=== PATIENT | male | born 1995 | race Caucasian/White ===

== ENCOUNTER 2020-07-28 13:32 | Observation (INO) | payer OTHER, SELFPAY ==
[2020-07-28] VITALS (9 sets, daily range): BP systolic 100–147; BP diastolic 56–98; PULSE 79–103; RESP 16–20; TEMP 36.6–37.3; O2SAT 96–99; BMI 24.2
--- NOTE | 2020-07-28 14:11 | XR_ITS ---
EXAMINATION: XR CHEST CLINICAL INFORMATION: Fever and cough COMPARISON: None TECHNIQUE: Frontal view of the chest was obtained. FINDINGS: No significant abnormality is noted involving the heart, lungs, mediastinum, bony thorax or soft tissues. IMPRESSION: Normal examination.
--- NOTE | 2020-07-28 14:12 | ECG_ITS ---
Test Reason : CHEST PAIN Blood Pressure : / mmHG Vent. Rate : 079 BPM Atrial Rate : 079 BPM P-R Int : 130 ms QRS Dur : 098 ms QT Int : 344 ms P-R-T Axes : 057 068 063 degrees QTc Int : 394 ms Sinus rhythm with marked sinus arrhythmia Otherwise normal ECG No previous ECGs available Referred By: Angelica Munoz Electronically Signed By:JULIA BHATIA MD
[2020-07-28] MEDS: 0.9 % Sodium Chloride 1,000 ML 999 ML IVCONT (14:20)
[2020-07-28] MEDS: ondansetron HCL 4 MG/2 ML VIAL IVPUSH ×2 (14:20→14:59)
--- NOTE | 2020-07-28 14:20 | ED.NAVMDI ---
HPI - Nausea/Vomiting/Diarrhea General Chief complaint: Nausea/Vomiting/Diarrhea <Angelica Munoz MD - Last Filed: 07/28/20 15:34> Stated complaint: flu symptons <Angelica Munoz MD - Last Filed: 07/28/20 15:34> Time Seen by Provider: 07/28/20 14:11 <Angelica Munoz MD - Last Filed: 07/28/20 15:34> Source: patient <Angelica Munoz MD - Last Filed: 07/28/20 15:34> Mode of arrival: ambulatory <Angelica Munoz MD - Last Filed: 07/28/20 15:34> Limitations: no limitations <Angelica Munoz MD - Last Filed: 07/28/20 15:34> History of Present Illness HPI Narrative: 25 years old male presented with 2 days his symptoms of fever, nausea, vomiting, and nonbloody watery diarrhea. Patient denies any sick contact, or recent travel, patient work at a [employer] place. <Angelica Munoz MD - Last Filed: 07/28/20 15:34> MD elicited complaint: nausea, vomiting, diarrhea and abdominal pain <Angelica Munoz MD - Last Filed: 07/28/20 15:34> Related Data Allergies/Adverse reactions: Allergies Allergy/AdvReac Type Severity Reaction Status Date / Time No Known Allergies Allergy Unverified 06/27/20 17:00 [No Known Allergies*] <Angelica Munoz MD - Last Filed: 07/28/20 15:34> Review of Systems Review of Systems: Yes all other systems are reviewed and are negative <Angelica Munoz MD - Last Filed: 07/28/20 15:34> Constitutional: Constitutional: Reports anorexia, Reports body ache(s), Reports chills, Reports fatigue, Reports fever(s) and Reports headache(s) <MD Enrique Josue Last Filed: 07/28/20 15:34> Eyes: Eyes: Reports no additional eye complaints <MD Enrique Josue Last Filed: 07/28/20 15:34> ENT: Reports system reviewed and no additional complaints, except as documented and Reports headache(s) <Angelica Munoz MD - Last Filed: 07/28/20 15:34> Cardiovascular: Cardiovascular: Reports no additional cardiovascular complaints <Angelica Munoz MD - Last Filed: 07/28/20 15:34> Respiratory: Respiratory: Reports no additional respiratory complaints <Angelica Munoz MD - Last Filed: 07/28/20 15:34> Gastrointestinal: Gastrointestinal: Reports as per HPI and Reports no additional gastrointestinal complaints <Angelica Munoz MD - Last Filed: 07/28/20 15:34> Neurologic: Reports system reviewed and no additional complaints, except as documented, Reports Abnormal speech present and Reports headache(s) <Angelica Munoz MD - Last Filed: 07/28/20 15:34> Endocrine: Endocrine: Reports fatigue <Angelica Munoz MD - Last Filed: 07/28/20 15:34> [facility] Past Medical History Medical History: Medical History No known health problems <Angelica Munoz MD - Last Filed: 07/28/20 15:34> Social History Social History: Social History Alcohol intake: never Smoked in Last 30 Days: No Use of substances other than those prescribed or required for medical reasons: No Advance Directives: No Advance Directives Information Provided: No <Angelica Munoz MD - Last Filed: 07/28/20 15:34> Physical Exam Vital Signs: Vital Signs: Vital Signs Temp Pulse Resp BP Pulse Ox 07/28/20 19:04 98.5 F 90 18 130/73 99 07/28/20 17:21 98.2 F 79 16 114/77 07/28/20 15:06 98.2 F 07/28/20 13:56 99 07/28/20 13:54 99.1 F 95 20 147/98 H 99 Body Mass Index 24.2 <Angelica Munoz MD - Last Filed: 07/28/20 15:34> Vital Signs: Vital Signs Temp Pulse Resp BP Pulse Ox 07/28/20 19:04 98.5 F 90 18 130/73 99 07/28/20 17:21 98.2 F 79 16 114/77 07/28/20 15:06 98.2 F 07/28/20 13:56 99 07/28/20 13:54 99.1 F 95 20 147/98 H 99 Body Mass Index 24.2 <Valerie Nava MD - Last Filed: 07/28/20 19:26> Const: General: tired appearing <Angelica Munoz MD - Last Filed: 07/28/20 15:34> Orientation/consciousness: oriented to person, oriented to place and oriented to time <Angelica Munoz MD - Last Filed: 07/28/20 15:34> Limitations: no limitations <Angelica Munoz MD - Last Filed: 07/28/20 15:34> HENMT: Head: Yes normal to inspection <Angelica Munoz MD - Last Filed: 07/28/20 15:34> Ears: hearing grossly normal bilaterally <Angelica Munoz MD - Last Filed: 07/28/20 15:34> General nose exam: Normal external nose present <Angelica Munoz MD - Last Filed: 07/28/20 15:34> Eyes: General: appearance normal, both eyes and all related structures <Angelica Munoz MD - Last Filed: 07/28/20 15:34> Neck: Neck: Yes normal visual inspection, Yes full ROM and Yes no lymphadenopathy <MD Enrique Josue Last Filed: 07/28/20 15:34> Chest: Chest palpation & inspection: normal inspection of the chest and normal palpation of entire chest wall <Angelica Munoz MD - Last Filed: 07/28/20 15:34> Resp: Effort & Inspection: normal respiratory effort <Angelica Munoz MD - Last Filed: 07/28/20 15:34> Auscultation: clear to auscultation bilaterally <MD Enrique Josue Last Filed: 07/28/20 15:34> Cardio: Jugular venous distension: no JVD <MD Enrique Josue Last Filed: 07/28/20 15:34> Palpation: normal PMI <Angelica Munoz MD - Last Filed: 07/28/20 15:34> Rate: regular rate <Angelica Munoz MD - Last Filed: 07/28/20 15:34> Rhythm: regular rhythm <Angelica Munoz MD - Last Filed: 07/28/20 15:34> GI: Inspection: Yes normal to inspection <Angelica Munoz MD - Last Filed: 07/28/20 15:34> Palpation (GI): Tenderness to palpation present (GI) ( Mild) in the epigastrum; with no rebound tenderness <Angelica Munoz MD - Last Filed: 07/28/20 15:34> : General: Yes no CVA tenderness <Angelica Munoz MD - Last Filed: 07/28/20 15:34> Back/Spine/Pelvis: Back: no CVA tenderness <Angelica Munoz MD - Last Filed: 07/28/20 15:34> Skin: General skin exam: no rashes or lesions noted <Angelica Munoz MD - Last Filed: 07/28/20 15:34> Neuro: General: oriented to person, oriented to place and oriented to time <Angelica Munoz MD - Last Filed: 07/28/20 15:34> Cranial nerves: Yes CN's II-XII intact bilaterally <Angelica Munoz MD - Last Filed: 07/28/20 15:34> Cognition (Neuro): normal cognition <Angelica Munoz MD - Last Filed: 07/28/20 15:34> Speech: Abnormal speech present <Angelica Munoz MD - Last Filed: 07/28/20 15:34> Motor exam (neuro): 5/5 motor strength present throughout <Angelica Munoz MD - Last Filed: 07/28/20 15:34> Extrem: General: Yes normal to inspection and Yes full ROM <Angelica Munoz MD - Last Filed: 07/28/20 15:34> Course Course Course Narrative: this is a 25-year-old male otherwise healthy presented with nausea, vomiting, and diarrhea, and objective fever. Patient was tested negative for COVID-19 couple months ago, patient declined any risk for exposing to COVID. Patient complained of chest pain which is part of generalized body ache. Will test for COVID, EKG, labs, IV hydration, anti emetic medication, then re-evaluate. <Angelica Munoz MD - Last Filed: 07/28/20 15:34> Reevaluation(s) Reevaluation #1: 25-year-old male otherwise healthy presented with nausea, vomiting, diarrhea, abdominal pain, leukocytosis. High suspicious for COVID ( COVID testing is pending ), abdominal pain and leukocytosis will get CT of the abdomen pelvis rule out intra abdominal pathology. Patient will require IV hydration/ IV pain medication/ IV antiemetic medication. Case was signed out to Dr. Nava to follow up with the plan then to his poor accordingly. <Angelica Munoz MD - Last Filed: 07/28/20 15:34> Time: 15:31 <Angelica Munoz MD - Last Filed: 07/28/20 15:34> MDM - Nausea/Vomiting/Diarrhea Lab Data Result diagrams: : 07/28/20 14:27 07/28/20 14:27 <Angelica Munoz MD - Last Filed: 07/28/20 15:34> Labs: Lab Results 07/28/20 07/28/20 07/28/20 Range/Units 14:27 14:27 14:27 WBC 17.3 H (4.8-10.8) X10*3/uL RBC 5.41 (4.60-5.80) X10*6/uL Hgb 16.9 (14.0-18.0) g/dl Hct 48.1 (42-52) % MCV 88.9 (80-98) fL MCH 31.2 (27.0-33.0) pg MCHC 35.1 (31.0-36.0) g/dl RDW 13.0 (11.0-16.0) % Plt Count 275 (160-400) X10*3/uL MPV 10.1 (9.4-12.4) fL Absolute Nucleated RBC 0.000 (0.0-0.012) X10*3/uL Nucleated RBC % (auto) 0.0 (0.0-0.2) /100WBC Sodium 138 (135-145) mmol/L Potassium 3.9 (3.3-5.1) mmol/l Chloride 102 (96-108) mmol/L Carbon Dioxide 21 L (22-29) mmol/L Anion Gap 19 (12-20) BUN 14 (9-16) mg/dL Creatinine 0.97 (0.5-1.4) mg/dL Estim Creat Clear Calc 105.9 Estimated GFR > 60 Random Glucose 130 H (60-115) mg/dL Calcium 10.2 (8.4-10.2) mg/dL Total Bilirubin 1.4 H (0.0-1.0) mg/dL Direct Bilirubin 0.6 H (0.0-0.5) mg/dL AST 27 (5-37) U/L ALT 41 H (0-40) U/L Alkaline Phosphatase 82 (39-117) U/L Troponin I High Sens (<3.5-35.0) ng/L Total Protein 8.7 H (6.5-8.0) g/dL Albumin 5.3 H (3.5-5.0) g/dL Lipase 6 L (8-78) U/L Coronavirus (PCR) (Negative) 07/28/20 07/28/20 Range/Units 14:27 15:01 WBC (4.8-10.8) X10*3/uL RBC (4.60-5.80) X10*6/uL Hgb (14.0-18.0) g/dl Hct (42-52) % MCV (80-98) fL MCH (27.0-33.0) pg MCHC (31.0-36.0) g/dl RDW (11.0-16.0) % Plt Count (160-400) X10*3/uL MPV (9.4-12.4) fL Absolute Nucleated RBC (0.0-0.012) X10*3/uL Nucleated RBC % (auto) (0.0-0.2) /100WBC Sodium (135-145) mmol/L Potassium (3.3-5.1) mmol/l Chloride (96-108) mmol/L Carbon Dioxide (22-29) mmol/L Anion Gap (12-20) BUN (9-16) mg/dL Creatinine (0.5-1.4) mg/dL Estim Creat Clear Calc Estimated GFR Random Glucose (60-115) mg/dL Calcium (8.4-10.2) mg/dL Total Bilirubin (0.0-1.0) mg/dL Direct Bilirubin (0.0-0.5) mg/dL AST (5-37) U/L ALT (0-40) U/L Alkaline Phosphatase (39-117) U/L Troponin I High Sens < 3.5 (<3.5-35.0) ng/L Total Protein (6.5-8.0) g/dL Albumin (3.5-5.0) g/dL Lipase (8-78) U/L Coronavirus (PCR) NEGATIVE (Negative) <Angelica Munoz MD - Last Filed: 07/28/20 15:34> Lab Results 07/28/20 07/28/20 07/28/20 Range/Units 14:27 14:27 14:27 WBC 17.3 H (4.8-10.8) X10*3/uL RBC 5.41 (4.60-5.80) X10*6/uL Hgb 16.9 (14.0-18.0) g/dl Hct 48.1 (42-52) % MCV 88.9 (80-98) fL MCH 31.2 (27.0-33.0) pg MCHC 35.1 (31.0-36.0) g/dl RDW 13.0 (11.0-16.0) % Plt Count 275 (160-400) X10*3/uL MPV 10.1 (9.4-12.4) fL Absolute Nucleated RBC 0.000 (0.0-0.012) X10*3/uL Nucleated RBC % (auto) 0.0 (0.0-0.2) /100WBC Sodium 138 (135-145) mmol/L Potassium 3.9 (3.3-5.1) mmol/l Chloride 102 (96-108) mmol/L Carbon Dioxide 21 L (22-29) mmol/L Anion Gap 19 (12-20) BUN 14 (9-16) mg/dL Creatinine 0.97 (0.5-1.4) mg/dL Estim Creat Clear Calc 105.9 Estimated GFR > 60 Random Glucose 130 H (60-115) mg/dL Calcium 10.2 (8.4-10.2) mg/dL Total Bilirubin 1.4 H (0.0-1.0) mg/dL Direct Bilirubin 0.6 H (0.0-0.5) mg/dL AST 27 (5-37) U/L ALT 41 H (0-40) U/L Alkaline Phosphatase 82 (39-117) U/L Troponin I High Sens (<3.5-35.0) ng/L Total Protein 8.7 H (6.5-8.0) g/dL Albumin 5.3 H (3.5-5.0) g/dL Lipase 6 L (8-78) U/L Coronavirus (PCR) (Negative) 07/28/20 07/28/20 Range/Units 14:27 15:01 WBC (4.8-10.8) X10*3/uL RBC (4.60-5.80) X10*6/uL Hgb (14.0-18.0) g/dl Hct (42-52) % MCV (80-98) fL MCH (27.0-33.0) pg MCHC (31.0-36.0) g/dl RDW (11.0-16.0) % Plt Count (160-400) X10*3/uL MPV (9.4-12.4) fL Absolute Nucleated RBC (0.0-0.012) X10*3/uL Nucleated RBC % (auto) (0.0-0.2) /100WBC Sodium (135-145) mmol/L Potassium (3.3-5.1) mmol/l Chloride (96-108) mmol/L Carbon Dioxide (22-29) mmol/L Anion Gap (12-20) BUN (9-16) mg/dL Creatinine (0.5-1.4) mg/dL Estim Creat Clear Calc Estimated GFR Random Glucose (60-115) mg/dL Calcium (8.4-10.2) mg/dL Total Bilirubin (0.0-1.0) mg/dL Direct Bilirubin (0.0-0.5) mg/dL AST (5-37) U/L ALT (0-40) U/L Alkaline Phosphatase (39-117) U/L Troponin I High Sens < 3.5 (<3.5-35.0) ng/L Total Protein (6.5-8.0) g/dL Albumin (3.5-5.0) g/dL Lipase (8-78) U/L Coronavirus (PCR) NEGATIVE (Negative) <Valerie Nava MD - Last Filed: 07/28/20 19:26> Discharge Plan Discharge Clinical Impression: Gastroenteritis Abdominal pain Qualifiers: Abdominal location: generalized Qualified Code(s): R10.84 - Generalized abdominal pain <Angelica Munoz MD - Last Filed: 07/28/20 15:34> Patient Disposition: Admitted As Inpatient <Angelica Munoz MD - Last Filed: 07/28/20 15:34>
[2020-07-28 14:35] LABS: Hematocrit 48.1 % (42-52); Hemoglobin 16.9 g/dl (14.0-18.0); Mean Corpuscular HGB Conc 35.1 g/dl (31.0-36.0); Mean Corpuscular Hemoglobin 31.2 pg (27.0-33.0); Mean Corpuscular Volume 88.9 fL (80-98); Mean Platelet Volume 10.1 fL (9.4-12.4); Platelet Count 275 X10*3/uL (160-400); Red Blood Count 5.41 X10*6/uL (4.60-5.80); White Blood Count 17.3 X10*3/uL (4.8-10.8)
[2020-07-28 14:59] LABS: Anion Gap 19 (12-20); Blood Urea Nitrogen 14 mg/dL (9-16); Calcium 10.2 mg/dL (8.4-10.2); Carbon Dioxide 21 mmol/L (22-29); Chloride 102 mmol/L (96-108); Creatinine Clr Calc Pharmacy 105.9; Estimated Glomerular Filt Rate > 60; Glucose Random 130 mg/dL (60-115); Potassium 3.9 mmol/l (3.3-5.1); Sodium 138 mmol/L (135-145)
[2020-07-28] MEDS: Ketorolac Tromethamine 15 MG/ML VIAL 30 MG IV (14:59)
[2020-07-28 15:00] LABS: Alanine Aminotransferase 41 U/L (0-40); Albumin Level 5.3 g/dL (3.5-5.0); Alkaline Phosphatase 82 U/L (39-117); Aspartate Amino Transferase 27 U/L (5-37); Bilirubin Direct 0.6 mg/dL (0.0-0.5); Bilirubin Total 1.4 mg/dL (0.0-1.0); Lipase 6 U/L (8-78); Total Protein 8.7 g/dL (6.5-8.0)
[2020-07-28 15:07] LABS: Troponin-I High Sensitivity < 3.5 ng/L (<3.5-35.0)
--- NOTE | 2020-07-28 15:07 | PC.NURSE ---
pt medicated for continues n/v up bile-like emesis, body aches. pt tearful. pending covid and dispo
--- NOTE | 2020-07-28 15:27 | CT_ITS ---
EXAMINATION: CT ABDOMEN AND PELVIS WITHOUT CONTRAST CLINICAL INFORMATION: 25-year-old male with abdominal pain and elevated white blood cell count. COMPARISON: CT abdomen pelvis 08/14/2009 TECHNIQUE: Multidetector volumetric imaging was performed from the superior aspect of the liver through the pubic symphysis. Sagittal and coronal reformatted images were obtained on the technologist's workstation. This CT examination was performed using dose optimization techniques as appropriate, variously including the following: *Automated exposure control *Adjustment of mA and/or kV according to patient size (this includes techniques or standardized protocols for targeted exams where dose is matched to indication/reason for exam; i.e. extremities or head) *Use of iterative reconstruction technique DLP: 439 mGy-cm FINDINGS: Visualized lung bases are well aerated. The liver demonstrates normal size, contour and attenuation. The gallbladder is normal in appearance. The pancreas, spleen and adrenal glands are unremarkable. Small inferior splenule. The kidneys are normal in size. No renal calculi or hydronephrosis bilaterally. Normal caliber loops of small and large bowel. Normal appendix. Nonaneurysmal abdominal aorta. The bladder is decompressed but normal in appearance. No inguinal lymphadenopathy. No gross free pelvic fluid. No acute osseous abnormality. IMPRESSION: No CT evidence for acute abnormality within the abdomen or pelvis.
[2020-07-28] MEDS: Morphine Sulfate 2 MG/ML CARTRIDGE IVPUSH (15:46)
[2020-07-28 16:10] LABS: SARS COV2 PCR INHOUSE NEGATIVE (Negative)
--- NOTE | 2020-07-28 16:50 | PC.NURSE ---
pharmacy called for banana bag
[2020-07-28] MEDS: Metoclopramide HCl 10 MG/2 ML VIAL IVPUSH (17:17)
[2020-07-28] MEDS: Morphine Sulfate 4 MG/ML CARTRIDGE IVPUSH (17:55)
[2020-07-28] MEDS: Prochlorperazine Edisylate 10 MG/2 ML VIAL IVPUSH (17:55)
--- NOTE | 2020-07-28 18:41 | ED.GENADULT ---
HPI - General Adult General Chief complaint: Nausea/Vomiting/Diarrhea Stated complaint: flu symptons Time Seen by Provider: 07/28/20 14:11 Source: patient Mode of arrival: ambulatory Limitations: no limitations Related Data Allergies Allergy/AdvReac Type Severity Reaction Status Date / Time No Known Allergies Allergy Unverified 06/27/20 17:00 [No Known Allergies*] Review of Systems Constitutional: Constitutional: Reports headache(s) ENT: Reports headache(s) Neurologic: Reports system reviewed and no additional complaints, except as documented, Reports Abnormal speech present and Reports headache(s) [facility] Past Medical History Medical History No known health problems Social History Social History Alcohol intake: never Smoked in Last 30 Days: No Use of substances other than those prescribed or required for medical reasons: No Advance Directives: No Advance Directives Information Provided: No Physical Exam Vital Signs: Vital Signs: Vital Signs Temp Pulse Resp BP Pulse Ox 07/28/20 17:21 98.2 F 79 16 114/77 07/28/20 15:06 98.2 F 07/28/20 13:56 99 07/28/20 13:54 99.1 F 95 20 147/98 H 99 Body Mass Index 24.2 Neuro: Speech: Abnormal speech present Course Course Course Narrative: I received sign-out from Dr. Munoz. patient has received normal saline, Reglan, Zofran, Compazine, multiple doses of morphine. Patient continues having diffuse abdominal pain and nausea vomiting. Patient to be admitted. Medical Decision Making MDM Narrative Medical decision making narrative: Patient's white blood cell count 17, still continues to vomit despite multiple treatments for nausea vomiting. Lab Data Result diagrams: 07/28/20 14:27 07/28/20 14:27 Labs: Lab Results 07/28/20 07/28/20 07/28/20 Range/Units 14:27 14:27 14:27 WBC 17.3 H (4.8-10.8) X10*3/uL RBC 5.41 (4.60-5.80) X10*6/uL Hgb 16.9 (14.0-18.0) g/dl Hct 48.1 (42-52) % MCV 88.9 (80-98) fL MCH 31.2 (27.0-33.0) pg MCHC 35.1 (31.0-36.0) g/dl RDW 13.0 (11.0-16.0) % Plt Count 275 (160-400) X10*3/uL MPV 10.1 (9.4-12.4) fL Absolute Nucleated RBC 0.000 (0.0-0.012) X10*3/uL Nucleated RBC % (auto) 0.0 (0.0-0.2) /100WBC Sodium 138 (135-145) mmol/L Potassium 3.9 (3.3-5.1) mmol/l Chloride 102 (96-108) mmol/L Carbon Dioxide 21 L (22-29) mmol/L Anion Gap 19 (12-20) BUN 14 (9-16) mg/dL Creatinine 0.97 (0.5-1.4) mg/dL Estim Creat Clear Calc 105.9 Estimated GFR > 60 Random Glucose 130 H (60-115) mg/dL Calcium 10.2 (8.4-10.2) mg/dL Total Bilirubin 1.4 H (0.0-1.0) mg/dL Direct Bilirubin 0.6 H (0.0-0.5) mg/dL AST 27 (5-37) U/L ALT 41 H (0-40) U/L Alkaline Phosphatase 82 (39-117) U/L Troponin I High Sens (<3.5-35.0) ng/L Total Protein 8.7 H (6.5-8.0) g/dL Albumin 5.3 H (3.5-5.0) g/dL Lipase 6 L (8-78) U/L Coronavirus (PCR) (Negative) 07/28/20 07/28/20 Range/Units 14:27 15:01 WBC (4.8-10.8) X10*3/uL RBC (4.60-5.80) X10*6/uL Hgb (14.0-18.0) g/dl Hct (42-52) % MCV (80-98) fL MCH (27.0-33.0) pg MCHC (31.0-36.0) g/dl RDW (11.0-16.0) % Plt Count (160-400) X10*3/uL MPV (9.4-12.4) fL Absolute Nucleated RBC (0.0-0.012) X10*3/uL Nucleated RBC % (auto) (0.0-0.2) /100WBC Sodium (135-145) mmol/L Potassium (3.3-5.1) mmol/l Chloride (96-108) mmol/L Carbon Dioxide (22-29) mmol/L Anion Gap (12-20) BUN (9-16) mg/dL Creatinine (0.5-1.4) mg/dL Estim Creat Clear Calc Estimated GFR Random Glucose (60-115) mg/dL Calcium (8.4-10.2) mg/dL Total Bilirubin (0.0-1.0) mg/dL Direct Bilirubin (0.0-0.5) mg/dL AST (5-37) U/L ALT (0-40) U/L Alkaline Phosphatase (39-117) U/L Troponin I High Sens < 3.5 (<3.5-35.0) ng/L Total Protein (6.5-8.0) g/dL Albumin (3.5-5.0) g/dL Lipase (8-78) U/L Coronavirus (PCR) NEGATIVE (Negative) Discharge Plan Discharge Clinical Impression: Gastroenteritis, Abdominal pain Patient Disposition: Admitted As Inpatient
--- NOTE | 2020-07-28 18:52 | PC.NURSE ---
hospitalist at bedside
--- NOTE | 2020-07-28 19:51 | PC.NURSE ---
called to med surg. awaiting call back
[2020-07-28] MEDS: 0.9 % Sodium Chloride 1,000 ML 100 ML IVCONT (22:23)
[2020-07-28] MEDS: Morphine Sulfate 2 MG/ML CARTRIDGE 1 MG IVPUSH (22:57)
--- NOTE | 2020-07-28 23:10 | HP_ITS ---
DATE OF SERVICE: 07/28/2020 CHIEF COMPLAINT: Mr. Aren Julio is a 25-year-old male presenting with nausea, vomiting, and abdominal discomfort. HISTORY OF PRESENT ILLNESS: He is a 25-year-old male with no significant past medical history who comes into the emergency room today because of nausea, vomiting, and abdominal pain, this started about 3 days ago. He is not sure what may have precipitated it. He denies any associated food. He has not had any recent travel. No sick contacts. He said that he gets several episodes of nausea, vomiting, and diarrhea a day, specifically today he has only had 3 episodes of nonbloody loose associated with the abdominal pain that is fairly diffuse. He says that he has felt like he has chills, but no fever and has not taken any antibiotics over the course of the last 3 months. [place] [id number] with no left shift and a CAT scan of the abdomen or pelvis is essentially unremarkable. He admits to daily marijuana smoking. Treatment in the ED has consisted of hydration, antiemetics, ketorolac, and morphine for pain. ALLERGIES: NO KNOWN ALLERGIES. PAST MEDICAL HISTORY: He does have history of gastroenteritis in the past, other than that he has no past medical history. SOCIAL HISTORY: He is unemployed. He smoke marijuana on a daily basis. He denied other illicit drug use. He uses alcohol on a social basis. FAMILY HISTORY: He reported that his father or mother carried no significant chronic medical disease. REVIEW OF SYSTEMS: CONSTITUTIONAL: There is no fever. RESPIRATORY: He has no respiratory symptoms. GI: Abdominal pain, nausea, and vomiting as detailed in history of present illness. All other systems are reviewed and are negative. MEDICATIONS: He takes no chronic medications. PHYSICAL EXAMINATION: VITAL SIGNS: Most recent include a temperature of 98.2, pulse 79, respirations 15, blood pressure 114/76, and oxygen saturation 99% on room air. GENERAL: The patient looks fairly well nourished, was not in any discomfort at all. General appearance was unremarkable. CARDIOVASCULAR: Regular rate on the panel monitor. LUNGS: He has normal lung expansion and no acute respiratory distress at all. ABDOMEN: Fairly unremarkable, soft, no distention, no tenderness. SKIN: Without rash. NEUROLOGICAL EXAM: Unremarkable. PSYCHIATRIC: The patient with normal affect. LABORATORY DATA: WBC 17.3, hemoglobin is 16.9, hematocrit 48.9, and platelets of 275. Chemistry, sodium 138, potassium 3.9, chloride 102, bicarb is 21, BUN is 14, creatinine 0.96, random glucose is 130, total bilirubin 1.4, direct bili is 0.6, alkaline phosphatase is within normal 82, total protein is 8.7, albumin is 5.3, and lipase is 6, which is low. Coronavirus test is negative. CT of the abdomen and pelvis again is unremarkable. ASSESSMENT: This is a 25-year-old male presented with nausea, vomiting, abdominal pain, elevated WBC, likely reactive process. CT of the abdomen and pelvis unremarkable. He likely has acute viral gastroenteritis. Given the ongoing nausea and vomiting and unable to keep oral intake, we will observe overnight. PLAN: We will consider hydration, antiemetics, and pain medications. We will also take the opportunity to check a stool studies including WBC, culture, and c diff, although it is very unlikely. He will be counseled on the need for marijuana cessation as this could be contributing to his presentation in the form of a cyclical vomiting. He is at low risk for DVT and therefore, we will encourage him to ambulate and he likely will not stay in the hospital beyond tomorrow. MD GERALD Magana/ANGELINA / [id number]
[2020-07-28] MEDS: 0.9 % Sodium Chloride Flush 3 ML SYRINGE IVFLUSH (23:46)
[2020-07-29 04:00] VITALS: BP 109/58; PULSE 88; RESP 16; TEMP 36.8; O2SAT 97
[2020-07-29 04:04] LABS: Glucose Urine UA 100 MG/DL (NEG); Leukocyte Esterase Urine NEG (NEG); Nitrite Urine NEG (NEG); PH 6.5 (5.0-8.0); Specific Gravity - Urine 1.025 (1.005-1.025); Urine Blood NEG (NEG); Urine Ketones 40 MG/DL (NEG); Urine Protein TRACE MG/DL (NEG-TRACE)
[2020-07-29 04:06] LABS: Appearance Urine CLEAR; Color Urine YELLOW; UACC Culture Trigger NO
[2020-07-29 06:10] VITALS: RESP 17
[2020-07-29 06:13] VITALS: RESP 17
[2020-07-29] MEDS: Morphine Sulfate 2 MG/ML CARTRIDGE 1 MG IVPUSH (06:13)
[2020-07-29 07:14] LABS: Basophils Percent Auto 0.2 % (0-2); Eosinophils Percent Auto 0.1 % (0-4); Hematocrit 42.3 % (42-52); Hemoglobin 14.7 g/dl (14.0-18.0); Imm Gran Abs Auto 0.04 X10*3/uL (0.00-0.03); Imm Gran Pct Auto 0.3 % (0.0-0.4); Lymphocytes Absolute Auto 2.4 X10*3/uL (1.2-4.9); Lymphocytes Percent Auto 19.1 % (20-40); MANUAL DIFF FLAG SCAN; Mean Corpuscular HGB Conc 34.8 g/dl (31.0-36.0); Mean Corpuscular Hemoglobin 31.3 pg (27.0-33.0); Mean Corpuscular Volume 90.2 fL (80-98); Mean Platelet Volume 10.7 fL (9.4-12.4); Monocytes Absolute Auto 1.5 X10*3/uL (0.1-1.2); Monocytes Percent Auto 12.2 % (2-11); Neutrophils Absolute Auto 8.5 X10*3/uL (2.0-8.3); Neutrophils Percent Auto 68.1 % (45-73); Platelet Count 225 X10*3/uL (160-400); Red Blood Count 4.69 X10*6/uL (4.60-5.80); Red Cell Distribution Width 12.9 % (11.0-16.0); SCAN SMEAR FLAG 1; White Blood Count 12.5 X10*3/uL (4.8-10.8)
[2020-07-29] MEDS: 0.9 % Sodium Chloride 1,000 ML 100 ML IVCONT (07:28)
[2020-07-29 07:30] LABS: Anion Gap 13 (12-20); Blood Urea Nitrogen 10 mg/dL (9-16); Carbon Dioxide 22 mmol/L (22-29); Chloride 107 mmol/L (96-108); Creatinine Clr Calc Pharmacy 130.1; Estimated Glomerular Filt Rate > 60; Glucose Random 90 mg/dL (60-115); Potassium 3.7 mmol/l (3.3-5.1); Sodium 138 mmol/L (135-145)
[2020-07-29 07:47] LABS: Calcium 8.6 mg/dL (8.4-10.2)
[2020-07-29 08:00] VITALS: BP 98/55; PULSE 60; RESP 20; TEMP 37.1; O2SAT 98
[2020-07-29 08:00] LABS: SLIDE REVIEW VERIFIED
--- NOTE | 2020-07-29 08:27 | PM.DS ---
DS: Providers Provider Date of admission: 07/28/20 18:54 Primary care physician: Curtis Physician DS: Diagnosis Discharge Diagnosis (1) Gastroenteritis: Status: Acute (2) Abdominal pain: Status: Acute DS: Summary Hospital Course Hospital Course: See H and P for detail. 25-year-old male otherwise healthy who presented to the ED with nausea vomiting abdominal pain of 2-[address] scan of the abdomen and pelvis was unremarkable. WBC was elevated but related to reactive process. Patient was hospitalized overnight hydrated with IV fluid, giving antiemetics and by the next morning was feeling fine WBC has returned to come down to 12 from 17. 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 He is advised to stop smoking marijuana and to drink plenty of fluid. Has not had any more diarrhea or nausea vomiting overnight and is tolerating regular diet. He will be going home. He is advised to follow-up with primary care physician physician upon discharge . Status at Discharge Functional status at discharge: independent ambulation Overall status at discharge: patient is back to baseline Time Spent with Patient Time attestation: Total time spent providing and/or coordinating discharge services: Physical Exam Vital Signs: Vital Signs: Vital Signs Temp Pulse Resp BP Pulse Ox 07/29/20 08:00 98.7 F 60 20 98/55 L 98 07/29/20 06:13 17 07/29/20 06:10 17 07/29/20 04:00 98.2 F 88 16 109/58 L 97 07/28/20 23:20 99 F 95 18 100/56 L 97 07/28/20 22:57 18 07/28/20 21:27 98.3 F 103 H 18 129/65 96 07/28/20 20:51 97.9 F 90 18 138/83 97 07/28/20 19:04 98.5 F 90 18 130/73 99 07/28/20 17:21 98.2 F 79 16 114/77 07/28/20 15:06 98.2 F 07/28/20 13:56 99 07/28/20 13:54 99.1 F 95 20 147/98 H 99 Constitutional Awake and Alert, No apparent distress Neck Supple, No lymphadenopathy Cardiovascular RRR, No M/R/G, S1 S2, No S3 S4, No pedal edema Respiratory Lungs clear, No respiratory distress Gastrointestinal Non tender, Non-distended Skin No rash Neurological Alert & oriented x3 Psychological Appropriate affect DS: Data Data Completed and Pending Labs on day of discharge: Labs from last 24 hours 07/29/20 07/29/20 07/29/20 06:28 06:28 03:46 WBC 12.5 H RBC 4.69 Hgb 14.7 Hct 42.3 MCV 90.2 MCH 31.3 MCHC 34.8 RDW 12.9 Plt Count 225 MPV 10.7 Immature Gran % (Auto) 0.3 Neut % (Auto) 68.1 Lymph % (Auto) 19.1 L [place] % (Auto) 12.2 H Eos % (Auto) 0.1 Baso % (Auto) 0.2 Lymph # (Auto) 2.4 [place] # (Auto) 1.5 H Eos # (Auto) 0.0 Baso # (Auto) 0.0 Abs Immat Gran (auto) 0.04 H Absolute Neuts (auto) 8.5 H Absolute Nucleated RBC 0.000 Nucleated RBC % (auto) 0.0 Smear Tech's Comments VERIFIED Sodium 138 Potassium 3.7 Chloride 107 Carbon Dioxide 22 Anion Gap 13 BUN 10 Creatinine 0.79 Estim Creat Clear Calc 130.1 Estimated GFR > 60 Random Glucose 90 Calcium 8.6 Total Bilirubin Direct Bilirubin AST ALT Alkaline Phosphatase Troponin I High Sens Total Protein Albumin Lipase Urine Color YELLOW Urine Appearance CLEAR Urine pH 6.5 Ur Specific [place] 1.025 Urine Protein TRACE Urine Glucose (UA) 100 H Urine Ketones 40 Urine Blood NEG Urine Nitrite NEG Ur Leukocyte Esterase NEG Coronavirus (PCR) 07/28/20 07/28/20 07/28/20 15:01 14:27 14:27 WBC RBC Hgb Hct MCV MCH MCHC RDW Plt Count MPV Immature Gran % (Auto) Neut % (Auto) Lymph % (Auto) [place] % (Auto) Eos % (Auto) Baso % (Auto) Lymph # (Auto) [place] # (Auto) Eos # (Auto) Baso # (Auto) Abs Immat Gran (auto) Absolute Neuts (auto) Absolute Nucleated RBC Nucleated RBC % (auto) Smear Tech's Comments Sodium Potassium Chloride Carbon Dioxide Anion Gap BUN Creatinine Estim Creat Clear Calc Estimated GFR Random Glucose Calcium Total Bilirubin 1.4 H Direct Bilirubin 0.6 H AST 27 ALT 41 H Alkaline Phosphatase 82 Troponin I High Sens < 3.5 Total Protein 8.7 H Albumin 5.3 H Lipase 6 L Urine Color Urine Appearance Urine pH Ur Specific [place] Urine Protein Urine Glucose (UA) Urine Ketones Urine Blood Urine Nitrite Ur Leukocyte Esterase Coronavirus (PCR) NEGATIVE 07/28/20 07/28/20 14:27 14:27 WBC 17.3 H RBC 5.41 Hgb 16.9 Hct 48.1 MCV 88.9 MCH 31.2 MCHC 35.1 RDW 13.0 Plt Count 275 MPV 10.1 Immature Gran % (Auto) Neut % (Auto) Lymph % (Auto) [place] % (Auto) Eos % (Auto) Baso % (Auto) Lymph # (Auto) [place] # (Auto) Eos # (Auto) Baso # (Auto) Abs Immat Gran (auto) Absolute Neuts (auto) Absolute Nucleated RBC 0.000 Nucleated RBC % (auto) 0.0 Smear Tech's Comments Sodium 138 Potassium 3.9 Chloride 102 Carbon Dioxide 21 L Anion Gap 19 BUN 14 Creatinine 0.97 Estim Creat Clear Calc 105.9 Estimated GFR > 60 Random Glucose 130 H Calcium 10.2 Total Bilirubin Direct Bilirubin AST ALT Alkaline Phosphatase Troponin I High Sens Total Protein Albumin Lipase Urine Color Urine Appearance Urine pH Ur Specific [place] Urine Protein Urine Glucose (UA) Urine Ketones Urine Blood Urine Nitrite Ur Leukocyte Esterase Coronavirus (PCR) Discharge Plan Discharge Anticipated Discharge Date/Time: 07/29/20 08:25 Patient Disposition: Home, Self-Care Referrals: Physician,None [Primary Care Provider] - Discharge Medications: No Action No Known Home Meds RF: 0 Discharge Orders: Discharge Order (Routine); Ordered 07/29/20 Ordered By: Kris Ruelas Diet: advance to your usual diet Activity on Discharge: As tolerated Visit Report Forms: Patient Portal Discharge page Care Plan Goals: Prevent dehydration Health Concerns: Potential dehydration from intactable nausea and vomitting Plan of Treatment: Drink plenty of water
--- NOTE | 2020-07-29 09:29 | MHC.CM.PN ---
MET WITH PATIENT IN HIS ROOM. OPEN TO ASSESSMENT. LIVES ALONE, BUT HAS SUPPORTIVE FRIENDS AND FAMILY. HAS NO SERVICES AND REQUIRES NONE FOR THIS DISCHARGE. PT DOES NOT HAVE A PCP; LIST OF PRIMARY CARE PHYSICIAN GIVEN TO PT. PT IS DISCHARGED HOME.
[2020-07-29] MEDS: Ketorolac Tromethamine 15 MG/ML VIAL IV (09:59)
== END 2020-07-29 12:18 | disposition home or self-care (01) ==
LOC: HO.ED 18:46 → HO.S3 19:55
PROVIDERS: Emergency Medicine; Physician Assistant Medical; Admitting Provider Internal Medicine; Emergency Provider Emergency Medicine; Visit Provider Internal Medicine
DX: R10.9 Unspecified abdominal pain (principal); D72.829 Elevated white blood cell count, unspecified; R11.15 Cyclical vomiting syndrome unrelated to migraine; R50.9 Fever, unspecified; R05 Cough; F12.20 Cannabis dependence, uncomplicated; Z79.899 Other long term (current) drug therapy; Z20.828 Contact with and (suspected) exposure to other viral communicable diseases
CPT/HCPCS: 36415; 71045; 74176; 80048; 80076; 81003; 83690; 84484; 85025; 85027; 87635; 93005; 96361; 96365; 96375; 96376; 99218; 99285; J1885; J2270; J2405; J2765; J3411

== ENCOUNTER 2021-08-16 11:13 | Emergency (ER) | payer OTHER, SELFPAY ==
[2021-08-16 11:40] VITALS: BP 114/77; PULSE 97; RESP 18; TEMP 36.6; O2SAT 99; BMI 24.2
[2021-08-16 12:34] VITALS: TEMP 36.8
[2021-08-16 12:48] LABS: COVID-19 Test Positive (Negative)
--- NOTE | 2021-08-16 13:03 | ED_ITS ---
HPI - URI/Sore Throat General Chief Complaint: Upper Respiratory Symptoms Stated Complaint: fever, body ache, cough, diff breathing Time Seen by Provider: 08/16/21 11:16 Source: patient Mode of arrival: ambulatory Limitations: no limitations History of Present Illness MD elicited complaint: fever, cough and other (body aches, diff breathing) Onset (ago): day(s) (3) Consistency: intermittent Severity: mild Description of mucous: clear Able to tolerate fluids by mouth: Yes Exacerbating factors: nothing Relieving factors: nothing Context: other (not vaccinated) Associated symptoms: fever, chills, myalgias, cough and shortness of breath Treatments prior to arrival: none Related Data Home Medications Medication Instructions Recorded Confirmed No Known Home Meds 07/28/20 07/28/20 Allergies Allergy/AdvReac Type Severity Reaction Status Date / Time No Known Allergies Allergy Unverified 06/27/20 17:00 [No Known Allergies*] Review of Systems Review of Systems: Constitutional : positive Fever, positive Chills, positive fatigue, positive Malaise ENT/Mouth : positive sore throat, positive runny nose Eyes: No Discharge Cardiovascular : No Chest Pain, pos SOB Respiratory : No Cough, No Sputum Gastrointestinal : No Nausea, No Vomiting, No Diarrhea Genitourinary : No Dysuria, No Urinary Frequency Musculoskeletal : positive Myalgia Skin : No rash Neuro : No Headache PMFSH Past Medical History Attestation statement: The following information was validated with the patient. Medical History No known health problems Social History Social History Alcohol intake: never Second Hand Smoke Exposure: No Advance Directives: No service: No Current occupational status: unemployed Physical Exam Vital Signs: Vital Signs: Last Vital Signs Temp 98.3 F 08/16/21 12:34 Pulse 97 08/16/21 11:40 Resp 18 08/16/21 11:40 BP 114/77 08/16/21 11:40 Pulse Ox 99 08/16/21 11:40 Body Mass Index 24.2 Appearance: Alert. Oriented X3. No acute distress. Initially very hard to get the patient off the phone with his family - fighting about how he contracted the virus. I had to ask him to get off the phone a couple of times to assess him, he had no signs of resp distress while talking animated to family - yelling at times, I asked him to put the phone on speaker so that I could examine him. He moved around well and showed no signs of peritoneal signs and moved very well. Eyes: Pupils equal, round and reactive to light. ENT: Pharynx normal. Neck: Normal inspection. Neck supple. CVS: Normal heart rate and rhythm. Pulses normal. Respiratory: No respiratory distress. Breath sounds normal. Abdomen: Soft and non-tender. Skin: Skin warm and dry. Normal skin color. Normal skin turgor. Extremities: No lower extremity edema. No calf ttp Neuro: Oriented X 3. No motor deficit. No sensory deficit. MDM - URI/Sore Throat MDM Narrative Medical decision making narrative: 26 yo male unvaccinated here with c/o feeling fatigued, winded, fevers - tested positive for COVID, he has clear lungs and has no hypoxia 98% on RA - given precautions to return Lab Data Labs: Lab Results 08/16/21 Range/Units 12:31 COVID-19 ([facility]) Positive A (Negative) COVID-19 Clin Com See Note Discharge Plan Discharge Clinical Impression: COVID-19 Patient Disposition: Home, Self-Care Instructions: COVID-19 (Coronavirus Disease 2019) (ED) Additional Instructions: return to ED for any worsening symptoms or concerns if you are so short of breath you cannot walk to the bathroom please come back wear a mask, quarantine yourself, do not expose others you could contact [facility] to see if you qualify for treatment [phone] Prescriptions: No Action No Known Home Meds RF: 0 Stand Alone Forms: Work/School Release Interventions: ED Discharge Assessment Last Done: 08/16/21 13:28 Discharge Date/Time: 08/16/21 13:29
== END 2021-08-16 13:29 | disposition home or self-care (01) ==
PROVIDERS: Emergency Provider Emergency Medicine
DX: U07.1 COVID-19 (principal); R50.9 Fever, unspecified; R05.9 Cough, unspecified; M79.10 Myalgia, unspecified site
CPT/HCPCS: 36415; 87635; 99283; 99284

== ENCOUNTER 2023-06-20 15:36 | Emergency (ER) | payer OTHER, SELFPAY ==
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
--- NOTE | 2023-06-20 07:30 | ECG_ITS ---
Test Reason : ASSUALTED Blood Pressure : / mmHG Vent. Rate : 108 BPM Atrial Rate : 108 BPM P-R Int : 140 ms QRS Dur : 092 ms QT Int : 358 ms P-R-T Axes : 035 042 008 degrees QTc Int : 479 ms Sinus tachycardia Possible Left atrial enlargement Borderline ECG When compared with ECG of 20-JUN-2023 15:51, No significant change was found Referred By: Lara Ramos Electronically Signed By:DEJAN TOMLINSON
[2023-06-20 15:42] VITALS: BP 140/79; PULSE 175; RESP 20; O2SAT 98
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
--- NOTE | 2023-06-20 15:50 | ECG_ITS ---
Test Reason : TACHY Blood Pressure : / mmHG Vent. Rate : 134 BPM Atrial Rate : 134 BPM P-R Int : 136 ms QRS Dur : 086 ms QT Int : 306 ms P-R-T Axes : 041 042 021 degrees QTc Int : 456 ms Sinus tachycardia Possible Left atrial enlargement Abnormal ECG When compared with ECG of 28-JUL-2020 13:41, Vent. rate has increased BY 55 BPM Referred By: Wendi Frias Electronically Signed By:DEJAN TOMLINSON
[2023-06-20 16:15] LABS: MANUAL DIFF FLAG NO
[2023-06-20 16:17] LABS: Basophils Percent Auto 0.1 % (0-2); Eosinophils Absolute Auto 0.1 X10*3/uL (0.0-0.4); Eosinophils Percent Auto 0.8 % (0-4); Hematocrit 40.5 % (42.0-52.0); Imm Gran Abs Auto 0.07 X10*3/uL (0.00-0.03); Imm Gran Pct Auto 0.7 % (0.0-0.4); Lymphocytes Absolute Auto 3.4 X10*3/uL (1.2-4.9); Mean Corpuscular HGB Conc 34.6 g/dl (31.0-36.0); Mean Corpuscular Hemoglobin 28.3 pg (27.0-33.0); Mean Platelet Volume 9.7 fL (9.4-12.4); Monocytes Absolute Auto 0.6 X10*3/uL (0.1-1.2); Monocytes Percent Auto 6.1 % (2-11); Neutrophils Absolute Auto 6.2 x10*3/uL (2.0-8.3); Neutrophils Percent Auto 59.3 % (45-73); Platelet Count 284 X10*3/uL (160-400); Red Blood Count 4.94 X10*6/uL (4.60-5.80); Red Cell Distribution Width 13.2 % (11.0-16.0); White Blood Count 10.4 X10*3/uL (4.8-10.8)
[2023-06-20 16:26] LABS: Prothrombin Time 11.6 SEC (11.1-13.3)
[2023-06-20 16:35] VITALS: BP 143/95; PULSE 109; RESP 16; O2SAT 96
[2023-06-20 16:35] LABS: Alanine Aminotransferase 41 U/L (0-40); Albumin Level 4.7 g/dL (3.5-5.0); Alkaline Phosphatase 106 U/L (39-117); Anion Gap 16 (12-20); Aspartate Amino Transferase 44 U/L (5-37); Bilirubin Total 0.8 mg/dL (0.0-1.0); Blood Urea Nitrogen 6 mg/dL (9-16); Calcium 9.4 mg/dL (8.4-10.2); Carbon Dioxide 22 mmol/L (22-29); Chloride 102 mmol/L (96-108); Creatinine Clr Calc Pharmacy 131.5; Estimated Glomerular Filt Rate > 60; Ethanol < 10 mg/dL; Glucose Random 136 mg/dL (60-115); Potassium 3.4 mmol/L (3.3-5.1); Sodium 137 mmol/L (135-145)
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
[2023-06-20 16:48] LABS: Troponin-I High Sensitivity < 2.7 ng/L (<3.5-35.0)
[2023-06-20 17:42] VITALS: BP 143/95; PULSE 87; RESP 16
[2023-06-20] MEDS: 0.9 % Sodium Chloride 1,000 ML 999 ML IV (18:04)
[2023-06-20 18:08] LABS: Amphetamine Screen Urine Not Detected (Not Detect); Barbiturates, Urine Not Detected (Not Detect); Benzodiazepines Screen Urine Not Detected (Not Detect); Cannabinoid Screen Urine POSITIVE (Not Detect); Cocaine Screen Urine Not Detected (Not Detect); Fentanyl, urine POSITIVE (Not Detect); Opiate Screen Urine POSITIVE (Not Detect); Phencyclidine Screen Urine Not Detected (Not Detect)
[2023-06-20] MEDS: Ketorolac Tromethamine 15 MG/ML VIAL IVPUSH (19:00)
[2023-06-20] MEDS: Diphth,Pertus(ACell),Tet Adult 0.5 ML SYRINGE IM (19:00)
== END 2023-06-20 19:10 | disposition home or self-care (01) ==
PROVIDERS: Nurse Practitioner Family; Emergency Provider Emergency Medicine Emergency Medical Services; PCP Internal Medicine
DX: S06.0X0A Concussion without loss of consciousness, initial encounter (principal); S21.259A Open bite of unspecified back wall of thorax without penetration into thoracic cavity, initial encounter; S00.91XA Abrasion of unspecified part of head, initial encounter; Y04.1XXA Assault by human bite, initial encounter; M54.50 Low back pain, unspecified; R51.9 Headache, unspecified; R00.0 Tachycardia, unspecified; M54.2 Cervicalgia; R07.89 Other chest pain; R42 Dizziness and giddiness; Y93.9 Activity, unspecified; Y92.9 Unspecified place or not applicable; Y99.9 Unspecified external cause status; Z23 Encounter for immunization; Z79.899 Other long term (current) drug therapy
CPT/HCPCS: 12031; 36415; 70450; 71045; 72125; 80053; 80307; 84484; 85025; 85610; 90471; 90715; 93005; 96374; 99285; J1885

== ENCOUNTER 2023-08-14 14:06 | Inpatient (IN) | payer OTHER, SELFPAY ==
[2023-08-14 14:09] VITALS: BP 142/85; PULSE 79; RESP 16; TEMP 37.1; O2SAT 98; BMI 25.1
--- NOTE | 2023-08-14 14:11 | ED.GENADULT ---
HPI - General Adult General Chief complaint: Psychiatric Symptoms Stated complaint: crisis? Time Seen by Provider: 08/14/23 14:17 Source: patient Mode of arrival: ambulatory Limitations: no limitations History of Present Illness HPI narrative: Patient comes to the emergency room complaining of suicidal ideation. Patient states that he has considered overdosing. Patient used IV drugs approximately 2 hours ago. Patient denies HI. Patient currently homeless. Related Data Home Medications Medication Instructions Recorded Confirmed Methadone Intensol 95 mg PO DAILY 08/14/23 08/15/23 aripiprazole 5 mg tablet 5 mg PO DAILY 08/14/23 08/14/23 gabapentin 300 mg capsule 300 mg PO TID PRN anxiety 08/14/23 08/14/23 hydroxyzine HCl 25 mg tablet 25 mg PO TID PRN anxiety 08/14/23 08/14/23 mirtazapine 15 mg tablet 15 mg PO BEDTIME 08/14/23 08/14/23 nicotine (polacrilex) 4 mg gum 4 mg PO Q2H PRN Smoking Cessation 08/14/23 08/14/23 Allergies Allergy/AdvReac Type Severity Reaction Status Date / Time No Known Allergies Allergy Verified 08/14/23 14:09 [No Known Allergies*] Review of Systems Review of Systems: Constitutional : No Weight loss, No Fever, No Chills, No Night Sweats, No Fatigue, No Malaise ENT/Mouth : No Hearing loss, No Ear Pain, No Nasal Congestion, No Sinus Pain, No Hoarseness, No sore throat, No Rhinorrhea, No Swallowing Difficulty Eyes: No Eye Pain, No Swelling, No Redness, No Foreign Body, No Discharge, No Vision Changes Cardiovascular : No Chest Pain, No SOB, No Dyspnea on Exertion, No Orthopnea, No Edema, No Palpitations Respiratory : No Cough, No Sputum, No Wheezing, No Smoke Exposure, No Dyspnea Gastrointestinal : No Nausea, No Vomiting, No Diarrhea, No Constipation, No abdominal Pain, No Hematochezia, No Melena Genitourinary : no irregular bleeding, No Dysuria, No Urinary Frequency, No Hematuria, No Urinary Incontinence, No Urgency, No Flank Pain, No Urinary Flow Changes, No Hesitancy Musculoskeletal : No joint pain, No Myalgias, No Joint Swelling Skin : No Skin Lesions, No rash Neuro : No Weakness, No Numbness, No Paresthesias, No Loss of Consciousness, No Dizziness, No Headache Psych : No Anxiety/Panic, complaining of suicidal ideation, no homicidal ideation, admits to drug abuse and being homeless Heme/Lymph: No Bruising, No Bleeding,No Lymphadenopathy Endocrine : No Polyuria, No Polydipsia, No Temperature Intolerance PMF Past Medical History Medical History (Updated 08/14/23 @ 14:52 by Valerie Nava MD) Polysubstance abuse Social History Social History Alcohol intake: former Second Hand Smoke Exposure: No Substance Use Type: Opiates Advance Directives: No Advance Directives Information Provided: No Healthcare Proxy: No Guardian: No service: No Current occupational status: unemployed Physical Exam ED Vital Signs: Vital Signs - 24 hr 08/15/23 20:08 08/16/23 06:16 Temperature 98 F 98.2 F Pulse Rate 78 68 Respiratory Rate 18 16 Blood Pressure 109/75 121/83 Pulse Oximetry 95 98 Oxygen Delivery Method Room Air Room Air BMI result Body Mass Index 25.1 Const Other: Appearance: Alert. Oriented X3. No acute distress. Eyes: Pupils equal, round and reactive to light. ENT: Pharynx normal. Neck: Normal inspection. Neck supple. No lymph nodes noted. No crepitus CVS: Normal heart rate and rhythm. Pulses normal. Normal S1 and S2 Respiratory: No respiratory distress. Breath sounds normal. No Wheezing. No rales Abdomen: Soft and nontender. No rigidity. No distention. Skin: Skin warm and dry. Normal skin color. Normal skin turgor. Extremities: No lower extremity edema. No Lacerations. No Rash Neuro: Oriented X 3. No motor deficit. No sensory deficit. Moving all extremities. No slurred speech. CN 2 through 12 grossly intact Psych: calm, cooperative, normal affect Course Course Course Narrative: Patient complains of depression anxiety and stress He has suicidal thoughts and has attempted to overdose, and is contemplating jumping off a bridge Labs ordered This is rapid medical exam and triage pending full evaluation in the emergency room Reevaluation(s) Reevaluation #1: Aug 15 7:05 stable overnight he on section 12 for SI /substance abuse no new complaints Time: 07:06 Reevaluation #2: Aug 16 8 AM no new complaints we are waiting for crisis final dispo he presented with SI Medications Administered Generic Name Dose Route Start Last Admin Trade Name Freq PRN Reason Stop Dose Admin Aripiprazole 5 mg 08/15/23 09:00 08/15/23 10:17 Aripiprazole 5 Mg Tablet PO 5 mg DAILY LAURE Administration Gabapentin 300 mg 08/14/23 19:48 08/14/23 20:16 Gabapentin 300 Mg Capsule PO 300 mg TID PRN Administration anxiety Mirtazapine 15 mg 08/14/23 21:00 08/15/23 21:57 Mirtazapine 15 Mg Tablet PO 15 mg BEDTIME LAURE Administration Nicotine Polacrilex 4 mg 08/14/23 19:48 08/15/23 11:23 Nicotine Polacrilex 2 Mg Gum BUCCAL 4 mg Q2H PRN Administration Smoking Cessation Discontinued Medications Generic Name Dose Route Start Last Admin Trade Name Freq PRN Reason Stop Dose Admin Ibuprofen 800 mg 08/14/23 20:07 08/14/23 20:16 Ibuprofen 800 Mg Tablet PO 08/14/23 20:08 800 mg ONCE ONE Administration Methadone HCl 95 mg 08/15/23 09:43 08/15/23 10:17 Methadone Hcl 20 Mg/2 Ml Oral.Conc PO 08/15/23 09:44 95 mg ONCE ONE Administration Medical Decision Making Medical Decision Making MDM Narrative: -all of patient's labs pending -care team consult pending Physician observation started that 14:45 Differential Diagnosis Differential Diagnoses: The differential diagnosis associated with the presentation includes (Polysubstance abuse, anxiety, depression, homelessness seeking a place to stay) Admission/Observation Consideration of admission/observation: Escalation of care including admission/observation considered (Care team consult pending.) Lab Data 08/14/23 16:43 08/14/23 16:43 Labs: Lab Results 08/14/23 08/14/23 08/15/23 Range/Units 14:46 16:43 14:33 WBC 9.6 (4.8-10.8) X10*3/uL RBC 4.52 L (4.60-5.80) X10*6/uL Hgb 13.1 L (14.0-18.0) g/dl Hct 37.5 L (42.0-52.0) % MCV 83.0 (80.0-98.0) fL MCH 29.0 (27.0-33.0) pg MCHC 34.9 (31.0-36.0) g/dl RDW 14.7 (11.0-16.0) % Plt Count 225 (160-400) X10*3/uL MPV 10.1 (9.4-12.4) fL Immature Gran % (Auto) 0.2 (0.0-0.4) % Neut % (Auto) 77.8 H (45-73) % Lymph % (Auto) 11.1 L (20-40) % Castro % (Auto) 9.6 (2-11) % Eos % (Auto) 1.1 (0-4) % Baso % (Auto) 0.2 (0-2) % Lymph # (Auto) 1.1 L (1.2-4.9) X10*3/uL Castro # (Auto) 0.9 (0.1-1.2) X10*3/uL Eos # (Auto) 0.1 (0.0-0.4) X10*3/uL Baso # (Auto) 0.0 (0.0-0.2) X10*3/uL Abs Immat Gran (auto) 0.02 (0.00-0.03) X10*3/uL Absolute Neuts (auto) 7.5 (2.0-8.3) x10*3/uL Absolute Nucleated RBC 0.000 (0.0-0.012) X10*3/uL Nucleated RBC % (auto) 0.0 (0.0-0.2) /100WBC Sodium 138 (135-145) mmol/L Potassium 4.3 D (3.3-5.1) mmol/L Chloride 103 (96-108) mmol/L Carbon Dioxide 27 (22-29) mmol/L Anion Gap 12 (12-20) BUN 7 L (9-16) mg/dL Creatinine 0.95 (0.5-1.4) mg/dL Estim Creat Clear Calc 109.2 Estimated GFR > 60 Random Glucose 82 (60-115) mg/dL Calcium 9.7 (8.4-10.2) mg/dL Total Bilirubin 1.3 H (0.0-1.0) mg/dL Direct Bilirubin 0.4 (0.0-0.5) mg/dL AST 41 H (5-37) U/L ALT 34 (0-40) U/L Alkaline Phosphatase 101 (39-117) U/L Total Protein 7.8 (6.5-8.0) g/dL Albumin 4.6 (3.5-5.0) g/dL Urine Color Yellow Urine Appearance Clear Urine pH 6.5 (5.0-9.0) Ur Specific [place] 1.015 (1.005-1.025) Urine Protein Negative (Neg-Trace) mg/dL Urine Glucose (UA) Negative (Negative) mg/dL Urine Ketones Negative (Negative) mg/dL Urine Blood Negative (Negative) Urine Nitrite Negative (Negative) Ur Leukocyte Esterase Negative (Negative) Urine RBC 0-2 (0-2) /HPF Urine WBC 0-5 (0-5) /HPF Ur Squamous Epith Cells 0-2 (0-2) /HPF Urine Bacteria None Seen (None Seen) Hyaline Casts 0-2 (0-2) /LPF Urine Opiates Screen POSITIVE H (Not Detect) Urine Fentanyl Screen POSITIVE H (Not Detect) Ur Barbiturates Screen Not Detected (Not Detect) Ur Phencyclidine Scrn Not Detected (Not Detect) Ur Amphetamines Screen Not Detected (Not Detect) U Benzodiazepines Scrn Not Detected (Not Detect) Urine Cocaine Screen POSITIVE H (Not Detect) U Marijuana (THC) Screen POSITIVE H (Not Detect) Ethyl Alcohol < 10 mg/dL COVID-19 (AMADA) Negative (Negative) COVID-19 Clin Com See Note Discharge Plan Discharge Clinical Impression: Suicidal ideation, Polysubstance abuse Patient Disposition: Still a Patient Prescriptions: No Action nicotine (polacrilex) 4 mg gum 4 mg PO Q2H PRN (Reason: Smoking Cessation) gabapentin 300 mg capsule 300 mg PO TID PRN (Reason: anxiety) hydroxyzine HCl 25 mg tablet 25 mg PO TID PRN (Reason: anxiety) mirtazapine 15 mg tablet 15 mg PO BEDTIME aripiprazole 5 mg tablet 5 mg PO DAILY Methadone Intensol 95 mg PO DAILY Interventions: [facility]-Suicide Risk Severity Scale Last Done: 08/15/23 22:50
[2023-08-14 14:49] VITALS: BP 110/77; PULSE 74; RESP 16; TEMP 37.2; O2SAT 100
[2023-08-14 15:20] LABS: Amphetamine Screen Urine Not Detected (Not Detect); Barbiturates, Urine Not Detected (Not Detect); Benzodiazepines Screen Urine Not Detected (Not Detect); Cannabinoid Screen Urine POSITIVE (Not Detect); Cocaine Screen Urine POSITIVE (Not Detect); Fentanyl, urine POSITIVE (Not Detect); Opiate Screen Urine POSITIVE (Not Detect); Phencyclidine Screen Urine Not Detected (Not Detect)
[2023-08-14 16:45] VITALS: TEMP 38.1
[2023-08-14 16:47] LABS: MANUAL DIFF FLAG NO
[2023-08-14 16:48] LABS: Basophils Percent Auto 0.2 % (0-2); Eosinophils Absolute Auto 0.1 X10*3/uL (0.0-0.4); Eosinophils Percent Auto 1.1 % (0-4); Hematocrit 37.5 % (42.0-52.0); Hemoglobin 13.1 g/dl (14.0-18.0); Imm Gran Abs Auto 0.02 X10*3/uL (0.00-0.03); Imm Gran Pct Auto 0.2 % (0.0-0.4); Lymphocytes Absolute Auto 1.1 X10*3/uL (1.2-4.9); Lymphocytes Percent Auto 11.1 % (20-40); Mean Corpuscular HGB Conc 34.9 g/dl (31.0-36.0); Mean Platelet Volume 10.1 fL (9.4-12.4); Monocytes Absolute Auto 0.9 X10*3/uL (0.1-1.2); Monocytes Percent Auto 9.6 % (2-11); Neutrophils Absolute Auto 7.5 x10*3/uL (2.0-8.3); Neutrophils Percent Auto 77.8 % (45-73); Platelet Count 225 X10*3/uL (160-400); Red Blood Count 4.52 X10*6/uL (4.60-5.80); Red Cell Distribution Width 14.7 % (11.0-16.0); White Blood Count 9.6 X10*3/uL (4.8-10.8)
[2023-08-14 17:23] LABS: Alanine Aminotransferase 34 U/L (0-40); Albumin Level 4.6 g/dL (3.5-5.0); Alkaline Phosphatase 101 U/L (39-117); Anion Gap 12 (12-20); Aspartate Amino Transferase 41 U/L (5-37); Bilirubin Direct 0.4 mg/dL (0.0-0.5); Bilirubin Total 1.3 mg/dL (0.0-1.0); Blood Urea Nitrogen 7 mg/dL (9-16); Calcium 9.7 mg/dL (8.4-10.2); Carbon Dioxide 27 mmol/L (22-29); Chloride 103 mmol/L (96-108); Creatinine Clr Calc Pharmacy 109.2; Estimated Glomerular Filt Rate > 60; Ethanol < 10 mg/dL; Glucose Random 82 mg/dL (60-115); Potassium 4.3 mmol/L (3.3-5.1); Sodium 138 mmol/L (135-145); Total Protein 7.8 g/dL (6.5-8.0)
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
--- NOTE | 2023-08-14 18:13 | PC.NURSE ---
laboratory chief had indicated to me client felt warm, took w two different thermometers, 100F+, informed proivder. asked for tylenol.
--- NOTE | 2023-08-14 18:22 | PC.NURSE ---
late entry; patient had reported to t/w about using 1-2 bundles daily on top of his dose.
[2023-08-14 18:54] VITALS: TEMP 38.2
[2023-08-14 20:16] VITALS: BP 96/61; PULSE 77; RESP 18; TEMP 37.3; O2SAT 96
[2023-08-14] MEDS: Gabapentin 300 MG CAPSULE PO (20:16)
[2023-08-14] MEDS: Ibuprofen 800 MG TABLET PO (20:16)
[2023-08-14] MEDS: Mirtazapine 15 MG TABLET PO (20:17)
--- NOTE | 2023-08-15 | ECG_ITS ---
Test Reason : ANTI PSYCHOTICS Blood Pressure : / mmHG Vent. Rate : 070 BPM Atrial Rate : 070 BPM P-R Int : 148 ms QRS Dur : 088 ms QT Int : 424 ms P-R-T Axes : 016 058 038 degrees QTc Int : 457 ms Normal sinus rhythm Normal ECG When compared with ECG of 20-JUN-2023 16:50, Vent. rate has decreased BY 38 BPM Nonspecific T wave abnormality no longer evident in Inferior leads Heart rate has decreased QT has lengthened Referred By: Al Wang Electronically Signed By:JULIA BHATIA MD
[2023-08-15 05:58] VITALS: TEMP 36.3
--- NOTE | 2023-08-15 06:06 | PC.NURSE ---
Patient slept through the night, no distress observed/reported, behavior non concerning, disposition per care team is section 12 inpatient bed search, medication compliant, pending Methadone verification, labs completed/resulted, VSS, Afebrile, will continue to monitor.
[2023-08-15 06:12] VITALS: BP 106/64; PULSE 59; RESP 16; O2SAT 100
--- NOTE | 2023-08-15 07:08 | PC.NURSE ---
patient appears to remain asleep respirations are even and unlabored patient appears in no distress
--- NOTE | 2023-08-15 09:46 | HE.PHANOTE ---
Methadone Verification Pharmacy has received the methadone verification from [facility]. Patient last received methadone 95 mg on 08/14 @ 0907 from [facility]. Confirmed with AMADA Braswell at the clinic.
[2023-08-15] MEDS: ARIPiprazole 5 MG TABLET PO (10:17)
[2023-08-15] MEDS: methADONE HCl 20 MG/2 ML ORAL.CONC 95 MG PO (10:17)
[2023-08-15] MEDS: Nicotine Polacrilex 2 MG GUM 4 MG BUCCAL (11:23)
[2023-08-15 14:43] LABS: Appearance Urine Clear; Color Urine Yellow; Glucose Urine UA Negative (Negative); Leukocyte Esterase Urine Negative (Negative); Nitrite Urine Negative (Negative); PH 6.5 (5.0-9.0); Specific Gravity - Urine 1.015 (1.005-1.025); Urine Blood Negative (Negative); Urine Ketones Negative (Negative); Urine Protein Negative (Neg-Trace)
[2023-08-15 14:46] LABS: Bacteria Urine None Seen (None Seen); Hyaline Casts Urine 0-2 /LPF (0-2); RBC Urine 0-2 /HPF (0-2); Squamous Epithelial Cell Urine 0-2 /HPF (0-2); WBC Urine 0-5 /HPF (0-5)
[2023-08-15 14:57] LABS: COVID-19 Test Negative (Negative); IDNOW Serial# BCCEAD1C
[2023-08-15 20:08] VITALS: BP 109/75; PULSE 78; RESP 18; TEMP 36.6; O2SAT 95
[2023-08-15] MEDS: Mirtazapine 15 MG TABLET PO (21:57)
[2023-08-16 06:16] VITALS: BP 121/83; PULSE 68; RESP 16; TEMP 36.8; O2SAT 98
--- NOTE | 2023-08-16 07:14 | PC.NURSE ---
PT arousbale to name. 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 EKG completed by this RN as it was not completed when ordered during day shift. PT medicated as per DEC. Safety precautions in place. Plan for pt to be admitted to during the day.
[2023-08-16 08:55] VITALS: BP 122/82; PULSE 69; RESP 18; TEMP 36.6; O2SAT 99
[2023-08-16] MEDS: ARIPiprazole 5 MG TABLET PO (09:17)
[2023-08-16] MEDS: methADONE HCl 20 MG/2 ML ORAL.CONC 95 MG PO (09:17)
--- NOTE | 2023-08-16 12:50 | PHA.MEDREC ---
Pharmacy Consult ? Medication Reconciliation Pharmacy has reviewed the medication reconciliation completed by nursing.
[2023-08-16 16:15] VITALS: BP 149/92; PULSE 80; RESP 16; TEMP 36.8; O2SAT 99
--- NOTE | 2023-08-16 16:20 | PC.NURSE ---
patient was up and out of bed. patient took his morning medications with no issue including 95mg of methadone. No behavioral concerns, calm and resting for most of the shift. Patient ate 75% of lunch. Transferred to unit
[2023-08-16] MEDS: Nicotine Polacrilex 2 MG GUM 4 MG BUCCAL (17:36)
[2023-08-16 18:00] VITALS: BP 139/86; PULSE 71; TEMP 36.2; O2SAT 99
[2023-08-16] MEDS: Mirtazapine 15 MG TABLET PO (20:59)
[2023-08-16] MEDS: Gabapentin 300 MG CAPSULE PO (21:05)
[2023-08-16] MEDS: hydrOXYzine HCL 25 MG TABLET PO (21:05)
--- NOTE | 2023-08-16 22:13 | PC.NURSE ---
Skin check completed at 16:20 by Rohith Chin, RN with this nurse present. Small <2cm round sized lump on right hand noted, pt reports it has gotten increasingly bigger and more tender over the last 2 days. PT reports he uses this site to inject IV heroin and does not always clean his skin prior to injecting. PT reports he made POD nurse and MD aware but no notes seen. Will have MD see in morning. No other acute findings. Plan of care ongoing.
--- NOTE | 2023-08-16 22:16 | PC.ADMIT ---
PT is a 28 year old panamanian speaking male that arrived on this unit at 16:15 from the [facility] via wheelchair and was placed on 15 minute safety checks. PT self presented to the ED endorsing SI with a plan to overdose on heroin. PT reports currently being homeless. PT reports a recent relapse in June after 6 months of sobriety. PT has a hx of bipolar disorder and polysubstance use disorder. PT admits to med noncompliance and recent use of heroin, using approx 1-2 bundles per day mostly nasally but does use IV also. PT reports his use of substances has been chronic and long standing with a recent period of 6 months sobriety. PT denies cocaine use but it did show positive on tox screen. PT does attend the [facility] in [place] and is currently taking 95mg of Methadone PO daily. PT reports this does not hold him and he begins to have withdrawal symptoms by mid afternoon if he doses early in the morning. PT has a history of psych admissions in [place] at [facility] in [place], [place]. Last admission there according to pt was 04/13/21 and he stayed for 2 weeks. PT reports a multitude of detox admissions. PT does have a history of auditory and visual hallucinations but nothing current per pt. Denies SI/HI AH/VH. Legals completed, safety tool and tx plan to be done. Plan of care ongoing.
[2023-08-17 08:00] VITALS: BP 127/77; PULSE 74; RESP 16; TEMP 37; O2SAT 98
[2023-08-17 08:39] LABS: Estimated Average Glucose 97 mg/dL
[2023-08-17] MEDS: ARIPiprazole 5 MG TABLET PO (08:55)
[2023-08-17 08:56] LABS: Anion Gap 14 (12-20); Blood Urea Nitrogen 7 mg/dL (9-16); Calcium 9.9 mg/dL (8.4-10.2); Carbon Dioxide 28 mmol/L (22-29); Chloride 103 mmol/L (96-108); Cholesterol 148 mg/dL (<200); Creatinine Clr Calc Pharmacy 131.3; Estimated Glomerular Filt Rate > 60; Glucose Random 88 mg/dL (60-115); HDL Cholesterol 35 mg/dL (>40); Iron 111 mcg/dL (45-160); LDL Cholesterol Calculated 85 mg/dL (<100); Magnesium 2.3 mg/dL (1.6-2.6); Percent Iron Saturation 34 % (15-50); Potassium 4.2 mmol/L (3.3-5.1); Sodium 141 mmol/L (135-145); Total Iron Binding Capacity 326 mcg/dL (228-428); Triglycerides 140 mg/dL (<150); Unsaturated Iron Binding 215 ug/dL
[2023-08-17] MEDS: methADONE HCl 20 MG/2 ML ORAL.CONC 95 MG PO (08:56)
[2023-08-17 09:11] LABS: Free T4 (Free Thyroxine) 0.87 ng/dL (0.71-1.85); Thyroid Stimulating Hormone 0.55 uIU/mL (0.32-4.0)
[2023-08-17] MEDS: Acetaminophen 325 MG TABLET 650 MG PO ×2 (09:14→20:08)
[2023-08-17 09:19] LABS: Folate 12.6 ng/mL (> or = 4.0); Vitamin B12 695 pg/mL (200-900)
[2023-08-17] MEDS: Nicotine Polacrilex 2 MG GUM 4 MG BUCCAL ×2 (09:51→14:05)
[2023-08-17] MEDS: Gabapentin 300 MG CAPSULE PO ×2 (09:53→20:08)
[2023-08-17] MEDS: hydrOXYzine HCL 25 MG TABLET PO (09:53)
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
[2023-08-17 17:05] VITALS: BP 136/94; PULSE 86; TEMP 36.9; O2SAT 97
[2023-08-17] MEDS: Lidocaine 4 % Patch ADH..PATCH 1 PATCH TRANSDERMA (19:19)
[2023-08-17] MEDS: Doxycycline Monohydrate 100 MG CAPSULE PO (19:19)
[2023-08-17] MEDS: QUEtiapine Fumarate 50 MG TABLET PO (20:08)
[2023-08-18] MEDS: Acetaminophen 325 MG TABLET 650 MG PO (05:45)
[2023-08-18] MEDS: hydrOXYzine HCL 25 MG TABLET PO ×2 (05:46→14:12)
[2023-08-18] MEDS: Doxycycline Monohydrate 100 MG CAPSULE PO ×2 (05:46→17:58)
[2023-08-18] MEDS: methADONE HCl 20 MG/2 ML ORAL.CONC 95 MG PO (08:19)
[2023-08-18] MEDS: Cariprazine HCl 3 MG CAPSULE PO (08:19)
[2023-08-18 08:25] VITALS: BP 131/73; PULSE 83; RESP 18; TEMP 36.5; O2SAT 100
[2023-08-18] MEDS: Nicotine Polacrilex 2 MG GUM 4 MG BUCCAL (10:31)
[2023-08-18] MEDS: Gabapentin 300 MG CAPSULE PO (14:12)
[2023-08-18] MEDS: cloNIDine HCL 0.1 MG TABLET PO (15:17)
[2023-08-18 15:18] VITALS: BP 131/78; PULSE 108
--- NOTE | 2023-08-18 16:21 | HO.PSYCHPN ---
Subjective Subjective Date of Service: 08/18/23 Reason For Visit: Bipolar D/O Anxiety Polysubstance Use D/O Etc Subjective Notes: Conditional Voluntary and 3 Day Healthcare Proxy: No Guardianship: No Medical Problems Affecting Mental Status: No Interim History: Three day notice filed. Rodo initiated. Pt spoke with Carol who told him in order to return he will need to present for services at [facility]. He plans to do this when discharged. Do you see how broken this system is? Reports evening sx of withdrawal. Clonidine prn added. Medication Compliance: Yes Side effects from medications: No Attending Groups: No Review of Systems Acute medical concerns: No Medical Review of Systems: unchanged Mental Status Exam Mental Status Exam Patient Appearance: Appropriate Patient Orientation: Person, Place, Time and Situation Level of Consciousness: Alert Patient Behavior: Appropriate, Talkative and Good Eye Contact Mood Description: Constricted and Depressed Affect Description: Constricted Patient Cognition Impaired: No Ability to Follow Directions: Good Speech Pattern: Spontaneous Speech and Soft-Spoken Memory Description: Intact Delusions: Not Present Perceptual Disturbances: Depersonalization and Derealization Thought Process: Rumination Thought Content: positive for Perseveration Depressive Symptoms: Increased Anxiety, Diff. Making Decisions, Hopelessness, Unhappiness and Low Self Esteem Judgement: Good Diagnostics Vital Signs (24Hr): Vital Signs - 24 hr 08/17/23 17:05 08/18/23 08:25 08/18/23 15:18 Temperature 98.4 F 97.7 F Pulse Rate 86 83 108 H Respiratory Rate 18 Blood Pressure 136/94 H 131/73 131/78 Pulse Oximetry 97 100 Oxygen Delivery Method Room Air Room Air BMI result Body Mass Index 25.1 Labs 08/14/23 16:43 08/17/23 07:55 Labs: Laboratory Results - last 48 hr 08/17/23 07:55 Sodium 141 Potassium 4.2 Chloride 103 Carbon Dioxide 28 Anion Gap 14 BUN 7 L Creatinine 0.79 Estim Creat Clear Calc 131.3 Estimated GFR > 60 Random Glucose 88 Estimat Average Glucose 97 Hemoglobin A1c % 5.0 Calcium 9.9 Magnesium 2.3 Iron 111 TIBC 326 % Saturation 34 Unsat Iron Binding 215 Triglycerides 140 Cholesterol 148 LDL Cholesterol, Calc 85 HDL Cholesterol 35 L Vitamin B12 695 Folate 12.6 TSH 0.55 Free T4 0.87 Medications Medications Current Medications Acetaminophen (Acetaminophen 325 Mg Tablet) 650 mg PO Q6H PRN PRN Reason: Headache/Pain Mild Scale (1-3) Last Admin: 08/18/23 05:45 Dose: 650 mg Al Hydroxide/Mg Hydroxide (Magnesium Hydrox/Alum Hydrox 30 Ml Oral.Susp) 30 ml PO Q6H PRN PRN Reason: Heartburn/Nausea Cariprazine (Cariprazine Hcl 3 Mg Capsule) 3 mg PO DAILY [facility] Last Admin: 08/18/23 08:19 Dose: 3 mg Clonidine HCl (Clonidine Hcl 0.1 Mg Tablet) 0.1 mg PO TID PRN; Protocol PRN Reason: withdrawal, anxiety Last Admin: 08/18/23 15:17 Dose: 0.1 mg Doxycycline Monohydrate (Doxycycline Monohydrate 100 Mg Capsule) 100 mg PO Q12H [facility] Stop: 08/25/23 09:00 Last Admin: 08/18/23 05:46 Dose: 100 mg Gabapentin (Gabapentin 300 Mg Capsule) 300 mg PO TID PRN PRN Reason: anxiety Last Admin: 08/18/23 14:12 Dose: 300 mg Hydroxyzine HCl (Hydroxyzine Hcl 25 Mg Tablet) 25 mg PO TID PRN PRN Reason: anxiety Last Admin: 08/18/23 14:12 Dose: 25 mg Hydroxyzine HCl (Hydroxyzine Hcl 25 Mg Tablet) 25 mg PO Q6H PRN PRN Reason: Anxiety Lidocaine (Lidocaine 4 % Patch Adh..Patch) 1 patch TRANSDERMA DAILY [facility]; Protocol Last Admin: 08/18/23 09:31 Dose: Not Given Magnesium Hydroxide (Milk Of Magnesia 30 Ml Oral.Susp) 30 ml PO DAILY PRN PRN Reason: Constipation Methadone HCl (Methadone Hcl 20 Mg/2 Ml Oral.Conc) 95 mg PO DAILY [facility] Last Admin: 08/18/23 08:19 Dose: 95 mg Nicotine Polacrilex (Nicotine Polacrilex 2 Mg Gum) 4 mg BUCCAL Q2H PRN PRN Reason: Smoking Cessation Last Admin: 08/18/23 10:31 Dose: 4 mg Quetiapine Fumarate (Quetiapine Fumarate 100 Mg Tablet) 100 mg PO BEDTIME [facility] Trazodone HCl (Trazodone Hcl 50 Mg Tablet) 50 mg PO BEDTIME MRX1 PRN PRN Reason: Insomnia Allergies Allergies Allergy/AdvReac Type Severity Reaction Status Date / Time No Known Allergies Allergy Verified 08/14/23 14:09 [No Known Allergies*] Assessment & Plan Assessment & Plan (1) Bipolar disorder: Status: Acute Code(s): F31.9 - Bipolar disorder, unspecified (2) Opioid use disorder: Status: Acute Code(s): F11.90 - Opioid use, unspecified, uncomplicated (3) Polysubstance abuse: Status: Acute Code(s): F19.10 - Other psychoactive substance abuse, uncomplicated Plan 28 yo male, history of bipolar disorder and polysubstance use, presents with SI with a plan to overdose. Pt is homeless and not currently working. He beleives his medicaiton regime for bipolar disorder is ineffective and he would like to return to addictions treatment, returning to residential level of care, [facility]. Plan: Collateral contact Vraylar 3 mg a.m. Discontinue Abilify Seroquel 50 mg HS to assist with sleep. Discontinue Mirtazapine Continue Gabapentin Diagnostics as needed Doxycycline 100 mg bid x 7 days (Pt reports developing site cellulitis from injection into right hand.) 08/18/23 Clonidine 0.1 mg tid prn withdrawal, anxiety Patient educated on: therapeutic strategies Informed Consent: understands Reason for continued inpatient stay Substantial Risk for: rapid decompensation Time Spent With Patient Time: Total time managing care of this patient today ____ minutes.
[2023-08-18 18:00] VITALS: BP 135/60; PULSE 83; RESP 18; O2SAT 95
[2023-08-18] MEDS: QUEtiapine Fumarate 100 MG TABLET PO (19:39)
[2023-08-19] MEDS: Doxycycline Monohydrate 100 MG CAPSULE PO ×2 (06:45→19:36)
[2023-08-19 08:35] VITALS: BP 117/63; PULSE 77; RESP 18; TEMP 37.2; O2SAT 97
[2023-08-19] MEDS: Cariprazine HCl 3 MG CAPSULE PO (08:43)
[2023-08-19] MEDS: Lidocaine 4 % Patch ADH..PATCH 1 PATCH TRANSDERMA (08:44)
[2023-08-19] MEDS: methADONE HCl 20 MG/2 ML ORAL.CONC 95 MG PO (08:44)
[2023-08-19 09:42] VITALS: BMI 28.8
[2023-08-19] MEDS: hydrOXYzine HCL 25 MG TABLET PO ×2 (09:46→15:56)
[2023-08-19] MEDS: Nicotine Polacrilex 2 MG GUM 4 MG BUCCAL ×2 (09:46→11:48)
[2023-08-19] MEDS: cloNIDine HCL 0.1 MG TABLET PO ×2 (09:46→15:56)
[2023-08-19] MEDS: Gabapentin 300 MG CAPSULE PO (09:46)
[2023-08-19 09:48] VITALS: BP 120/85; PULSE 108
[2023-08-19 16:04] VITALS: BP 119/80; PULSE 80; RESP 16; TEMP 36.4; O2SAT 99
--- NOTE | 2023-08-19 16:15 | P.PNPSI_ITS ---
Subjective Subjective Date of Service: 08/19/23 Reason For Visit: Bipolar D/O Anxiety Polysubstance Use D/O Etc Subjective Notes: Conditional Voluntary and 3 Day Healthcare Proxy: No Guardianship: No Medical Problems Affecting Mental Status: No Interim History: Pt wanting to return to his previous residential program. They have informed him that he needs to go through a specific program prior to re-admit. Pt has been talking with these programs and has a plan to present for services as he has been informed. Tolerating Vraylar, believes it is a good choice for him at this time. It has helped already, I know its early on, but I feel better. Plans discharge 08/23 or before should he hear from the program to present for assessment. Medication Compliance: Yes Side effects from medications: No Attending Groups: Intermittent Review of Systems Acute medical concerns: No Medical Review of Systems: unchanged Mental Status Exam Mental Status Exam Patient Appearance: Appropriate Patient Orientation: Person, Place, Time and Situation Level of Consciousness: Alert Patient Behavior: Appropriate, Talkative and Good Eye Contact Mood Description: Constricted Affect Description: Constricted Patient Cognition Impaired: No Ability to Follow Directions: Good Speech Pattern: Spontaneous Speech and Soft-Spoken Memory Description: Intact Delusions: Not Present Perceptual Disturbances: Depersonalization and Derealization Thought Process: Intact Thought Content: positive for Intact Depressive Symptoms: Low Self Esteem Judgement: Good Diagnostics Vital Signs (24Hr): Vital Signs - 24 hr 08/18/23 18:00 08/19/23 08:35 08/19/23 09:48 Temperature 98.9 F Pulse Rate 83 77 108 H Respiratory Rate 18 18 Blood Pressure 135/60 117/63 120/85 Pulse Oximetry 95 97 Oxygen Delivery Method Room Air Room Air 08/19/23 16:04 Temperature 97.6 F Pulse Rate 80 Respiratory Rate 16 Blood Pressure 119/80 Pulse Oximetry 99 Oxygen Delivery Method Room Air BMI result Body Mass Index 28.8 Labs 08/14/23 16:43 08/17/23 07:55 Medications Medications Current Medications Acetaminophen (Acetaminophen 325 Mg Tablet) 650 mg PO Q6H PRN PRN Reason: Headache/Pain Mild Scale (1-3) Last Admin: 08/18/23 05:45 Dose: 650 mg Al Hydroxide/Mg Hydroxide (Magnesium Hydrox/Alum Hydrox 30 Ml Oral.Susp) 30 ml PO Q6H PRN PRN Reason: Heartburn/Nausea Cariprazine (Cariprazine Hcl 3 Mg Capsule) 3 mg PO DAILY [facility] Last Admin: 08/19/23 08:43 Dose: 3 mg Clonidine HCl (Clonidine Hcl 0.1 Mg Tablet) 0.1 mg PO TID PRN; Protocol PRN Reason: withdrawal, anxiety Last Admin: 08/19/23 15:56 Dose: 0.1 mg Doxycycline Monohydrate (Doxycycline Monohydrate 100 Mg Capsule) 100 mg PO Q12H [facility] Stop: 08/25/23 09:00 Last Admin: 08/19/23 06:45 Dose: 100 mg Gabapentin (Gabapentin 300 Mg Capsule) 300 mg PO TID PRN PRN Reason: anxiety Last Admin: 08/19/23 09:46 Dose: 300 mg Hydroxyzine HCl (Hydroxyzine Hcl 25 Mg Tablet) 25 mg PO TID PRN PRN Reason: anxiety Last Admin: 08/19/23 15:56 Dose: 25 mg Hydroxyzine HCl (Hydroxyzine Hcl 25 Mg Tablet) 25 mg PO Q6H PRN PRN Reason: Anxiety Lidocaine (Lidocaine 4 % Patch Adh..Patch) 1 patch TRANSDERMA DAILY [facility]; Protocol Last Admin: 08/19/23 08:44 Dose: 1 patch Magnesium Hydroxide (Milk Of Magnesia 30 Ml Oral.Susp) 30 ml PO DAILY PRN PRN Reason: Constipation Methadone HCl (Methadone Hcl 20 Mg/2 Ml Oral.Conc) 95 mg PO DAILY [facility] Last Admin: 08/19/23 08:44 Dose: 95 mg Nicotine Polacrilex (Nicotine Polacrilex 2 Mg Gum) 4 mg BUCCAL Q2H PRN PRN Reason: Smoking Cessation Last Admin: 08/19/23 11:48 Dose: 4 mg Quetiapine Fumarate (Quetiapine Fumarate 100 Mg Tablet) 100 mg PO BEDTIME [facility] Last Admin: 08/18/23 19:39 Dose: 100 mg Trazodone HCl (Trazodone Hcl 50 Mg Tablet) 50 mg PO BEDTIME MRX1 PRN PRN Reason: Insomnia Allergies Allergies Allergy/AdvReac Type Severity Reaction Status Date / Time No Known Allergies Allergy Verified 08/14/23 14:09 [No Known Allergies*] Assessment & Plan Assessment & Plan (1) Bipolar disorder: Status: Acute Code(s): F31.9 - Bipolar disorder, unspecified (2) Opioid use disorder: Status: Acute Code(s): F11.90 - Opioid use, unspecified, uncomplicated (3) Polysubstance abuse: Status: Acute Code(s): F19.10 - Other psychoactive substance abuse, uncomplicated Plan 28 yo male, history of bipolar disorder and polysubstance use, presents with SI with a plan to overdose. Pt is homeless and not currently working. He beleives his medicaiton regime for bipolar disorder is ineffective and he would like to return to addictions treatment, returning to residential level of care, [facility]. Plan: Collateral contact Vraylar 3 mg a.m. Discontinue Abilify Seroquel 50 mg HS to assist with sleep. Discontinue Mirtazapine Continue Gabapentin Diagnostics as needed Doxycycline 100 mg bid x 7 days (Pt reports developing site cellulitis from injection into right hand.) 08/18/23 Clonidine 0.1 mg tid prn withdrawal, anxiety 08/19/23 Continue Vraylar and plan of care. Patient educated on: medication risk/benefits and therapeutic strategies Informed Consent: understands Reason for continued inpatient stay Substantial Risk for: rapid decompensation Time Spent With Patient Time: Total time managing care of this patient today ____ minutes.
[2023-08-19] MEDS: QUEtiapine Fumarate 100 MG TABLET PO (19:36)
[2023-08-20] MEDS: Doxycycline Monohydrate 100 MG CAPSULE PO (06:13)
[2023-08-20] MEDS: methADONE HCl 20 MG/2 ML ORAL.CONC 95 MG PO (08:09)
[2023-08-20] MEDS: Cariprazine HCl 3 MG CAPSULE PO (08:09)
[2023-08-20] MEDS: hydrOXYzine HCL 25 MG TABLET PO (08:20)
[2023-08-20] MEDS: cloNIDine HCL 0.1 MG TABLET PO (08:21)
[2023-08-20 08:30] VITALS: BP 120/62; PULSE 96; RESP 18; TEMP 36.2; O2SAT 98
[2023-08-20] MEDS: Nicotine Polacrilex 2 MG GUM 4 MG BUCCAL (09:41)
--- NOTE | 2023-08-20 14:49 | P.DS_ITS ---
DS: Providers Provider Date of Service: 08/20/23 Date of admission: 08/16/23 14:39 Date of discharge: 08/20/23 Primary care physician: Nato Mendoza MD Admitting clinician: Kathryn Hurtado Attending physician on admission: Primo Pinzon Attending physician on discharge: Primo Pinzon Discharging clinician: Kathryn Hurtado DS: Diagnosis Discharge Diagnosis (1) Bipolar disorder: Status: Acute (2) Opioid use disorder: Status: Acute (3) Polysubstance abuse: Status: Acute DS: Medications Discharge Medications Home Medications: Home Medications Medication Instructions Recorded Confirmed Methadone Intensol 95 mg PO DAILY 08/14/23 08/15/23 Previous Rx's Medication Instructions Recorded cariprazine 3 mg capsule (Vraylar) 3 mg PO DAILY #30 caps 08/20/23 doxycycline monohydrate 100 mg 100 mg PO Q12H #10 caps 08/20/23 capsule gabapentin 300 mg capsule 300 mg PO TID PRN anxiety #21 caps 08/20/23 hydroxyzine HCl 25 mg tablet 25 mg PO TID PRN anxiety #21 tabs 08/20/23 nicotine (polacrilex) 4 mg gum 4 mg PO Q2H PRN Smoking Cessation 08/20/23 #100 ea quetiapine 100 mg tablet 100 mg PO BEDTIME #7 tabs 08/20/23 Mental Status Exam Mental Status Exam Patient Appearance: Appropriate Patient Orientation: Person, Place, Time and Situation Level of Consciousness: Alert Patient Behavior: Appropriate, Talkative and Good Eye Contact Mood Description: Constricted Affect Description: Constricted Patient Cognition Impaired: No Ability to Follow Directions: Good Speech Pattern: Spontaneous Speech and Soft-Spoken Memory Description: Intact Delusions: Not Present Perceptual Disturbances: Depersonalization and Derealization Thought Process: Intact Thought Content: positive for Intact Depressive Symptoms: Low Self Esteem Judgement: Good Data Data Completed and Pending Completed studies during hospitalization [Text1]: 08/14/23 08/14/23 08/15/23 14:46 16:43 14:33 WBC 9.6 RBC 4.52 L Hgb 13.1 L Hct 37.5 L MCV 83.0 MCH 29.0 MCHC 34.9 RDW 14.7 Plt Count 225 MPV 10.1 Immature Gran % (Auto) 0.2 Neut % (Auto) 77.8 H Lymph % (Auto) 11.1 L [place] % (Auto) 9.6 Eos % (Auto) 1.1 Baso % (Auto) 0.2 Lymph # (Auto) 1.1 L [place] # (Auto) 0.9 Eos # (Auto) 0.1 Baso # (Auto) 0.0 Abs Immat Gran (auto) 0.02 Absolute Neuts (auto) 7.5 Absolute Nucleated RBC 0.000 Nucleated RBC % (auto) 0.0 Sodium 138 Potassium 4.3 D Chloride 103 Carbon Dioxide 27 Anion Gap 12 BUN 7 L Creatinine 0.95 Estim Creat Clear Calc 109.2 Estimated GFR > 60 Random Glucose 82 Estimat Average Glucose Hemoglobin A1c % Calcium 9.7 Magnesium Iron TIBC % Saturation Unsat Iron Binding Total Bilirubin 1.3 H Direct Bilirubin 0.4 AST 41 H ALT 34 Alkaline Phosphatase 101 Total Protein 7.8 Albumin 4.6 Triglycerides Cholesterol LDL Cholesterol, Calc HDL Cholesterol Vitamin B12 Folate TSH Free T4 Urine Color Yellow Urine Appearance Clear Urine pH 6.5 Ur Specific [place] 1.015 Urine Protein Negative Urine Glucose (UA) Negative Urine Ketones Negative Urine Blood Negative Urine Nitrite Negative Ur Leukocyte Esterase Negative Urine RBC 0-2 Urine WBC 0-5 Ur Squamous Epith Cells 0-2 Urine Bacteria None Seen Hyaline Casts 0-2 Urine Opiates Screen POSITIVE H Urine Fentanyl Screen POSITIVE H Ur Barbiturates Screen Not Detected Ur Phencyclidine Scrn Not Detected Ur Amphetamines Screen Not Detected U Benzodiazepines Scrn Not Detected Urine Cocaine Screen POSITIVE H U Marijuana (THC) Screen POSITIVE H Ethyl Alcohol < 10 COVID-19 ([facility]) Negative COVID-19 Clin Com See Note 08/17/23 07:55 WBC RBC Hgb Hct MCV MCH MCHC RDW Plt Count MPV Immature Gran % (Auto) Neut % (Auto) Lymph % (Auto) [place] % (Auto) Eos % (Auto) Baso % (Auto) Lymph # (Auto) [place] # (Auto) Eos # (Auto) Baso # (Auto) Abs Immat Gran (auto) Absolute Neuts (auto) Absolute Nucleated RBC Nucleated RBC % (auto) Sodium 141 Potassium 4.2 Chloride 103 Carbon Dioxide 28 Anion Gap 14 BUN 7 L Creatinine 0.79 Estim Creat Clear Calc 131.3 Estimated GFR > 60 Random Glucose 88 Estimat Average Glucose 97 Hemoglobin A1c % 5.0 Calcium 9.9 Magnesium 2.3 Iron 111 TIBC 326 % Saturation 34 Unsat Iron Binding 215 Total Bilirubin Direct Bilirubin AST ALT Alkaline Phosphatase Total Protein Albumin Triglycerides 140 Cholesterol 148 LDL Cholesterol, Calc 85 HDL Cholesterol 35 L Vitamin B12 695 Folate 12.6 TSH 0.55 Free T4 0.87 Urine Color Urine Appearance Urine pH Ur Specific [place] Urine Protein Urine Glucose (UA) Urine Ketones Urine Blood Urine Nitrite Ur Leukocyte Esterase Urine RBC Urine WBC Ur Squamous Epith Cells Urine Bacteria Hyaline Casts Urine Opiates Screen Urine Fentanyl Screen Ur Barbiturates Screen Ur Phencyclidine Scrn Ur Amphetamines Screen U Benzodiazepines Scrn Urine Cocaine Screen U Marijuana (THC) Screen Ethyl Alcohol COVID-19 ([facility]) COVID-19 Clin Com DS: Summary Hospital Course Hospital Course: Admission to adult psychiatry for exacerbation of bipolar disorder, polysubstance use disorder, opiate use disorder. Pt reported suicidal ideation with plan to overdose and stressors as being homeless, not having work, and being discharged administratively from [facility] in May administratively. He r equested medication evaluation for improved mood control and asked for help in returning to [facility]. Medications were reviewed and initiated with [facility]. He exhibited no symptoms of behavioral dyscontrol in with milieu. We were unable to have him return to [facility] without first admission to [facility], however, he was told by outside sources that if he presented they would take him on presentation. As a result, he signed a three day notice for discharge and planned to self present at [facility] Time spent discussing smoking cessation with patient: 3 to 10 minutes Status at Discharge Functional status at discharge: independent ambulation Overall status at discharge: patient is progressing back to baseline Time Spent with Patient Time attestation: Total time managing care of this patient today ____ minutes. Time spent: Greater than 30 minutes Discharge Plan Discharge Anticipated Discharge Date/Time: 08/20/23 12:43 Patient Disposition: Detention Discharge Diagnosis: Bipolar Disorder Opiate Use Disorder, currently on Methadone Maintenance Polysubstance Use Disorder Referrals: OUTPATIENT PROVIDERS [Other] - 1 Week (WALK IN HOURS WEDNESDAY AND WEDNESDAY 10:00 AM TO NOON) Nato Mendoza MD [Primary Care Provider] - (Please follow up) Discharge Medications: Discontinued nicotine (polacrilex) 4 mg gum 4 mg PO Q2H PRN (Reason: Smoking Cessation) gabapentin 300 mg capsule 300 mg PO TID PRN (Reason: anxiety) hydroxyzine HCl 25 mg tablet 25 mg PO TID PRN (Reason: anxiety) mirtazapine 15 mg tablet 15 mg PO BEDTIME aripiprazole 5 mg tablet 5 mg PO DAILY No Action atorvastatin 20 mg Tablet 20 mg PO BEDTIME Qty: 30 0RF trazodone 50 mg Tablet 50 mg PO BEDTIME MRX1 PRN (Reason: Insomnia) Qty: 30 0RF polyethylene glycol 3350 17 gram Powder In Packet 17 g PO BID Qty: 30 0RF quetiapine 200 mg Tablet 200 mg PO BEDTIME Qty: 30 0RF clonazepam 1 mg Tablet 1 mg PO BEDTIME Qty: 7 4RF oxcarbazepine 300 mg Tablet 300 mg PO BID Qty: 60 0RF docusate sodium 100 mg Capsule 200 mg PO BID Qty: 120 0RF omeprazole 20 mg Capsule,Delayed Release(Dr/Ec) 20 mg PO DAILY@0630 Qty: 30 0RF methadone [Methadose] 10 mg/mL Concentrate 100 mg PO DAILY Qty: 0 0RF Rx Instructions: Partial Fill upon patient request. nicotine (polacrilex) 4 mg Lozenge 4 mg buccal Q2H PRN (Reason: Nicotine Cravings) Qty: 100 0RF quetiapine 50 mg Tablet 50 mg PO BID PRN (Reason: perceptual alterations) Qty: 30 0RF lactulose 20 gram/30 mL Solution 20 g PO DAILY Qty: 1000 0RF multivitamin [Daily-Rachele] Tablet 1 tab PO DAILY Qty: 30 0RF senna leaf extract [senna] 176 mg/5 mL Syrup 15 ml PO BEDTIME Qty: 500 0RF gabapentin 300 mg capsule 300 mg PO TID PRN (Reason: anxiety) Qty: 30 0RF hydroxyzine HCl 25 mg tablet 25 mg PO TID Qty: 90 0RF Vraylar 6 mg capsule 6 mg PO DAILY Qty: 30 0RF Discharge Orders: Discharge Order (Routine); Ordered 08/20/23 Ordered By: Kathryn Hurtado Diet: Advance to usual diet Activity on Discharge: As tolerated Stand Alone Forms: Patient Portal Discharge page, Community Support Care Plan Goals: Mood and Behavioral Stabilization Health Concerns: Mood and Behavioral Stabilization Plan of Treatment: Attend scheduled appointments Take medications as directed Assessment: Discharge on a three day notice Discharge Date/Time: 08/20/23 11:28
== END 2023-08-20 11:28 | disposition home or self-care (01) | DRG 753 ==
LOC: HO.ED 16:19 → HO.PM5 08-16 14:45
PROVIDERS: Emergency Medicine; Physician Assistant Medical; Admitting Provider Psychiatry & Neurology Psychiatry; Emergency Provider Emergency Medicine; PCP Internal Medicine; Visit Provider Clinical Nurse Specialist Psychiatric/Mental Health, Adult
DX: F31.9 Bipolar disorder, unspecified (principal); R45.851 Suicidal ideations; F11.20 Opioid dependence, uncomplicated; F17.210 Nicotine dependence, cigarettes, uncomplicated; Z20.822 Contact with and (suspected) exposure to COVID-19; Z71.6 Tobacco abuse counseling; Z59.02 Unsheltered homelessness; Z79.899 Other long term (current) drug therapy
CPT/HCPCS: 36415; 80048; 80061; 80076; 80307; 81001; 82607; 82746; 83036; 83540; 83735; 84439; 84443; 85025; 87635; 93005; 99285; S9485

== ENCOUNTER → 2023-08-16 14:39 | Outpatient (BNV) | payer OTHER, SELFPAY | PROVIDERS: Admitting Provider Psychiatry & Neurology Psychiatry; Emergency Provider Emergency Medicine; PCP Internal Medicine; Visit Provider Clinical Nurse Specialist Psychiatric/Mental Health, Adult | DX: F31.4 Bipolar disorder, current episode depressed, severe, without psychotic features (principal); F19.10 Other psychoactive substance abuse, uncomplicated; F11.90 Opioid use, unspecified, uncomplicated | CPT/HCPCS: 99231; 99232 ==

== ENCOUNTER 2023-08-21 17:44 | Inpatient (IN) | payer OTHER, SELFPAY ==
--- NOTE | ~2023-08-21 | XR_ITS ---
EXAMINATION: XR ABDOMEN KUB CLINICAL INDICATION: Constipation COMPARISON: None available. TECHNIQUE: AP view of the abdomen. FINDINGS: Large amount of retained fecal material in ascending, transverse and proximal descending colon. Solid visceral outlines are obscured. Oval calcification in the left upper quadrant. Pelvic phleboliths. Bony structures are intact. XR/XR KUB IMPRESSION: Constipation.
--- NOTE | ~2023-08-21 | XR_ITS ---
EXAMINATION: XR ABDOMEN KUB CLINICAL INDICATION: Constipation COMPARISON: KUB 09/04/2023 TECHNIQUE: AP view of the abdomen. FINDINGS: The bowel gas pattern is unremarkable with gas and stool seen throughout the colon but no evidence of ileus or obstruction. Stool burden is moderate and increased when compared to the study from 3 days ago. No unusual soft tissue calcifications are noted. The bones are unremarkable. XR/XR KUB IMPRESSION: Moderate stool burden. No evidence of bowel obstruction.
--- NOTE | ~2023-08-21 | XR_ITS ---
EXAMINATION: XR ABDOMEN KUB CLINICAL INDICATION: Constipation. COMPARISON: None available. TECHNIQUE: AP view of the abdomen. FINDINGS: There is scattered stool and gas seen in the abdomen without distention. The small bowel loops are normal caliber. No organomegaly. No radiopaque renal calculi. This scattered phleboliths in the pelvis. No gross bony abnormality. XR/XR KUB IMPRESSION: Mild constipation. No acute process seen.
[2023-08-21 17:47] VITALS: BP 144/98; PULSE 108; RESP 17; TEMP 36.3; O2SAT 98; BMI 30.3
--- NOTE | 2023-08-21 17:48 | ED_ITS ---
HPI - Psych General Chief Complaint: Psychiatric Symptoms Stated Complaint: SI Time Seen by Provider: 08/21/23 18:44 Source: patient Mode of arrival: ambulatory Limitations: no limitations History of Present Illness HPI Narrative: Patient is a 28-year-old unhoused male presenting to the emergency department with thoughts of suicidal ideation and states that he took 5 clonazepam prior to arrival, then used 5 bags of heroin and a hit of crack in an overdose attempt prior to arrival. States that he has continued to have suicidal thoughts since being seen in this ED one week ago. Denies any homicidal ideation, auditory or visual hallucinations. MD complaint: suicidal ideation, feels depressed and substance abuse Onset (ago): day(s) Duration: getting worse History of same: Yes Relieving factors: none Exacerbating factors: none Context: recent drug abuse Associated psychiatric symptoms: depression and suicidal ideation Associated symptoms: denies other symptoms Treatments prior to arrival: none If self harm: admits thoughts of self harm, has plan, has acted on plan and intentional overdose Related Data Home Medications Medication Instructions Recorded Confirmed aripiprazole 5 mg tablet 5 mg PO DAILY 08/21/23 08/21/23 cariprazine 3 mg capsule (Vraylar) 3 mg PO DAILY 08/21/23 08/21/23 doxycycline monohydrate 100 mg 100 mg PO Q12H 08/21/23 08/21/23 capsule gabapentin 300 mg capsule 300 mg PO TID PRN anxiety 08/21/23 08/21/23 hydroxyzine HCl 25 mg tablet 25 mg PO TID 08/21/23 08/21/23 mirtazapine 15 mg tablet 15 mg PO BEDTIME 08/21/23 08/21/23 nicotine (polacrilex) 4 mg gum 4 mg PO Q2H PRN smoking cessation 08/21/23 08/21/23 quetiapine 100 mg tablet 100 mg PO BEDTIME 08/21/23 08/21/23 Allergies Allergy/AdvReac Type Severity Reaction Status Date / Time No Known Allergies Allergy Verified 08/14/23 14:09 [No Known Allergies*] Review of Systems 2 Review of Systems: As per HPI. Yes all other systems are reviewed and are negative PMFSH Past Medical History Medical History (Updated 08/21/23 @ 21:29 by Pooja Childs NP) Opioid use disorder Bipolar disorder Polysubstance abuse Social History Social History Household Members: None Housing: Homeless Do you presently have visiting nurse or other home services: No Alcohol intake: former Patient Tobacco Use Status: Current everyday Tobacco user Tobacco use type: Cigarette Cigarettes Per Day: 15 Years Smoked: 10 e-Cigarette/Vaping Use: Never Used Second Hand Smoke Exposure: No Substance Use Type: Heroin, IV Drugs, Marijuana and Opiates Advance Directives: No Advance Directives Information Provided: No Guardian: No service: No Current occupational status: unemployed Sexual orientation: Unable to collect Physical Exam 2 Vital Signs: Vital Signs: Last Vital Signs Temp 97.6 F 08/22/23 04:25 Pulse 92 08/22/23 04:25 Resp 16 08/22/23 04:25 BP 135/92 H 08/22/23 04:25 Pulse Ox 96 08/22/23 04:25 O2 Del Method Room Air 08/22/23 04:25 BMI result Body Mass Index 30.3 Vital signs have been reviewed and appear to be correct. Blood pressure elevated. Heart rate slightly tachycardic. Respiratory rate normal. Temperature normal. Oxygen saturation normal. Const: General: cooperative and no acute distress O rientation/consciousness: patient oriented x3 HEENT: Head: Yes normocephalic and Yes atraumatic Ears: hearing grossly normal bilaterally Face and sinus: Yes normal facial exam Mouth: Normal oral and palatal mucosa present Throat: Yes posterior oropharynx normal Eyes: Pupils: Equal, round and reactive pupils present Neck: Neck: Yes normal visual inspection, Yes full ROM and Yes supple Resp: Effort & Inspection: normal respiratory effort Auscultation: clear to auscultation bilaterally Cardio: Rate: regular rate Rhythm: regular rhythm Heart sounds: S1 normal heart sound present and S2 normal heart sound present Skin: General skin exam: elasticity normal and turgor normal Neuro: General: patient oriented x3, gait normal, tone normal and moves all extremities Cranial nerves: Yes Equal, round and reactive pupils present C ognition (Neuro): normal cognition Extrem: General: Yes normal to inspection, Yes full ROM and Yes capillary refill normal Psych: Appearance: grossly normal Speech and movement: Normal speech and movement present Affect: normal affect Attitude: cooperative Thought content: Suicidality present, no homicidality, no hallucinations and Depressive thoughts present Insight: Fair insight present (Psych) Course Course Course Narrative: This is a rapid medical exam. deferred additional HPI, ROS, PE to primary provider. 28 yo male with history of polysubstance use, bipolar disorder here with SI, took 'a bunch of benzos to try to kill himself as well as 5 bags of heroin, crack. We were able to clarify he took 5 clonazepam total and used these additional drugs at 430PM Will need labs, WEN VSS Reevaluation(s) Reevaluation #1: 07:03 The patient presents emergency department for evaluation of suicidal ideation. Patient has been in the emergency department for 13 hours and 15 minutes. Tox screen was positive for opiates, fentanyl and THC. There were no reported incidents on this patient by the overnight staff. The patient will be kept in the emergency department Behavioral Health Unit until disposition can be determined or until his symptoms improve over time. Time: 07:03 Medical Decision Making Medical Decision Making [facility] Narrative: Patient is a 28-year-old unhoused male presenting to the emergency department with thoughts of suicidal ideation and states that he took 5 clonazepam prior to arrival, then used 5 bags of heroin and a hit of crack in an overdose attempt prior to arrival. On exam patient is awake, A+Ox3, VS WNL, afebrile, normal neurological exam without focal deficits, physical exam findings as above. Given reported symptoms and physical exam findings, initial differential includes anxiety, depression, intentional overdose. Labs notable for mild anemia, improved from prior, mild elevation of LFTs. Urine is without evidence of infection. Urine drug screen positive for opiates, fentanyl, marijuana. Patient medically cleared for care team evaluation. Will place on physician observation. Differential Diagnosis Differential Diagnoses: The differential diagnosis associated with the presentation includes As per MDM. Admission/Observation Consideration of admission/observation: Escalation of care including admission/observation considered Consult Healthcare Provider Management of the patient was discussed with: Behavioral Health Provider Lab Data [facility] Lab Attestation statement: I reviewed the patient's lab results. As per MDM. 08/21/23 18:21 08/21/23 18:21 Labs: Lab Results 08/21/23 08/21/23 Range/Units 18:20 18:21 WBC 10.6 (4.8-10.8) X10*3/uL RBC 4.75 (4.60-5.80) X10*6/uL Hgb 13.7 L (14.0-18.0) g/dl Hct 39.4 L (42.0-52.0) % MCV 82.9 (80.0-98.0) fL MCH 28.8 (27.0-33.0) pg MCHC 34.8 (31.0-36.0) g/dl RDW 14.9 (11.0-16.0) % Plt Count 333 D (160-400) X10*3/uL MPV 9.9 (9.4-12.4) fL Immature Gran % (Auto) 0.5 H (0.0-0.4) % Neut % (Auto) 47.9 (45-73) % Lymph % (Auto) 40.7 H (20-40) % [place] % (Auto) 9.4 (2-11) % Eos % (Auto) 1.4 (0-4) % Baso % (Auto) 0.1 (0-2) % Lymph # (Auto) 4.3 (1.2-4.9) X10*3/uL [place] # (Auto) 1.0 (0.1-1.2) X10*3/uL Eos # (Auto) 0.2 (0.0-0.4) X10*3/uL Baso # (Auto) 0.0 (0.0-0.2) X10*3/uL Abs Immat Gran (auto) 0.05 H (0.00-0.03) X10*3/uL Absolute Neuts (auto) 5.1 (2.0-8.3) x10*3/uL Absolute Nucleated RBC 0.000 (0.0-0.012) X10*3/uL Nucleated RBC % (auto) 0.0 (0.0-0.2) /100WBC Sodium 140 (135-145) mmol/L Potassium 4.0 (3.3-5.1) mmol/L Chloride 104 (96-108) mmol/L Carbon Dioxide 25 (22-29) mmol/L Anion Gap 15 (12-20) BUN 8 L (9-16) mg/dL Creatinine 0.87 (0.5-1.4) mg/dL Estim Creat Clear Calc 130.6 Estimated GFR > 60 Random Glucose 120 H (60-115) mg/dL Calcium 10.0 (8.4-10.2) mg/dL Total Bilirubin 0.5 (0.0-1.0) mg/dL Direct Bilirubin 0.2 (0.0-0.5) mg/dL AST 60 H (5-37) U/L ALT 62 H (0-40) U/L Alkaline Phosphatase 113 (39-117) U/L Total Protein 8.7 H (6.5-8.0) g/dL Albumin 5.0 (3.5-5.0) g/dL Urine Color Yellow Urine Appearance Cloudy Urine pH 6.0 (5.0-9.0) Ur Specific [place] 1.015 (1.005-1.025) Urine Protein 30 (1+) H (Neg-Trace) mg/dL Urine Glucose (UA) Negative (Negative) mg/dL Urine Ketones Negative (Negative) mg/dL Urine Blood Negative (Negative) Urine Nitrite Negative (Negative) Ur Leukocyte Esterase Negative (Negative) Urine RBC 0-2 (0-2) /HPF Urine WBC 0-5 (0-5) /HPF Ur Squamous Epith Cells 0-2 (0-2) /HPF Urine Bacteria None Seen (None Seen) Hyaline Casts >20 (0-2) /LPF Salicylates < 5.0 L (15-30) mg/dL Urine Opiates Screen POSITIVE H (Not Detect) Urine Fentanyl Screen POSITIVE H (Not Detect) Acetaminophen < 3 (<30) mcg/mL Ur Barbiturates Screen Not Detected (Not Detect) Ur Phencyclidine Scrn Not Detected (Not Detect) Ur Amphetamines Screen Not Detected (Not Detect) U Benzodiazepines Scrn Not Detected (Not Detect) Urine Cocaine Screen Not Detected (Not Detect) U Marijuana (THC) Screen POSITIVE H (Not Detect) Ethyl Alcohol < 10 mg/dL External Record Review External record reviewed: Inpatient record, Office record and Outpatient record Discharge Plan Discharge Clinical Impression: Depression, Polysubstance abuse Prescriptions: No Action quetiapine 100 mg tablet 100 mg PO BEDTIME nicotine (polacrilex) 4 mg gum 4 mg PO Q2H PRN (Reason: smoking cessation ) doxycycline monohydrate 100 mg capsule 100 mg PO Q12H gabapentin 300 mg capsule 300 mg PO TID PRN (Reason: anxiety) hydroxyzine HCl 25 mg tablet 25 mg PO TID mirtazapine 15 mg tablet 15 mg PO BEDTIME aripiprazole 5 mg tablet 5 mg PO DAILY Vraylar 3 mg capsule 3 mg PO DAILY Interventions: [place]-Suicide Risk Severity Scale Last Done: 08/22/23 02:00
--- NOTE | 2023-08-21 18:15 | PC.NURSE ---
Patient self presented to ED with SI stating he took a lot of benzos and heroin . Vital signs within normal limits. 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 Patient oriented to unit. Labs pending
[2023-08-21 18:25] LABS: MANUAL DIFF FLAG NO
[2023-08-21 18:28] VITALS: RESP 18
[2023-08-21 18:28] LABS: Appearance Urine Cloudy; Color Urine Yellow; Glucose Urine UA Negative (Negative); Leukocyte Esterase Urine Negative (Negative); Nitrite Urine Negative (Negative); Specific Gravity - Urine 1.015 (1.005-1.025); UMIC TRIGGER UACC YES; Urine Blood Negative (Negative); Urine Ketones Negative (Negative); Urine Protein 30 (1+) mg/dL (Neg-Trace)
[2023-08-21 18:33] LABS: Basophils Percent Auto 0.1 % (0-2); Eosinophils Absolute Auto 0.2 X10*3/uL (0.0-0.4); Eosinophils Percent Auto 1.4 % (0-4); Hematocrit 39.4 % (42.0-52.0); Hemoglobin 13.7 g/dl (14.0-18.0); Imm Gran Abs Auto 0.05 X10*3/uL (0.00-0.03); Imm Gran Pct Auto 0.5 % (0.0-0.4); Lymphocytes Absolute Auto 4.3 X10*3/uL (1.2-4.9); Lymphocytes Percent Auto 40.7 % (20-40); Mean Corpuscular HGB Conc 34.8 g/dl (31.0-36.0); Mean Corpuscular Hemoglobin 28.8 pg (27.0-33.0); Mean Corpuscular Volume 82.9 fL (80.0-98.0); Mean Platelet Volume 9.9 fL (9.4-12.4); Monocytes Percent Auto 9.4 % (2-11); Neutrophils Absolute Auto 5.1 x10*3/uL (2.0-8.3); Neutrophils Percent Auto 47.9 % (45-73); Platelet Count 333 X10*3/uL (160-400); Red Blood Count 4.75 X10*6/uL (4.60-5.80); Red Cell Distribution Width 14.9 % (11.0-16.0); White Blood Count 10.6 X10*3/uL (4.8-10.8)
[2023-08-21 18:36] LABS: Amphetamine Screen Urine Not Detected (Not Detect); Barbiturates, Urine Not Detected (Not Detect); Benzodiazepines Screen Urine Not Detected (Not Detect); Cannabinoid Screen Urine POSITIVE (Not Detect); Cocaine Screen Urine Not Detected (Not Detect); Fentanyl, urine POSITIVE (Not Detect); Opiate Screen Urine POSITIVE (Not Detect); Phencyclidine Screen Urine Not Detected (Not Detect)
[2023-08-21 18:41] LABS: Bacteria Urine None Seen (None Seen); Hyaline Casts Urine >20 /LPF (0-2); RBC Urine 0-2 /HPF (0-2); Squamous Epithelial Cell Urine 0-2 /HPF (0-2); WBC Urine 0-5 /HPF (0-5)
[2023-08-21 18:42] LABS: Alanine Aminotransferase 62 U/L (0-40); Alkaline Phosphatase 113 U/L (39-117); Anion Gap 15 (12-20); Aspartate Amino Transferase 60 U/L (5-37); Bilirubin Direct 0.2 mg/dL (0.0-0.5); Bilirubin Total 0.5 mg/dL (0.0-1.0); Blood Urea Nitrogen 8 mg/dL (9-16); Carbon Dioxide 25 mmol/L (22-29); Chloride 104 mmol/L (96-108); Creatinine Clr Calc Pharmacy 130.6; Estimated Glomerular Filt Rate > 60; Glucose Random 120 mg/dL (60-115); Sodium 140 mmol/L (135-145); Total Protein 8.7 g/dL (6.5-8.0)
[2023-08-21 18:43] LABS: Acetaminophen LAB < 3 mcg/mL (<30); Ethanol < 10 mg/dL; Salicylate < 5.0 mg/dL (15-30)
[2023-08-22 04:25] VITALS: BP 135/92; PULSE 92; RESP 16; TEMP 36.4; O2SAT 96
--- NOTE | 2023-08-22 04:35 | PC.NURSE ---
Methadone dose verified by this RN. SARAH Beth RN verified that pt took 95mg of methadone on 08/21. Form filled out and faxed to pharmacy.
[2023-08-22 07:45] VITALS: RESP 16
[2023-08-22 08:59] VITALS: BP 124/80; PULSE 95; TEMP 36.3; O2SAT 99
[2023-08-22] MEDS: Cariprazine HCl 3 MG CAPSULE PO (09:25)
[2023-08-22] MEDS: Doxycycline Monohydrate 100 MG CAPSULE PO ×2 (09:25→20:04)
[2023-08-22] MEDS: hydrOXYzine HCL 25 MG TABLET PO ×3 (09:25→20:04)
[2023-08-22] MEDS: ARIPiprazole 5 MG TABLET PO (09:25)
--- NOTE | 2023-08-22 09:45 | HE.PHANOTE ---
RE METHADONE VERIFICATION last dose 95 mg given at [facility] 08/21/23 verified by emir bradley
[2023-08-22] MEDS: methADONE HCl 20 MG/2 ML ORAL.CONC 95 MG PO (10:04)
--- NOTE | 2023-08-22 10:28 | PC.NURSE ---
Patient is alert and able to make needs known. Patients methadone was verified this morning at [facility]. 95mg dose given this morning. Patient resting comfortably in bed at this time.
--- NOTE | 2023-08-22 10:46 | PHA.MEDREC ---
Pharmacy Consult ? Medication Reconciliation Pharmacy has completed the medication reconciliation. Reviewed med rec done by nursing
[2023-08-22 14:16] VITALS: RESP 16
[2023-08-22] MEDS: Gabapentin 300 MG CAPSULE PO (15:35)
--- NOTE | 2023-08-22 16:13 | ECG_ITS ---
Test Reason : QT CHECK Blood Pressure : / mmHG Vent. Rate : 091 BPM Atrial Rate : 091 BPM P-R Int : 136 ms QRS Dur : 088 ms QT Int : 362 ms P-R-T Axes : 045 066 050 degrees QTc Int : 445 ms Normal sinus rhythm Normal ECG When compared with ECG of 15-AUG-2023 21:23, T wave amplitude has decreased in Lateral leads Heart rate has increased Referred By: Derrick Hendrickson Electronically Signed By:JULIA BHATIA MD
[2023-08-22 16:43] LABS: COVID-19 Test Negative (Negative); IDNOW Serial# 9DB6401D
[2023-08-22 16:51] VITALS: RESP 16
[2023-08-22] MEDS: QUEtiapine Fumarate 100 MG TABLET PO (20:04)
[2023-08-22] MEDS: Mirtazapine 15 MG TABLET PO (20:04)
[2023-08-23] MEDS: Gabapentin 300 MG CAPSULE PO ×2 (01:42→19:48)
--- NOTE | 2023-08-23 07:02 | PC.NURSE ---
Patient slept through the night, no distress observed/reported, medication compliant, disposition per care team is voluntary in patient bed search, behavior non concerning, labs completed/resulted, will continue to monitor.
--- NOTE | 2023-08-23 07:27 | PC.NURSE ---
patient appears to remain asleep respirations are even and unlabored patient appears in no distress.
[2023-08-23] MEDS: Doxycycline Monohydrate 100 MG CAPSULE PO ×2 (09:06→19:49)
[2023-08-23] MEDS: Cariprazine HCl 3 MG CAPSULE PO (09:06)
[2023-08-23] MEDS: ARIPiprazole 5 MG TABLET PO (09:06)
[2023-08-23] MEDS: methADONE HCl 20 MG/2 ML ORAL.CONC 95 MG PO (09:06)
[2023-08-23] MEDS: hydrOXYzine HCL 25 MG TABLET PO ×3 (09:06→19:49)
[2023-08-23 09:36] VITALS: BP 125/87; PULSE 94; RESP 16; TEMP 36.9; O2SAT 99
[2023-08-23] MEDS: Nicotine Polacrilex 2 MG GUM 4 MG BUCCAL (10:57)
[2023-08-23 17:52] VITALS: BP 147/87; PULSE 95; RESP 16; TEMP 36.6; O2SAT 99; BMI 27.8
--- NOTE | 2023-08-23 18:38 | PC.ADMIT ---
Pt is a 28years old male admitted for SI with a plan to overdose on medication. Per crises report: Pt reports that he used heroin and cocaine prior to arrival as well as 4 tablets of klonopin in hopes of killing himself. Pt is alert and oriented x3 per assessment, VSS, covid negative, tox screen positive for cocaine, opioid, marijuana. box coverer hand and skin check completed. Pt appears neat, affect is bright. He is calm and collected. Speech is regular with normal tone, rate and rhythm. Pt is currently on methadone maintenance with [facility]. Pt reports low SI, depression of 5/10, anxiety of 4/10. Pt has no outpatient providers. Pt verbalized he would need assistance with establishing outpatient providers as well as senior care placement. Pt denies HI/AVH. Admission orders obtained, Pt is currently in the kitchen socializing with peers, med and meal compliant.
[2023-08-23] MEDS: QUEtiapine Fumarate 100 MG TABLET PO (19:48)
[2023-08-23] MEDS: Mirtazapine 15 MG TABLET PO (19:49)
[2023-08-24 08:14] VITALS: BP 132/87; PULSE 95; RESP 16; TEMP 36.2; O2SAT 97
[2023-08-24] MEDS: hydrOXYzine HCL 25 MG TABLET PO ×3 (08:15→21:12)
[2023-08-24] MEDS: Cariprazine HCl 3 MG CAPSULE PO (08:15)
[2023-08-24] MEDS: methADONE HCl 20 MG/2 ML ORAL.CONC 95 MG PO (08:15)
[2023-08-24] MEDS: Doxycycline Monohydrate 100 MG CAPSULE PO ×2 (08:15→21:12)
[2023-08-24 08:38] LABS: Estimated Average Glucose 100 mg/dL; Hemoglobin A1C 113.8482 umol/L; Hemoglobin A1c % 5.1 % (<6.0)
[2023-08-24] MEDS: Gabapentin 300 MG CAPSULE PO (08:45)
[2023-08-24 08:49] LABS: Cholesterol 161 mg/dL (<200); HDL Cholesterol 36 mg/dL (>40); LDL Cholesterol Calculated 52 mg/dL (<100); Magnesium 2.2 mg/dL (1.6-2.6); Triglycerides 369 mg/dL (<150)
[2023-08-24 09:05] LABS: Free T4 (Free Thyroxine) 0.82 ng/dL (0.71-1.85); Thyroid Stimulating Hormone 0.62 uIU/mL (0.32-4.0)
[2023-08-24 09:17] LABS: Folate 7.4 ng/mL (> or = 4.0); Vitamin B12 614 pg/mL (200-900)
[2023-08-24] MEDS: Nicotine Polacrilex 2 MG GUM 4 MG BUCCAL ×2 (11:32→14:27)
[2023-08-24] MEDS: cloNIDine HCL 0.1 MG TABLET PO (14:27)
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
[2023-08-24 18:00] VITALS: BP 137/81; PULSE 99; RESP 16; TEMP 36.3; O2SAT 96
[2023-08-24] MEDS: OXcarbazepine 300 MG TABLET PO (21:12)
[2023-08-24] MEDS: Atorvastatin Calcium 20 MG TABLET PO (21:12)
[2023-08-24] MEDS: QUEtiapine Fumarate 200 MG TABLET PO (21:12)
[2023-08-25] MEDS: Multivitamin TABLET 1 TAB PO (08:11)
[2023-08-25] MEDS: Doxycycline Monohydrate 100 MG CAPSULE PO ×2 (08:11→19:45)
[2023-08-25] MEDS: hydrOXYzine HCL 25 MG TABLET PO ×3 (08:11→19:45)
[2023-08-25] MEDS: OXcarbazepine 300 MG TABLET PO ×2 (08:11→19:45)
[2023-08-25] MEDS: methADONE HCl 20 MG/2 ML ORAL.CONC 95 MG PO (08:12)
[2023-08-25] MEDS: Cariprazine HCl 3 MG CAPSULE 6 MG PO (08:12)
[2023-08-25] MEDS: Nicotine Polacrilex 2 MG GUM 4 MG BUCCAL (08:33)
[2023-08-25 08:45] VITALS: BP 123/85; PULSE 112; RESP 16; TEMP 36.4; O2SAT 96
[2023-08-25] MEDS: Magnesium Hydrox/Alum Hydrox 30 ML ORAL.SUSP PO (11:48)
--- NOTE | 2023-08-25 14:41 | HO.PSYCHPN ---
Subjective Subjective Date of Service: 08/25/23 Reason For Visit: Bipolar disorder, polysubstance use disorder Subjective Notes: Conditional Voluntary Healthcare Proxy: No Guardianship: No Medical Problems Affecting Mental Status: No Interim History: Pt attempting to call programs-[facility]. Attending groups, asking about [facility]. Involved in the search and putting effort into screening. Asking appropriate questions Medication Compliance: Yes Side effects from medications: No Attending Groups: Yes Review of Systems Acute medical concerns: No Medical Review of Systems: unchanged Mental Status Exam Mental Status Exam Patient Appearance: Fatigued Patient Orientation: Person, Place, Time and Situation Level of Consciousness: Alert Patient Behavior: Appropriate, Talkative, Cooperative and Good Eye Contact Mood Description: Depressed and Apprehensive Affect Description: Flat Ability to Follow Directions: Fair Speech Pattern: Spontaneous Speech Memory Description: Intact and Episodic Impaired Hallucinations: None and Auditory (episodic) Delusions: Not Present Thought Content: positive for Suicidal Ideation Depressive Symptoms: Thoughts of /Suicide Judgement: Good Diagnostics Vital Signs (24Hr): Vital Signs - 24 hr 08/24/23 18:00 08/25/23 08:45 Temperature 97.4 F 97.5 F Pulse Rate 99 112 H Respiratory Rate 16 16 Blood Pressure 137/81 123/85 Pulse Oximetry 96 96 Oxygen Delivery Method Room Air Room Air BMI result Body Mass Index 27.8 Labs 08/21/23 18:21 08/21/23 18:21 Labs: Laboratory Results - last 48 hr 08/24/23 07:58 Estimat Average Glucose 100 Hemoglobin A1c % 5.1 Magnesium 2.2 Triglycerides 369 H Cholesterol 161 LDL Cholesterol, Calc 52 HDL Cholesterol 36 L Vitamin B12 614 Folate 7.4 TSH 0.62 Free T4 0.82 Medications Medications Current Medications Acetaminophen (Acetaminophen 325 Mg Tablet) 650 mg PO Q6H PRN PRN Reason: Headache/Pain Mild Scale (1-3) Al Hydroxide/Mg Hydroxide (Magnesium Hydrox/Alum Hydrox 30 Ml Oral.Susp) 30 ml PO Q6H PRN PRN Reason: Heartburn/Nausea Last Admin: 08/25/23 11:48 Dose: 30 ml Atorvastatin Calcium (Atorvastatin Calcium 20 Mg Tablet) 20 mg PO BEDTIME [facility] Last Admin: 08/24/23 21:12 Dose: 20 mg Cariprazine (Cariprazine Hcl 3 Mg Capsule) 6 mg PO DAILY [facility] Last Admin: 08/25/23 08:12 Dose: 6 mg Clonidine HCl (Clonidine Hcl 0.1 Mg Tablet) 0.1 mg PO TID PRN; Protocol PRN Reason: withdrawal Last Admin: 08/24/23 14:27 Dose: 0.1 mg Doxycycline Monohydrate (Doxycycline Monohydrate 100 Mg Capsule) 100 mg PO BID [facility] Stop: 08/29/23 09:00 Last Admin: 08/25/23 08:11 Dose: 100 mg Gabapentin (Gabapentin 300 Mg Capsule) 300 mg PO TID PRN PRN Reason: anxiety Last Admin: 08/24/23 08:45 Dose: 300 mg Hydroxyzine HCl (Hydroxyzine Hcl 25 Mg Tablet) 25 mg PO TID [facility] Last Admin: 08/25/23 08:11 Dose: 25 mg Hydroxyzine HCl (Hydroxyzine Hcl 25 Mg Tablet) 25 mg PO Q6H PRN PRN Reason: Anxiety Magnesium Hydroxide (Milk Of Magnesia 30 Ml Oral.Susp) 30 ml PO DAILY PRN PRN Reason: Constipation Methadone HCl (Methadone Hcl 20 Mg/2 Ml Oral.Conc) 95 mg PO DAILY [facility] Last Admin: 08/25/23 08:12 Dose: 95 mg Multivitamins/Vitamin C (Multivitamin Tablet) 1 tab PO DAILY [facility] Last Admin: 08/25/23 08:11 Dose: 1 tab Nicotine Polacrilex (Nicotine Polacrilex 2 Mg Gum) 4 mg BUCCAL Q2H PRN PRN Reason: smoking cessation Last Admin: 08/25/23 08:33 Dose: 4 mg Oxcarbazepine (Oxcarbazepine 300 Mg Tablet) 300 mg PO BID [facility] Last Admin: 08/25/23 08:11 Dose: 300 mg Quetiapine Fumarate (Quetiapine Fumarate 200 Mg Tablet) 200 mg PO BEDTIME [facility] Last Admin: 08/24/23 21:12 Dose: 200 mg Trazodone HCl (Trazodone Hcl 50 Mg Tablet) 50 mg PO BEDTIME MRX1 PRN PRN Reason: Insomnia Allergies Allergies Allergy/AdvReac Type Severity Reaction Status Date / Time No Known Allergies Allergy Verified 08/14/23 14:09 [No Known Allergies*] Assessment & Plan Assessment & Plan (1) Opioid use disorder: Status: Acute Code(s): F11.90 - Opioid use, unspecified, uncomplicated (2) Bipolar disorder: Status: Acute Code(s): F31.9 - Bipolar disorder, unspecified (3) Polysubstance abuse: Status: Acute Code(s): F19.10 - Other psychoactive substance abuse, uncomplicated Plan 28 yo male, history of bipolar disorder, opiate use disorder, polysubstance use disorder, readmitted after a recent discharge after using heroin, cocaine, klonopin and experiencing SI. Plan: Detox Collateral contact CSS referral Increase Vraylar to 6 mg daily Atorvastatin 20 mg daily- elevated lipids 08/25/23 Participating in CSS application process. At this time would like to not attend [facility] Informed Consent: understands Reason for continued inpatient stay Substantial Risk for: rapid decompensation Time Spent With Patient Time: Total time managing care of this patient today ____ minutes.
[2023-08-25 18:00] VITALS: BP 118/69; PULSE 108; TEMP 35.9; O2SAT 95
[2023-08-25] MEDS: Gabapentin 300 MG CAPSULE PO (18:04)
[2023-08-25] MEDS: QUEtiapine Fumarate 200 MG TABLET PO (19:45)
[2023-08-25] MEDS: Atorvastatin Calcium 20 MG TABLET PO (19:45)
--- NOTE | 2023-08-26 | ECG_ITS ---
Test Reason : sob Blood Pressure : / mmHG Vent. Rate : 090 BPM Atrial Rate : 090 BPM P-R Int : 136 ms QRS Dur : 092 ms QT Int : 368 ms P-R-T Axes : 040 053 022 degrees QTc Int : 450 ms Normal sinus rhythm Normal ECG When compared with ECG of 22-AUG-2023 19:48, No significant change was found Referred By: Kathryn Hurtado Electronically Signed By:JULIA BHATIA MD
[2023-08-26 07:00] VITALS: BMI 31.1
[2023-08-26 08:48] VITALS: BP 126/85; PULSE 127; RESP 16; TEMP 36.8; O2SAT 98
[2023-08-26] MEDS: Cariprazine HCl 3 MG CAPSULE 6 MG PO (08:55)
[2023-08-26] MEDS: Doxycycline Monohydrate 100 MG CAPSULE PO ×2 (08:55→20:47)
[2023-08-26] MEDS: Multivitamin TABLET 1 TAB PO (08:55)
[2023-08-26] MEDS: hydrOXYzine HCL 25 MG TABLET PO ×3 (08:55→20:47)
[2023-08-26] MEDS: OXcarbazepine 300 MG TABLET PO ×2 (08:55→20:47)
[2023-08-26] MEDS: methADONE HCl 20 MG/2 ML ORAL.CONC 95 MG PO (09:52)
[2023-08-26] MEDS: Nicotine Polacrilex 2 MG GUM 4 MG BUCCAL ×2 (12:26→14:32)
--- NOTE | 2023-08-26 14:23 | MHC.RECOVRN ---
Met with pt after consult placed to Addiction Medicine for methadone titration. Pt had presented to the ED with SI and subsequently readmitted after a recent discharge. Pt has history of bipolar disorder and OUD. Pt awake, alert, easily engages in conversation. Pt is currently on 95 mg methadone through [facility], has been at this dose for about a month. Pt reports using heroin/fentanyl 2 bundles daily, IV, in addition to receiving methadone. Pt states I can definitely feel it now that I'm not using. Of note, pt recently began IV use, was using IN up until a few weeks ago. Harm reduction discussion had. Pt reports utilizing [facility] program. In regards to withdrawal symptoms, pt yawning during interview, reports tearing and diaphoresis especially at night. Requesting methadone dose increase. Pt denies other questions or concerns for t/w. Discussed with Reny Blackwell APRN.
[2023-08-26] MEDS: cloNIDine HCL 0.1 MG TABLET PO (14:28)
--- NOTE | 2023-08-26 14:38 | P.PNPSI_ITS ---
Subjective Subjective Date of Service: 08/26/23 Reason For Visit: Bipolar disorder, polysubstance use disorder Subjective Notes: Conditional Voluntary Healthcare Proxy: No Guardianship: No Medical Problems Affecting Mental Status: No Interim History: Reports anxiety 9/depression 8. Continues to participate in application process for CSS-making calls today. Identifies that anxiety is related to fear he will not be admitted to a program. Medication Compliance: Yes Side effects from medications: No Attending Groups: Yes Review of Systems Acute medical concerns: No Medical Review of Systems: unchanged Review of Systems Review of Systems Yes all other systems are reviewed and are negative Mental Status Exam Mental Status Exam Patient Appearance: Fatigued Patient Orientation: Person, Place, Time and Situation Level of Consciousness: Alert Patient Behavior: Appropriate, Talkative, Cooperative and Good Eye Contact Mood Description: Depressed and Apprehensive Affect Description: Flat Ability to Follow Directions: Fair Speech Pattern: Spontaneous Speech Memory Description: Intact and Episodic Impaired Hallucinations: None and Auditory (episodic) Delusions: Not Present Judgement: Good Diagnostics Vital Signs (24Hr): Vital Signs - 24 hr 08/25/23 18:00 08/26/23 08:48 Temperature 96.6 F L 98.2 F Pulse Rate 108 H 127 H Respiratory Rate 16 Blood Pressure 118/69 126/85 Pulse Oximetry 95 98 Oxygen Delivery Method Room Air Room Air BMI result Body Mass Index 27.8 Labs 08/21/23 18:21 08/21/23 18:21 Medications Medications Current Medications Acetaminophen (Acetaminophen 325 Mg Tablet) 650 mg PO Q6H PRN PRN Reason: Headache/Pain Mild Scale (1-3) Al Hydroxide/Mg Hydroxide (Magnesium Hydrox/Alum Hydrox 30 Ml Oral.Susp) 30 ml PO Q6H PRN PRN Reason: Heartburn/Nausea Last Admin: 08/25/23 11:48 Dose: 30 ml Atorvastatin Calcium (Atorvastatin Calcium 20 Mg Tablet) 20 mg PO BEDTIME [facility] Last Admin: 08/25/23 19:45 Dose: 20 mg Cariprazine (Cariprazine Hcl 3 Mg Capsule) 6 mg PO DAILY [facility] Last Admin: 08/26/23 08:55 Dose: 6 mg Clonidine HCl (Clonidine Hcl 0.1 Mg Tablet) 0.1 mg PO TID PRN; Protocol PRN Reason: withdrawal Last Admin: 08/26/23 14:28 Dose: 0.1 mg Doxycycline Monohydrate (Doxycycline Monohydrate 100 Mg Capsule) 100 mg PO BID [facility] Stop: 08/29/23 09:00 Last Admin: 08/26/23 08:55 Dose: 100 mg Gabapentin (Gabapentin 300 Mg Capsule) 300 mg PO TID PRN PRN Reason: anxiety Last Admin: 08/25/23 18:04 Dose: 300 mg Hydroxyzine HCl (Hydroxyzine Hcl 25 Mg Tablet) 25 mg PO TID [facility] Last Admin: 08/26/23 14:28 Dose: 25 mg Hydroxyzine HCl (Hydroxyzine Hcl 25 Mg Tablet) 25 mg PO Q6H PRN PRN Reason: Anxiety Last Admin: 08/25/23 18:04 Dose: 25 mg Magnesium Hydroxide (Milk Of Magnesia 30 Ml Oral.Susp) 30 ml PO DAILY PRN PRN Reason: Constipation Methadone HCl (Methadone Hcl 20 Mg/2 Ml Oral.Conc) 95 mg PO DAILY [facility] Last Admin: 08/26/23 09:52 Dose: 95 mg Multivitamins/Vitamin C (Multivitamin Tablet) 1 tab PO DAILY [facility] Last Admin: 08/26/23 08:55 Dose: 1 tab Nicotine Polacrilex (Nicotine Polacrilex 2 Mg Gum) 4 mg BUCCAL Q2H PRN PRN Reason: smoking cessation Last Admin: 08/26/23 14:32 Dose: 4 mg Oxcarbazepine (Oxcarbazepine 300 Mg Tablet) 300 mg PO BID [facility] Last Admin: 08/26/23 08:55 Dose: 300 mg Quetiapine Fumarate (Quetiapine Fumarate 200 Mg Tablet) 200 mg PO BEDTIME [facility] Last Admin: 08/25/23 19:45 Dose: 200 mg Trazodone HCl (Trazodone Hcl 50 Mg Tablet) 50 mg PO BEDTIME MRX1 PRN PRN Reason: Insomnia Allergies Allergies Allergy/AdvReac Type Severity Reaction Status Date / Time No Known Allergies Allergy Verified 08/14/23 14:09 [No Known Allergies*] Assessment & Plan Assessment & Plan (1) Opioid use disorder: Status: Acute Code(s): F11.90 - Opioid use, unspecified, uncomplicated (2) Bipolar disorder: Status: Acute Code(s): F31.9 - Bipolar disorder, unspecified (3) Polysubstance abuse: Status: Acute Code(s): F19.10 - Other psychoactive substance abuse, uncomplicated Plan 28 yo male, history of bipolar disorder, opiate use disorder, polysubstance use disorder, readmitted after a recent discharge after using heroin, cocaine, klonopin and experiencing SI. Plan: Detox Collateral contact CSS referral Increase Vraylar to 6 mg daily Atorvastatin 20 mg daily- elevated lipids 08/26/23 Continue current regime and plan. Informed Consent: understands Reason for continued inpatient stay Substantial Risk for: rapid decompensation Time Spent With Patient Time: Total time managing care of this patient today ____ minutes.
--- NOTE | 2023-08-26 16:38 | P.EN_ITS ---
Event Note Date of Service: 08/26/23 Event Note: Addiction consult placed for patient with OUD Seen by yarding supervisor case discussed and note reviewed EKG reviewed ? withdrawl sx Plan Increase methadone 5mg to 100mg QD Time Spent With Patient Time: Total time managing care of this patient today ____ minutes.
[2023-08-26 17:50] VITALS: BP 147/78; PULSE 95; RESP 16; TEMP 36.4; O2SAT 98
--- NOTE | 2023-08-26 19:30 | MHC.RECOVSUP ---
? Reason for consult:OPI o? Current location:[facility]? o? Identified substance use concern:? -? Support ? Intervention o? Community resources provided o? Harm reduction discussion ? Plan: o? Bed search in progress to CSS/[facility]SS ? ? Additional information:[place]NA met with this pt and discussed treatment options, pt stated he'd like to go back to [facility] on [address] in [facility]. GE[place]IANA provided this pt with recovery resources and contact information to connect this pt with a production recovery operator and complete referrals for CSS/[facility]SS/RSS's for this pt.
[2023-08-26] MEDS: QUEtiapine Fumarate 200 MG TABLET PO (20:47)
[2023-08-26] MEDS: Atorvastatin Calcium 20 MG TABLET PO (20:47)
[2023-08-27 06:00] VITALS: BP 141/86; PULSE 101; RESP 16; TEMP 36.4; O2SAT 94
[2023-08-27] MEDS: Cariprazine HCl 3 MG CAPSULE 6 MG PO (08:15)
[2023-08-27] MEDS: hydrOXYzine HCL 25 MG TABLET PO ×3 (08:15→21:01)
[2023-08-27] MEDS: Multivitamin TABLET 1 TAB PO (08:15)
[2023-08-27] MEDS: methADONE HCl 20 MG/2 ML ORAL.CONC 100 MG PO (08:15)
[2023-08-27] MEDS: Doxycycline Monohydrate 100 MG CAPSULE PO ×2 (08:15→21:00)
[2023-08-27] MEDS: OXcarbazepine 300 MG TABLET PO ×2 (08:15→21:00)
[2023-08-27 08:32] LABS: Cholesterol 162 mg/dL (<200); HDL Cholesterol 43 mg/dL (>40); LDL Cholesterol Calculated 73 mg/dL (<100); Triglycerides 233 mg/dL (<150)
[2023-08-27] MEDS: Nicotine Polacrilex 2 MG GUM 4 MG BUCCAL ×2 (09:08→13:28)
--- NOTE | 2023-08-27 15:57 | HO.PSYCHPN ---
Subjective Subjective Date of Service: 08/27/23 Reason For Visit: Bipolar disorder, polysubstance use disorder Subjective Notes: Conditional Voluntary Healthcare Proxy: No Guardianship: No Medical Problems Affecting Mental Status: No Interim History: Reports depression 6, anxiety 8. Attending groups. Reports intermittent perceptual alterations. Sleep is stabilizing. Applications continue to be sent to [employer] programs, pt continues to make calls Medication Compliance: Yes Side effects from medications: No Attending Groups: Yes Review of Systems Acute medical concerns: No Medical Review of Systems: unchanged Review of Systems Review of Systems Yes all other systems are reviewed and are negative Mental Status Exam Mental Status Exam Patient Appearance: Fatigued Patient Orientation: Person, Place, Time and Situation Level of Consciousness: Alert Patient Behavior: Appropriate, Talkative, Cooperative and Good Eye Contact Mood Description: Depressed and Apprehensive Affect Description: Flat Ability to Follow Directions: Fair Speech Pattern: Spontaneous Speech Memory Description: Intact and Episodic Impaired Hallucinations: None and Auditory (episodic) Delusions: Not Present Judgement: Good Diagnostics Vital Signs (24Hr): Vital Signs - 24 hr 08/26/23 17:50 08/27/23 06:00 Temperature 97.5 F 97.6 F Pulse Rate 95 101 H Respiratory Rate 16 16 Blood Pressure 147/78 H 141/86 H Pulse Oximetry 98 94 Oxygen Delivery Method Room Air Room Air BMI result Body Mass Index 31.1 Labs 08/21/23 18:21 08/21/23 18:21 Labs: Laboratory Results - last 48 hr 08/27/23 08:03 Triglycerides 233 H Cholesterol 162 LDL Cholesterol, Calc 73 HDL Cholesterol 43 Medications Medications Current Medications Acetaminophen (Acetaminophen 325 Mg Tablet) 650 mg PO Q6H PRN PRN Reason: Headache/Pain Mild Scale (1-3) Al Hydroxide/Mg Hydroxide (Magnesium Hydrox/Alum Hydrox 30 Ml Oral.Susp) 30 ml PO Q6H PRN PRN Reason: Heartburn/Nausea Last Admin: 08/25/23 11:48 Dose: 30 ml Atorvastatin Calcium (Atorvastatin Calcium 20 Mg Tablet) 20 mg PO BEDTIME [facility] Last Admin: 08/26/23 20:47 Dose: 20 mg Cariprazine (Cariprazine Hcl 3 Mg Capsule) 6 mg PO DAILY [facility] Last Admin: 08/27/23 08:15 Dose: 6 mg Clonidine HCl (Clonidine Hcl 0.1 Mg Tablet) 0.1 mg PO TID PRN; Protocol PRN Reason: withdrawal Last Admin: 08/26/23 14:28 Dose: 0.1 mg Doxycycline Monohydrate (Doxycycline Monohydrate 100 Mg Capsule) 100 mg PO BID [facility] Stop: 08/29/23 09:00 Last Admin: 08/27/23 08:15 Dose: 100 mg Gabapentin (Gabapentin 300 Mg Capsule) 300 mg PO TID PRN PRN Reason: anxiety Last Admin: 08/25/23 18:04 Dose: 300 mg Hydroxyzine HCl (Hydroxyzine Hcl 25 Mg Tablet) 25 mg PO TID [facility] Last Admin: 08/27/23 14:13 Dose: 25 mg Hydroxyzine HCl (Hydroxyzine Hcl 25 Mg Tablet) 25 mg PO Q6H PRN PRN Reason: Anxiety Last Admin: 08/25/23 18:04 Dose: 25 mg Magnesium Hydroxide (Milk Of Magnesia 30 Ml Oral.Susp) 30 ml PO DAILY PRN PRN Reason: Constipation Methadone HCl (Methadone Hcl 20 Mg/2 Ml Oral.Conc) 100 mg PO DAILY [facility] Last Admin: 08/27/23 08:15 Dose: 100 mg Multivitamins/Vitamin C (Multivitamin Tablet) 1 tab PO DAILY [facility] Last Admin: 08/27/23 08:15 Dose: 1 tab Nicotine Polacrilex (Nicotine Polacrilex Lozenge 4 Mg Lozenge) 4 mg BUCCAL Q2H PRN PRN Reason: Nicotine Cravings Oxcarbazepine (Oxcarbazepine 300 Mg Tablet) 300 mg PO BID [facility] Last Admin: 08/27/23 08:15 Dose: 300 mg Quetiapine Fumarate (Quetiapine Fumarate 200 Mg Tablet) 200 mg PO BEDTIME [facility] Last Admin: 08/26/23 20:47 Dose: 200 mg Trazodone HCl (Trazodone Hcl 50 Mg Tablet) 50 mg PO BEDTIME MRX1 PRN PRN Reason: Insomnia Allergies Allergies Allergy/AdvReac Type Severity Reaction Status Date / Time No Known Allergies Allergy Verified 08/14/23 14:09 [No Known Allergies*] Assessment & Plan Assessment & Plan (1) Opioid use disorder: Status: Acute Code(s): F11.90 - Opioid use, unspecified, uncomplicated (2) Bipolar disorder: Status: Acute Code(s): F31.9 - Bipolar disorder, unspecified (3) Polysubstance abuse: Status: Acute Code(s): F19.10 - Other psychoactive substance abuse, uncomplicated Plan 28 yo male, history of bipolar disorder, opiate use disorder, polysubstance use disorder, readmitted after a recent discharge after using heroin, cocaine, klonopin and experiencing SI. Plan: Detox Collateral contact CSS referral Increase Vraylar to 6 mg daily Atorvastatin 20 mg daily- elevated lipids 08/27/23 Seroquel 50 mg bid prn perceptual alterations. Patient educated on: therapeutic strategies Informed Consent: understands Reason for continued inpatient stay Substantial Risk for: rapid decompensation Time Spent With Patient Time: Total time managing care of this patient today ____ minutes.
[2023-08-27 17:05] VITALS: BP 123/75; PULSE 99; TEMP 36.7
[2023-08-27] MEDS: Magnesium Hydrox/Alum Hydrox 30 ML ORAL.SUSP PO (17:23)
[2023-08-27] MEDS: Nicotine Polacrilex Lozenge 4 MG LOZENGE BUCCAL (18:56)
[2023-08-27] MEDS: Atorvastatin Calcium 20 MG TABLET PO (21:00)
[2023-08-27] MEDS: QUEtiapine Fumarate 200 MG TABLET PO (21:01)
[2023-08-28 08:00] VITALS: BP 114/70; PULSE 105; RESP 16; TEMP 36.3; O2SAT 96
[2023-08-28] MEDS: Cariprazine HCl 3 MG CAPSULE 6 MG PO (08:22)
[2023-08-28] MEDS: OXcarbazepine 300 MG TABLET PO ×2 (08:22→22:02)
[2023-08-28] MEDS: Multivitamin TABLET 1 TAB PO (08:22)
[2023-08-28] MEDS: methADONE HCl 20 MG/2 ML ORAL.CONC 100 MG PO (08:23)
[2023-08-28] MEDS: Doxycycline Monohydrate 100 MG CAPSULE PO ×2 (08:23→22:02)
[2023-08-28] MEDS: hydrOXYzine HCL 25 MG TABLET PO ×5 (08:23→21:00)
--- NOTE | 2023-08-28 09:29 | HO.PSYCHPN ---
Subjective Subjective Date of Service: 08/28/23 Reason For Visit: Bipolar disorder, polysubstance use disorder Interim History: Met with patient; discussed with team; reviewed chart Patient reports that he is feeling better. He says he is sleeping better with Seroquel and that his mood is better with Vraylar (review of chart says now on 6 mg). Patient says he still has some auditory hallucinations but they are much lower and he is mostly able to ignore them. He is hoping to get into the [facility] program and is happy about getting a control and recovery combat rescue. Mental Status Exam Mental Status Exam Narrative: Pt is alert and oriented; behavior is cooperative, friendly and calm; patient is not in distress; dressed in casual attire, a little scruffy but adequate hygiene; mood is described as pretty good and affect congruent; eye contact appropriate; Speech is normal rate, volume and prosody and not pressured; no psychomotor agitation/retardation present; thought process is organized and goal directed; Thought content is on sobriety, mood, tx; otherwise pertinent to relevant topics and without any delusional content, paranoid ideations expressed; denies any SI/HI. Mild internal preoccupation; reports still has AH but much less and mostly able to ignore Patients insight and judgment appear intact. Diagnostics Vital Signs (24Hr): Vital Signs - 24 hr 08/27/23 17:05 Temperature 98.1 F Pulse Rate 99 Blood Pressure 123/75 BMI result Body Mass Index 31.1 Labs 08/21/23 18:21 08/21/23 18:21 Labs: Laboratory Results - last 48 hr 08/27/23 08:03 Triglycerides 233 H Cholesterol 162 LDL Cholesterol, Calc 73 HDL Cholesterol 43 Medications Medications Current Medications Acetaminophen (Acetaminophen 325 Mg Tablet) 650 mg PO Q6H PRN PRN Reason: Headache/Pain Mild Scale (1-3) Al Hydroxide/Mg Hydroxide (Magnesium Hydrox/Alum Hydrox 30 Ml Oral.Susp) 30 ml PO Q6H PRN PRN Reason: Heartburn/Nausea Last Admin: 08/27/23 17:23 Dose: 30 ml Atorvastatin Calcium (Atorvastatin Calcium 20 Mg Tablet) 20 mg PO BEDTIME [facility] Last Admin: 08/27/23 21:00 Dose: 20 mg Cariprazine (Cariprazine Hcl 3 Mg Capsule) 6 mg PO DAILY [facility] Last Admin: 08/28/23 08:22 Dose: 6 mg Clonidine HCl (Clonidine Hcl 0.1 Mg Tablet) 0.1 mg PO TID PRN; Protocol PRN Reason: withdrawal Last Admin: 08/26/23 14:28 Dose: 0.1 mg Doxycycline Monohydrate (Doxycycline Monohydrate 100 Mg Capsule) 100 mg PO BID [facility] Stop: 08/29/23 09:00 Last Admin: 08/28/23 08:23 Dose: 100 mg Gabapentin (Gabapentin 300 Mg Capsule) 300 mg PO TID PRN PRN Reason: anxiety Last Admin: 08/25/23 18:04 Dose: 300 mg Hydroxyzine HCl (Hydroxyzine Hcl 25 Mg Tablet) 25 mg PO TID [facility] Last Admin: 08/28/23 08:23 Dose: 25 mg Hydroxyzine HCl (Hydroxyzine Hcl 25 Mg Tablet) 25 mg PO Q6H PRN PRN Reason: Anxiety Last Admin: 08/25/23 18:04 Dose: 25 mg Magnesium Hydroxide (Milk Of Magnesia 30 Ml Oral.Susp) 30 ml PO DAILY PRN PRN Reason: Constipation Methadone HCl (Methadone Hcl 20 Mg/2 Ml Oral.Conc) 100 mg PO DAILY [facility] Last Admin: 08/28/23 08:23 Dose: 100 mg Multivitamins/Vitamin C (Multivitamin Tablet) 1 tab PO DAILY [facility] Last Admin: 08/28/23 08:22 Dose: 1 tab Nicotine Polacrilex (Nicotine Polacrilex Lozenge 4 Mg Lozenge) 4 mg BUCCAL Q2H PRN PRN Reason: Nicotine Cravings Last Admin: 08/27/23 18:56 Dose: 4 mg Oxcarbazepine (Oxcarbazepine 300 Mg Tablet) 300 mg PO BID [facility] Last Admin: 08/28/23 08:22 Dose: 300 mg Quetiapine Fumarate (Quetiapine Fumarate 200 Mg Tablet) 200 mg PO BEDTIME [facility] Last Admin: 08/27/23 21:01 Dose: 200 mg Quetiapine Fumarate (Quetiapine Fumarate 50 Mg Tablet) 50 mg PO BID PRN PRN Reason: perceptual alterations Trazodone HCl (Trazodone Hcl 50 Mg Tablet) 50 mg PO BEDTIME MRX1 PRN PRN Reason: Insomnia Allergies Allergies Allergy/AdvReac Type Severity Reaction Status Date / Time No Known Allergies Allergy Verified 08/14/23 14:09 [No Known Allergies*] Assessment & Plan Assessment & Plan (1) Opioid use disorder: Status: Acute Code(s): F11.90 - Opioid use, unspecified, uncomplicated (2) Bipolar disorder: Status: Acute Code(s): F31.9 - Bipolar disorder, unspecified (3) Polysubstance abuse: Status: Acute Code(s): F19.10 - Other psychoactive substance abuse, uncomplicated Plan 28 yo male, history of bipolar disorder, opiate use disorder, polysubstance use disorder, readmitted after a recent discharge after using heroin, cocaine, klonopin and experiencing SI. Plan: Detox Collateral contact CSS referral Increase Vraylar to 6 mg daily Atorvastatin 20 mg daily- elevated lipids 08/27/23 Seroquel 50 mg bid prn perceptual alterations. 08/28/2023 patient reports feeling better and sleeping better; continue current treatment plan Patient educated on: diagnosis, medication risk/benefits and substance abuse Informed Consent: understands Reason for continued inpatient stay Substantial Risk for: med/psych decompensation Time Spent With Patient Time: Total time managing care of this patient today ____ minutes.
[2023-08-28] MEDS: QUEtiapine Fumarate 50 MG TABLET PO ×2 (11:30→18:14)
[2023-08-28] MEDS: Nicotine Polacrilex Lozenge 4 MG LOZENGE BUCCAL ×3 (11:30→18:13)
[2023-08-28] MEDS: Magnesium Hydrox/Alum Hydrox 30 ML ORAL.SUSP PO (16:20)
[2023-08-28 19:32] VITALS: BP 118/77; PULSE 98; RESP 16; TEMP 36.2; O2SAT 99
[2023-08-28] MEDS: Atorvastatin Calcium 20 MG TABLET PO (22:02)
[2023-08-28] MEDS: QUEtiapine Fumarate 200 MG TABLET PO (22:02)
[2023-08-29 06:00] VITALS: BP 121/82; PULSE 104; RESP 16; TEMP 36.6; O2SAT 98
[2023-08-29] MEDS: methADONE HCl 20 MG/2 ML ORAL.CONC 100 MG PO (08:06)
[2023-08-29] MEDS: Cariprazine HCl 3 MG CAPSULE 6 MG PO (08:06)
[2023-08-29] MEDS: OXcarbazepine 300 MG TABLET PO ×2 (08:06→21:18)
[2023-08-29] MEDS: hydrOXYzine HCL 25 MG TABLET PO ×3 (08:06→21:18)
[2023-08-29] MEDS: Multivitamin TABLET 1 TAB PO (08:06)
[2023-08-29] MEDS: Doxycycline Monohydrate 100 MG CAPSULE PO (08:06)
[2023-08-29] MEDS: Nicotine Polacrilex Lozenge 4 MG LOZENGE BUCCAL ×4 (08:26→21:15)
[2023-08-29] MEDS: Magnesium Hydrox/Alum Hydrox 30 ML ORAL.SUSP PO (10:39)
[2023-08-29] MEDS: cloNIDine HCL 0.1 MG TABLET PO (10:42)
[2023-08-29 10:43] VITALS: BP 120/74; PULSE 108; RESP 18; O2SAT 98
--- NOTE | 2023-08-29 10:51 | P.PNPSI_ITS ---
Subjective Subjective Date of Service: 08/29/23 Reason For Visit: Bipolar disorder, polysubstance use disorder Interim History: Met with patient; discussed with team Patient reports that he is feeling short of breath and feels pressure on his chest, though no pain; he said he has been feeling this for the past 3 days though did not mention this to investment underwriter yesterday. He says he knows his EKG was normal but it still ongoing. Pest Management Supervisor suggested that it is likely anxiety to which patient agreed saying he is nervous about the next steps in his treatment, especially aftercare. He agreed to try Ativan to see if that calms things down. Does not appear short of breath; playing game calmly with others in the milieu Vitals/O2 sat WNL; respiratory rate WNL no hx asthma; denies chest pain Auscultation: Pulm: regular breath sounds CTA b/l throughout; no wheezing, rhonchi, Patient given Ativan 1 mg which completely resolved shortness of breath Mental Status Exam Mental Status Exam Narrative: Pt is alert and oriented; behavior is cooperative, friendly and calm; patient is not in distress; dressed in casual attire, a little scruffy but adequate hygiene; mood is described as anxious and affect intermittently so; eye contact appropriate; Speech is normal rate, volume and prosody and not pressured; no psychomotor agitation/retardation present; thought process is organized and goal directed; Thought content is on sobriety, mood, tx; otherwise pertinent to relevant topics and without any delusional content, paranoid ideations expressed; denies any SI/HI. Mild internal preoccupation; reports still has AH but much less and mostly able to ignore Patients insight and judgment appear intact. Diagnostics Vital Signs (24Hr): Vital Signs - 24 hr 08/28/23 19:32 08/29/23 06:00 08/29/23 10:43 Temperature 97.2 F 97.9 F Pulse Rate 98 104 H 108 H Respiratory Rate 16 16 18 Blood Pressure 118/77 121/82 120/74 Pulse Oximetry 99 98 98 Oxygen Delivery Method Room Air Room Air Room Air BMI result Body Mass Index 31.1 Labs 08/21/23 18:21 08/21/23 18:21 Medications Medications Current Medications Acetaminophen (Acetaminophen 325 Mg Tablet) 650 mg PO Q6H PRN PRN Reason: Headache/Pain Mild Scale (1-3) Al Hydroxide/Mg Hydroxide (Magnesium Hydrox/Alum Hydrox 30 Ml Oral.Susp) 30 ml PO Q6H PRN PRN Reason: Heartburn/Nausea Last Admin: 08/29/23 10:39 Dose: 30 ml Atorvastatin Calcium (Atorvastatin Calcium 20 Mg Tablet) 20 mg PO BEDTIME [facility] Last Admin: 08/28/23 22:02 Dose: 20 mg Cariprazine (Cariprazine Hcl 3 Mg Capsule) 6 mg PO DAILY [facility] Last Admin: 08/29/23 08:06 Dose: 6 mg Clonidine HCl (Clonidine Hcl 0.1 Mg Tablet) 0.1 mg PO TID PRN; Protocol PRN Reason: withdrawal Last Admin: 08/29/23 10:42 Dose: 0.1 mg Gabapentin (Gabapentin 300 Mg Capsule) 300 mg PO TID PRN PRN Reason: anxiety Last Admin: 08/25/23 18:04 Dose: 300 mg Hydroxyzine HCl (Hydroxyzine Hcl 25 Mg Tablet) 25 mg PO TID [facility] Last Admin: 08/29/23 08:06 Dose: 25 mg Hydroxyzine HCl (Hydroxyzine Hcl 25 Mg Tablet) 25 mg PO Q6H PRN PRN Reason: Anxiety Last Admin: 08/28/23 18:13 Dose: 25 mg Magnesium Hydroxide (Milk Of Magnesia 30 Ml Oral.Susp) 30 ml PO DAILY PRN PRN Reason: Constipation Methadone HCl (Methadone Hcl 20 Mg/2 Ml Oral.Conc) 100 mg PO DAILY [facility] Last Admin: 08/29/23 08:06 Dose: 100 mg Multivitamins/Vitamin C (Multivitamin Tablet) 1 tab PO DAILY [facility] Last Admin: 08/29/23 08:06 Dose: 1 tab Nicotine Polacrilex (Nicotine Polacrilex Lozenge 4 Mg Lozenge) 4 mg BUCCAL Q2H PRN PRN Reason: Nicotine Cravings Last Admin: 08/29/23 10:39 Dose: 4 mg Oxcarbazepine (Oxcarbazepine 300 Mg Tablet) 300 mg PO BID [facility] Last Admin: 08/29/23 08:06 Dose: 300 mg Quetiapine Fumarate (Quetiapine Fumarate 200 Mg Tablet) 200 mg PO BEDTIME [facility] Last Admin: 08/28/23 22:02 Dose: 200 mg Quetiapine Fumarate (Quetiapine Fumarate 50 Mg Tablet) 50 mg PO BID PRN PRN Reason: perceptual alterations Last Admin: 08/28/23 18:14 Dose: 50 mg Trazodone HCl (Trazodone Hcl 50 Mg Tablet) 50 mg PO BEDTIME MRX1 PRN PRN Reason: Insomnia Allergies Allergies Allergy/AdvReac Type Severity Reaction Status Date / Time No Known Allergies Allergy Verified 08/14/23 14:09 [No Known Allergies*] Assessment & Plan Assessment & Plan (1) Opioid use disorder: Status: Acute Code(s): F11.90 - Opioid use, unspecified, uncomplicated (2) Bipolar disorder: Status: Acute Code(s): F31.9 - Bipolar disorder, unspecified (3) Polysubstance abuse: Status: Acute Code(s): F19.10 - Other psychoactive substance abuse, uncomplicated Plan 28 yo male, history of bipolar disorder, opiate use disorder, polysubstance use disorder, readmitted after a recent discharge after using heroin, cocaine, klonopin and experiencing SI. Plan: Detox Collateral contact CSS referral Increase Vraylar to 6 mg daily Atorvastatin 20 mg daily- elevated lipids 08/27/23 Seroquel 50 mg bid prn perceptual alterations. 08/28/23 patient reports feeling better and sleeping better; continue current treatment plan 08/29/23: Patient reports that he is feeling short of breath and feels pressure on his chest, though no pain; he said he has been feeling this for the past 3 days though did not mention this to investment underwriter yesterday. He says he knows his EKG was normal but it still ongoing. Pest Management Supervisor suggested that it is likely anxiety to which patient agreed saying he is nervous about the next steps in his treatment, especially aftercare. He agreed to try Ativan to see if that calms things down. Does not appear short of breath; playing game calmly with others in the milieu Vitals/O2 sat WNL; respiratory rate WNL no hx asthma; denies chest pain Pulm exam: regular breath sounds CTA b/l throughout; no wheezing, rhonchi, Cardiac: Regular rhythm; mild tachycardia; no murmurs, rubs, gallops Patient given Ativan 1 mg which completely resolved shortness of breath Patient educated on: diagnosis, medication risk/benefits and medical condition Informed Consent: understands Reason for continued inpatient stay Substantial Risk for: stable for discharge Time Spent With Patient Time: Total time managing care of this patient today ____ minutes.
[2023-08-29] MEDS: LORazepam 1 MG TABLET PO (16:15)
[2023-08-29 18:00] VITALS: BP 131/82; PULSE 106; RESP 18; TEMP 36.3; O2SAT 97
[2023-08-29] MEDS: Atorvastatin Calcium 20 MG TABLET PO (21:18)
[2023-08-29] MEDS: QUEtiapine Fumarate 200 MG TABLET PO (21:18)
[2023-08-30] MEDS: hydrOXYzine HCL 25 MG TABLET PO ×4 (08:14→22:38)
[2023-08-30] MEDS: Cariprazine HCl 3 MG CAPSULE 6 MG PO (08:14)
[2023-08-30] MEDS: methADONE HCl 20 MG/2 ML ORAL.CONC 100 MG PO (08:14)
[2023-08-30] MEDS: Multivitamin TABLET 1 TAB PO (08:14)
[2023-08-30] MEDS: OXcarbazepine 300 MG TABLET PO ×2 (08:14→22:38)
[2023-08-30 08:30] VITALS: BP 117/63; PULSE 95; RESP 18; TEMP 36.2; O2SAT 98
[2023-08-30] MEDS: Nicotine Polacrilex Lozenge 4 MG LOZENGE BUCCAL ×4 (08:38→22:40)
--- NOTE | 2023-08-30 09:38 | P.PNPSI_ITS ---
Subjective Subjective Date of Service: 08/30/23 Reason For Visit: Bipolar disorder, polysubstance use disorder Subjective Notes: Conditional Voluntary Healthcare Proxy: No Guardianship: No Medical Problems Affecting Mental Status: No Interim History: Reports sx of amy-significant anxiety, depression, racing of thoughts. Discussion of medicine options-Will initiate Depakote. Also issues with GERD, constipation. Medication Compliance: Yes Side effects from medications: No Attending Groups: Intermittent Review of Systems Acute medical concerns: No Medical Review of Systems: unchanged Review of Systems Review of Systems Yes all other systems are reviewed and are negative Mental Status Exam Mental Status Exam Patient Appearance: Appropriate Patient Orientation: Person, Place, Time and Situation Level of Consciousness: Alert Patient Behavior: Talkative and Good Eye Contact Mood Description: Depressed, Fearful, Anxious, Labile, Nervous, Apprehensive and Expansive Affect Description: Labile Patient Cognition Impaired: No Ability to Follow Directions: Fair Speech Pattern: Spontaneous Speech Memory Description: Intact Hallucinations: None Delusions: Present Perceptual Disturbances: Derealization Thought Process: Racing, Distracted and Rumination Thought Content: positive for Racing, positive for Circumstantial, positive for Perseveration, positive for Preoccupation and positive for Suicidal Ideation Depressive Symptoms: Increased Anxiety, Increased Irritability, Hopelessness, Unhappiness, Thoughts of /Suicide, Low Self Esteem and Difficulty Concentrating Abnormal Motor Activity Signs and Symptoms: Restlessness Judgement: Fair Diagnostics Vital Signs (24Hr): Vital Signs - 24 hr 08/29/23 10:43 08/29/23 18:00 08/30/23 08:30 Temperature 97.3 F 97.1 F Pulse Rate 108 H 106 H 95 Respiratory Rate 18 18 18 Blood Pressure 120/74 131/82 117/63 Pulse Oximetry 98 97 98 Oxygen Delivery Method Room Air Room Air Room Air BMI result Body Mass Index 31.1 Labs 08/21/23 18:21 08/21/23 18:21 Medications Medications Current Medications Acetaminophen (Acetaminophen 325 Mg Tablet) 650 mg PO Q6H PRN PRN Reason: Headache/Pain Mild Scale (1-3) Al Hydroxide/Mg Hydroxide (Magnesium Hydrox/Alum Hydrox 30 Ml Oral.Susp) 30 ml PO Q6H PRN PRN Reason: Heartburn/Nausea Last Admin: 08/29/23 10:39 Dose: 30 ml Atorvastatin Calcium (Atorvastatin Calcium 20 Mg Tablet) 20 mg PO BEDTIME [facility] Last Admin: 08/29/23 21:18 Dose: 20 mg Cariprazine (Cariprazine Hcl 3 Mg Capsule) 6 mg PO DAILY [facility] Last Admin: 08/30/23 08:14 Dose: 6 mg Clonidine HCl (Clonidine Hcl 0.1 Mg Tablet) 0.1 mg PO TID PRN; Protocol PRN Reason: withdrawal Last Admin: 08/29/23 10:42 Dose: 0.1 mg Gabapentin (Gabapentin 300 Mg Capsule) 300 mg PO TID PRN PRN Reason: anxiety Last Admin: 08/25/23 18:04 Dose: 300 mg Hydroxyzine HCl (Hydroxyzine Hcl 25 Mg Tablet) 25 mg PO TID [facility] Last Admin: 08/30/23 08:14 Dose: 25 mg Hydroxyzine HCl (Hydroxyzine Hcl 25 Mg Tablet) 25 mg PO Q6H PRN PRN Reason: Anxiety Last Admin: 08/28/23 18:13 Dose: 25 mg Magnesium Hydroxide (Milk Of Magnesia 30 Ml Oral.Susp) 30 ml PO DAILY PRN PRN Reason: Constipation Methadone HCl (Methadone Hcl 20 Mg/2 Ml Oral.Conc) 100 mg PO DAILY [facility] Last Admin: 08/30/23 08:14 Dose: 100 mg Multivitamins/Vitamin C (Multivitamin Tablet) 1 tab PO DAILY [facility] Last Admin: 08/30/23 08:14 Dose: 1 tab Nicotine Polacrilex (Nicotine Polacrilex Lozenge 4 Mg Lozenge) 4 mg BUCCAL Q2H PRN PRN Reason: Nicotine Cravings Last Admin: 08/30/23 08:38 Dose: 4 mg Oxcarbazepine (Oxcarbazepine 300 Mg Tablet) 300 mg PO BID [facility] Last Admin: 08/30/23 08:14 Dose: 300 mg Quetiapine Fumarate (Quetiapine Fumarate 200 Mg Tablet) 200 mg PO BEDTIME [facility] Last Admin: 08/29/23 21:18 Dose: 200 mg Quetiapine Fumarate (Quetiapine Fumarate 50 Mg Tablet) 50 mg PO BID PRN PRN Reason: perceptual alterations Last Admin: 08/28/23 18:14 Dose: 50 mg Trazodone HCl (Trazodone Hcl 50 Mg Tablet) 50 mg PO BEDTIME MRX1 PRN PRN Reason: Insomnia Allergies Allergies Allergy/AdvReac Type Severity Reaction Status Date / Time No Known Allergies Allergy Verified 08/14/23 14:09 [No Known Allergies*] Assessment & Plan Assessment & Plan (1) Opioid use disorder: Status: Acute Code(s): F11.90 - Opioid use, unspecified, uncomplicated (2) Bipolar disorder: Status: Acute Code(s): F31.9 - Bipolar disorder, unspecified (3) Polysubstance abuse: Status: Acute Code(s): F19.10 - Other psychoactive substance abuse, uncomplicated Plan 28 yo male, history of bipolar disorder, opiate use disorder, polysubstance use disorder, readmitted after a recent discharge after using heroin, cocaine, klonopin and experiencing SI. Plan: Detox Collateral contact CSS referral Increase Vraylar to 6 mg daily Atorvastatin 20 mg daily- elevated lipids 08/27/23 Seroquel 50 mg bid prn perceptual alterations. 08/28/23 patient reports feeling better and sleeping better; continue current treatment plan 08/29/23: Patient reports that he is feeling short of breath and feels pressure on his chest, though no pain; he said he has been feeling this for the past 3 days though did not mention this to health underwriter yesterday. He says he knows his EKG was normal but it still ongoing. [employer] Paver suggested that it is likely anxiety to which patient agreed saying he is nervous about the next steps in his treatment, especially aftercare. He agreed to try Ativan to see if that calms things down. Does not appear short of breath; playing game calmly with others in the milieu Vitals/O2 sat WNL; respiratory rate WNL no hx asthma; denies chest pain Pulm exam: regular breath sounds CTA b/l throughout; no wheezing, rhonchi, Cardiac: Regular rhythm; mild tachycardia; no murmurs, rubs, gallops Patient given Ativan 1 mg which completely resolved shortness of breath 08/30/22 Depakote ER 500 mg HS Omeprazole 20 mg a.m. Dulcolax prn constipation Patient educated on: medication risk/benefits and therapeutic strategies Informed Consent: further education needed Reason for continued inpatient stay Substantial Risk for: rapid decompensation Time Spent With Patient Time: Total time managing care of this patient today ____ minutes.
[2023-08-30] MEDS: Gabapentin 300 MG CAPSULE PO ×3 (14:04→22:40)
[2023-08-30] MEDS: Omeprazole 20 MG CAPSULE.DR PO (16:09)
[2023-08-30] MEDS: LORazepam 1 MG TABLET PO (16:09)
[2023-08-30 18:00] VITALS: BP 128/86; PULSE 120; RESP 18; TEMP 36; O2SAT 96
[2023-08-30] MEDS: bisacodyL 5 MG TABLET.DR 10 MG PO (18:22)
[2023-08-30] MEDS: Docusate Sodium 100 MG CAPSULE PO (22:38)
[2023-08-30] MEDS: QUEtiapine Fumarate 200 MG TABLET PO (22:38)
[2023-08-30] MEDS: Divalproex Sodium ER 500 MG TAB.ER.24H PO (22:38)
[2023-08-30] MEDS: Atorvastatin Calcium 20 MG TABLET PO (22:38)
[2023-08-31 06:00] VITALS: BP 118/74; PULSE 106; RESP 16; TEMP 36.9; O2SAT 97
[2023-08-31] MEDS: Omeprazole 20 MG CAPSULE.DR PO (06:34)
[2023-08-31] MEDS: OXcarbazepine 300 MG TABLET PO ×2 (08:49→20:38)
[2023-08-31] MEDS: Cariprazine HCl 3 MG CAPSULE 6 MG PO (08:49)
[2023-08-31] MEDS: hydrOXYzine HCL 25 MG TABLET PO ×3 (08:49→20:38)
[2023-08-31] MEDS: Docusate Sodium 100 MG CAPSULE PO ×2 (08:49→09:08)
[2023-08-31] MEDS: Multivitamin TABLET 1 TAB PO (08:49)
[2023-08-31] MEDS: methADONE HCl 20 MG/2 ML ORAL.CONC 100 MG PO (08:52)
[2023-08-31] MEDS: polyethylene glycoL 3350 17 GM POWD.PACK PO ×2 (09:07→20:37)
[2023-08-31] MEDS: Lactulose 20 GM/30 ML SOLUTION PO ×2 (09:08→20:38)
[2023-08-31] MEDS: Sodium Phosphate,Mono-Dibasic 133 ML ENEMA PR (12:24)
[2023-08-31] MEDS: Nicotine Polacrilex Lozenge 4 MG LOZENGE BUCCAL ×2 (13:20→17:13)
--- NOTE | 2023-08-31 14:22 | PC.NURSE ---
Addendum entered by Mary El RN 08/31/23 14:24: Called GI, was told that they are aware of the consult and Dr. Patrick will be seeing the pt Original Note: [facility] called a GI consult for pt due to severe constipation shown on KUB x-ray, lack of response to multiple laxatives, and pelvic pheboliths noted on x-ray.
--- NOTE | 2023-08-31 15:25 | PM.EVENT ---
Event Note Date of Service: 09/16/23 Event Note: GI consult dictated Constipation likely secondary to methadone use. start Miralax scheduled bid, titrate dose to effect. Advised to ambulate, diet as tolerated. Time Spent With Patient Time: Total time managing care of this patient today ____ minutes.
--- NOTE | 2023-08-31 16:06 | P.PNPSI_ITS ---
Subjective Subjective Date of Service: 08/31/23 Reason For Visit: Bipolar disorder, polysubstance use disorder Subjective Notes: Conditional Voluntary Healthcare Proxy: No Guardianship: No Medical Problems Affecting Mental Status: No Interim History: Denies SI, HI, AH, VH. Awaits available CSS placement, which will probably not be until 09/06. Significant constipation. KUB completed with confirmation and indication of pelvic phleboliths and LUQ calcification. Laxatives, fleet initiated and Gastroenterology consultation obtained and much appreciated. Pt reports beginning to have relief of symptoms Education regarding bowel mgt completed by team, tw and gastroenterology. Medication Compliance: Yes Side effects from medications: Yes (Methadone as etiology of chronic constipation) Attending Groups: Yes Review of Systems Acute medical concerns: No Medical Review of Systems: unchanged Review of Systems Gastrointestinal: Reports abdominal pain, Reports constipation and Reports GI cramping Mental Status Exam Mental Status Exam Patient Appearance: Appropriate Patient Orientation: Person, Place, Time and Situation Level of Consciousness: Alert Patient Behavior: Talkative and Good Eye Contact Mood Description: Depressed and Apprehensive Affect Description: Flat Patient Cognition Impaired: No Ability to Follow Directions: Good Speech Pattern: Spontaneous Speech Memory Description: Intact Hallucinations: None Delusions: Present Perceptual Disturbances: Derealization Thought Process: Racing, Distracted and Rumination Thought Content: positive for Racing, positive for Circumstantial, positive for Perseveration, positive for Preoccupation and positive for Suicidal Ideation Depressive Symptoms: Increased Anxiety, Increased Irritability, Hopelessness, Unhappiness, Low Self Esteem and Difficulty Concentrating Abnormal Motor Activity Signs and Symptoms: Restlessness Judgement: Fair Diagnostics Vital Signs (24Hr): Vital Signs - 24 hr 08/30/23 18:00 08/31/23 06:00 Temperature 96.8 F 98.4 F Pulse Rate 120 H 106 H Respiratory Rate 18 16 Blood Pressure 128/86 118/74 Pulse Oximetry 96 97 Oxygen Delivery Method Room Air Room Air BMI result Body Mass Index 31.1 Labs 08/21/23 18:21 08/21/23 18:21 Imaging Radiology Impressions: ITS Impressions KUB X-Ray 08/31/23 09:49 IMPRESSION: Constipation. Medications Medications Current Medications Acetaminophen (Acetaminophen 325 Mg Tablet) 650 mg PO Q6H PRN PRN Reason: Headache/Pain Mild Scale (1-3) Al Hydroxide/Mg Hydroxide (Magnesium Hydrox/Alum Hydrox 30 Ml Oral.Susp) 30 ml PO Q6H PRN PRN Reason: Heartburn/Nausea Last Admin: 08/29/23 10:39 Dose: 30 ml Atorvastatin Calcium (Atorvastatin Calcium 20 Mg Tablet) 20 mg PO BEDTIME [facility] Last Admin: 08/30/23 22:38 Dose: 20 mg Bisacodyl (Bisacodyl 5 Mg Tablet.Dr) 10 mg PO DAILY PRN PRN Reason: Constipation Last Admin: 08/30/23 18:22 Dose: 10 mg Cariprazine (Cariprazine Hcl 3 Mg Capsule) 6 mg PO DAILY [facility] Last Admin: 08/31/23 08:49 Dose: 6 mg Clonidine HCl (Clonidine Hcl 0.1 Mg Tablet) 0.1 mg PO TID PRN; Protocol PRN Reason: withdrawal Last Admin: 08/29/23 10:42 Dose: 0.1 mg Divalproex Sodium (Divalproex Sodium Er 500 Mg Tab.Er.24h) 500 mg PO BEDTIME [facility] Last Admin: 08/30/23 22:38 Dose: 500 mg Docusate Sodium (Docusate Sodium 100 Mg Capsule) 200 mg PO BID [facility] Gabapentin (Gabapentin 300 Mg Capsule) 300 mg PO TID PRN PRN Reason: anxiety Last Admin: 08/30/23 22:40 Dose: 300 mg Hydroxyzine HCl (Hydroxyzine Hcl 25 Mg Tablet) 25 mg PO TID [facility] Last Admin: 08/31/23 14:58 Dose: 25 mg Hydroxyzine HCl (Hydroxyzine Hcl 25 Mg Tablet) 25 mg PO Q6H PRN PRN Reason: Anxiety Last Admin: 08/30/23 13:26 Dose: 25 mg Lactulose (Lactulose 20 Gm/30 Ml Solution) 20 gm PO DAILY [facility] Magnesium Hydroxide (Milk Of Magnesia 30 Ml Oral.Susp) 30 ml PO DAILY PRN PRN Reason: Constipation Methadone HCl (Methadone Hcl 20 Mg/2 Ml Oral.Conc) 100 mg PO DAILY [facility] Last Admin: 08/31/23 08:52 Dose: 100 mg Multivitamins/Vitamin C (Multivitamin Tablet) 1 tab PO DAILY [facility] Last Admin: 08/31/23 08:49 Dose: 1 tab Nicotine Polacrilex (Nicotine Polacrilex Lozenge 4 Mg Lozenge) 4 mg BUCCAL Q2H PRN PRN Reason: Nicotine Cravings Last Admin: 08/31/23 13:20 Dose: 4 mg Omeprazole (Omeprazole 20 Mg Capsule.Dr) 20 mg PO DAILY@0630 [facility] Last Admin: 08/31/23 06:34 Dose: 20 mg Oxcarbazepine (Oxcarbazepine 300 Mg Tablet) 300 mg PO BID [facility] Last Admin: 08/31/23 08:49 Dose: 300 mg Polyethylene Glycol (Polyethylene Glycol 3350 17 Gm Powd.Pack) 17 gm PO DAILY [facility] Last Admin: 08/31/23 09:07 Dose: 17 gm Polyethylene Glycol (Polyethylene Glycol 3350 17 Gm Powd.Pack) 17 gm PO BID [facility] Quetiapine Fumarate (Quetiapine Fumarate 200 Mg Tablet) 200 mg PO BEDTIME [facility] Last Admin: 08/30/23 22:38 Dose: 200 mg Quetiapine Fumarate (Quetiapine Fumarate 50 Mg Tablet) 50 mg PO BID PRN PRN Reason: perceptual alterations Last Admin: 08/28/23 18:14 Dose: 50 mg Sodium Biphosphate/Sodium Phosphate (Sodium Phosphate,[place]-Dibasic 133 Ml Enema) 133 ml CA ONCE PRN PRN Reason: constipation Last Admin: 08/31/23 12:24 Dose: 133 ml Trazodone HCl (Trazodone Hcl 50 Mg Tablet) 50 mg PO BEDTIME MRX1 PRN PRN Reason: Insomnia Allergies Allergies Allergy/AdvReac Type Severity Reaction Status Date / Time No Known Allergies Allergy Verified 08/14/23 14:09 [No Known Allergies*] Assessment & Plan Assessment & Plan (1) Opioid use disorder: Status: Acute Code(s): F11.90 - Opioid use, unspecified, uncomplicated (2) Bipolar disorder: Status: Acute Code(s): F31.9 - Bipolar disorder, unspecified (3) Polysubstance abuse: Status: Acute Code(s): F19.10 - Other psychoactive substance abuse, uncomplicated Plan 28 yo male, history of bipolar disorder, opiate use disorder, polysubstance use disorder, readmitted after a recent discharge after using heroin, cocaine, klonopin and experiencing SI. Plan: Detox Collateral contact CSS referral Increase Vraylar to 6 mg daily Atorvastatin 20 mg daily- elevated lipids 08/27/23 Seroquel 50 mg bid prn perceptual alterations. 08/28/23 patient reports feeling better and sleeping better; continue current treatment plan 08/29/23: Patient reports that he is feeling short of breath and feels pressure on his chest, though no pain; he said he has been feeling this for the past 3 days though did not mention this to typewriter assembler yesterday. He says he knows his EKG was normal but it still ongoing. Decal Transferrer suggested that it is likely anxiety to which patient agreed saying he is nervous about the next steps in his treatment, especially aftercare. He agreed to try Ativan to see if that calms things down. Does not appear short of breath; playing game calmly with others in the milieu Vitals/O2 sat WNL; respiratory rate WNL no hx asthma; denies chest pain Pulm exam: regular breath sounds CTA b/l throughout; no wheezing, rhonchi, Cardiac: Regular rhythm; mild tachycardia; no murmurs, rubs, gallops Patient given Ativan 1 mg which completely resolved shortness of breath 08/30/22 Depakote ER 500 mg HS Omeprazole 20 mg a.m. Dulcolax prn constipation 08/31/22 Bowel regime beginning to provide some efficacy and relief Patient educated on: medication risk/benefits, therapeutic strategies and medical condition Informed Consent: understands Reason for continued inpatient stay Substantial Risk for: rapid decompensation Time Spent With Patient Time: Total time managing care of this patient today ____ minutes.
[2023-08-31 18:00] VITALS: BP 132/90; PULSE 109; RESP 18; TEMP 36.3; O2SAT 96
[2023-08-31] MEDS: Docusate Sodium 100 MG CAPSULE 200 MG PO (20:38)
[2023-08-31] MEDS: QUEtiapine Fumarate 200 MG TABLET PO (20:38)
[2023-08-31] MEDS: Divalproex Sodium ER 500 MG TAB.ER.24H PO (20:38)
[2023-08-31] MEDS: Atorvastatin Calcium 20 MG TABLET PO (20:38)
--- NOTE | 2023-08-31 20:47 | CONS_ITS ---
DATE OF SERVICE: 08/31/2023 REASON FOR CONSULTATION: Constipation. HISTORY OF PRESENT ILLNESS: The patient is a pleasant inpatient 28-year-old male on the psychiatry unit, who is seen today for constipation. He describes a long history of opioid use and is currently on methadone 100 mg daily. He has had chronic constipation symptoms for as long as he can remember, that have responded variously to [id number] laxatives, which he has taken as needed. He believes his last bowel movement was earlier this morning after he received an enema and an oral laxative. He has never had a colonoscopy and has no history of bowel obstructions. As part of his evaluation here, he underwent imaging, which is reviewed. KUB from today is interpreted as showing constipation. He did have a CT scan in July 3 years ago, which is also reviewed, which showed normal caliber loops of small and large bowel. PAST MEDICAL HISTORY: 1. Bipolar disorder. 2. Polysubstance disorder including heroin and cocaine. 3. Constipation. CURRENT MEDICATIONS: His current medication list is reviewed in the chart. ALLERGIES: THERE ARE NONE REPORTED. FAMILY HISTORY: This is reviewed with the patient and is noncontributory. SOCIAL HISTORY: Substance use as above. He denies significant alcohol intake currently. REVIEW OF SYSTEMS: SKIN: No pruritus. HEENT: Negative. CARDIOPULMONARY: No shortness of breath or chest pain. GASTROINTESTINAL: As above. GENITOURINARY: Negative. NEUROPSYCHIATRIC: Negative. PHYSICAL EXAMINATION: GENERAL: Shows a pleasant male, who ambulates slowly, complaining of abdominal pain. VITAL SIGNS: Reviewed in the electronic medical record and are stable. SKIN: Anicteric. HEENT: Shows no scleral icterus. NECK: Without lymphadenopathy or thyromegaly. LUNGS: Clear. HEART: Shows regular rate and rhythm. S1, S2. No murmur. ABDOMEN: Soft without focal masses or tenderness. Bowel sounds are present. There is some generalized diffuse tenderness to palpation. There is no guarding or rebound. EXTREMITIES: Without edema. LABORATORY DATA AND IMAGING STUDIES: Reviewed. IMPRESSION: Constipation. His constipation appears consistent with constipation due to his opiates. I discussed ambulating in the hallways and eating as possible. This will be adjunctive in helping his bowels move regularly. I did recommend starting on scheduled MiraLAX b.i.d., and then titrating this to affect. I discussed this with the patient. Thanks for asking me to see him. I will follow him in the hospital with you. MD ALEX Morris/ANGELINA / [id number]
[2023-09-01] MEDS: Omeprazole 20 MG CAPSULE.DR PO (06:16)
[2023-09-01 08:45] VITALS: BP 128/83; PULSE 107; RESP 16; TEMP 36.6; O2SAT 97
[2023-09-01] MEDS: polyethylene glycoL 3350 17 GM POWD.PACK PO ×2 (08:49→20:11)
[2023-09-01] MEDS: Docusate Sodium 100 MG CAPSULE 200 MG PO ×2 (08:49→20:12)
[2023-09-01] MEDS: Multivitamin TABLET 1 TAB PO (08:49)
[2023-09-01] MEDS: Cariprazine HCl 3 MG CAPSULE 6 MG PO (08:50)
[2023-09-01] MEDS: OXcarbazepine 300 MG TABLET PO ×2 (08:50→20:12)
[2023-09-01] MEDS: hydrOXYzine HCL 25 MG TABLET PO ×4 (08:55→20:30)
[2023-09-01] MEDS: methADONE HCl 20 MG/2 ML ORAL.CONC 100 MG PO (08:55)
[2023-09-01] MEDS: Nicotine Polacrilex Lozenge 4 MG LOZENGE BUCCAL (14:40)
[2023-09-01] MEDS: Acetaminophen 325 MG TABLET 650 MG PO (15:33)
[2023-09-01 16:20] VITALS: BP 126/91; PULSE 93; RESP 16; TEMP 36.8; O2SAT 95
--- NOTE | 2023-09-01 16:49 | HO.PSYCHPN ---
Subjective Subjective Date of Service: 09/01/23 Reason For Visit: Bipolar disorder, polysubstance use disorder Subjective Notes: Conditional Voluntary Healthcare Proxy: No Guardianship: No Medical Problems Affecting Mental Status: No Interim History: Some relief from constipation today with a decrease in pain Sx of migraine present along with anxiety. Discussed change of Depakote from ER to IR bid to help with anxiety, mood, headache. Pt is willing. CSS application on hold until 09/06. Pt willing to remain on the unit and continue to work on this goal. Medication Compliance: Yes Side effects from medications: No Attending Groups: Yes Review of Systems Acute medical concerns: No Review of Systems Review of Systems Yes all other systems are reviewed and are negative Mental Status Exam Mental Status Exam Patient Appearance: Appropriate Patient Orientation: Person, Place, Time and Situation Level of Consciousness: Alert Patient Behavior: Talkative and Good Eye Contact Mood Description: Depressed and Apprehensive Affect Description: Flat Patient Cognition Impaired: No Ability to Follow Directions: Good Speech Pattern: Spontaneous Speech Memory Description: Intact Hallucinations: None Delusions: Present Perceptual Disturbances: Derealization Thought Process: Racing, Distracted and Rumination Thought Content: positive for Racing, positive for Circumstantial, positive for Perseveration and positive for Preoccupation Depressive Symptoms: Increased Anxiety and Low Self Esteem Abnormal Motor Activity Signs and Symptoms: Restlessness Judgement: Good Diagnostics Vital Signs (24Hr): Vital Signs - 24 hr 08/31/23 18:00 09/01/23 08:45 09/01/23 16:20 Temperature 97.3 F 97.9 F 98.2 F Pulse Rate 109 H 107 H 93 Respiratory Rate 18 16 16 Blood Pressure 132/90 H 128/83 126/91 H Pulse Oximetry 96 97 95 Oxygen Delivery Method Room Air Room Air Room Air BMI result Body Mass Index 31.1 Labs 08/21/23 18:21 08/21/23 18:21 Imaging Radiology Impressions: ITS Impressions KUB X-Ray 08/31/23 09:49 IMPRESSION: Constipation. Medications Medications Current Medications Acetaminophen (Acetaminophen 325 Mg Tablet) 650 mg PO Q6H PRN PRN Reason: Headache/Pain Mild Scale (1-3) Last Admin: 09/01/23 15:33 Dose: 650 mg Al Hydroxide/Mg Hydroxide (Magnesium Hydrox/Alum Hydrox 30 Ml Oral.Susp) 30 ml PO Q6H PRN PRN Reason: Heartburn/Nausea Last Admin: 08/29/23 10:39 Dose: 30 ml Atorvastatin Calcium (Atorvastatin Calcium 20 Mg Tablet) 20 mg PO BEDTIME [facility] Last Admin: 08/31/23 20:38 Dose: 20 mg Bisacodyl (Bisacodyl 5 Mg Tablet.Dr) 10 mg PO DAILY PRN PRN Reason: Constipation Last Admin: 08/30/23 18:22 Dose: 10 mg Cariprazine (Cariprazine Hcl 3 Mg Capsule) 6 mg PO DAILY [facility] Last Admin: 09/01/23 08:50 Dose: 6 mg Clonidine HCl (Clonidine Hcl 0.1 Mg Tablet) 0.1 mg PO TID PRN; Protocol PRN Reason: withdrawal Last Admin: 08/29/23 10:42 Dose: 0.1 mg Divalproex Sodium (Divalproex Sodium Er 500 Mg Tab.Er.24h) 500 mg PO BEDTIME [facility] Last Admin: 08/31/23 20:38 Dose: 500 mg Docusate Sodium (Docusate Sodium 100 Mg Capsule) 200 mg PO BID [facility] Last Admin: 09/01/23 08:49 Dose: 200 mg Gabapentin (Gabapentin 300 Mg Capsule) 300 mg PO TID PRN PRN Reason: anxiety Last Admin: 08/30/23 22:40 Dose: 300 mg Hydroxyzine HCl (Hydroxyzine Hcl 25 Mg Tablet) 25 mg PO TID [facility] Last Admin: 09/01/23 14:40 Dose: 25 mg Hydroxyzine HCl (Hydroxyzine Hcl 25 Mg Tablet) 25 mg PO Q6H PRN PRN Reason: Anxiety Last Admin: 08/30/23 13:26 Dose: 25 mg Lactulose (Lactulose 20 Gm/30 Ml Solution) 20 gm PO DAILY [facility] Last Admin: 09/01/23 08:55 Dose: Not Given Magnesium Hydroxide (Milk Of Magnesia 30 Ml Oral.Susp) 30 ml PO DAILY PRN PRN Reason: Constipation Methadone HCl (Methadone Hcl 20 Mg/2 Ml Oral.Conc) 100 mg PO DAILY [facility] Last Admin: 09/01/23 08:55 Dose: 100 mg Multivitamins/Vitamin C (Multivitamin Tablet) 1 tab PO DAILY [facility] Last Admin: 09/01/23 08:49 Dose: 1 tab Nicotine Polacrilex (Nicotine Polacrilex Lozenge 4 Mg Lozenge) 4 mg BUCCAL Q2H PRN PRN Reason: Nicotine Cravings Last Admin: 09/01/23 14:40 Dose: 4 mg Omeprazole (Omeprazole 20 Mg Capsule.Dr) 20 mg PO DAILY@0630 [facility] Last Admin: 09/01/23 06:16 Dose: 20 mg Oxcarbazepine (Oxcarbazepine 300 Mg Tablet) 300 mg PO BID [facility] Last Admin: 09/01/23 08:50 Dose: 300 mg Polyethylene Glycol (Polyethylene Glycol 3350 17 Gm Powd.Pack) 17 gm PO DAILY [facility] Last Admin: 09/01/23 08:49 Dose: 17 gm Polyethylene Glycol (Polyethylene Glycol 3350 17 Gm Powd.Pack) 17 gm PO BID [facility] Last Admin: 09/01/23 08:56 Dose: Not Given Quetiapine Fumarate (Quetiapine Fumarate 200 Mg Tablet) 200 mg PO BEDTIME [facility] Last Admin: 08/31/23 20:38 Dose: 200 mg Quetiapine Fumarate (Quetiapine Fumarate 50 Mg Tablet) 50 mg PO BID PRN PRN Reason: perceptual alterations Last Admin: 08/28/23 18:14 Dose: 50 mg Sodium Biphosphate/Sodium Phosphate (Sodium Phosphate,[place]-Dibasic 133 Ml Enema) 133 ml [place] ONCE PRN PRN Reason: constipation Last Admin: 08/31/23 12:24 Dose: 133 ml Trazodone HCl (Trazodone Hcl 50 Mg Tablet) 50 mg PO BEDTIME MRX1 PRN PRN Reason: Insomnia Allergies Allergies Allergy/AdvReac Type Severity Reaction Status Date / Time No Known Allergies Allergy Verified 08/14/23 14:09 [No Known Allergies*] Assessment & Plan Assessment & Plan (1) Opioid use disorder: Status: Acute Code(s): F11.90 - Opioid use, unspecified, uncomplicated (2) Bipolar disorder: Status: Acute Code(s): F31.9 - Bipolar disorder, unspecified (3) Polysubstance abuse: Status: Acute Code(s): F19.10 - Other psychoactive substance abuse, uncomplicated Plan 28 yo male, history of bipolar disorder, opiate use disorder, polysubstance use disorder, readmitted after a recent discharge after using heroin, cocaine, klonopin and experiencing SI. Plan: Detox Collateral contact CSS referral Increase Vraylar to 6 mg daily Atorvastatin 20 mg daily- elevated lipids 08/27/23 Seroquel 50 mg bid prn perceptual alterations. 08/28/23 patient reports feeling better and sleeping better; continue current treatment plan 08/29/23: Patient reports that he is feeling short of breath and feels pressure on his chest, though no pain; he said he has been feeling this for the past 3 days though did not mention this to contract technical writer yesterday. He says he knows his EKG was normal but it still ongoing. Industrial Gas Fitter Helper suggested that it is likely anxiety to which patient agreed saying he is nervous about the next steps in his treatment, especially aftercare. He agreed to try Ativan to see if that calms things down. Does not appear short of breath; playing game calmly with others in the milieu Vitals/O2 sat WNL; respiratory rate WNL no hx asthma; denies chest pain Pulm exam: regular breath sounds CTA b/l throughout; no wheezing, rhonchi, Cardiac: Regular rhythm; mild tachycardia; no murmurs, rubs, gallops Patient given Ativan 1 mg which completely resolved shortness of breath 08/30/22 Depakote ER 500 mg HS Omeprazole 20 mg a.m. Dulcolax prn constipation 08/31/23 Bowel regime beginning to provide some efficacy and relief 09/02/23 Change Depakote from ER to IR 500 mg bid Patient educated on: medication risk/benefits Reason for continued inpatient stay Substantial Risk for: rapid decompensation Time Spent With Patient Time: Total time managing care of this patient today ____ minutes.
[2023-09-01] MEDS: Atorvastatin Calcium 20 MG TABLET PO (20:12)
[2023-09-01] MEDS: QUEtiapine Fumarate 200 MG TABLET PO (20:12)
[2023-09-01] MEDS: Divalproex Sodium 500 MG TABLET.DR PO (20:25)
[2023-09-02] MEDS: Omeprazole 20 MG CAPSULE.DR PO (06:11)
[2023-09-02 07:00] VITALS: BMI 31.0
[2023-09-02] MEDS: Multivitamin TABLET 1 TAB PO (08:06)
[2023-09-02] MEDS: Divalproex Sodium 500 MG TABLET.DR PO ×2 (08:06→20:20)
[2023-09-02] MEDS: OXcarbazepine 300 MG TABLET PO ×2 (08:07→20:20)
[2023-09-02] MEDS: Docusate Sodium 100 MG CAPSULE 200 MG PO ×2 (08:07→20:20)
[2023-09-02] MEDS: Cariprazine HCl 3 MG CAPSULE 6 MG PO (08:07)
[2023-09-02] MEDS: hydrOXYzine HCL 25 MG TABLET PO ×3 (08:07→20:20)
[2023-09-02] MEDS: methADONE HCl 20 MG/2 ML ORAL.CONC 100 MG PO (08:08)
[2023-09-02] MEDS: polyethylene glycoL 3350 17 GM POWD.PACK PO ×3 (08:10→20:21)
[2023-09-02] MEDS: Lactulose 20 GM/30 ML SOLUTION PO (08:11)
[2023-09-02 08:20] VITALS: BP 144/83; PULSE 74; RESP 18; TEMP 36.3; O2SAT 100
[2023-09-02] MEDS: Sodium Phosphate,Mono-Dibasic 133 ML ENEMA PR (09:31)
--- NOTE | 2023-09-02 12:47 | P.PNPSI_ITS ---
Subjective Subjective Date of Service: 09/02/23 Reason For Visit: Bipolar disorder, polysubstance use disorder Interim History: Met with patient; discussed with team Patient overall reports he is much better however significantly constipated this morning, received Fleet enema which provided with relief. Mental Status Exam Mental Status Exam Patient Appearance: Appropriate Patient Orientation: Person, Place, Time and Situation Level of Consciousness: Alert Patient Behavior: Talkative and Good Eye Contact Mood Description: Calm and Apprehensive Affect Description: Calm Patient Cognition Impaired: No Ability to Follow Directions: Good Speech Pattern: Spontaneous Speech Memory Description: Intact Hallucinations: None Delusions: Present Perceptual Disturbances: Derealization Thought Process: Racing, Distracted and Rumination Thought Content: positive for Racing, positive for Circumstantial, positive for Perseveration and positive for Preoccupation Depressive Symptoms: Increased Anxiety and Low Self Esteem Abnormal Motor Activity Signs and Symptoms: Restlessness Judgement: Good Diagnostics Vital Signs (24Hr): Vital Signs - 24 hr 09/01/23 16:20 09/02/23 08:20 Temperature 98.2 F 97.3 F Pulse Rate 93 74 Respiratory Rate 16 18 Blood Pressure 126/91 H 144/83 H Pulse Oximetry 95 100 Oxygen Delivery Method Room Air Room Air BMI result Body Mass Index 31.0 Labs 08/21/23 18:21 08/21/23 18:21 Imaging Radiology Impressions: ITS Impressions KUB X-Ray 08/31/23 09:49 IMPRESSION: Constipation. Medications Medications Current Medications Acetaminophen (Acetaminophen 325 Mg Tablet) 650 mg PO Q6H PRN PRN Reason: Headache/Pain Mild Scale (1-3) Last Admin: 09/01/23 15:33 Dose: 650 mg Al Hydroxide/Mg Hydroxide (Magnesium Hydrox/Alum Hydrox 30 Ml Oral.Susp) 30 ml PO Q6H PRN PRN Reason: Heartburn/Nausea Last Admin: 08/29/23 10:39 Dose: 30 ml Atorvastatin Calcium (Atorvastatin Calcium 20 Mg Tablet) 20 mg PO BEDTIME [facility] Last Admin: 09/01/23 20:12 Dose: 20 mg Bisacodyl (Bisacodyl 5 Mg Tablet.Dr) 10 mg PO DAILY PRN PRN Reason: Constipation Last Admin: 08/30/23 18:22 Dose: 10 mg Cariprazine (Cariprazine Hcl 3 Mg Capsule) 6 mg PO DAILY [facility] Last Admin: 09/02/23 08:07 Dose: 6 mg Clonidine HCl (Clonidine Hcl 0.1 Mg Tablet) 0.1 mg PO TID PRN; Protocol PRN Reason: withdrawal Last Admin: 08/29/23 10:42 Dose: 0.1 mg Divalproex Sodium (Divalproex Sodium 500 Mg Tablet.Dr) 500 mg PO BID [facility] Last Admin: 09/02/23 08:06 Dose: 500 mg Docusate Sodium (Docusate Sodium 100 Mg Capsule) 200 mg PO BID [facility] Last Admin: 09/02/23 08:07 Dose: 200 mg Gabapentin (Gabapentin 300 Mg Capsule) 300 mg PO TID PRN PRN Reason: anxiety Last Admin: 08/30/23 22:40 Dose: 300 mg Hydroxyzine HCl (Hydroxyzine Hcl 25 Mg Tablet) 25 mg PO TID [facility] Last Admin: 09/02/23 08:07 Dose: 25 mg Hydroxyzine HCl (Hydroxyzine Hcl 25 Mg Tablet) 25 mg PO Q6H PRN PRN Reason: Anxiety Last Admin: 09/01/23 20:13 Dose: 25 mg Lactulose (Lactulose 20 Gm/30 Ml Solution) 20 gm PO DAILY [facility] Last Admin: 09/02/23 08:11 Dose: 20 gm Magnesium Hydroxide (Milk Of Magnesia 30 Ml Oral.Susp) 30 ml PO DAILY PRN PRN Reason: Constipation Methadone HCl (Methadone Hcl 20 Mg/2 Ml Oral.Conc) 100 mg PO DAILY [facility] Last Admin: 09/02/23 08:08 Dose: 100 mg Multivitamins/Vitamin C (Multivitamin Tablet) 1 tab PO DAILY [facility] Last Admin: 09/02/23 08:06 Dose: 1 tab Nicotine Polacrilex (Nicotine Polacrilex Lozenge 4 Mg Lozenge) 4 mg BUCCAL Q2H PRN PRN Reason: Nicotine Cravings Last Admin: 09/01/23 14:40 Dose: 4 mg Omeprazole (Omeprazole 20 Mg Capsule.Dr) 20 mg PO DAILY@0630 [facility] Last Admin: 09/02/23 06:11 Dose: 20 mg Oxcarbazepine (Oxcarbazepine 300 Mg Tablet) 300 mg PO BID [facility] Last Admin: 09/02/23 08:07 Dose: 300 mg Polyethylene Glycol (Polyethylene Glycol 3350 17 Gm Powd.Pack) 17 gm PO DAILY [facility] Last Admin: 09/02/23 08:10 Dose: 17 gm Polyethylene Glycol (Polyethylene Glycol 3350 17 Gm Powd.Pack) 17 gm PO BID [facility] Last Admin: 09/02/23 09:40 Dose: Not Given Quetiapine Fumarate (Quetiapine Fumarate 200 Mg Tablet) 200 mg PO BEDTIME [facility] Last Admin: 09/01/23 20:12 Dose: 200 mg Quetiapine Fumarate (Quetiapine Fumarate 50 Mg Tablet) 50 mg PO BID PRN PRN Reason: perceptual alterations Last Admin: 08/28/23 18:14 Dose: 50 mg Sodium Biphosphate/Sodium Phosphate (Sodium Phosphate,[place]-Dibasic 133 Ml Enema) 133 ml [place] ONCE PRN PRN Reason: constipation Last Admin: 09/02/23 09:31 Dose: 133 ml Sodium Biphosphate/Sodium Phosphate (Sodium Phosphate,[place]-Dibasic 133 Ml Enema) 133 ml [place] DAILY PRN PRN Reason: constipation Trazodone HCl (Trazodone Hcl 50 Mg Tablet) 50 mg PO BEDTIME MRX1 PRN PRN Reason: Insomnia Allergies Allergies Allergy/AdvReac Type Severity Reaction Status Date / Time No Known Allergies Allergy Verified 08/14/23 14:09 [No Known Allergies*] Assessment & Plan Assessment & Plan (1) Opioid use disorder: Status: Acute Code(s): F11.90 - Opioid use, unspecified, uncomplicated (2) Bipolar disorder: Status: Acute Code(s): F31.9 - Bipolar disorder, unspecified (3) Polysubstance abuse: Status: Acute Code(s): F19.10 - Other psychoactive substance abuse, uncomplicated Plan 28 yo male, history of bipolar disorder, opiate use disorder, polysubstance use disorder, readmitted after a recent discharge after using heroin, cocaine, klonopin and experiencing SI. Plan: Detox Collateral contact CSS referral Increase Vraylar to 6 mg daily Atorvastatin 20 mg daily- elevated lipids 08/27/23 Seroquel 50 mg bid prn perceptual alterations. 08/28/23 patient reports feeling better and sleeping better; continue current treatment plan 08/29/23: Patient reports that he is feeling short of breath and feels pressure on his chest, though no pain; he said he has been feeling this for the past 3 days though did not mention this to automotive service writer yesterday. He says he knows his EKG was normal but it still ongoing. Procedure Manager suggested that it is likely anxiety to which patient agreed saying he is nervous about the next steps in his treatment, especially aftercare. He agreed to try Ativan to see if that calms things down. Does not appear short of breath; playing game calmly with others in the milieu Vitals/O2 sat WNL; respiratory rate WNL no hx asthma; denies chest pain Pulm exam: regular breath sounds CTA b/l throughout; no wheezing, rhonchi, Cardiac: Regular rhythm; mild tachycardia; no murmurs, rubs, gallops Patient given Ativan 1 mg which completely resolved shortness of breath 08/30/22 Depakote ER 500 mg HS Omeprazole 20 mg a.m. Dulcolax prn constipation 08/31/23 Bowel regime beginning to provide some efficacy and relief 09/01/23 Change Depakote from ER to IR 500 mg bid 09/02/23 patient reports overall well but still constipated however got relief from enema Patient educated on: diagnosis and medical condition Informed Consent: understands Reason for continued inpatient stay Substantial Risk for: med/psych decompensation Time Spent With Patient Time: Total time managing care of this patient today ____ minutes.
[2023-09-02] MEDS: Gabapentin 300 MG CAPSULE PO ×2 (14:54→20:20)
[2023-09-02] MEDS: cloNIDine HCL 0.1 MG TABLET PO (14:54)
[2023-09-02] MEDS: Nicotine Polacrilex Lozenge 4 MG LOZENGE BUCCAL ×2 (14:54→20:20)
[2023-09-02 18:00] VITALS: BP 125/79; PULSE 100; TEMP 36.3; O2SAT 97
[2023-09-02] MEDS: QUEtiapine Fumarate 200 MG TABLET PO (20:20)
[2023-09-02] MEDS: Atorvastatin Calcium 20 MG TABLET PO (20:20)
[2023-09-03] MEDS: Omeprazole 20 MG CAPSULE.DR PO (06:21)
[2023-09-03] MEDS: methADONE HCl 20 MG/2 ML ORAL.CONC 100 MG PO (08:40)
[2023-09-03] MEDS: Lactulose 20 GM/30 ML SOLUTION PO (08:40)
[2023-09-03] MEDS: Multivitamin TABLET 1 TAB PO (08:42)
[2023-09-03] MEDS: hydrOXYzine HCL 25 MG TABLET PO ×3 (08:42→20:10)
[2023-09-03] MEDS: Cariprazine HCl 3 MG CAPSULE 6 MG PO (08:42)
[2023-09-03] MEDS: Divalproex Sodium 500 MG TABLET.DR PO (08:42)
[2023-09-03] MEDS: OXcarbazepine 300 MG TABLET PO ×2 (08:42→20:10)
[2023-09-03] MEDS: Docusate Sodium 100 MG CAPSULE 200 MG PO ×2 (08:42→20:10)
[2023-09-03] MEDS: polyethylene glycoL 3350 17 GM POWD.PACK PO ×2 (08:47→20:09)
[2023-09-03 08:49] VITALS: BP 132/80; PULSE 94; RESP 16; TEMP 36.3; O2SAT 97
[2023-09-03] MEDS: Nicotine Polacrilex Lozenge 4 MG LOZENGE BUCCAL (14:06)
[2023-09-03] MEDS: bisacodyL 5 MG TABLET.DR 10 MG PO (14:06)
[2023-09-03 14:41] LABS: Appearance Urine Cloudy; Color Urine Dark Yellow; Glucose Urine UA Negative (Negative); Leukocyte Esterase Urine Negative (Negative); Nitrite Urine Negative (Negative); Specific Gravity - Urine >= 1.030 (1.005-1.025); UMIC TRIGGER UACC YES; Urine Blood Negative (Negative); Urine Ketones 15 mg/dL (Negative); Urine Protein 100 (2+) mg/dL (Neg-Trace)
[2023-09-03 14:57] LABS: Bacteria Urine None Seen (None Seen); RBC Urine 0-2 /HPF (0-2); Squamous Epithelial Cell Urine 0-2 /HPF (0-2); WBC Urine 0-5 /HPF (0-5)
[2023-09-03 16:44] VITALS: BP 116/88; PULSE 94; RESP 16; TEMP 36.6; O2SAT 97
--- NOTE | 2023-09-03 16:46 | HO.PSYCHPN ---
Subjective Subjective Date of Service: 09/03/23 Reason For Visit: Bipolar disorder, polysubstance use disorder Subjective Notes: Conditional Voluntary Healthcare Proxy: No Guardianship: No Medical Problems Affecting Mental Status: No Interim History: Bilateral flank pain-will obtain UACS. Reports no bowel mvt x 1 day Discussed Depakote efficacy-sedation, no relief from anxiety-will taper and trial low dose klonopin. Continues to await a bed (CSS) and reports significant anxiety in waiting-will she his personal college coach this afternoon who may have more options for pt to assess. Medication Compliance: Yes Side effects from medications: No Attending Groups: Yes Review of Systems Acute medical concerns: No Medical Review of Systems: unchanged Review of Systems Gastrointestinal: Reports constipation (x 1 day) Genitourinary: Reports flank pain Mental Status Exam Mental Status Exam Patient Appearance: Appropriate Patient Orientation: Person, Place, Time and Situation Level of Consciousness: Alert Patient Behavior: Talkative and Good Eye Contact Mood Description: Calm and Apprehensive Affect Description: Calm Patient Cognition Impaired: No Ability to Follow Directions: Good Speech Pattern: Spontaneous Speech Memory Description: Intact Hallucinations: None Delusions: Present Perceptual Disturbances: Derealization Thought Process: Racing, Distracted and Rumination Thought Content: positive for Racing, positive for Circumstantial, positive for Perseveration and positive for Preoccupation Depressive Symptoms: Increased Anxiety and Low Self Esteem Abnormal Motor Activity Signs and Symptoms: Restlessness Judgement: Good Diagnostics Vital Signs (24Hr): Vital Signs - 24 hr 09/02/23 18:00 09/03/23 08:49 Temperature 97.4 F 97.4 F Pulse Rate 100 94 Respiratory Rate 16 Blood Pressure 125/79 132/80 Pulse Oximetry 97 97 Oxygen Delivery Method Room Air Room Air BMI result Body Mass Index 31.0 Labs 08/21/23 18:21 08/21/23 18:21 Labs: Laboratory Results - last 48 hr 09/03/23 14:25 Urine Color Dark Yellow Urine Appearance Cloudy Urine pH 6.0 Ur Specific [place] >= 1.030 H Urine Protein 100 (2+) H Urine Glucose (UA) Negative Urine Ketones 15 Urine Blood Negative Urine Nitrite Negative Ur Leukocyte Esterase Negative Urine RBC 0-2 Urine WBC 0-5 Ur Squamous Epith Cells 0-2 Urine Bacteria None Seen Hyaline Casts 3-5 Imaging Radiology Impressions: ITS Impressions KUB X-Ray 08/31/23 09:49 IMPRESSION: Constipation. Medications Medications Current Medications Acetaminophen (Acetaminophen 325 Mg Tablet) 650 mg PO Q6H PRN PRN Reason: Headache/Pain Mild Scale (1-3) Last Admin: 09/01/23 15:33 Dose: 650 mg Al Hydroxide/Mg Hydroxide (Magnesium Hydrox/Alum Hydrox 30 Ml Oral.Susp) 30 ml PO Q6H PRN PRN Reason: Heartburn/Nausea Last Admin: 08/29/23 10:39 Dose: 30 ml Atorvastatin Calcium (Atorvastatin Calcium 20 Mg Tablet) 20 mg PO BEDTIME [facility] Last Admin: 09/02/23 20:20 Dose: 20 mg Bisacodyl (Bisacodyl 5 Mg Tablet.) 10 mg PO DAILY PRN PRN Reason: Constipation Last Admin: 09/03/23 14:06 Dose: 10 mg Cariprazine (Cariprazine Hcl 3 Mg Capsule) 6 mg PO DAILY [facility] Last Admin: 09/03/23 08:42 Dose: 6 mg Clonazepam (Clonazepam 0.5 Mg Tablet) 0.5 mg PO BEDTIME [facility] Clonidine HCl (Clonidine Hcl 0.1 Mg Tablet) 0.1 mg PO TID PRN; Protocol PRN Reason: withdrawal Last Admin: 09/02/23 14:54 Dose: 0.1 mg Divalproex Sodium (Divalproex Sodium 250 Mg Tablet.) 250 mg PO BID [facility] Stop: 09/05/23 07:00 Divalproex Sodium (Divalproex Sodium 250 Mg Tablet.) 250 mg PO DAILY [facility] Stop: 09/07/23 09:00 Docusate Sodium (Docusate Sodium 100 Mg Capsule) 200 mg PO BID [facility] Last Admin: 09/03/23 08:42 Dose: 200 mg Gabapentin (Gabapentin 300 Mg Capsule) 300 mg PO TID PRN PRN Reason: anxiety Last Admin: 09/02/23 20:20 Dose: 300 mg Hydroxyzine HCl (Hydroxyzine Hcl 25 Mg Tablet) 25 mg PO TID [facility] Last Admin: 09/03/23 14:06 Dose: 25 mg Hydroxyzine HCl (Hydroxyzine Hcl 25 Mg Tablet) 25 mg PO Q6H PRN PRN Reason: Anxiety Last Admin: 09/01/23 20:13 Dose: 25 mg Lactulose (Lactulose 20 Gm/30 Ml Solution) 20 gm PO DAILY [facility] Last Admin: 09/03/23 08:40 Dose: 20 gm Magnesium Hydroxide (Milk Of Magnesia 30 Ml Oral.Susp) 30 ml PO DAILY PRN PRN Reason: Constipation Methadone HCl (Methadone Hcl 20 Mg/2 Ml Oral.Conc) 100 mg PO DAILY [facility] Last Admin: 09/03/23 08:40 Dose: 100 mg Multivitamins/Vitamin C (Multivitamin Tablet) 1 tab PO DAILY [facility] Last Admin: 09/03/23 08:42 Dose: 1 tab Nicotine Polacrilex (Nicotine Polacrilex Lozenge 4 Mg Lozenge) 4 mg BUCCAL Q2H PRN PRN Reason: Nicotine Cravings Last Admin: 09/03/23 14:06 Dose: 4 mg Omeprazole (Omeprazole 20 Mg Capsule.Dr) 20 mg PO DAILY@0630 [facility] Last Admin: 09/03/23 06:21 Dose: 20 mg Oxcarbazepine (Oxcarbazepine 300 Mg Tablet) 300 mg PO BID [facility] Last Admin: 09/03/23 08:42 Dose: 300 mg Polyethylene Glycol (Polyethylene Glycol 3350 17 Gm Powd.Pack) 17 gm PO DAILY [facility] Last Admin: 09/02/23 20:20 Dose: 17 gm Polyethylene Glycol (Polyethylene Glycol 3350 17 Gm Powd.Pack) 17 gm PO BID [facility] Last Admin: 09/03/23 08:47 Dose: 17 gm Quetiapine Fumarate (Quetiapine Fumarate 200 Mg Tablet) 200 mg PO BEDTIME [facility] Last Admin: 09/02/23 20:20 Dose: 200 mg Quetiapine Fumarate (Quetiapine Fumarate 50 Mg Tablet) 50 mg PO BID PRN PRN Reason: perceptual alterations Last Admin: 08/28/23 18:14 Dose: 50 mg Sodium Biphosphate/Sodium Phosphate (Sodium Phosphate,[place]-Dibasic 133 Ml Enema) 133 ml [place] ONCE PRN PRN Reason: constipation Last Admin: 09/02/23 09:31 Dose: 133 ml Sodium Biphosphate/Sodium Phosphate (Sodium Phosphate,[place]-Dibasic 133 Ml Enema) 133 ml [place] DAILY PRN PRN Reason: constipation Trazodone HCl (Trazodone Hcl 50 Mg Tablet) 50 mg PO BEDTIME MRX1 PRN PRN Reason: Insomnia Allergies Allergies Allergy/AdvReac Type Severity Reaction Status Date / Time No Known Allergies Allergy Verified 08/14/23 14:09 [No Known Allergies*] Assessment & Plan Assessment & Plan (1) Opioid use disorder: Status: Acute Code(s): F11.90 - Opioid use, unspecified, uncomplicated (2) Bipolar disorder: Status: Acute Code(s): F31.9 - Bipolar disorder, unspecified (3) Polysubstance abuse: Status: Acute Code(s): F19.10 - Other psychoactive substance abuse, uncomplicated Plan 28 yo male, history of bipolar disorder, opiate use disorder, polysubstance use disorder, readmitted after a recent discharge after using heroin, cocaine, klonopin and experiencing SI. Plan: Detox Collateral contact CSS referral Increase Vraylar to 6 mg daily Atorvastatin 20 mg daily- elevated lipids 08/27/23 Seroquel 50 mg bid prn perceptual alterations. 08/28/23 patient reports feeling better and sleeping better; continue current treatment plan 08/29/23: Patient reports that he is feeling short of breath and feels pressure on his chest, though no pain; he said he has been feeling this for the past 3 days though did not mention this to typewriter operator automatic yesterday. He says he knows his EKG was normal but it still ongoing. Chemical Processing Laborer suggested that it is likely anxiety to which patient agreed saying he is nervous about the next steps in his treatment, especially aftercare. He agreed to try Ativan to see if that calms things down. Does not appear short of breath; playing game calmly with others in the milieu Vitals/O2 sat WNL; respiratory rate WNL no hx asthma; denies chest pain Pulm exam: regular breath sounds CTA b/l throughout; no wheezing, rhonchi, Cardiac: Regular rhythm; mild tachycardia; no murmurs, rubs, gallops Patient given Ativan 1 mg which completely resolved shortness of breath 08/30/22 Depakote ER 500 mg HS Omeprazole 20 mg a.m. Dulcolax prn constipation 08/31/23 Bowel regime beginning to provide some efficacy and relief 09/01/23 Change Depakote from ER to IR 500 mg bid 09/02/23 patient reports overall well but still constipated however got relief from enema 09/03/23 Depakote taper Klonopin 0.5 mg hs UACS Continue to monitor constipation sx. Patient educated on: medication risk/benefits, therapeutic strategies and medical condition Informed Consent: understands Reason for continued inpatient stay Substantial Risk for: rapid decompensation Time Spent With Patient Time: Total time managing care of this patient today ____ minutes.
[2023-09-03] MEDS: traZODone HCL 50 MG TABLET PO (20:10)
[2023-09-03] MEDS: Divalproex Sodium 250 MG TABLET.DR PO (20:10)
[2023-09-03] MEDS: Atorvastatin Calcium 20 MG TABLET PO (20:10)
[2023-09-03] MEDS: QUEtiapine Fumarate 200 MG TABLET PO (20:10)
[2023-09-03] MEDS: clonazePAM 0.5 MG TABLET PO (20:10)
[2023-09-04] MEDS: Omeprazole 20 MG CAPSULE.DR PO (06:21)
[2023-09-04] MEDS: polyethylene glycoL 3350 17 GM POWD.PACK PO ×3 (08:08→19:53)
[2023-09-04] MEDS: Lactulose 20 GM/30 ML SOLUTION PO (08:08)
[2023-09-04] MEDS: Divalproex Sodium 250 MG TABLET.DR PO ×2 (08:09→19:54)
[2023-09-04] MEDS: OXcarbazepine 300 MG TABLET PO ×2 (08:09→19:54)
[2023-09-04] MEDS: Multivitamin TABLET 1 TAB PO (08:09)
[2023-09-04] MEDS: hydrOXYzine HCL 25 MG TABLET PO ×3 (08:09→19:54)
[2023-09-04] MEDS: Docusate Sodium 100 MG CAPSULE 200 MG PO ×2 (08:09→19:54)
[2023-09-04] MEDS: Cariprazine HCl 3 MG CAPSULE 6 MG PO (08:09)
[2023-09-04] MEDS: methADONE HCl 20 MG/2 ML ORAL.CONC 100 MG PO (08:10)
[2023-09-04 08:20] VITALS: BP 118/70; PULSE 95; RESP 16; TEMP 36.6; O2SAT 96
[2023-09-04 09:01] LABS: Influenza A PCR NEGATIVE (Negative); Influenza B PCR NEGATIVE (Negative); Resp Syncy Virus RNA Qual PCR NEGATIVE (Negative); SARS COV2 PCR INHOUSE NEGATIVE (Negative)
[2023-09-04] MEDS: Nicotine Polacrilex Lozenge 4 MG LOZENGE BUCCAL ×2 (09:28→14:51)
--- NOTE | 2023-09-04 14:11 | P.PNPSI_ITS ---
Subjective Subjective Date of Service: 09/04/23 Reason For Visit: Bipolar disorder, polysubstance use disorder Subjective Notes: Conditional Voluntary Healthcare Proxy: No Guardianship: No Medical Problems Affecting Mental Status: No Interim History: met with patient. Discussed with Nursing. Aware significant issues around constipation and abdominal discomfort. Reviewed x-rays. Repeated KUB today. Reviewed gastro consult. Noted chronicity of constipation, however it does appear more significant recently. Patient hopeful he can go to the [facility] for ongoing substance treatment. Regarding GI discomfort, reported he did have an enema 2 days ago and also 2 days prior to that one and reported there was some benefit from both. Abdominal discomfort did break sleep last night. Did find Klonopin helpful. Overall patient would like to try enema again today and see if there are any results. We will also get formal KUB report. Schedule senna also tonight. Will review again tomorrow and reach out to GI if needed. Medication Compliance: Yes Side effects from medications: No Attending Groups: Yes Review of Systems Acute medical concerns: No Review of Systems Review of Systems constipation and abdo discomfort Mental Status Exam Mental Status Exam Narrative: Pleasant. Engaged. Fairly presented. Casually dressed. Organized. Largely euthymic. No SI. No HI. No agitation. No psychosis. Insight and judgment okay. Diagnostics Vital Signs (24Hr): Vital Signs - 24 hr 09/03/23 16:44 09/04/23 08:20 Temperature 97.9 F 97.8 F Pulse Rate 94 95 Respiratory Rate 16 16 Blood Pressure 116/88 118/70 Pulse Oximetry 97 96 Oxygen Delivery Method Room Air Room Air BMI result Body Mass Index 31.0 Labs 08/21/23 18:21 08/21/23 18:21 Labs: Laboratory Results - last 48 hr 09/03/23 09/04/23 14:25 08:18 Urine Color Dark Yellow Urine Appearance Cloudy Urine pH 6.0 Ur Specific [place] >= 1.030 H Urine Protein 100 (2+) H Urine Glucose (UA) Negative Urine Ketones 15 Urine Blood Negative Urine Nitrite Negative Ur Leukocyte Esterase Negative Urine RBC 0-2 Urine WBC 0-5 Ur Squamous Epith Cells 0-2 Urine Bacteria None Seen Hyaline Casts 3-5 Influenza Type A (PCR) NEGATIVE Influenza Type B (PCR) NEGATIVE RSV RNA Qual (PCR) NEGATIVE SARS-CoV-2 RNA (RT-PCR) NEGATIVE Imaging Radiology Impressions: ITS Impressions KUB X-Ray 08/31/23 09:49 IMPRESSION: Constipation. KUB X-Ray 09/04/23 10:58 IMPRESSION: Mild constipation. No acute process seen. Medications Medications Current Medications Acetaminophen (Acetaminophen 325 Mg Tablet) 650 mg PO Q6H PRN PRN Reason: Headache/Pain Mild Scale (1-3) Last Admin: 09/01/23 15:33 Dose: 650 mg Al Hydroxide/Mg Hydroxide (Magnesium Hydrox/Alum Hydrox 30 Ml Oral.Susp) 30 ml PO Q6H PRN PRN Reason: Heartburn/Nausea Last Admin: 08/29/23 10:39 Dose: 30 ml Atorvastatin Calcium (Atorvastatin Calcium 20 Mg Tablet) 20 mg PO BEDTIME LAURE Last Admin: 09/03/23 20:10 Dose: 20 mg Bisacodyl (Bisacodyl 5 Mg Tablet.) 10 mg PO DAILY PRN PRN Reason: Constipation Last Admin: 09/03/23 14:06 Dose: 10 mg Cariprazine (Cariprazine Hcl 3 Mg Capsule) 6 mg PO DAILY LAURE Last Admin: 09/04/23 08:09 Dose: 6 mg Clonazepam (Clonazepam 0.5 Mg Tablet) 0.5 mg PO BEDTIME LAURE Last Admin: 09/03/23 20:10 Dose: 0.5 mg Clonidine HCl (Clonidine Hcl 0.1 Mg Tablet) 0.1 mg PO TID PRN; Protocol PRN Reason: withdrawal Last Admin: 09/02/23 14:54 Dose: 0.1 mg Divalproex Sodium (Divalproex Sodium 250 Mg Tablet.) 250 mg PO BID LAURE Stop: 09/05/23 07:00 Last Admin: 09/04/23 08:09 Dose: 250 mg Divalproex Sodium (Divalproex Sodium 250 Mg Tablet.) 250 mg PO DAILY LAURE Stop: 09/07/23 09:00 Docusate Sodium (Docusate Sodium 100 Mg Capsule) 200 mg PO BID LAURE Last Admin: 09/04/23 08:09 Dose: 200 mg Gabapentin (Gabapentin 300 Mg Capsule) 300 mg PO TID PRN PRN Reason: anxiety Last Admin: 09/02/23 20:20 Dose: 300 mg Hydroxyzine HCl (Hydroxyzine Hcl 25 Mg Tablet) 25 mg PO TID LAURE Last Admin: 09/04/23 08:09 Dose: 25 mg Hydroxyzine HCl (Hydroxyzine Hcl 25 Mg Tablet) 25 mg PO Q6H PRN PRN Reason: Anxiety Last Admin: 09/01/23 20:13 Dose: 25 mg Lactulose (Lactulose 20 Gm/30 Ml Solution) 20 gm PO DAILY [facility] Last Admin: 09/04/23 08:08 Dose: 20 gm Magnesium Hydroxide (Milk Of Magnesia 30 Ml Oral.Susp) 30 ml PO DAILY PRN PRN Reason: Constipation Methadone HCl (Methadone Hcl 20 Mg/2 Ml Oral.Conc) 100 mg PO DAILY [facility] Last Admin: 09/04/23 08:10 Dose: 100 mg Multivitamins/Vitamin C (Multivitamin Tablet) 1 tab PO DAILY [facility] Last Admin: 09/04/23 08:09 Dose: 1 tab Nicotine Polacrilex (Nicotine Polacrilex Lozenge 4 Mg Lozenge) 4 mg BUCCAL Q2H PRN PRN Reason: Nicotine Cravings Last Admin: 09/04/23 09:28 Dose: 4 mg Omeprazole (Omeprazole 20 Mg Capsule.Dr) 20 mg PO DAILY@0630 [facility] Last Admin: 09/04/23 06:21 Dose: 20 mg Oxcarbazepine (Oxcarbazepine 300 Mg Tablet) 300 mg PO BID [facility] Last Admin: 09/04/23 08:09 Dose: 300 mg Polyethylene Glycol (Polyethylene Glycol 3350 17 Gm Powd.Pack) 17 gm PO DAILY [facility] Last Admin: 09/04/23 08:08 Dose: 17 gm Polyethylene Glycol (Polyethylene Glycol 3350 17 Gm Powd.Pack) 17 gm PO BID [facility] Last Admin: 09/04/23 08:08 Dose: 17 gm Quetiapine Fumarate (Quetiapine Fumarate 200 Mg Tablet) 200 mg PO BEDTIME [facility] Last Admin: 09/03/23 20:10 Dose: 200 mg Quetiapine Fumarate (Quetiapine Fumarate 50 Mg Tablet) 50 mg PO BID PRN PRN Reason: perceptual alterations Last Admin: 08/28/23 18:14 Dose: 50 mg Sodium Biphosphate/Sodium Phosphate (Sodium Phosphate,[place]-Dibasic 133 Ml Enema) 133 ml AR ONCE PRN PRN Reason: constipation Last Admin: 09/02/23 09:31 Dose: 133 ml Sodium Biphosphate/Sodium Phosphate (Sodium Phosphate,[place]-Dibasic 133 Ml Enema) 133 ml AR DAILY PRN PRN Reason: constipation Trazodone HCl (Trazodone Hcl 50 Mg Tablet) 50 mg PO BEDTIME MRX1 PRN PRN Reason: Insomnia Last Admin: 09/03/23 20:10 Dose: 50 mg Allergies Allergies Allergy/AdvReac Type Severity Reaction Status Date / Time No Known Allergies Allergy Verified 08/14/23 14:09 [No Known Allergies*] Assessment & Plan Assessment & Plan (1) Opioid use disorder: Status: Acute Code(s): F11.90 - Opioid use, unspecified, uncomplicated (2) Bipolar disorder: Status: Acute Code(s): F31.9 - Bipolar disorder, unspecified (3) Polysubstance abuse: Status: Acute Code(s): F19.10 - Other psychoactive substance abuse, uncomplicated Plan 28 yo male, history of bipolar disorder, opiate use disorder, polysubstance use disorder, readmitted after a recent discharge after using heroin, cocaine, klonopin and experiencing SI. Plan: Detox Collateral contact CSS referral Increase Vraylar to 6 mg daily Atorvastatin 20 mg daily- elevated lipids 08/27/23 Seroquel 50 mg bid prn perceptual alterations. 08/28/23 patient reports feeling better and sleeping better; continue current treatment plan 08/29/23: Patient reports that he is feeling short of breath and feels pressure on his chest, though no pain; he said he has been feeling this for the past 3 days though did not mention this to tag writer yesterday. He says he knows his EKG was normal but it still ongoing. Steam Fitter Supervisor Maintenance suggested that it is likely anxiety to which patient agreed saying he is nervous about the next steps in his treatment, especially aftercare. He agreed to try Ativan to see if that calms things down. Does not appear short of breath; playing game calmly with others in the milieu Vitals/O2 sat WNL; respiratory rate WNL no hx asthma; denies chest pain Pulm exam: regular breath sounds CTA b/l throughout; no wheezing, rhonchi, Cardiac: Regular rhythm; mild tachycardia; no murmurs, rubs, gallops Patient given Ativan 1 mg which completely resolved shortness of breath 08/30/22 Depakote ER 500 mg HS Omeprazole 20 mg a.m. Dulcolax prn constipation 08/31/23 Bowel regime beginning to provide some efficacy and relief 09/01/23 Change Depakote from ER to IR 500 mg bid 09/02/23 patient reports overall well but still constipated however got relief from enema 09/03/23 Depakote taper Klonopin 0.5 mg hs UACS Continue to monitor constipation sx. 09/04/23: Regarding GI discomfort, reported he did have an enema 2 days ago and also 2 days prior to that one and reported there was some benefit from both. Overall patient would like to try enema again today and see if there are any results. We will also get formal KUB report. Schedule senna also [place]. Will review again tomorrow and reach out to GI if needed. Reason for continued inpatient stay Substantial Risk for: rapid decompensation Time Spent With Patient Time: Total time managing care of this patient today ____ minutes.
[2023-09-04] MEDS: QUEtiapine Fumarate 200 MG TABLET PO (19:54)
[2023-09-04] MEDS: Atorvastatin Calcium 20 MG TABLET PO (19:54)
[2023-09-04] MEDS: clonazePAM 0.5 MG TABLET PO (19:54)
[2023-09-05] MEDS: Omeprazole 20 MG CAPSULE.DR PO (05:58)
[2023-09-05] MEDS: Nicotine Polacrilex Lozenge 4 MG LOZENGE BUCCAL ×4 (06:35→22:34)
[2023-09-05] MEDS: polyethylene glycoL 3350 17 GM POWD.PACK PO ×2 (08:07→21:09)
[2023-09-05] MEDS: OXcarbazepine 300 MG TABLET PO ×2 (08:07→21:01)
[2023-09-05] MEDS: Docusate Sodium 100 MG CAPSULE 200 MG PO ×2 (08:07→21:02)
[2023-09-05] MEDS: Multivitamin TABLET 1 TAB PO (08:07)
[2023-09-05] MEDS: Cariprazine HCl 3 MG CAPSULE 6 MG PO (08:07)
[2023-09-05] MEDS: hydrOXYzine HCL 25 MG TABLET PO ×3 (08:07→21:01)
[2023-09-05] MEDS: Divalproex Sodium 250 MG TABLET.DR PO (08:08)
[2023-09-05] MEDS: Lactulose 20 GM/30 ML SOLUTION PO (08:08)
[2023-09-05 08:15] VITALS: BP 114/72; PULSE 99; RESP 16; TEMP 36.2; O2SAT 97
[2023-09-05] MEDS: methADONE HCl 20 MG/2 ML ORAL.CONC 100 MG PO (08:58)
[2023-09-05] MEDS: Sodium Phosphate,Mono-Dibasic 133 ML ENEMA PR (09:00)
--- NOTE | 2023-09-05 11:01 | HO.PSYCHPN ---
Subjective Subjective Date of Service: 09/05/23 Reason For Visit: Bipolar disorder, polysubstance use disorder Interim History: Ongoing issues around constipation and abdominal discomfort- no benefit despite extensive bowel regimen and 3rd enema. Otherwise remains hopeful he can go to the [facility] for ongoing substance treatment. Klonopin helpful for anxiety. Informal discussion with surgery ref constipation despite bowel regimen and no benefit from enemas: rec golytely trial- 2 Liters (ie half of usual 4 liter bottle), if no effect after 2 hrs, then repeat i.e. take rest of bottle. If no benefit then reconsult GI +/- evacuation, scope, other intervention. Medication Compliance: Yes Side effects from medications: No Attending Groups: Yes Review of Systems Informal discussion with surgery ref constipation despite bowel regimen and no benefit from enemas: rec golytely trial- 2 Liters (ie half of usual 4 liter bottle), if no effect after 2 hrs, then repeat i.e. take rest of bottle. If no benefit then reconsult GI +/- evacuation, scope, other intervention. Medical Review of Systems: unchanged Review of Systems Review of Systems constipation and abdo discomfort Mental Status Exam Mental Status Exam Narrative: Pleasant. Engaged. Fairly presented. Casually dressed. Organized. Largely euthymic. No SI. No HI. No agitation. No psychosis. Insight and judgment okay. Diagnostics Vital Signs (24Hr): Vital Signs - 24 hr 09/05/23 08:15 Temperature 97.2 F Pulse Rate 99 Respiratory Rate 16 Blood Pressure 114/72 Pulse Oximetry 97 Oxygen Delivery Method Room Air BMI result Body Mass Index 31.0 Labs 08/21/23 18:21 08/21/23 18:21 Labs: Laboratory Results - last 48 hr 09/03/23 09/04/23 14:25 08:18 Urine Color Dark Yellow Urine Appearance Cloudy Urine pH 6.0 Ur Specific [place] >= 1.030 H Urine Protein 100 (2+) H Urine Glucose (UA) Negative Urine Ketones 15 Urine Blood Negative Urine Nitrite Negative Ur Leukocyte Esterase Negative Urine RBC 0-2 Urine WBC 0-5 Ur Squamous Epith Cells 0-2 Urine Bacteria None Seen Hyaline Casts 3-5 Influenza Type A (PCR) NEGATIVE Influenza Type B (PCR) NEGATIVE RSV RNA Qual (PCR) NEGATIVE SARS-CoV-2 RNA (RT-PCR) NEGATIVE Imaging Radiology Impressions: ITS Impressions KUB X-Ray 08/31/23 09:49 IMPRESSION: Constipation. KUB X-Ray 09/04/23 10:58 IMPRESSION: Mild constipation. No acute process seen. Medications Medications Current Medications Acetaminophen (Acetaminophen 325 Mg Tablet) 650 mg PO Q6H PRN PRN Reason: Headache/Pain Mild Scale (1-3) Last Admin: 09/01/23 15:33 Dose: 650 mg Al Hydroxide/Mg Hydroxide (Magnesium Hydrox/Alum Hydrox 30 Ml Oral.Susp) 30 ml PO Q6H PRN PRN Reason: Heartburn/Nausea Last Admin: 08/29/23 10:39 Dose: 30 ml Atorvastatin Calcium (Atorvastatin Calcium 20 Mg Tablet) 20 mg PO BEDTIME LAURE Last Admin: 09/04/23 19:54 Dose: 20 mg Bisacodyl (Bisacodyl 5 Mg Tablet.Dr) 10 mg PO DAILY PRN PRN Reason: Constipation Last Admin: 09/03/23 14:06 Dose: 10 mg Cariprazine (Cariprazine Hcl 3 Mg Capsule) 6 mg PO DAILY [facility] Last Admin: 09/05/23 08:07 Dose: 6 mg Clonazepam (Clonazepam 0.5 Mg Tablet) 0.5 mg PO BEDTIME LAURE Last Admin: 09/04/23 19:54 Dose: 0.5 mg Clonidine HCl (Clonidine Hcl 0.1 Mg Tablet) 0.1 mg PO TID PRN; Protocol PRN Reason: withdrawal Last Admin: 09/02/23 14:54 Dose: 0.1 mg Divalproex Sodium (Divalproex Sodium 250 Mg Tablet.) 250 mg PO DAILY [facility] Stop: 09/07/23 09:00 Last Admin: 09/05/23 08:08 Dose: 250 mg Docusate Sodium (Docusate Sodium 100 Mg Capsule) 200 mg PO BID LAURE Last Admin: 09/05/23 08:07 Dose: 200 mg Gabapentin (Gabapentin 300 Mg Capsule) 300 mg PO TID PRN PRN Reason: anxiety Last Admin: 09/02/23 20:20 Dose: 300 mg Hydroxyzine HCl (Hydroxyzine Hcl 25 Mg Tablet) 25 mg PO TID LAURE Last Admin: 09/05/23 08:07 Dose: 25 mg Hydroxyzine HCl (Hydroxyzine Hcl 25 Mg Tablet) 25 mg PO Q6H PRN PRN Reason: Anxiety Last Admin: 09/01/23 20:13 Dose: 25 mg Lactulose (Lactulose 20 Gm/30 Ml Solution) 20 gm PO DAILY [facility] Last Admin: 09/05/23 08:08 Dose: 20 gm Magnesium Hydroxide (Milk Of Magnesia 30 Ml Oral.Susp) 30 ml PO DAILY PRN PRN Reason: Constipation Methadone HCl (Methadone Hcl 20 Mg/2 Ml Oral.Conc) 100 mg PO DAILY [facility] Last Admin: 09/05/23 08:58 Dose: 100 mg Multivitamins/Vitamin C (Multivitamin Tablet) 1 tab PO DAILY [facility] Last Admin: 09/05/23 08:07 Dose: 1 tab Nicotine Polacrilex (Nicotine Polacrilex Lozenge 4 Mg Lozenge) 4 mg BUCCAL Q2H PRN PRN Reason: Nicotine Cravings Last Admin: 09/05/23 09:40 Dose: 4 mg Omeprazole (Omeprazole 20 Mg Capsule.Dr) 20 mg PO DAILY@0630 [facility] Last Admin: 09/05/23 05:58 Dose: 20 mg Oxcarbazepine (Oxcarbazepine 300 Mg Tablet) 300 mg PO BID [facility] Last Admin: 09/05/23 08:07 Dose: 300 mg Polyethylene Glycol (Polyethylene Glycol 3350 17 Gm Powd.Pack) 17 gm PO BID [facility] Last Admin: 09/05/23 08:07 Dose: 17 gm Quetiapine Fumarate (Quetiapine Fumarate 200 Mg Tablet) 200 mg PO BEDTIME [facility] Last Admin: 09/04/23 19:54 Dose: 200 mg Quetiapine Fumarate (Quetiapine Fumarate 50 Mg Tablet) 50 mg PO BID PRN PRN Reason: perceptual alterations Last Admin: 08/28/23 18:14 Dose: 50 mg Senna (Senna [place] Extract Oral Syrup 15 Ml Syrup) 15 ml PO BEDTIME [facility] Last Admin: 09/04/23 18:01 Dose: 15 ml Sodium Biphosphate/Sodium Phosphate (Sodium Phosphate,[place]-Dibasic 133 Ml Enema) 133 ml ID ONCE PRN PRN Reason: constipation Last Admin: 09/02/23 09:31 Dose: 133 ml Sodium Biphosphate/Sodium Phosphate (Sodium Phosphate,[place]-Dibasic 133 Ml Enema) 133 ml ID DAILY PRN PRN Reason: constipation Last Admin: 09/05/23 09:00 Dose: 133 ml Trazodone HCl (Trazodone Hcl 50 Mg Tablet) 50 mg PO BEDTIME MRX1 PRN PRN Reason: Insomnia Last Admin: 09/03/23 20:10 Dose: 50 mg Allergies Allergies Allergy/AdvReac Type Severity Reaction Status Date / Time No Known Allergies Allergy Verified 08/14/23 14:09 [No Known Allergies*] Assessment & Plan Assessment & Plan (1) Opioid use disorder: Status: Acute Code(s): F11.90 - Opioid use, unspecified, uncomplicated (2) Bipolar disorder: Status: Acute Code(s): F31.9 - Bipolar disorder, unspecified (3) Polysubstance abuse: Status: Acute Code(s): F19.10 - Other psychoactive substance abuse, uncomplicated Plan 28 yo male, history of bipolar disorder, opiate use disorder, polysubstance use disorder, readmitted after a recent discharge after using heroin, cocaine, klonopin and experiencing SI. Plan: Detox Collateral contact CSS referral Increase Vraylar to 6 mg daily Atorvastatin 20 mg daily- elevated lipids 08/27/23 Seroquel 50 mg bid prn perceptual alterations. 08/28/23 patient reports feeling better and sleeping better; continue current treatment plan 08/29/23: Patient reports that he is feeling short of breath and feels pressure on his chest, though no pain; he said he has been feeling this for the past 3 days though did not mention this to travel writer yesterday. He says he knows his EKG was normal but it still ongoing. Psychometric Examiner suggested that it is likely anxiety to which patient agreed saying he is nervous about the next steps in his treatment, especially aftercare. He agreed to try Ativan to see if that calms things down. Does not appear short of breath; playing game calmly with others in the milieu Vitals/O2 sat WNL; respiratory rate WNL no hx asthma; denies chest pain Pulm exam: regular breath sounds CTA b/l throughout; no wheezing, rhonchi, Cardiac: Regular rhythm; mild tachycardia; no murmurs, rubs, gallops Patient given Ativan 1 mg which completely resolved shortness of breath 08/30/22 Depakote ER 500 mg HS Omeprazole 20 mg a.m. Dulcolax prn constipation 08/31/23 Bowel regime beginning to provide some efficacy and relief 09/01/23 Change Depakote from ER to IR 500 mg bid 09/02/23 patient reports overall well but still constipated however got relief from enema 09/03/23 Depakote taper Klonopin 0.5 mg hs UACS Continue to monitor constipation sx. 09/04/23: Regarding GI discomfort, reported he did have an enema 2 days ago and also 2 days prior to that one and reported there was some benefit from both. Overall patient would like to try enema again today and see if there are any results. We will also get formal KUB report. Schedule senna also [place]. Will review again tomorrow and reach out to GI if needed. 09/05/23: Informal discussion with surgery ref constipation despite bowel regimen and no benefit from enemas: rec golytely trial- 2 Liters (ie half of usual 4 liter bottle), if no effect after 2 hrs, then repeat i.e. take rest of bottle. If no benefit then reconsult GI +/- evacuation, scope, other intervention. Reason for continued inpatient stay Substantial Risk for: rapid decompensation Time Spent With Patient Time: Total time managing care of this patient today ____ minutes.
[2023-09-05] MEDS: PEG 3350/Na Sulf,Bicarb,Cl/KCL 4,000 ML SOLN.RECON 2000 ML PO (11:49)
[2023-09-05] MEDS: Ondansetron ODT 4 MG TAB.RAPDIS TRANSLINGU (16:46)
[2023-09-05 16:55] VITALS: BP 135/85; PULSE 106; RESP 16; TEMP 36.7; O2SAT 97
[2023-09-05] MEDS: Atorvastatin Calcium 20 MG TABLET PO (21:01)
[2023-09-05] MEDS: clonazePAM 0.5 MG TABLET PO (21:01)
[2023-09-05] MEDS: QUEtiapine Fumarate 200 MG TABLET PO (21:01)
[2023-09-06] MEDS: Acetaminophen 325 MG TABLET 650 MG PO ×2 (04:42→10:24)
--- NOTE | 2023-09-06 05:04 | PC.NURSE ---
PT COMPLAINING OF BODY ACHES, CHILLS, AND MILD SHORTNESS OF BREATH. PT APPEARS DIAPHORETIC AND HAS A TEMP OF 100.5. MD KENDRA WILBURN CONTACTED. COVID 19 TEST ORDERED. PENDING RESULTS.
[2023-09-06 05:05] VITALS: TEMP 37.9
[2023-09-06 05:12] LABS: COVID-19 Test Positive (Negative); IDNOW Serial# BCCEAD1C
[2023-09-06] MEDS: Omeprazole 20 MG CAPSULE.DR PO (05:58)
[2023-09-06 06:00] VITALS: BP 127/59; PULSE 128; RESP 18; TEMP 38.7; O2SAT 95
[2023-09-06] MEDS: Ondansetron ODT 4 MG TAB.RAPDIS TRANSLINGU ×2 (10:24→12:38)
[2023-09-06 18:10] VITALS: BP 126/61; PULSE 110; RESP 16; TEMP 37.1; O2SAT 94
[2023-09-06] MEDS: hydrOXYzine HCL 25 MG TABLET PO ×2 (18:43→20:59)
[2023-09-06] MEDS: SUMAtriptan succinate 25 MG TABLET PO (18:43)
[2023-09-06] MEDS: Ondansetron ODT 4 MG TAB.RAPDIS 8 MG TRANSLINGU (18:46)
[2023-09-06] MEDS: methADONE HCl 20 MG/2 ML ORAL.CONC 100 MG PO (20:54)
[2023-09-06] MEDS: Cariprazine HCl 3 MG CAPSULE 6 MG PO (20:58)
[2023-09-06] MEDS: Atorvastatin Calcium 20 MG TABLET PO (20:58)
[2023-09-06] MEDS: OXcarbazepine 300 MG TABLET PO (20:59)
[2023-09-06] MEDS: QUEtiapine Fumarate 200 MG TABLET PO (20:59)
[2023-09-06] MEDS: clonazePAM 0.5 MG TABLET PO (20:59)
[2023-09-07] MEDS: Acetaminophen 325 MG TABLET 650 MG PO ×2 (01:15→11:00)
[2023-09-07] MEDS: Omeprazole 20 MG CAPSULE.DR PO (05:53)
[2023-09-07 10:15] VITALS: BP 130/68; PULSE 100; RESP 16; TEMP 36.4; O2SAT 98
[2023-09-07] MEDS: hydrOXYzine HCL 25 MG TABLET PO ×3 (10:19→21:07)
[2023-09-07] MEDS: Divalproex Sodium 250 MG TABLET.DR PO (10:20)
[2023-09-07] MEDS: Cariprazine HCl 3 MG CAPSULE 6 MG PO (10:20)
[2023-09-07] MEDS: Multivitamin TABLET 1 TAB PO (10:20)
[2023-09-07] MEDS: methADONE HCl 20 MG/2 ML ORAL.CONC 100 MG PO (10:21)
[2023-09-07] MEDS: Docusate Sodium 100 MG CAPSULE 200 MG PO ×2 (10:21→21:08)
[2023-09-07] MEDS: OXcarbazepine 300 MG TABLET PO ×2 (10:23→21:07)
[2023-09-07] MEDS: Nicotine Polacrilex Lozenge 4 MG LOZENGE BUCCAL ×2 (11:07→16:04)
--- NOTE | 2023-09-07 15:37 | HO.PSYCHPN ---
Subjective Subjective Date of Service: 09/07/23 Reason For Visit: Bipolar disorder, polysubstance use disorder Subjective Notes: Conditional Voluntary Healthcare Proxy: No Guardianship: No Medical Problems Affecting Mental Status: No Interim History: COVID + Pt reports some improvement in sx. Worries he has become constipated again-given golytely over the weekend with results. Discussed Klonopin efficacy-some relief, will increase. Pt overall reports feeling wiped out with COVID sx and is talking with his tissue recovery technician via phone. He reports he has a bed at [facility] and believes he will go this week, however, we are not aware what their COVID policies are. Medication Compliance: Yes Side effects from medications: No Attending Groups: No Review of Systems Acute medical concerns: Yes COVID + Medical Review of Systems: unchanged Review of Systems Constitutional: Reports body ache(s), Reports chills, Reports fatigue, Reports fever(s), Reports headache(s), Reports lethargy, Reports malaise, Reports poor appetite and Reports weakness Comments: COVID + Reports headache(s) Gastrointestinal: Reports constipation Reports headache(s) and Reports weakness Endocrine: Reports fatigue Mental Status Exam Mental Status Exam Patient Appearance: Fatigued Patient Orientation: Person, Place, Time and Situation Level of Consciousness: Alert Patient Behavior: Talkative and Good Eye Contact Mood Description: Flat Affect Description: Flat Patient Cognition Impaired: No Ability to Follow Directions: Good Speech Pattern: Spontaneous Speech Memory Description: Intact Hallucinations: None Delusions: Not Present Thought Process: Intact and Goal Oriented Thought Content: positive for Intact and positive for Goal Oriented Depressive Symptoms: Increased Fatigue and Loss of Energy Judgement: Good Diagnostics Vital Signs (24Hr): Vital Signs - 24 hr 09/06/23 18:10 09/07/23 10:15 Temperature 98.8 F 97.5 F Pulse Rate 110 H 100 Respiratory Rate 16 16 Blood Pressure 126/61 130/68 Pulse Oximetry 94 98 Oxygen Delivery Method Room Air Room Air BMI result Body Mass Index 31.0 Labs 08/21/23 18:21 08/21/23 18:21 Labs: Laboratory Results - last 48 hr 09/06/23 04:50 COVID-19 ([facility]ADA) Positive A COVID-19 Clin Com See Note Imaging Radiology Impressions: ITS Impressions KUB X-Ray 08/31/23 09:49 IMPRESSION: Constipation. KUB X-Ray 09/04/23 10:58 IMPRESSION: Mild constipation. No acute process seen. Medications Medications Current Medications Acetaminophen (Acetaminophen 325 Mg Tablet) 650 mg PO Q4H PRN PRN Reason: Headache/Pain Mild Scale (1-3) Last Admin: 09/07/23 11:00 Dose: 650 mg Al Hydroxide/Mg Hydroxide (Magnesium Hydrox/Alum Hydrox 30 Ml Oral.Susp) 30 ml PO Q6H PRN PRN Reason: Heartburn/Nausea Last Admin: 08/29/23 10:39 Dose: 30 ml Atorvastatin Calcium (Atorvastatin Calcium 20 Mg Tablet) 20 mg PO BEDTIME LAURE Last Admin: 09/06/23 20:58 Dose: 20 mg Bisacodyl (Bisacodyl 5 Mg Tablet.Dr) 10 mg PO DAILY PRN PRN Reason: Constipation Last Admin: 09/03/23 14:06 Dose: 10 mg Cariprazine (Cariprazine Hcl 3 Mg Capsule) 6 mg PO DAILY [facility] Last Admin: 09/07/23 10:20 Dose: 6 mg Clonazepam (Clonazepam 0.5 Mg Tablet) 0.5 mg PO BEDTIME LAURE Last Admin: 09/06/23 20:59 Dose: 0.5 mg Clonidine HCl (Clonidine Hcl 0.1 Mg Tablet) 0.1 mg PO TID PRN; Protocol PRN Reason: withdrawal Last Admin: 09/02/23 14:54 Dose: 0.1 mg Docusate Sodium (Docusate Sodium 100 Mg Capsule) 200 mg PO BID [facility] Last Admin: 09/07/23 10:21 Dose: 200 mg Gabapentin (Gabapentin 300 Mg Capsule) 300 mg PO TID PRN PRN Reason: anxiety Last Admin: 09/02/23 20:20 Dose: 300 mg Hydroxyzine HCl (Hydroxyzine Hcl 25 Mg Tablet) 25 mg PO TID [facility] Last Admin: 09/07/23 15:12 Dose: 25 mg Hydroxyzine HCl (Hydroxyzine Hcl 25 Mg Tablet) 25 mg PO Q6H PRN PRN Reason: Anxiety Last Admin: 09/01/23 20:13 Dose: 25 mg Lactulose (Lactulose 20 Gm/30 Ml Solution) 20 gm PO DAILY [facility] Last Admin: 09/07/23 10:23 Dose: Not Given Magnesium Hydroxide (Milk Of Magnesia 30 Ml Oral.Susp) 30 ml PO DAILY PRN PRN Reason: Constipation Methadone HCl (Methadone Hcl 20 Mg/2 Ml Oral.Conc) 100 mg PO DAILY [facility] Last Admin: 09/07/23 10:21 Dose: 100 mg Multivitamins/Vitamin C (Multivitamin Tablet) 1 tab PO DAILY [facility] Last Admin: 09/07/23 10:20 Dose: 1 tab Nicotine Polacrilex (Nicotine Polacrilex Lozenge 4 Mg Lozenge) 4 mg BUCCAL Q2H PRN PRN Reason: Nicotine Cravings Last Admin: 09/07/23 11:07 Dose: 4 mg Omeprazole (Omeprazole 20 Mg Capsule.Dr) 20 mg PO DAILY@0630 [facility] Last Admin: 09/07/23 05:53 Dose: 20 mg Ondansetron HCl (Ondansetron Odt 4 Mg Tab.Rapdis) 8 mg TRANSLINGU Q4H PRN PRN Reason: Nausea and Vomiting Last Admin: 09/06/23 18:46 Dose: 8 mg Oxcarbazepine (Oxcarbazepine 300 Mg Tablet) 300 mg PO BID [facility] Last Admin: 09/07/23 10:23 Dose: 300 mg Polyethylene Glycol (Polyethylene Glycol 3350 17 Gm Powd.Pack) 17 gm PO BID [facility] Last Admin: 09/07/23 10:23 Dose: Not Given Quetiapine Fumarate (Quetiapine Fumarate 200 Mg Tablet) 200 mg PO BEDTIME [facility] Last Admin: 09/06/23 20:59 Dose: 200 mg Quetiapine Fumarate (Quetiapine Fumarate 50 Mg Tablet) 50 mg PO BID PRN PRN Reason: perceptual alterations Last Admin: 08/28/23 18:14 Dose: 50 mg Senna (Senna [place] Extract Oral Syrup 15 Ml Syrup) 15 ml PO BEDTIME [facility] Last Admin: 09/06/23 21:02 Dose: Not Given Sodium Biphosphate/Sodium Phosphate (Sodium Phosphate,[place]-Dibasic 133 Ml Enema) 133 ml [place] ONCE PRN PRN Reason: constipation Last Admin: 09/02/23 09:31 Dose: 133 ml Sodium Biphosphate/Sodium Phosphate (Sodium Phosphate,[place]-Dibasic 133 Ml Enema) 133 ml [place] DAILY PRN PRN Reason: constipation Last Admin: 09/05/23 09:00 Dose: 133 ml Trazodone HCl (Trazodone Hcl 50 Mg Tablet) 50 mg PO BEDTIME MRX1 PRN PRN Reason: Insomnia Last Admin: 09/03/23 20:10 Dose: 50 mg Allergies Allergies Allergy/AdvReac Type Severity Reaction Status Date / Time No Known Allergies Allergy Verified 08/14/23 14:09 [No Known Allergies*] Assessment & Plan Assessment & Plan (1) Opioid use disorder: Status: Acute Code(s): F11.90 - Opioid use, unspecified, uncomplicated (2) Bipolar disorder: Status: Acute Code(s): F31.9 - Bipolar disorder, unspecified (3) Polysubstance abuse: Status: Acute Code(s): F19.10 - Other psychoactive substance abuse, uncomplicated Plan 28 yo male, history of bipolar disorder, opiate use disorder, polysubstance use disorder, readmitted after a recent discharge after using heroin, cocaine, klonopin and experiencing SI. Plan: Detox Collateral contact CSS referral Increase Vraylar to 6 mg daily Atorvastatin 20 mg daily- elevated lipids 08/27/23 Seroquel 50 mg bid prn perceptual alterations. 08/28/23 patient reports feeling better and sleeping better; continue current treatment plan 08/29/23: Patient reports that he is feeling short of breath and feels pressure on his chest, though no pain; he said he has been feeling this for the past 3 days though did not mention this to magazine writer yesterday. He says he knows his EKG was normal but it still ongoing. Mobile Paramedical Examiner suggested that it is likely anxiety to which patient agreed saying he is nervous about the next steps in his treatment, especially aftercare. He agreed to try Ativan to see if that calms things down. Does not appear short of breath; playing game calmly with others in the milieu Vitals/O2 sat WNL; respiratory rate WNL no hx asthma; denies chest pain Pulm exam: regular breath sounds CTA b/l throughout; no wheezing, rhonchi, Cardiac: Regular rhythm; mild tachycardia; no murmurs, rubs, gallops Patient given Ativan 1 mg which completely resolved shortness of breath 08/30/22 Depakote ER 500 mg HS Omeprazole 20 mg a.m. Dulcolax prn constipation 08/31/23 Bowel regime beginning to provide some efficacy and relief 09/01/23 Change Depakote from ER to IR 500 mg bid 09/02/23 patient reports overall well but still constipated however got relief from enema 09/03/23 Depakote taper Klonopin 0.5 mg hs UACS Continue to monitor constipation sx. 09/04/23: Regarding GI discomfort, reported he did have an enema 2 days ago and also 2 days prior to that one and reported there was some benefit from both. Overall patient would like to try enema again today and see if there are any results. We will also get formal KUB report. Schedule senna also tonight. Will review again tomorrow and reach out to GI if needed. 09/05/23: Informal discussion with surgery ref constipation despite bowel regimen and no benefit from enemas: rec golytely trial- 2 Liters (ie half of usual 4 liter bottle), if no effect after 2 hrs, then repeat i.e. take rest of bottle. If no benefit then reconsult GI +/- evacuation, scope, other intervention. 09/07/23 Continue current regime and plan. Patient educated on: medication risk/benefits, therapeutic strategies and medical condition Informed Consent: understands and further education needed Reason for continued inpatient stay Substantial Risk for: med/psych decompensation Time Spent With Patient Time: Total time managing care of this patient today ____ minutes.
[2023-09-07 18:00] VITALS: BP 122/89; PULSE 89; TEMP 36.3; O2SAT 98
[2023-09-07] MEDS: Atorvastatin Calcium 20 MG TABLET PO (21:07)
[2023-09-07] MEDS: clonazePAM 1 MG TABLET PO (21:07)
[2023-09-07] MEDS: QUEtiapine Fumarate 200 MG TABLET PO (21:07)
--- NOTE | 2023-09-07 21:55 | PC.NURSE ---
Patient is isolative in his assigned space mostly watching Tv, no distress observed/reported, refused miralax and hanna but took colace with other HS medication, patient reported moving his bowel but still has bloating issues, patient is covid + compliant covid protocols, appetite reported good, reported moderate depression and anxiety, behavior non concerning, will continue to monitor.
--- NOTE | 2023-09-08 00:32 | HO.PSYCHPN ---
Subjective Subjective Date of Service: 09/06/23 Reason For Visit: Bipolar disorder, polysubstance use disorder Interim History: late entry note for pt seen on 09/06 Patient?COVID?positive;?feeling?nauseous,?vomiting,?febrile.??Agrees?to?have?Zofran?increased Mental Status Exam Mental Status Exam Patient Appearance: Fatigued Patient Orientation: Person, Place, Time and Situation Level of Consciousness: Drowsy Patient Behavior: Passive Mood Description: Flat Affect Description: Flat Patient Cognition Impaired: No Ability to Follow Directions: Good Speech Pattern: Spontaneous Speech Memory Description: Intact Hallucinations: None Delusions: Not Present Thought Process: Intact and Goal Oriented Thought Content: positive for Intact and positive for Goal Oriented Depressive Symptoms: Increased Fatigue and Loss of Energy Judgement: Good Diagnostics Vital Signs (24Hr): Vital Signs - 24 hr 09/07/23 10:15 09/07/23 18:00 Temperature 97.5 F 97.4 F Pulse Rate 100 89 Respiratory Rate 16 Blood Pressure 130/68 122/89 Pulse Oximetry 98 98 Oxygen Delivery Method Room Air Room Air BMI result Body Mass Index 31.0 Labs 08/21/23 18:21 08/21/23 18:21 Labs: Laboratory Results - last 48 hr 09/06/23 04:50 COVID-19 ([facility]) Positive A COVID-19 Clin Com See Note Imaging Radiology Impressions: ITS Impressions KUB X-Ray 08/31/23 09:49 IMPRESSION: Constipation. KUB X-Ray 09/04/23 10:58 IMPRESSION: Mild constipation. No acute process seen. Medications Medications Current Medications Acetaminophen (Acetaminophen 325 Mg Tablet) 650 mg PO Q4H PRN PRN Reason: Headache/Pain Mild Scale (1-3) Last Admin: 09/07/23 11:00 Dose: 650 mg Al Hydroxide/Mg Hydroxide (Magnesium Hydrox/Alum Hydrox 30 Ml Oral.Susp) 30 ml PO Q6H PRN PRN Reason: Heartburn/Nausea Last Admin: 08/29/23 10:39 Dose: 30 ml Atorvastatin Calcium (Atorvastatin Calcium 20 Mg Tablet) 20 mg PO BEDTIME [facility] Last Admin: 09/07/23 21:07 Dose: 20 mg Bisacodyl (Bisacodyl 5 Mg Tablet.Dr) 10 mg PO DAILY PRN PRN Reason: Constipation Last Admin: 09/03/23 14:06 Dose: 10 mg Cariprazine (Cariprazine Hcl 3 Mg Capsule) 6 mg PO DAILY [facility] Last Admin: 09/07/23 10:20 Dose: 6 mg Clonazepam (Clonazepam 1 Mg Tablet) 1 mg PO BEDTIME [facility] Last Admin: 09/07/23 21:07 Dose: 1 mg Clonidine HCl (Clonidine Hcl 0.1 Mg Tablet) 0.1 mg PO TID PRN; Protocol PRN Reason: withdrawal Last Admin: 09/02/23 14:54 Dose: 0.1 mg Docusate Sodium (Docusate Sodium 100 Mg Capsule) 200 mg PO BID [facility] Last Admin: 09/07/23 21:08 Dose: 200 mg Gabapentin (Gabapentin 300 Mg Capsule) 300 mg PO TID PRN PRN Reason: anxiety Last Admin: 09/02/23 20:20 Dose: 300 mg Hydroxyzine HCl (Hydroxyzine Hcl 25 Mg Tablet) 25 mg PO TID [facility] Last Admin: 09/07/23 21:07 Dose: 25 mg Hydroxyzine HCl (Hydroxyzine Hcl 25 Mg Tablet) 25 mg PO Q6H PRN PRN Reason: Anxiety Last Admin: 09/01/23 20:13 Dose: 25 mg Lactulose (Lactulose 20 Gm/30 Ml Solution) 20 gm PO DAILY [facility] Last Admin: 09/07/23 10:23 Dose: Not Given Magnesium Hydroxide (Milk Of Magnesia 30 Ml Oral.Susp) 30 ml PO DAILY PRN PRN Reason: Constipation Methadone HCl (Methadone Hcl 20 Mg/2 Ml Oral.Conc) 100 mg PO DAILY [facility] Last Admin: 09/07/23 10:21 Dose: 100 mg Multivitamins/Vitamin C (Multivitamin Tablet) 1 tab PO DAILY [facility] Last Admin: 09/07/23 10:20 Dose: 1 tab Nicotine Polacrilex (Nicotine Polacrilex Lozenge 4 Mg Lozenge) 4 mg BUCCAL Q2H PRN PRN Reason: Nicotine Cravings Last Admin: 09/07/23 16:04 Dose: 4 mg Omeprazole (Omeprazole 20 Mg Capsule.Dr) 20 mg PO DAILY@0630 [facility] Last Admin: 09/07/23 05:53 Dose: 20 mg Ondansetron HCl (Ondansetron Odt 4 Mg Tab.Rapdis) 8 mg TRANSLINGU Q4H PRN PRN Reason: Nausea and Vomiting Last Admin: 11/27/23 18:46 Dose: 8 mg Oxcarbazepine (Oxcarbazepine 300 Mg Tablet) 300 mg PO BID [facility] Last Admin: 09/07/23 21:07 Dose: 300 mg Polyethylene Glycol (Polyethylene Glycol 3350 17 Gm Powd.Pack) 17 gm PO BID [facility] Last Admin: 09/07/23 21:10 Dose: Not Given Quetiapine Fumarate (Quetiapine Fumarate 200 Mg Tablet) 200 mg PO BEDTIME [facility] Last Admin: 09/07/23 21:07 Dose: 200 mg Quetiapine Fumarate (Quetiapine Fumarate 50 Mg Tablet) 50 mg PO BID PRN PRN Reason: perceptual alterations Last Admin: 08/28/23 18:14 Dose: 50 mg Senna (Senna [employer] Extract Oral Syrup 15 Ml Syrup) 15 ml PO BEDTIME [facility] Last Admin: 09/07/23 21:09 Dose: Not Given Sodium Biphosphate/Sodium Phosphate (Sodium Phosphate,[place]-Dibasic 133 Ml Enema) 133 ml [place] ONCE PRN PRN Reason: constipation Last Admin: 09/02/23 09:31 Dose: 133 ml Sodium Biphosphate/Sodium Phosphate (Sodium Phosphate,[place]-Dibasic 133 Ml Enema) 133 ml [place] DAILY PRN PRN Reason: constipation Last Admin: 09/05/23 09:00 Dose: 133 ml Trazodone HCl (Trazodone Hcl 50 Mg Tablet) 50 mg PO BEDTIME MRX1 PRN PRN Reason: Insomnia Last Admin: 09/03/23 20:10 Dose: 50 mg Allergies Allergies Allergy/AdvReac Type Severity Reaction Status Date / Time No Known Allergies Allergy Verified 08/14/23 14:09 [No Known Allergies*] Assessment & Plan Assessment & Plan (1) Opioid use disorder: Status: Acute Code(s): F11.90 - Opioid use, unspecified, uncomplicated (2) Bipolar disorder: Status: Acute Code(s): F31.9 - Bipolar disorder, unspecified (3) Polysubstance abuse: Status: Acute Code(s): F19.10 - Other psychoactive substance abuse, uncomplicated Plan 28 yo male, history of bipolar disorder, opiate use disorder, polysubstance use disorder, readmitted after a recent discharge after using heroin, cocaine, klonopin and experiencing SI. Plan: Detox Collateral contact CSS referral Increase Vraylar to 6 mg daily Atorvastatin 20 mg daily- elevated lipids 08/27/23 Seroquel 50 mg bid prn perceptual alterations. 08/28/23 patient reports feeling better and sleeping better; continue current treatment plan 08/29/23: Patient reports that he is feeling short of breath and feels pressure on his chest, though no pain; he said he has been feeling this for the past 3 days though did not mention this to proposal manager writer yesterday. He says he knows his EKG was normal but it still ongoing. Hollow Handle Bench Worker suggested that it is likely anxiety to which patient agreed saying he is nervous about the next steps in his treatment, especially aftercare. He agreed to try Ativan to see if that calms things down. Does not appear short of breath; playing game calmly with others in the milieu Vitals/O2 sat WNL; respiratory rate WNL no hx asthma; denies chest pain Pulm exam: regular breath sounds CTA b/l throughout; no wheezing, rhonchi, Cardiac: Regular rhythm; mild tachycardia; no murmurs, rubs, gallops Patient given Ativan 1 mg which completely resolved shortness of breath 08/30/22 Depakote ER 500 mg HS Omeprazole 20 mg a.m. Dulcolax prn constipation 08/31/23 Bowel regime beginning to provide some efficacy and relief 09/01/23 Change Depakote from ER to IR 500 mg bid 09/02/23 patient reports overall well but still constipated however got relief from enema 09/03/23 Depakote taper Klonopin 0.5 mg hs UACS Continue to monitor constipation sx. 09/04/23: Regarding GI discomfort, reported he did have an enema 2 days ago and also 2 days prior to that one and reported there was some benefit from both. Overall patient would like to try enema again today and see if there are any results. We will also get formal KUB report. Schedule senna also [place]. Will review again tomorrow and reach out to GI if needed. 09/05/23: Informal discussion with surgery ref constipation despite bowel regimen and no benefit from enemas: rec golytely trial- 2 Liters (ie half of usual 4 liter bottle), if no effect after 2 hrs, then repeat i.e. take rest of bottle. If no benefit then reconsult GI +/- evacuation, scope, other intervention. Patient educated on: diagnosis and medical condition Informed Consent: understands Reason for continued inpatient stay Substantial Risk for: rapid decompensation Time Spent With Patient Time: Total time managing care of this patient today ____ minutes.
[2023-09-08] MEDS: Omeprazole 20 MG CAPSULE.DR PO (06:01)
[2023-09-08] MEDS: Multivitamin TABLET 1 TAB PO (09:38)
[2023-09-08] MEDS: hydrOXYzine HCL 25 MG TABLET PO ×3 (09:38→20:23)
[2023-09-08] MEDS: methADONE HCl 20 MG/2 ML ORAL.CONC 100 MG PO (09:38)
[2023-09-08] MEDS: Docusate Sodium 100 MG CAPSULE 200 MG PO (09:38)
[2023-09-08] MEDS: OXcarbazepine 300 MG TABLET PO ×2 (09:39→20:22)
[2023-09-08] MEDS: Cariprazine HCl 3 MG CAPSULE 6 MG PO (09:39)
[2023-09-08] MEDS: Nicotine Polacrilex Lozenge 4 MG LOZENGE BUCCAL ×2 (12:14→20:23)
[2023-09-08] MEDS: guaiFENesin DM 600/30 1 TAB TAB.ER.12H PO (12:14)
[2023-09-08 16:43] VITALS: BP 121/81; PULSE 98; RESP 17; TEMP 36.1; O2SAT 98
--- NOTE | 2023-09-08 17:49 | P.PNPSI_ITS ---
Subjective Subjective Date of Service: 09/08/23 Reason For Visit: Bipolar disorder, polysubstance use disorder Subjective Notes: Conditional Voluntary Healthcare Proxy: No Guardianship: No Medical Problems Affecting Mental Status: No Interim History: COVID +. Reports some improvement, however with cough and chest congestion-requests cough medicine KUB with increase in stool burden-pt following bowel regime and believes there will be results today. Will continue to monitor. Pt continues to be hopeful for [facility] admission, possibly 09/13, when COVID isolation time is completed. His community head boys golf coach is assisting in this process he reports. Medication Compliance: Yes Side effects from medications: No Attending Groups: No Review of Systems Acute medical concerns: Yes COVID+ Medical Review of Systems: unchanged Review of Systems Respiratory: Reports chest congestion and Reports cough Gastrointestinal: Reports constipation Mental Status Exam Mental Status Exam Patient Appearance: Fatigued Patient Orientation: Person, Place, Time and Situation Level of Consciousness: Alert Patient Behavior: Talkative, Cooperative and Good Eye Contact Mood Description: Flat Affect Description: Flat Patient Cognition Impaired: No Ability to Follow Directions: Good Speech Pattern: Spontaneous Speech Memory Description: Intact Hallucinations: None Delusions: Not Present Thought Process: Intact and Goal Oriented Thought Content: positive for Intact and positive for Goal Oriented Depressive Symptoms: Increased Fatigue and Loss of Energy Judgement: Good Diagnostics Vital Signs (24Hr): Vital Signs - 24 hr 09/07/23 18:00 09/08/23 16:43 Temperature 97.4 F 97.0 F Pulse Rate 89 98 Respiratory Rate 17 Blood Pressure 122/89 121/81 Pulse Oximetry 98 98 Oxygen Delivery Method Room Air Room Air BMI result Body Mass Index 31.0 Labs 08/21/23 18:21 08/21/23 18:21 Imaging Radiology Impressions: ITS Impressions KUB X-Ray 08/31/23 09:49 IMPRESSION: Constipation. KUB X-Ray 09/04/23 10:58 IMPRESSION: Mild constipation. No acute process seen. KUB X-Ray 09/07/23 15:39 IMPRESSION: Moderate stool burden. No evidence of bowel obstruction. Medications Medications Current Medications Acetaminophen (Acetaminophen 325 Mg Tablet) 650 mg PO Q4H PRN PRN Reason: Headache/Pain Mild Scale (1-3) Last Admin: 09/07/23 11:00 Dose: 650 mg Al Hydroxide/Mg Hydroxide (Magnesium Hydrox/Alum Hydrox 30 Ml Oral.Susp) 30 ml PO Q6H PRN PRN Reason: Heartburn/Nausea Last Admin: 08/29/23 10:39 Dose: 30 ml Atorvastatin Calcium (Atorvastatin Calcium 20 Mg Tablet) 20 mg PO BEDTIME LAURE Last Admin: 09/07/23 21:07 Dose: 20 mg Bisacodyl (Bisacodyl 5 Mg Tablet.Dr) 10 mg PO DAILY PRN PRN Reason: Constipation Last Admin: 09/03/23 14:06 Dose: 10 mg Cariprazine (Cariprazine Hcl 3 Mg Capsule) 6 mg PO DAILY [facility] Last Admin: 09/08/23 09:39 Dose: 6 mg Clonazepam (Clonazepam 1 Mg Tablet) 1 mg PO BEDTIME LAURE Last Admin: 09/07/23 21:07 Dose: 1 mg Clonidine HCl (Clonidine Hcl 0.1 Mg Tablet) 0.1 mg PO TID PRN; Protocol PRN Reason: withdrawal Last Admin: 09/02/23 14:54 Dose: 0.1 mg Docusate Sodium (Docusate Sodium 100 Mg Capsule) 200 mg PO BID [facility] Last Admin: 09/08/23 09:38 Dose: 200 mg Gabapentin (Gabapentin 300 Mg Capsule) 300 mg PO TID PRN PRN Reason: anxiety Last Admin: 09/02/23 20:20 Dose: 300 mg Guaifenesin/Dextromethorphan (Guaifenesin Dm 600/30 1 Tab Tab.Er.12h) 1 tab PO BID PRN PRN Reason: Cough Last Admin: 09/08/23 12:14 Dose: 1 tab Guaifenesin/Dextromethorphan (Guaifenesin Dm 200/20/10 Ml 10 Ml Syrup) 10 ml PO Q4H PRN PRN Reason: Cough Hydroxyzine HCl (Hydroxyzine Hcl 25 Mg Tablet) 25 mg PO TID LAURE Last Admin: 09/08/23 15:38 Dose: 25 mg Hydroxyzine HCl (Hydroxyzine Hcl 25 Mg Tablet) 25 mg PO Q6H PRN PRN Reason: Anxiety Last Admin: 09/01/23 20:13 Dose: 25 mg Lactulose (Lactulose 20 Gm/30 Ml Solution) 20 gm PO DAILY [facility] Last Admin: 09/08/23 09:42 Dose: Not Given Magnesium Hydroxide (Milk Of Magnesia 30 Ml Oral.Susp) 30 ml PO DAILY PRN PRN Reason: Constipation Methadone HCl (Methadone Hcl 20 Mg/2 Ml Oral.Conc) 100 mg PO DAILY [facility] Last Admin: 09/08/23 09:38 Dose: 100 mg Multivitamins/Vitamin C (Multivitamin Tablet) 1 tab PO DAILY [facility] Last Admin: 09/08/23 09:38 Dose: 1 tab Nicotine Polacrilex (Nicotine Polacrilex Lozenge 4 Mg Lozenge) 4 mg BUCCAL Q2H PRN PRN Reason: Nicotine Cravings Last Admin: 09/08/23 12:14 Dose: 4 mg Omeprazole (Omeprazole 20 Mg Capsule.Dr) 20 mg PO DAILY@0630 [facility] Last Admin: 09/08/23 06:01 Dose: 20 mg Ondansetron HCl (Ondansetron Odt 4 Mg Tab.Rapdis) 8 mg TRANSLINGU Q4H PRN PRN Reason: Nausea and Vomiting Last Admin: 09/06/23 18:46 Dose: 8 mg Oxcarbazepine (Oxcarbazepine 300 Mg Tablet) 300 mg PO BID [facility] Last Admin: 09/08/23 09:39 Dose: 300 mg Polyethylene Glycol (Polyethylene Glycol 3350 17 Gm Powd.Pack) 17 gm PO BID [facility] Last Admin: 09/08/23 09:42 Dose: Not Given Quetiapine Fumarate (Quetiapine Fumarate 200 Mg Tablet) 200 mg PO BEDTIME [facility] Last Admin: 09/07/23 21:07 Dose: 200 mg Quetiapine Fumarate (Quetiapine Fumarate 50 Mg Tablet) 50 mg PO BID PRN PRN Reason: perceptual alterations Last Admin: 08/28/23 18:14 Dose: 50 mg Senna (Senna [place] Extract Oral Syrup 15 Ml Syrup) 15 ml PO BEDTIME [facility] Last Admin: 09/07/23 21:09 Dose: Not Given Sodium Biphosphate/Sodium Phosphate (Sodium Phosphate,[place]-Dibasic 133 Ml Enema) 133 ml CO ONCE PRN PRN Reason: constipation Last Admin: 09/02/23 09:31 Dose: 133 ml Sodium Biphosphate/Sodium Phosphate (Sodium Phosphate,[place]-Dibasic 133 Ml Enema) 133 ml CO DAILY PRN PRN Reason: constipation Last Admin: 09/05/23 09:00 Dose: 133 ml Trazodone HCl (Trazodone Hcl 50 Mg Tablet) 50 mg PO BEDTIME MRX1 PRN PRN Reason: Insomnia Last Admin: 09/03/23 20:10 Dose: 50 mg Allergies Allergies Allergy/AdvReac Type Severity Reaction Status Date / Time No Known Allergies Allergy Verified 08/14/23 14:09 [No Known Allergies*] Assessment & Plan Assessment & Plan (1) Opioid use disorder: Status: Acute Code(s): F11.90 - Opioid use, unspecified, uncomplicated (2) Bipolar disorder: Status: Acute Code(s): F31.9 - Bipolar disorder, unspecified (3) Polysubstance abuse: Status: Acute Code(s): F19.10 - Other psychoactive substance abuse, uncomplicated Plan 28 yo male, history of bipolar disorder, opiate use disorder, polysubstance use disorder, readmitted after a recent discharge after using heroin, cocaine, klonopin and experiencing SI. Plan: Detox Collateral contact CSS referral Increase Vraylar to 6 mg daily Atorvastatin 20 mg daily- elevated lipids 08/27/23 Seroquel 50 mg bid prn perceptual alterations. 08/28/23 patient reports feeling better and sleeping better; continue current treatment plan 08/29/23: Patient reports that he is feeling short of breath and feels pressure on his chest, though no pain; he said he has been feeling this for the past 3 days though did not mention this to director underwriter sales yesterday. He says he knows his EKG was normal but it still ongoing. Blood Bank Credit Clerk suggested that it is likely anxiety to which patient agreed saying he is nervous about the next steps in his treatment, especially aftercare. He agreed to try Ativan to see if that calms things down. Does not appear short of breath; playing game calmly with others in the milieu Vitals/O2 sat WNL; respiratory rate WNL no hx asthma; denies chest pain Pulm exam: regular breath sounds CTA b/l throughout; no wheezing, rhonchi, Cardiac: Regular rhythm; mild tachycardia; no murmurs, rubs, gallops Patient given Ativan 1 mg which completely resolved shortness of breath 08/30/22 Depakote ER 500 mg HS Omeprazole 20 mg a.m. Dulcolax prn constipation 08/31/23 Bowel regime beginning to provide some efficacy and relief 09/01/23 Change Depakote from ER to IR 500 mg bid 09/02/23 patient reports overall well but still constipated however got relief from enema 09/03/23 Depakote taper Klonopin 0.5 mg hs UACS Continue to monitor constipation sx. 09/04/23: Regarding GI discomfort, reported he did have an enema 2 days ago and also 2 days prior to that one and reported there was some benefit from both. Overall patient would like to try enema again today and see if there are any results. We will also get formal KUB report. Schedule senna also preston. Will review again tomorrow and reach out to GI if needed. 09/05/23: Informal discussion with surgery ref constipation despite bowel regimen and no benefit from enemas: rec golytely trial- 2 Liters (ie half of usual 4 liter bottle), if no effect after 2 hrs, then repeat i.e. take rest of bottle. If no benefit then reconsult GI +/- evacuation, scope, other intervention. 09/08/23 : Continue current regime and plan Patient educated on: medication risk/benefits, therapeutic strategies and medical condition Informed Consent: understands Reason for continued inpatient stay Substantial Risk for: rapid decompensation Time Spent With Patient Time: Total time managing care of this patient today ____ minutes.
[2023-09-08] MEDS: Atorvastatin Calcium 20 MG TABLET PO (20:22)
[2023-09-08] MEDS: clonazePAM 1 MG TABLET PO (20:22)
[2023-09-08] MEDS: QUEtiapine Fumarate 200 MG TABLET PO (20:23)
[2023-09-09] MEDS: Omeprazole 20 MG CAPSULE.DR PO (06:09)
[2023-09-09] MEDS: methADONE HCl 20 MG/2 ML ORAL.CONC 100 MG PO (08:55)
[2023-09-09] MEDS: Docusate Sodium 100 MG CAPSULE 200 MG PO ×2 (08:56→20:02)
[2023-09-09] MEDS: Cariprazine HCl 3 MG CAPSULE 6 MG PO (08:56)
[2023-09-09] MEDS: OXcarbazepine 300 MG TABLET PO ×2 (08:57→20:01)
[2023-09-09] MEDS: Multivitamin TABLET 1 TAB PO (08:57)
[2023-09-09] MEDS: hydrOXYzine HCL 25 MG TABLET PO ×3 (08:57→20:00)
--- NOTE | 2023-09-09 09:57 | P.PNPSI_ITS ---
Subjective Subjective Date of Service: 09/09/23 Reason For Visit: Bipolar disorder, polysubstance use disorder Interim History: met with patient; discussed with team Patient reports good mood, doing well; COVID symptoms significantly reduced and patient reports feeling much better, though still little nausea. Feels that medications are helpful and wants to continue with current regimen. Hoping for placement as soon is he is out of quarantine. Remains in good behavioral and impulse control. Mental Status Exam Mental Status Exam Narrative: Pt is alert and oriented; behavior is cooperative, friendly and calm; patient is not in distress; dressed in casual attire, a little scruffy but adequate hygiene; mood is described as good and affect congruent, brighter; eye contact appropriate; Speech is normal rate, volume and prosody and not pressured; no psychomotor agitation/retardation present; thought process is organized and goal directed; Thought content is on discharge, sobriety, tx; otherwise pertinent to relevant topics and without any delusional content, paranoid ideations expressed; denies any SI/HI. No internal preoccupation; No AVH. Patients insight and judgment appear intact. Diagnostics Vital Signs (24Hr): Vital Signs - 24 hr 09/08/23 16:43 Temperature 97.0 F Pulse Rate 98 Respiratory Rate 17 Blood Pressure 121/81 Pulse Oximetry 98 Oxygen Delivery Method Room Air BMI result Body Mass Index 31.0 Labs 08/21/23 18:21 08/21/23 18:21 Imaging Radiology Impressions: ITS Impressions KUB X-Ray 08/31/23 09:49 IMPRESSION: Constipation. KUB X-Ray 09/04/23 10:58 IMPRESSION: Mild constipation. No acute process seen. KUB X-Ray 09/07/23 15:39 IMPRESSION: Moderate stool burden. No evidence of bowel obstruction. Medications Medications Current Medications Acetaminophen (Acetaminophen 325 Mg Tablet) 650 mg PO Q4H PRN PRN Reason: Headache/Pain Mild Scale (1-3) Last Admin: 09/07/23 11:00 Dose: 650 mg Al Hydroxide/Mg Hydroxide (Magnesium Hydrox/Alum Hydrox 30 Ml Oral.Susp) 30 ml PO Q6H PRN PRN Reason: Heartburn/Nausea Last Admin: 08/29/23 10:39 Dose: 30 ml Atorvastatin Calcium (Atorvastatin Calcium 20 Mg Tablet) 20 mg PO BEDTIME LAURE Last Admin: 09/08/23 20:22 Dose: 20 mg Bisacodyl (Bisacodyl 5 Mg Tablet.Dr) 10 mg PO DAILY PRN PRN Reason: Constipation Last Admin: 09/03/23 14:06 Dose: 10 mg Cariprazine (Cariprazine Hcl 3 Mg Capsule) 6 mg PO DAILY [facility] Last Admin: 09/09/23 08:56 Dose: 6 mg Clonazepam (Clonazepam 1 Mg Tablet) 1 mg PO BEDTIME [facility] Last Admin: 09/08/23 20:22 Dose: 1 mg Clonidine HCl (Clonidine Hcl 0.1 Mg Tablet) 0.1 mg PO TID PRN; Protocol PRN Reason: withdrawal Last Admin: 09/02/23 14:54 Dose: 0.1 mg Docusate Sodium (Docusate Sodium 100 Mg Capsule) 200 mg PO BID [facility] Last Admin: 09/09/23 08:56 Dose: 200 mg Gabapentin (Gabapentin 300 Mg Capsule) 300 mg PO TID PRN PRN Reason: anxiety Last Admin: 09/02/23 20:20 Dose: 300 mg Guaifenesin/Dextromethorphan (Guaifenesin Dm 600/30 1 Tab Tab.Er.12h) 1 tab PO BID PRN PRN Reason: Cough Last Admin: 09/08/23 12:14 Dose: 1 tab Guaifenesin/Dextromethorphan (Guaifenesin Dm 200/20/10 Ml 10 Ml Syrup) 10 ml PO Q4H PRN PRN Reason: Cough Hydroxyzine HCl (Hydroxyzine Hcl 25 Mg Tablet) 25 mg PO TID [facility] Last Admin: 09/09/23 08:57 Dose: 25 mg Hydroxyzine HCl (Hydroxyzine Hcl 25 Mg Tablet) 25 mg PO Q6H PRN PRN Reason: Anxiety Last Admin: 09/01/23 20:13 Dose: 25 mg Lactulose (Lactulose 20 Gm/30 Ml Solution) 20 gm PO DAILY [facility] Last Admin: 09/09/23 08:59 Dose: Not Given Magnesium Hydroxide (Milk Of Magnesia 30 Ml Oral.Susp) 30 ml PO DAILY PRN PRN Reason: Constipation Methadone HCl (Methadone Hcl 20 Mg/2 Ml Oral.Conc) 100 mg PO DAILY [facility] Last Admin: 09/09/23 08:55 Dose: 100 mg Multivitamins/Vitamin C (Multivitamin Tablet) 1 tab PO DAILY [facility] Last Admin: 09/09/23 08:57 Dose: 1 tab Nicotine Polacrilex (Nicotine Polacrilex Lozenge 4 Mg Lozenge) 4 mg BUCCAL Q2H PRN PRN Reason: Nicotine Cravings Last Admin: 09/08/23 20:23 Dose: 4 mg Omeprazole (Omeprazole 20 Mg Capsule.Dr) 20 mg PO DAILY@0630 [facility] Last Admin: 09/09/23 06:09 Dose: 20 mg Ondansetron HCl (Ondansetron Odt 4 Mg Tab.Rapdis) 8 mg TRANSLINGU Q4H PRN PRN Reason: Nausea and Vomiting Last Admin: 09/06/23 18:46 Dose: 8 mg Oxcarbazepine (Oxcarbazepine 300 Mg Tablet) 300 mg PO BID [facility] Last Admin: 09/09/23 08:57 Dose: 300 mg Polyethylene Glycol (Polyethylene Glycol 3350 17 Gm Powd.Pack) 17 gm PO BID [facility] Last Admin: 09/09/23 08:59 Dose: Not Given Quetiapine Fumarate (Quetiapine Fumarate 200 Mg Tablet) 200 mg PO BEDTIME [facility] Last Admin: 09/08/23 20:23 Dose: 200 mg Quetiapine Fumarate (Quetiapine Fumarate 50 Mg Tablet) 50 mg PO BID PRN PRN Reason: perceptual alterations Last Admin: 08/28/23 18:14 Dose: 50 mg Senna (Senna [place] Extract Oral Syrup 15 Ml Syrup) 15 ml PO BEDTIME [facility] Last Admin: 09/08/23 20:26 Dose: Not Given Sodium Biphosphate/Sodium Phosphate (Sodium Phosphate,[place]-Dibasic 133 Ml Enema) 133 ml MS ONCE PRN PRN Reason: constipation Last Admin: 09/02/23 09:31 Dose: 133 ml Sodium Biphosphate/Sodium Phosphate (Sodium Phosphate,[place]-Dibasic 133 Ml Enema) 133 ml MS DAILY PRN PRN Reason: constipation Last Admin: 09/05/23 09:00 Dose: 133 ml Trazodone HCl (Trazodone Hcl 50 Mg Tablet) 50 mg PO BEDTIME MRX1 PRN PRN Reason: Insomnia Last Admin: 09/03/23 20:10 Dose: 50 mg Allergies Allergies Allergy/AdvReac Type Severity Reaction Status Date / Time No Known Allergies Allergy Verified 08/14/23 14:09 [No Known Allergies*] Assessment & Plan Assessment & Plan (1) Opioid use disorder: Status: Acute Code(s): F11.90 - Opioid use, unspecified, uncomplicated (2) Bipolar disorder: Status: Acute Code(s): F31.9 - Bipolar disorder, unspecified (3) Polysubstance abuse: Status: Acute Code(s): F19.10 - Other psychoactive substance abuse, uncomplicated Plan 28 yo male, history of bipolar disorder, opiate use disorder, polysubstance use disorder, readmitted after a recent discharge after using heroin, cocaine, klonopin and experiencing SI. Plan: Detox Collateral contact CSS referral Increase Vraylar to 6 mg daily Atorvastatin 20 mg daily- elevated lipids 08/27/23 Seroquel 50 mg bid prn perceptual alterations. 08/28/23 patient reports feeling better and sleeping better; continue current treatment plan 08/29/23: Patient reports that he is feeling short of breath and feels pressure on his chest, though no pain; he said he has been feeling this for the past 3 days though did not mention this to singer songwriter yesterday. He says he knows his EKG was normal but it still ongoing. Power Superintendent suggested that it is likely anxiety to which patient agreed saying he is nervous about the next steps in his treatment, especially aftercare. He agreed to try Ativan to see if that calms things down. Does not appear short of breath; playing game calmly with others in the milieu Vitals/O2 sat WNL; respiratory rate WNL no hx asthma; denies chest pain Pulm exam: regular breath sounds CTA b/l throughout; no wheezing, rhonchi, Cardiac: Regular rhythm; mild tachycardia; no murmurs, rubs, gallops Patient given Ativan 1 mg which completely resolved shortness of breath 08/30/22 Depakote ER 500 mg HS Omeprazole 20 mg a.m. Dulcolax prn constipation 08/31/23 Bowel regime beginning to provide some efficacy and relief 09/01/23 Change Depakote from ER to IR 500 mg bid 09/02/23 patient reports overall well but still constipated however got relief from enema 09/03/23 Depakote taper Klonopin 0.5 mg hs UACS Continue to monitor constipation sx. 09/04/23: Regarding GI discomfort, reported he did have an enema 2 days ago and also 2 days prior to that one and reported there was some benefit from both. Overall patient would like to try enema again today and see if there are any results. We will also get formal KUB report. Schedule senna also preston. Will review again tomorrow and reach out to GI if needed. 09/05/23: Informal discussion with surgery ref constipation despite bowel regimen and no benefit from enemas: rec golytely trial- 2 Liters (ie half of usual 4 liter bottle), if no effect after 2 hrs, then repeat i.e. take rest of bottle. If no benefit then reconsult GI +/- evacuation, scope, other intervention. 09/08/23 : Continue current regime and plan 09/09 Patient reports good mood, doing well; COVID symptoms significantly reduced and patient reports feeling much better, though still little nausea. Feels that medications are helpful and wants to continue with current regimen. Hoping for placement as soon is he is out of quarantine. Remains in good behavioral and impulse control. Patient educated on: diagnosis, medication risk/benefits and medical condition Informed Consent: understands Reason for continued inpatient stay Substantial Risk for: stable for discharge Time Spent With Patient Time: Total time managing care of this patient today ____ minutes.
[2023-09-09] MEDS: Nicotine Polacrilex Lozenge 4 MG LOZENGE BUCCAL (16:36)
[2023-09-09 16:45] VITALS: BP 123/80; PULSE 76; TEMP 36.1
[2023-09-09] MEDS: polyethylene glycoL 3350 17 GM POWD.PACK PO (20:00)
[2023-09-09] MEDS: Atorvastatin Calcium 20 MG TABLET PO (20:01)
[2023-09-09] MEDS: clonazePAM 1 MG TABLET PO (20:02)
[2023-09-09] MEDS: QUEtiapine Fumarate 200 MG TABLET PO (20:02)
[2023-09-10] MEDS: Omeprazole 20 MG CAPSULE.DR PO (06:12)
[2023-09-10 08:40] VITALS: BP 117/73; PULSE 98; RESP 18; TEMP 36.1; O2SAT 99
[2023-09-10] MEDS: hydrOXYzine HCL 25 MG TABLET PO ×3 (08:47→20:44)
[2023-09-10] MEDS: Docusate Sodium 100 MG CAPSULE 200 MG PO (08:47)
[2023-09-10] MEDS: Lactulose 20 GM/30 ML SOLUTION PO (08:47)
[2023-09-10] MEDS: Multivitamin TABLET 1 TAB PO (08:47)
[2023-09-10] MEDS: Cariprazine HCl 3 MG CAPSULE 6 MG PO (08:47)
[2023-09-10] MEDS: polyethylene glycoL 3350 17 GM POWD.PACK PO ×2 (08:47→20:45)
[2023-09-10] MEDS: OXcarbazepine 300 MG TABLET PO ×2 (08:47→20:44)
[2023-09-10] MEDS: methADONE HCl 20 MG/2 ML ORAL.CONC 100 MG PO (08:47)
--- NOTE | 2023-09-10 12:54 | HO.PSYCHPN ---
Subjective Subjective Date of Service: 09/10/23 Reason For Visit: Bipolar disorder, polysubstance use disorder Subjective Notes: Conditional Voluntary Healthcare Proxy: No Guardianship: No Medical Problems Affecting Mental Status: No Interim History: COVID+. T 96.9. Reports feeling much improved. Denies constipation. Reports moving bowels today without difficulty. Hopeful regarding a placement next week with [facility]. Overall reports feeling improved, hopeful and ready to move forward. Medication Compliance: Yes Side effects from medications: No Attending Groups: No Review of Systems Acute medical concerns: Yes COVID+ Review of Systems Review of Systems Yes all other systems are reviewed and are negative Mental Status Exam Mental Status Exam Patient Appearance: Fatigued Patient Orientation: Person, Place, Time and Situation Level of Consciousness: Alert Patient Behavior: Talkative, Cooperative and Good Eye Contact Mood Description: Flat Affect Description: Flat Patient Cognition Impaired: No Ability to Follow Directions: Good Speech Pattern: Spontaneous Speech Memory Description: Intact Hallucinations: None Delusions: Not Present Thought Process: Intact and Goal Oriented Thought Content: positive for Intact and positive for Goal Oriented Depressive Symptoms: Increased Fatigue and Loss of Energy Judgement: Good Diagnostics Vital Signs (24Hr): Vital Signs - 24 hr 09/09/23 16:45 09/10/23 08:40 Temperature 97.0 F 96.9 F Pulse Rate 76 98 Respiratory Rate 18 Blood Pressure 123/80 117/73 Pulse Oximetry 99 Oxygen Delivery Method Room Air BMI result Body Mass Index 31.0 Labs 08/21/23 18:21 08/21/23 18:21 Imaging Radiology Impressions: ITS Impressions KUB X-Ray 08/31/23 09:49 IMPRESSION: Constipation. KUB X-Ray 09/04/23 10:58 IMPRESSION: Mild constipation. No acute process seen. KUB X-Ray 09/07/23 15:39 IMPRESSION: Moderate stool burden. No evidence of bowel obstruction. Medications Medications Current Medications Acetaminophen (Acetaminophen 325 Mg Tablet) 650 mg PO Q4H PRN PRN Reason: Headache/Pain Mild Scale (1-3) Last Admin: 09/07/23 11:00 Dose: 650 mg Al Hydroxide/Mg Hydroxide (Magnesium Hydrox/Alum Hydrox 30 Ml Oral.Susp) 30 ml PO Q6H PRN PRN Reason: Heartburn/Nausea Last Admin: 08/29/23 10:39 Dose: 30 ml Atorvastatin Calcium (Atorvastatin Calcium 20 Mg Tablet) 20 mg PO BEDTIME [facility] Last Admin: 09/09/23 20:01 Dose: 20 mg Bisacodyl (Bisacodyl 5 Mg Tablet.Dr) 10 mg PO DAILY PRN PRN Reason: Constipation Last Admin: 09/03/23 14:06 Dose: 10 mg Cariprazine (Cariprazine Hcl 3 Mg Capsule) 6 mg PO DAILY [facility] Last Admin: 09/10/23 08:47 Dose: 6 mg Clonazepam (Clonazepam 1 Mg Tablet) 1 mg PO BEDTIME [facility] Last Admin: 09/09/23 20:02 Dose: 1 mg Clonidine HCl (Clonidine Hcl 0.1 Mg Tablet) 0.1 mg PO TID PRN; Protocol PRN Reason: withdrawal Last Admin: 09/02/23 14:54 Dose: 0.1 mg Docusate Sodium (Docusate Sodium 100 Mg Capsule) 200 mg PO BID [facility] Last Admin: 09/10/23 08:47 Dose: 200 mg Gabapentin (Gabapentin 300 Mg Capsule) 300 mg PO TID PRN PRN Reason: anxiety Last Admin: 09/02/23 20:20 Dose: 300 mg Guaifenesin/Dextromethorphan (Guaifenesin Dm 600/30 1 Tab Tab.Er.12h) 1 tab PO BID PRN PRN Reason: Cough Last Admin: 09/08/23 12:14 Dose: 1 tab Guaifenesin/Dextromethorphan (Guaifenesin Dm 200/20/10 Ml 10 Ml Syrup) 10 ml PO Q4H PRN PRN Reason: Cough Hydroxyzine HCl (Hydroxyzine Hcl 25 Mg Tablet) 25 mg PO TID [facility] Last Admin: 09/10/23 08:47 Dose: 25 mg Hydroxyzine HCl (Hydroxyzine Hcl 25 Mg Tablet) 25 mg PO Q6H PRN PRN Reason: Anxiety Last Admin: 09/01/23 20:13 Dose: 25 mg Lactulose (Lactulose 20 Gm/30 Ml Solution) 20 gm PO DAILY [facility] Last Admin: 09/10/23 08:47 Dose: 20 gm Magnesium Hydroxide (Milk Of Magnesia 30 Ml Oral.Susp) 30 ml PO DAILY PRN PRN Reason: Constipation Methadone HCl (Methadone Hcl 20 Mg/2 Ml Oral.Conc) 100 mg PO DAILY [facility] Last Admin: 09/10/23 08:47 Dose: 100 mg Multivitamins/Vitamin C (Multivitamin Tablet) 1 tab PO DAILY [facility] Last Admin: 09/10/23 08:47 Dose: 1 tab Nicotine Polacrilex (Nicotine Polacrilex Lozenge 4 Mg Lozenge) 4 mg BUCCAL Q2H PRN PRN Reason: Nicotine Cravings Last Admin: 09/09/23 16:36 Dose: 4 mg Omeprazole (Omeprazole 20 Mg Capsule.Dr) 20 mg PO DAILY@0630 [facility] Last Admin: 09/10/23 06:12 Dose: 20 mg Ondansetron HCl (Ondansetron Odt 4 Mg Tab.Rapdis) 8 mg TRANSLINGU Q4H PRN PRN Reason: Nausea and Vomiting Last Admin: 09/06/23 18:46 Dose: 8 mg Oxcarbazepine (Oxcarbazepine 300 Mg Tablet) 300 mg PO BID [facility] Last Admin: 09/10/23 08:47 Dose: 300 mg Polyethylene Glycol (Polyethylene Glycol 3350 17 Gm Powd.Pack) 17 gm PO BID [facility] Last Admin: 09/10/23 08:47 Dose: 17 gm Quetiapine Fumarate (Quetiapine Fumarate 200 Mg Tablet) 200 mg PO BEDTIME [facility] Last Admin: 09/09/23 20:02 Dose: 200 mg Quetiapine Fumarate (Quetiapine Fumarate 50 Mg Tablet) 50 mg PO BID PRN PRN Reason: perceptual alterations Last Admin: 08/28/23 18:14 Dose: 50 mg Senna (Senna [employer] Extract Oral Syrup 15 Ml Syrup) 15 ml PO BEDTIME [facility] Last Admin: 09/09/23 20:01 Dose: 15 ml Sodium Biphosphate/Sodium Phosphate (Sodium Phosphate,[place]-Dibasic 133 Ml Enema) 133 ml [place] ONCE PRN PRN Reason: constipation Last Admin: 09/02/23 09:31 Dose: 133 ml Sodium Biphosphate/Sodium Phosphate (Sodium Phosphate,[place]-Dibasic 133 Ml Enema) 133 ml [place] DAILY PRN PRN Reason: constipation Last Admin: 09/05/23 09:00 Dose: 133 ml Trazodone HCl (Trazodone Hcl 50 Mg Tablet) 50 mg PO BEDTIME MRX1 PRN PRN Reason: Insomnia Last Admin: 09/03/23 20:10 Dose: 50 mg Allergies Allergies Allergy/AdvReac Type Severity Reaction Status Date / Time No Known Allergies Allergy Verified 08/14/23 14:09 [No Known Allergies*] Assessment & Plan Assessment & Plan (1) Opioid use disorder: Status: Acute Code(s): F11.90 - Opioid use, unspecified, uncomplicated (2) Bipolar disorder: Status: Acute Code(s): F31.9 - Bipolar disorder, unspecified (3) Polysubstance abuse: Status: Acute Code(s): F19.10 - Other psychoactive substance abuse, uncomplicated Plan 28 yo male, history of bipolar disorder, opiate use disorder, polysubstance use disorder, readmitted after a recent discharge after using heroin, cocaine, klonopin and experiencing SI. Plan: Detox Collateral contact CSS referral Increase Vraylar to 6 mg daily Atorvastatin 20 mg daily- elevated lipids 08/27/23 Seroquel 50 mg bid prn perceptual alterations. 08/28/23 patient reports feeling better and sleeping better; continue current treatment plan 08/29/23: Patient reports that he is feeling short of breath and feels pressure on his chest, though no pain; he said he has been feeling this for the past 3 days though did not mention this to writer technical publications yesterday. He says he knows his EKG was normal but it still ongoing. Mortgage Loan Coordinator suggested that it is likely anxiety to which patient agreed saying he is nervous about the next steps in his treatment, especially aftercare. He agreed to try Ativan to see if that calms things down. Does not appear short of breath; playing game calmly with others in the milieu Vitals/O2 sat WNL; respiratory rate WNL no hx asthma; denies chest pain Pulm exam: regular breath sounds CTA b/l throughout; no wheezing, rhonchi, Cardiac: Regular rhythm; mild tachycardia; no murmurs, rubs, gallops Patient given Ativan 1 mg which completely resolved shortness of breath 08/30/22 Depakote ER 500 mg HS Omeprazole 20 mg a.m. Dulcolax prn constipation 08/31/23 Bowel regime beginning to provide some efficacy and relief 09/01/23 Change Depakote from ER to IR 500 mg bid 09/02/23 patient reports overall well but still constipated however got relief from enema 09/03/23 Depakote taper Klonopin 0.5 mg hs UACS Continue to monitor constipation sx. 09/04/23: Regarding GI discomfort, reported he did have an enema 2 days ago and also 2 days prior to that one and reported there was some benefit from both. Overall patient would like to try enema again today and see if there are any results. We will also get formal KUB report. Schedule senna also [place]. Will review again tomorrow and reach out to GI if needed. 09/05/23: Informal discussion with surgery ref constipation despite bowel regimen and no benefit from enemas: rec golytely trial- 2 Liters (ie half of usual 4 liter bottle), if no effect after 2 hrs, then repeat i.e. take rest of bottle. If no benefit then reconsult GI +/- evacuation, scope, other intervention. 09/08/23 : Continue current regime and plan 09/09 Patient reports good mood, doing well; COVID symptoms significantly reduced and patient reports feeling much better, though still little nausea. Feels that medications are helpful and wants to continue with current regimen. Hoping for placement as soon is he is out of quarantine. Remains in good behavioral and impulse control. 09/10/23: Improved. Continue current regime and plan of care. Patient educated on: therapeutic strategies Informed Consent: understands Reason for continued inpatient stay Substantial Risk for: rapid decompensation Time Spent With Patient Time: Total time managing care of this patient today ____ minutes.
[2023-09-10] MEDS: Nicotine Polacrilex Lozenge 4 MG LOZENGE BUCCAL (14:39)
[2023-09-10] MEDS: clonazePAM 1 MG TABLET PO (20:43)
[2023-09-10] MEDS: Atorvastatin Calcium 20 MG TABLET PO (20:44)
[2023-09-10] MEDS: QUEtiapine Fumarate 200 MG TABLET PO (20:44)
[2023-09-10 21:00] VITALS: BP 119/60; PULSE 94; TEMP 36.3
[2023-09-11 06:00] VITALS: BP 133/87; PULSE 94; RESP 18; TEMP 36.3; O2SAT 99
[2023-09-11] MEDS: Omeprazole 20 MG CAPSULE.DR PO (06:33)
--- NOTE | 2023-09-11 08:45 | P.PNPSI_ITS ---
Subjective Subjective Date of Service: 09/11/23 Reason For Visit: Bipolar disorder, polysubstance use disorder Subjective Notes: Conditional Voluntary Healthcare Proxy: No Guardianship: No Medical Problems Affecting Mental Status: No Interim History: Pt seen, discussed with team. COVID resolving, feeling improved. Catching up on rest/sleep. Looking forward to transition to a program hopefully next week. Medication Compliance: Yes Side effects from medications: No Attending Groups: No Review of Systems Acute medical concerns: No COVID+ Medical Review of Systems: unchanged Review of Systems Review of Systems Yes all other systems are reviewed and are negative Mental Status Exam Mental Status Exam Patient Appearance: Fatigued Patient Orientation: Person, Place, Time and Situation Level of Consciousness: Alert Patient Behavior: Talkative, Cooperative and Good Eye Contact Mood Description: Appropriate Affect Description: Appropriate Patient Cognition Impaired: No Ability to Follow Directions: Good Speech Pattern: Spontaneous Speech Memory Description: Intact Hallucinations: None Delusions: Not Present Thought Process: Intact and Goal Oriented Thought Content: positive for Intact and positive for Goal Oriented Depressive Symptoms: Increased Fatigue and Loss of Energy Judgement: Good Diagnostics Vital Signs (24Hr): Vital Signs - 24 hr 09/10/23 21:00 Temperature 97.3 F Pulse Rate 94 Blood Pressure 119/60 BMI result Body Mass Index 31.0 Labs 08/21/23 18:21 08/21/23 18:21 Imaging Radiology Impressions: ITS Impressions KUB X-Ray 08/31/23 09:49 IMPRESSION: Constipation. KUB X-Ray 09/04/23 10:58 IMPRESSION: Mild constipation. No acute process seen. KUB X-Ray 09/07/23 15:39 IMPRESSION: Moderate stool burden. No evidence of bowel obstruction. Medications Medications Current Medications Acetaminophen (Acetaminophen 325 Mg Tablet) 650 mg PO Q4H PRN PRN Reason: Headache/Pain Mild Scale (1-3) Last Admin: 09/07/23 11:00 Dose: 650 mg Al Hydroxide/Mg Hydroxide (Magnesium Hydrox/Alum Hydrox 30 Ml Oral.Susp) 30 ml PO Q6H PRN PRN Reason: Heartburn/Nausea Last Admin: 08/29/23 10:39 Dose: 30 ml Atorvastatin Calcium (Atorvastatin Calcium 20 Mg Tablet) 20 mg PO BEDTIME [facility] Last Admin: 09/10/23 20:44 Dose: 20 mg Bisacodyl (Bisacodyl 5 Mg Tablet.Dr) 10 mg PO DAILY PRN PRN Reason: Constipation Last Admin: 09/03/23 14:06 Dose: 10 mg Cariprazine (Cariprazine Hcl 3 Mg Capsule) 6 mg PO DAILY [facility] Last Admin: 09/10/23 08:47 Dose: 6 mg Clonazepam (Clonazepam 1 Mg Tablet) 1 mg PO BEDTIME [facility] Last Admin: 09/10/23 20:43 Dose: 1 mg Clonidine HCl (Clonidine Hcl 0.1 Mg Tablet) 0.1 mg PO TID PRN; Protocol PRN Reason: withdrawal Last Admin: 09/02/23 14:54 Dose: 0.1 mg Docusate Sodium (Docusate Sodium 100 Mg Capsule) 200 mg PO BID [facility] Last Admin: 09/10/23 20:54 Dose: Not Given Gabapentin (Gabapentin 300 Mg Capsule) 300 mg PO TID PRN PRN Reason: anxiety Last Admin: 09/02/23 20:20 Dose: 300 mg Guaifenesin/Dextromethorphan (Guaifenesin Dm 600/30 1 Tab Tab.Er.12h) 1 tab PO BID PRN PRN Reason: Cough Last Admin: 09/08/23 12:14 Dose: 1 tab Guaifenesin/Dextromethorphan (Guaifenesin Dm 200/20/10 Ml 10 Ml Syrup) 10 ml PO Q4H PRN PRN Reason: Cough Hydroxyzine HCl (Hydroxyzine Hcl 25 Mg Tablet) 25 mg PO TID [facility] Last Admin: 09/10/23 20:44 Dose: 25 mg Hydroxyzine HCl (Hydroxyzine Hcl 25 Mg Tablet) 25 mg PO Q6H PRN PRN Reason: Anxiety Last Admin: 09/01/23 20:13 Dose: 25 mg Lactulose (Lactulose 20 Gm/30 Ml Solution) 20 gm PO DAILY [facility] Last Admin: 09/10/23 08:47 Dose: 20 gm Magnesium Hydroxide (Milk Of Magnesia 30 Ml Oral.Susp) 30 ml PO DAILY PRN PRN Reason: Constipation Methadone HCl (Methadone Hcl 20 Mg/2 Ml Oral.Conc) 100 mg PO DAILY [facility] Last Admin: 09/10/23 08:47 Dose: 100 mg Multivitamins/Vitamin C (Multivitamin Tablet) 1 tab PO DAILY [facility] Last Admin: 09/10/23 08:47 Dose: 1 tab Nicotine Polacrilex (Nicotine Polacrilex Lozenge 4 Mg Lozenge) 4 mg BUCCAL Q2H PRN PRN Reason: Nicotine Cravings Last Admin: 09/10/23 14:39 Dose: 4 mg Omeprazole (Omeprazole 20 Mg Capsule.Dr) 20 mg PO DAILY@0630 [facility] Last Admin: 09/11/23 06:33 Dose: 20 mg Ondansetron HCl (Ondansetron Odt 4 Mg Tab.Rapdis) 8 mg TRANSLINGU Q4H PRN PRN Reason: Nausea and Vomiting Last Admin: 09/06/23 18:46 Dose: 8 mg Oxcarbazepine (Oxcarbazepine 300 Mg Tablet) 300 mg PO BID [facility] Last Admin: 09/10/23 20:44 Dose: 300 mg Polyethylene Glycol (Polyethylene Glycol 3350 17 Gm Powd.Pack) 17 gm PO BID [facility] Last Admin: 09/10/23 20:45 Dose: 17 gm Quetiapine Fumarate (Quetiapine Fumarate 200 Mg Tablet) 200 mg PO BEDTIME [facility] Last Admin: 09/10/23 20:44 Dose: 200 mg Quetiapine Fumarate (Quetiapine Fumarate 50 Mg Tablet) 50 mg PO BID PRN PRN Reason: perceptual alterations Last Admin: 08/28/23 18:14 Dose: 50 mg Senna (Senna [place] [employer] Extract Oral Syrup 15 Ml Syrup) 15 ml PO BEDTIME [facility] Last Admin: 09/10/23 20:54 Dose: Not Given Sodium Biphosphate/Sodium Phosphate (Sodium Phosphate,[place]-Dibasic 133 Ml Enema) 133 ml [place] ONCE PRN PRN Reason: constipation Last Admin: 09/02/23 09:31 Dose: 133 ml Sodium Biphosphate/Sodium Phosphate (Sodium Phosphate,[place]-Dibasic 133 Ml Enema) 133 ml [place] DAILY PRN PRN Reason: constipation Last Admin: 09/05/23 09:00 Dose: 133 ml Trazodone HCl (Trazodone Hcl 50 Mg Tablet) 50 mg PO BEDTIME MRX1 PRN PRN Reason: Insomnia Last Admin: 09/03/23 20:10 Dose: 50 mg Allergies Allergies Allergy/AdvReac Type Severity Reaction Status Date / Time No Known Allergies Allergy Verified 08/14/23 14:09 [No Known Allergies*] Assessment & Plan Assessment & Plan (1) Opioid use disorder: Status: Acute Code(s): F11.90 - Opioid use, unspecified, uncomplicated (2) Bipolar disorder: Status: Acute Code(s): F31.9 - Bipolar disorder, unspecified (3) Polysubstance abuse: Status: Acute Code(s): F19.10 - Other psychoactive substance abuse, uncomplicated Plan 28 yo male, history of bipolar disorder, opiate use disorder, polysubstance use disorder, readmitted after a recent discharge after using heroin, cocaine, klonopin and experiencing SI. Plan: Detox Collateral contact CSS referral Increase Vraylar to 6 mg daily Atorvastatin 20 mg daily- elevated lipids 08/27/23 Seroquel 50 mg bid prn perceptual alterations. 08/28/23 patient reports feeling better and sleeping better; continue current treatment plan 08/29/23: Patient reports that he is feeling short of breath and feels pressure on his chest, though no pain; he said he has been feeling this for the past 3 days though did not mention this to bid writer yesterday. He says he knows his EKG was normal but it still ongoing. Industrial Rehabilitation Consultant suggested that it is likely anxiety to which patient agreed saying he is nervous about the next steps in his treatment, especially aftercare. He agreed to try Ativan to see if that calms things down. Does not appear short of breath; playing game calmly with others in the milieu Vitals/O2 sat WNL; respiratory rate WNL no hx asthma; denies chest pain Pulm exam: regular breath sounds CTA b/l throughout; no wheezing, rhonchi, Cardiac: Regular rhythm; mild tachycardia; no murmurs, rubs, gallops Patient given Ativan 1 mg which completely resolved shortness of breath 08/30/22 Depakote ER 500 mg HS Omeprazole 20 mg a.m. Dulcolax prn constipation 08/31/23 Bowel regime beginning to provide some efficacy and relief 09/01/23 Change Depakote from ER to IR 500 mg bid 09/02/23 patient reports overall well but still constipated however got relief from enema 09/03/23 Depakote taper Klonopin 0.5 mg hs UACS Continue to monitor constipation sx. 09/04/23: Regarding GI discomfort, reported he did have an enema 2 days ago and also 2 days prior to that one and reported there was some benefit from both. Overall patient would like to try enema again today and see if there are any results. We will also get formal KUB report. Schedule senna also tonight. Will review again tomorrow and reach out to GI if needed. 09/05/23: Informal discussion with surgery ref constipation despite bowel regimen and no benefit from enemas: rec golytely trial- 2 Liters (ie half of usual 4 liter bottle), if no effect after 2 hrs, then repeat i.e. take rest of bottle. If no benefit then reconsult GI +/- evacuation, scope, other intervention. 09/08/23 : Continue current regime and plan 09/09 Patient reports good mood, doing well; COVID symptoms significantly reduced and patient reports feeling much better, though still little nausea. Feels that medications are helpful and wants to continue with current regimen. Hoping for placement as soon is he is out of quarantine. Remains in good behavioral and impulse control. 09/10/23: Improved. Continue current regime and plan of care. 09/11/23: Continue current regime and plan of care. Informed Consent: understands Reason for continued inpatient stay Substantial Risk for: med/psych decompensation Time Spent With Patient Time: Total time managing care of this patient today ____ minutes.
[2023-09-11] MEDS: Docusate Sodium 100 MG CAPSULE 200 MG PO ×2 (09:19→19:37)
[2023-09-11] MEDS: OXcarbazepine 300 MG TABLET PO ×2 (09:19→19:37)
[2023-09-11] MEDS: Multivitamin TABLET 1 TAB PO (09:20)
[2023-09-11] MEDS: hydrOXYzine HCL 25 MG TABLET PO ×3 (09:20→19:37)
[2023-09-11] MEDS: polyethylene glycoL 3350 17 GM POWD.PACK PO (09:20)
[2023-09-11] MEDS: Cariprazine HCl 3 MG CAPSULE 6 MG PO (09:20)
[2023-09-11] MEDS: methADONE HCl 20 MG/2 ML ORAL.CONC 100 MG PO (09:39)
[2023-09-11] MEDS: Nicotine Polacrilex Lozenge 4 MG LOZENGE BUCCAL (13:46)
[2023-09-11 17:03] VITALS: BP 131/83; PULSE 95; TEMP 36.8; O2SAT 98
[2023-09-11] MEDS: clonazePAM 1 MG TABLET PO (19:36)
[2023-09-11] MEDS: Gabapentin 300 MG CAPSULE PO (19:36)
[2023-09-11] MEDS: Atorvastatin Calcium 20 MG TABLET PO (19:36)
[2023-09-11] MEDS: traZODone HCL 50 MG TABLET PO (19:36)
[2023-09-11] MEDS: QUEtiapine Fumarate 200 MG TABLET PO (19:36)
[2023-09-12] MEDS: Omeprazole 20 MG CAPSULE.DR PO (06:26)
[2023-09-12 08:00] VITALS: BP 140/86; PULSE 80; RESP 16; TEMP 36.5; O2SAT 98
[2023-09-12] MEDS: Multivitamin TABLET 1 TAB PO (08:48)
[2023-09-12] MEDS: OXcarbazepine 300 MG TABLET PO ×2 (08:48→21:45)
[2023-09-12] MEDS: hydrOXYzine HCL 25 MG TABLET PO ×3 (08:48→21:45)
[2023-09-12] MEDS: Cariprazine HCl 3 MG CAPSULE 6 MG PO (08:48)
[2023-09-12] MEDS: methADONE HCl 20 MG/2 ML ORAL.CONC 100 MG PO (08:49)
[2023-09-12] MEDS: Nicotine Polacrilex Lozenge 4 MG LOZENGE BUCCAL ×3 (11:25→21:44)
--- NOTE | 2023-09-12 14:26 | P.PNPSI_ITS ---
Subjective Subjective Date of Service: 09/12/23 Reason For Visit: Bipolar disorder, polysubstance use disorder Subjective Notes: Conditional Voluntary Healthcare Proxy: No Guardianship: No Medical Problems Affecting Mental Status: No Interim History: Pt seen, discussed with the team. Anxious to move forward to [facility]. Hopeful this will be tomorrow. Completing COVID isolation period. Reports feeling well, no sx of concern he states. Medication Compliance: Yes Side effects from medications: No Attending Groups: No Review of Systems Acute medical concerns: No COVID+ Medical Review of Systems: unchanged Review of Systems Review of Systems Yes all other systems are reviewed and are negative Mental Status Exam Mental Status Exam Patient Appearance: Appropriate Patient Orientation: Person, Place, Time and Situation Level of Consciousness: Alert Patient Behavior: Talkative, Cooperative and Good Eye Contact Mood Description: Appropriate Affect Description: Appropriate Patient Cognition Impaired: No Ability to Follow Directions: Good Speech Pattern: Spontaneous Speech Memory Description: Intact Hallucinations: None Delusions: Not Present Thought Process: Intact and Goal Oriented Thought Content: positive for Intact and positive for Goal Oriented Judgement: Good Diagnostics Vital Signs (24Hr): Vital Signs - 24 hr 09/11/23 17:03 09/12/23 08:00 Temperature 98.2 F 97.7 F Pulse Rate 95 80 Respiratory Rate 16 Blood Pressure 131/83 140/86 H Pulse Oximetry 98 98 Oxygen Delivery Method Room Air Room Air BMI result Body Mass Index 31.0 Labs 08/21/23 18:21 08/21/23 18:21 Imaging Radiology Impressions: ITS Impressions KUB X-Ray 08/31/23 09:49 IMPRESSION: Constipation. KUB X-Ray 09/04/23 10:58 IMPRESSION: Mild constipation. No acute process seen. KUB X-Ray 09/07/23 15:39 IMPRESSION: Moderate stool burden. No evidence of bowel obstruction. Medications Medications Current Medications Acetaminophen (Acetaminophen 325 Mg Tablet) 650 mg PO Q4H PRN PRN Reason: Headache/Pain Mild Scale (1-3) Last Admin: 09/07/23 11:00 Dose: 650 mg Al Hydroxide/Mg Hydroxide (Magnesium Hydrox/Alum Hydrox 30 Ml Oral.Susp) 30 ml PO Q6H PRN PRN Reason: Heartburn/Nausea Last Admin: 08/29/23 10:39 Dose: 30 ml Atorvastatin Calcium (Atorvastatin Calcium 20 Mg Tablet) 20 mg PO BEDTIME LAURE Last Admin: 09/11/23 19:36 Dose: 20 mg Bisacodyl (Bisacodyl 5 Mg Tablet.Dr) 10 mg PO DAILY PRN PRN Reason: Constipation Last Admin: 09/03/23 14:06 Dose: 10 mg Cariprazine (Cariprazine Hcl 3 Mg Capsule) 6 mg PO DAILY [facility] Last Admin: 09/12/23 08:48 Dose: 6 mg Clonazepam (Clonazepam 1 Mg Tablet) 1 mg PO BEDTIME [facility] Last Admin: 09/11/23 19:36 Dose: 1 mg Clonidine HCl (Clonidine Hcl 0.1 Mg Tablet) 0.1 mg PO TID PRN; Protocol PRN Reason: withdrawal Last Admin: 09/02/23 14:54 Dose: 0.1 mg Docusate Sodium (Docusate Sodium 100 Mg Capsule) 200 mg PO BID [facility] Last Admin: 09/12/23 08:51 Dose: Not Given Gabapentin (Gabapentin 300 Mg Capsule) 300 mg PO TID PRN PRN Reason: anxiety Last Admin: 09/11/23 19:36 Dose: 300 mg Guaifenesin/Dextromethorphan (Guaifenesin Dm 600/30 1 Tab Tab.Er.12h) 1 tab PO BID PRN PRN Reason: Cough Last Admin: 09/08/23 12:14 Dose: 1 tab Guaifenesin/Dextromethorphan (Guaifenesin Dm 200/20/10 Ml 10 Ml Syrup) 10 ml PO Q4H PRN PRN Reason: Cough Hydroxyzine HCl (Hydroxyzine Hcl 25 Mg Tablet) 25 mg PO TID [facility] Last Admin: 09/12/23 14:19 Dose: 25 mg Hydroxyzine HCl (Hydroxyzine Hcl 25 Mg Tablet) 25 mg PO Q6H PRN PRN Reason: Anxiety Last Admin: 09/11/23 19:37 Dose: 25 mg Lactulose (Lactulose 20 Gm/30 Ml Solution) 20 gm PO DAILY [facility] Last Admin: 09/12/23 08:51 Dose: Not Given Magnesium Hydroxide (Milk Of Magnesia 30 Ml Oral.Susp) 30 ml PO DAILY PRN PRN Reason: Constipation Methadone HCl (Methadone Hcl 20 Mg/2 Ml Oral.Conc) 100 mg PO DAILY [facility] Last Admin: 09/12/23 08:49 Dose: 100 mg Multivitamins/Vitamin C (Multivitamin Tablet) 1 tab PO DAILY [facility] Last Admin: 09/12/23 08:48 Dose: 1 tab Nicotine Polacrilex (Nicotine Polacrilex Lozenge 4 Mg Lozenge) 4 mg BUCCAL Q2H PRN PRN Reason: Nicotine Cravings Last Admin: 09/12/23 14:19 Dose: 4 mg Omeprazole (Omeprazole 20 Mg Capsule.Dr) 20 mg PO DAILY@0630 [facility] Last Admin: 09/12/23 06:26 Dose: 20 mg Ondansetron HCl (Ondansetron Odt 4 Mg Tab.Rapdis) 8 mg TRANSLINGU Q4H PRN PRN Reason: Nausea and Vomiting Last Admin: 09/06/23 18:46 Dose: 8 mg Oxcarbazepine (Oxcarbazepine 300 Mg Tablet) 300 mg PO BID [facility] Last Admin: 09/12/23 08:48 Dose: 300 mg Polyethylene Glycol (Polyethylene Glycol 3350 17 Gm Powd.Pack) 17 gm PO BID [facility] Last Admin: 09/12/23 08:51 Dose: Not Given Quetiapine Fumarate (Quetiapine Fumarate 200 Mg Tablet) 200 mg PO BEDTIME [facility] Last Admin: 09/11/23 19:36 Dose: 200 mg Quetiapine Fumarate (Quetiapine Fumarate 50 Mg Tablet) 50 mg PO BID PRN PRN Reason: perceptual alterations Last Admin: 08/28/23 18:14 Dose: 50 mg Senna (Senna [place] Extract Oral Syrup 15 Ml Syrup) 15 ml PO BEDTIME [facility] Last Admin: 09/11/23 23:05 Dose: Not Given Sodium Biphosphate/Sodium Phosphate (Sodium Phosphate,[place]-Dibasic 133 Ml Enema) 133 ml [place] ONCE PRN PRN Reason: constipation Last Admin: 09/02/23 09:31 Dose: 133 ml Sodium Biphosphate/Sodium Phosphate (Sodium Phosphate,[place]-Dibasic 133 Ml Enema) 133 ml [place] DAILY PRN PRN Reason: constipation Last Admin: 09/05/23 09:00 Dose: 133 ml Trazodone HCl (Trazodone Hcl 50 Mg Tablet) 50 mg PO BEDTIME MRX1 PRN PRN Reason: Insomnia Last Admin: 09/11/23 19:36 Dose: 50 mg Allergies Allergies Allergy/AdvReac Type Severity Reaction Status Date / Time No Known Allergies Allergy Verified 08/14/23 14:09 [No Known Allergies*] Assessment & Plan Assessment & Plan (1) Opioid use disorder: Status: Acute Code(s): F11.90 - Opioid use, unspecified, uncomplicated (2) Bipolar disorder: Status: Acute Code(s): F31.9 - Bipolar disorder, unspecified (3) Polysubstance abuse: Status: Acute Code(s): F19.10 - Other psychoactive substance abuse, uncomplicated Plan 28 yo male, history of bipolar disorder, opiate use disorder, polysubstance use disorder, readmitted after a recent discharge after using heroin, cocaine, klonopin and experiencing SI. Plan: Detox Collateral contact CSS referral Increase Vraylar to 6 mg daily Atorvastatin 20 mg daily- elevated lipids 08/27/23 Seroquel 50 mg bid prn perceptual alterations. 08/28/23 patient reports feeling better and sleeping better; continue current treatment plan 08/29/23: Patient reports that he is feeling short of breath and feels pressure on his chest, though no pain; he said he has been feeling this for the past 3 days though did not mention this to advertising writer yesterday. He says he knows his EKG was normal but it still ongoing. Paraplanner suggested that it is likely anxiety to which patient agreed saying he is nervous about the next steps in his treatment, especially aftercare. He agreed to try Ativan to see if that calms things down. Does not appear short of breath; playing game calmly with others in the milieu Vitals/O2 sat WNL; respiratory rate WNL no hx asthma; denies chest pain Pulm exam: regular breath sounds CTA b/l throughout; no wheezing, rhonchi, Cardiac: Regular rhythm; mild tachycardia; no murmurs, rubs, gallops Patient given Ativan 1 mg which completely resolved shortness of breath 08/30/22 Depakote ER 500 mg HS Omeprazole 20 mg a.m. Dulcolax prn constipation 08/31/23 Bowel regime beginning to provide some efficacy and relief 09/01/23 Change Depakote from ER to IR 500 mg bid 09/02/23 patient reports overall well but still constipated however got relief from enema 09/03/23 Depakote taper Klonopin 0.5 mg hs UACS Continue to monitor constipation sx. 09/04/23: Regarding GI discomfort, reported he did have an enema 2 days ago and also 2 days prior to that one and reported there was some benefit from both. Overall patient would like to try enema again today and see if there are any results. We will also get formal KUB report. Schedule senna also [place]. Will review again tomorrow and reach out to GI if needed. 09/05/23: Informal discussion with surgery ref constipation despite bowel regimen and no benefit from enemas: rec golytely trial- 2 Liters (ie half of usual 4 liter bottle), if no effect after 2 hrs, then repeat i.e. take rest of bottle. If no benefit then reconsult GI +/- evacuation, scope, other intervention. 09/08/23 : Continue current regime and plan 09/09 Patient reports good mood, doing well; COVID symptoms significantly reduced and patient reports feeling much better, though still little nausea. Feels that medications are helpful and wants to continue with current regimen. Hoping for placement as soon is he is out of quarantine. Remains in good behavioral and impulse control. 09/10/23: Improved. Continue current regime and plan of care. 09/11/23: Continue current regime and plan of care. 09/12/23 Continue current regime and plan of care. Informed Consent: understands Reason for continued inpatient stay Substantial Risk for: rapid decompensation Time Spent With Patient Time: Total time managing care of this patient today ____ minutes.
[2023-09-12 17:17] VITALS: BP 128/62; PULSE 97; RESP 17; TEMP 36.6; O2SAT 98
[2023-09-12] MEDS: clonazePAM 1 MG TABLET PO (21:44)
[2023-09-12] MEDS: Gabapentin 300 MG CAPSULE PO (21:45)
[2023-09-12] MEDS: Atorvastatin Calcium 20 MG TABLET PO (21:45)
[2023-09-12] MEDS: traZODone HCL 50 MG TABLET PO (21:45)
[2023-09-12] MEDS: QUEtiapine Fumarate 200 MG TABLET PO (21:45)
[2023-09-12] MEDS: Docusate Sodium 100 MG CAPSULE 200 MG PO (21:45)
[2023-09-13] MEDS: Omeprazole 20 MG CAPSULE.DR PO (06:56)
[2023-09-13 08:08] VITALS: BP 104/69; PULSE 105; RESP 16; TEMP 37; O2SAT 97
[2023-09-13] MEDS: methADONE HCl 20 MG/2 ML ORAL.CONC 100 MG PO (08:54)
[2023-09-13] MEDS: Multivitamin TABLET 1 TAB PO (08:55)
[2023-09-13] MEDS: hydrOXYzine HCL 25 MG TABLET PO ×3 (08:55→22:20)
[2023-09-13] MEDS: OXcarbazepine 300 MG TABLET PO ×2 (08:55→22:21)
[2023-09-13] MEDS: Docusate Sodium 100 MG CAPSULE 200 MG PO ×2 (08:55→22:21)
[2023-09-13] MEDS: Cariprazine HCl 3 MG CAPSULE 6 MG PO (08:55)
[2023-09-13] MEDS: Lactulose 20 GM/30 ML SOLUTION PO (08:55)
--- NOTE | 2023-09-13 09:37 | HO.PSYCHPN ---
Subjective Subjective Date of Service: 09/13/23 Reason For Visit: Bipolar disorder, polysubstance use disorder Subjective Notes: Conditional Voluntary Healthcare Proxy: No Guardianship: No Medical Problems Affecting Mental Status: No Interim History: Reports feeling improved. Anxious about moving to the next phase of his recovery. Hoping for acceptance to [facility] this week. Physically, reports feeling well. Medication Compliance: Yes Side effects from medications: No Attending Groups: Yes Review of Systems Acute medical concerns: No Constipation is resolved. Medical Review of Systems: unchanged Review of Systems Review of Systems Yes all other systems are reviewed and are negative Mental Status Exam Mental Status Exam Patient Appearance: Appropriate Patient Orientation: Person, Place, Time and Situation Level of Consciousness: Alert Patient Behavior: Talkative, Cooperative and Good Eye Contact Mood Description: Appropriate Affect Description: Appropriate Patient Cognition Impaired: No Ability to Follow Directions: Good Speech Pattern: Spontaneous Speech Memory Description: Intact Hallucinations: None Delusions: Not Present Thought Process: Intact and Goal Oriented Thought Content: positive for Intact and positive for Goal Oriented Judgement: Good Diagnostics Vital Signs (24Hr): Vital Signs - 24 hr 09/12/23 17:17 09/13/23 08:08 Temperature 97.8 F 98.6 F Pulse Rate 97 105 H Respiratory Rate 17 16 Blood Pressure 128/62 104/69 Pulse Oximetry 98 97 Oxygen Delivery Method Room Air Room Air BMI result Body Mass Index 31.0 Labs 08/21/23 18:21 08/21/23 18:21 Imaging Radiology Impressions: ITS Impressions KUB X-Ray 08/31/23 09:49 IMPRESSION: Constipation. KUB X-Ray 09/04/23 10:58 IMPRESSION: Mild constipation. No acute process seen. KUB X-Ray 09/07/23 15:39 IMPRESSION: Moderate stool burden. No evidence of bowel obstruction. Medications Medications Current Medications Acetaminophen (Acetaminophen 325 Mg Tablet) 650 mg PO Q4H PRN PRN Reason: Headache/Pain Mild Scale (1-3) Last Admin: 09/07/23 11:00 Dose: 650 mg Al Hydroxide/Mg Hydroxide (Magnesium Hydrox/Alum Hydrox 30 Ml Oral.Susp) 30 ml PO Q6H PRN PRN Reason: Heartburn/Nausea Last Admin: 08/29/23 10:39 Dose: 30 ml Atorvastatin Calcium (Atorvastatin Calcium 20 Mg Tablet) 20 mg PO BEDTIME LAURE Last Admin: 09/12/23 21:45 Dose: 20 mg Bisacodyl (Bisacodyl 5 Mg Tablet.Dr) 10 mg PO DAILY PRN PRN Reason: Constipation Last Admin: 09/03/23 14:06 Dose: 10 mg Cariprazine (Cariprazine Hcl 3 Mg Capsule) 6 mg PO DAILY [facility] Last Admin: 09/13/23 08:55 Dose: 6 mg Clonazepam (Clonazepam 1 Mg Tablet) 1 mg PO BEDTIME [facility] Last Admin: 09/12/23 21:44 Dose: 1 mg Clonidine HCl (Clonidine Hcl 0.1 Mg Tablet) 0.1 mg PO TID PRN; Protocol PRN Reason: withdrawal Last Admin: 09/02/23 14:54 Dose: 0.1 mg Docusate Sodium (Docusate Sodium 100 Mg Capsule) 200 mg PO BID [facility] Last Admin: 09/13/23 08:55 Dose: 200 mg Gabapentin (Gabapentin 300 Mg Capsule) 300 mg PO TID PRN PRN Reason: anxiety Last Admin: 09/12/23 21:45 Dose: 300 mg Guaifenesin/Dextromethorphan (Guaifenesin Dm 600/30 1 Tab Tab.Er.12h) 1 tab PO BID PRN PRN Reason: Cough Last Admin: 09/08/23 12:14 Dose: 1 tab Guaifenesin/Dextromethorphan (Guaifenesin Dm 200/20/10 Ml 10 Ml Syrup) 10 ml PO Q4H PRN PRN Reason: Cough Hydroxyzine HCl (Hydroxyzine Hcl 25 Mg Tablet) 25 mg PO TID [facility] Last Admin: 09/13/23 08:55 Dose: 25 mg Hydroxyzine HCl (Hydroxyzine Hcl 25 Mg Tablet) 25 mg PO Q6H PRN PRN Reason: Anxiety Last Admin: 09/11/23 19:37 Dose: 25 mg Lactulose (Lactulose 20 Gm/30 Ml Solution) 20 gm PO DAILY [facility] Last Admin: 09/13/23 08:55 Dose: 20 gm Magnesium Hydroxide (Milk Of Magnesia 30 Ml Oral.Susp) 30 ml PO DAILY PRN PRN Reason: Constipation Methadone HCl (Methadone Hcl 20 Mg/2 Ml Oral.Conc) 100 mg PO DAILY [facility] Last Admin: 09/13/23 08:54 Dose: 100 mg Multivitamins/Vitamin C (Multivitamin Tablet) 1 tab PO DAILY [facility] Last Admin: 09/13/23 08:55 Dose: 1 tab Nicotine Polacrilex (Nicotine Polacrilex Lozenge 4 Mg Lozenge) 4 mg BUCCAL Q2H PRN PRN Reason: Nicotine Cravings Last Admin: 09/12/23 21:44 Dose: 4 mg Omeprazole (Omeprazole 20 Mg Capsule.Dr) 20 mg PO DAILY@0630 [facility] Last Admin: 09/13/23 06:56 Dose: 20 mg Ondansetron HCl (Ondansetron Odt 4 Mg Tab.Rapdis) 8 mg TRANSLINGU Q4H PRN PRN Reason: Nausea and Vomiting Last Admin: 09/06/23 18:46 Dose: 8 mg Oxcarbazepine (Oxcarbazepine 300 Mg Tablet) 300 mg PO BID [facility] Last Admin: 09/13/23 08:55 Dose: 300 mg Polyethylene Glycol (Polyethylene Glycol 3350 17 Gm Powd.Pack) 17 gm PO BID [facility] Last Admin: 09/13/23 09:05 Dose: Not Given Quetiapine Fumarate (Quetiapine Fumarate 200 Mg Tablet) 200 mg PO BEDTIME [facility] Last Admin: 09/12/23 21:45 Dose: 200 mg Quetiapine Fumarate (Quetiapine Fumarate 50 Mg Tablet) 50 mg PO BID PRN PRN Reason: perceptual alterations Last Admin: 08/28/23 18:14 Dose: 50 mg Senna (Senna [place] Extract Oral Syrup 15 Ml Syrup) 15 ml PO BEDTIME [facility] Last Admin: 09/12/23 22:47 Dose: Not Given Sodium Biphosphate/Sodium Phosphate (Sodium Phosphate,[place]-Dibasic 133 Ml Enema) 133 ml [place] ONCE PRN PRN Reason: constipation Last Admin: 09/02/23 09:31 Dose: 133 ml Sodium Biphosphate/Sodium Phosphate (Sodium Phosphate,[place]-Dibasic 133 Ml Enema) 133 ml [place] DAILY PRN PRN Reason: constipation Last Admin: 09/05/23 09:00 Dose: 133 ml Trazodone HCl (Trazodone Hcl 50 Mg Tablet) 50 mg PO BEDTIME MRX1 PRN PRN Reason: Insomnia Last Admin: 09/12/23 21:45 Dose: 50 mg Allergies Allergies Allergy/AdvReac Type Severity Reaction Status Date / Time No Known Allergies Allergy Verified 08/14/23 14:09 [No Known Allergies*] Assessment & Plan Assessment & Plan (1) Opioid use disorder: Status: Acute Code(s): F11.90 - Opioid use, unspecified, uncomplicated (2) Bipolar disorder: Status: Acute Code(s): F31.9 - Bipolar disorder, unspecified (3) Polysubstance abuse: Status: Acute Code(s): F19.10 - Other psychoactive substance abuse, uncomplicated Plan 28 yo male, history of bipolar disorder, opiate use disorder, polysubstance use disorder, readmitted after a recent discharge after using heroin, cocaine, klonopin and experiencing SI. Plan: Detox Collateral contact CSS referral Increase Vraylar to 6 mg daily Atorvastatin 20 mg daily- elevated lipids 08/27/23 Seroquel 50 mg bid prn perceptual alterations. 08/28/23 patient reports feeling better and sleeping better; continue current treatment plan 08/29/23: Patient reports that he is feeling short of breath and feels pressure on his chest, though no pain; he said he has been feeling this for the past 3 days though did not mention this to engineering writer yesterday. He says he knows his EKG was normal but it still ongoing. Technology Development Intern suggested that it is likely anxiety to which patient agreed saying he is nervous about the next steps in his treatment, especially aftercare. He agreed to try Ativan to see if that calms things down. Does not appear short of breath; playing game calmly with others in the milieu Vitals/O2 sat WNL; respiratory rate WNL no hx asthma; denies chest pain Pulm exam: regular breath sounds CTA b/l throughout; no wheezing, rhonchi, Cardiac: Regular rhythm; mild tachycardia; no murmurs, rubs, gallops Patient given Ativan 1 mg which completely resolved shortness of breath 08/30/22 Depakote ER 500 mg HS Omeprazole 20 mg a.m. Dulcolax prn constipation 08/31/23 Bowel regime beginning to provide some efficacy and relief 09/01/23 Change Depakote from ER to IR 500 mg bid 09/02/23 patient reports overall well but still constipated however got relief from enema 09/03/23 Depakote taper Klonopin 0.5 mg hs UACS Continue to monitor constipation sx. 09/04/23: Regarding GI discomfort, reported he did have an enema 2 days ago and also 2 days prior to that one and reported there was some benefit from both. Overall patient would like to try enema again today and see if there are any results. We will also get formal KUB report. Schedule senna also [place]. Will review again tomorrow and reach out to GI if needed. 09/05/23: Informal discussion with surgery ref constipation despite bowel regimen and no benefit from enemas: rec golytely trial- 2 Liters (ie half of usual 4 liter bottle), if no effect after 2 hrs, then repeat i.e. take rest of bottle. If no benefit then reconsult GI +/- evacuation, scope, other intervention. 09/08/23 : Continue current regime and plan 09/09 Patient reports good mood, doing well; COVID symptoms significantly reduced and patient reports feeling much better, though still little nausea. Feels that medications are helpful and wants to continue with current regimen. Hoping for placement as soon is he is out of quarantine. Remains in good behavioral and impulse control. 09/10/23: Improved. Continue current regime and plan of care. 09/11/23: Continue current regime and plan of care. 09/12/23 Continue current regime and plan of care. 09/13/23 Continue current regime and plan of care. Patient educated on: therapeutic strategies Informed Consent: understands Reason for continued inpatient stay Substantial Risk for: stable for discharge Time Spent With Patient Time: Total time managing care of this patient today ____ minutes.
[2023-09-13] MEDS: Nicotine Polacrilex Lozenge 4 MG LOZENGE BUCCAL (13:55)
[2023-09-13 18:00] VITALS: BP 106/76; PULSE 104; TEMP 36.6; O2SAT 96
[2023-09-13] MEDS: clonazePAM 1 MG TABLET PO (22:20)
[2023-09-13] MEDS: QUEtiapine Fumarate 200 MG TABLET PO (22:21)
[2023-09-13] MEDS: Atorvastatin Calcium 20 MG TABLET PO (22:21)
[2023-09-13] MEDS: polyethylene glycoL 3350 17 GM POWD.PACK PO (22:23)
[2023-09-14 06:00] VITALS: BP 130/71; PULSE 88; RESP 18; TEMP 36.6; O2SAT 96
[2023-09-14] MEDS: Omeprazole 20 MG CAPSULE.DR PO (06:14)
[2023-09-14] MEDS: polyethylene glycoL 3350 17 GM POWD.PACK PO ×2 (08:30→22:27)
[2023-09-14] MEDS: Cariprazine HCl 3 MG CAPSULE 6 MG PO (08:31)
[2023-09-14] MEDS: OXcarbazepine 300 MG TABLET PO ×2 (08:31→22:26)
[2023-09-14] MEDS: Docusate Sodium 100 MG CAPSULE 200 MG PO ×2 (08:31→22:25)
[2023-09-14] MEDS: Multivitamin TABLET 1 TAB PO (08:31)
[2023-09-14] MEDS: hydrOXYzine HCL 25 MG TABLET PO ×3 (08:31→22:27)
[2023-09-14] MEDS: methADONE HCl 20 MG/2 ML ORAL.CONC 100 MG PO (08:32)
[2023-09-14] MEDS: Lactulose 20 GM/30 ML SOLUTION PO (08:34)
[2023-09-14] MEDS: Nicotine Polacrilex Lozenge 4 MG LOZENGE BUCCAL ×2 (14:35→22:29)
--- NOTE | 2023-09-14 15:14 | HO.PSYCHPN ---
Subjective Subjective Date of Service: 09/14/23 Reason For Visit: Bipolar disorder, polysubstance use disorder Subjective Notes: Conditional Voluntary Healthcare Proxy: No Guardianship: No Medical Problems Affecting Mental Status: No Medication Compliance: Yes Side effects from medications: No Attending Groups: No Review of Systems Acute medical concerns: No Medical Review of Systems: unchanged Review of Systems Review of Systems Yes all other systems are reviewed and are negative Mental Status Exam Mental Status Exam Patient Appearance: Appropriate Patient Orientation: Person, Place, Time and Situation Level of Consciousness: Alert Patient Behavior: Talkative, Cooperative and Good Eye Contact Mood Description: Appropriate Affect Description: Appropriate Patient Cognition Impaired: No Ability to Follow Directions: Good Speech Pattern: Spontaneous Speech Memory Description: Intact Hallucinations: None Delusions: Not Present Thought Process: Intact and Goal Oriented Thought Content: positive for Intact and positive for Goal Oriented Judgement: Good Diagnostics Vital Signs (24Hr): Vital Signs - 24 hr 09/13/23 18:00 09/14/23 06:00 Temperature 97.9 F 98 F Pulse Rate 104 H 88 Respiratory Rate 18 Blood Pressure 106/76 130/71 Pulse Oximetry 96 96 Oxygen Delivery Method Room Air Room Air BMI result Body Mass Index 31.0 Labs 08/21/23 18:21 08/21/23 18:21 Imaging Radiology Impressions: ITS Impressions KUB X-Ray 08/31/23 09:49 IMPRESSION: Constipation. KUB X-Ray 09/04/23 10:58 IMPRESSION: Mild constipation. No acute process seen. KUB X-Ray 09/07/23 15:39 IMPRESSION: Moderate stool burden. No evidence of bowel obstruction. Medications Medications Current Medications Acetaminophen (Acetaminophen 325 Mg Tablet) 650 mg PO Q4H PRN PRN Reason: Headache/Pain Mild Scale (1-3) Last Admin: 09/07/23 11:00 Dose: 650 mg Al Hydroxide/Mg Hydroxide (Magnesium Hydrox/Alum Hydrox 30 Ml Oral.Susp) 30 ml PO Q6H PRN PRN Reason: Heartburn/Nausea Last Admin: 08/29/23 10:39 Dose: 30 ml Atorvastatin Calcium (Atorvastatin Calcium 20 Mg Tablet) 20 mg PO BEDTIME LAURE Last Admin: 09/13/23 22:21 Dose: 20 mg Bisacodyl (Bisacodyl 5 Mg Tablet.Dr) 10 mg PO DAILY PRN PRN Reason: Constipation Last Admin: 09/03/23 14:06 Dose: 10 mg Cariprazine (Cariprazine Hcl 3 Mg Capsule) 6 mg PO DAILY [facility] Last Admin: 09/14/23 08:31 Dose: 6 mg Clonazepam (Clonazepam 1 Mg Tablet) 1 mg PO BEDTIME [facility] Last Admin: 09/13/23 22:20 Dose: 1 mg Clonidine HCl (Clonidine Hcl 0.1 Mg Tablet) 0.1 mg PO TID PRN; Protocol PRN Reason: withdrawal Last Admin: 09/02/23 14:54 Dose: 0.1 mg Docusate Sodium (Docusate Sodium 100 Mg Capsule) 200 mg PO BID [facility] Last Admin: 09/14/23 08:31 Dose: 200 mg Gabapentin (Gabapentin 300 Mg Capsule) 300 mg PO TID PRN PRN Reason: anxiety Last Admin: 09/12/23 21:45 Dose: 300 mg Guaifenesin/Dextromethorphan (Guaifenesin Dm 600/30 1 Tab Tab.Er.12h) 1 tab PO BID PRN PRN Reason: Cough Last Admin: 09/08/23 12:14 Dose: 1 tab Guaifenesin/Dextromethorphan (Guaifenesin Dm 200/20/10 Ml 10 Ml Syrup) 10 ml PO Q4H PRN PRN Reason: Cough Hydroxyzine HCl (Hydroxyzine Hcl 25 Mg Tablet) 25 mg PO TID [facility] Last Admin: 09/14/23 14:36 Dose: 25 mg Hydroxyzine HCl (Hydroxyzine Hcl 25 Mg Tablet) 25 mg PO Q6H PRN PRN Reason: Anxiety Last Admin: 09/11/23 19:37 Dose: 25 mg Lactulose (Lactulose 20 Gm/30 Ml Solution) 20 gm PO DAILY [facility] Last Admin: 09/14/23 08:34 Dose: 20 gm Magnesium Hydroxide (Milk Of Magnesia 30 Ml Oral.Susp) 30 ml PO DAILY PRN PRN Reason: Constipation Methadone HCl (Methadone Hcl 20 Mg/2 Ml Oral.Conc) 100 mg PO DAILY [facility] Last Admin: 09/14/23 08:32 Dose: 100 mg Multivitamins/Vitamin C (Multivitamin Tablet) 1 tab PO DAILY [facility] Last Admin: 09/14/23 08:31 Dose: 1 tab Nicotine Polacrilex (Nicotine Polacrilex Lozenge 4 Mg Lozenge) 4 mg BUCCAL Q2H PRN PRN Reason: Nicotine Cravings Last Admin: 09/14/23 14:35 Dose: 4 mg Omeprazole (Omeprazole 20 Mg Capsule.Dr) 20 mg PO DAILY@0630 [facility] Last Admin: 09/14/23 06:14 Dose: 20 mg Ondansetron HCl (Ondansetron Odt 4 Mg Tab.Rapdis) 8 mg TRANSLINGU Q4H PRN PRN Reason: Nausea and Vomiting Last Admin: 09/06/23 18:46 Dose: 8 mg Oxcarbazepine (Oxcarbazepine 300 Mg Tablet) 300 mg PO BID [facility] Last Admin: 09/14/23 08:31 Dose: 300 mg Polyethylene Glycol (Polyethylene Glycol 3350 17 Gm Powd.Pack) 17 gm PO BID [facility] Last Admin: 09/14/23 08:30 Dose: 17 gm Quetiapine Fumarate (Quetiapine Fumarate 200 Mg Tablet) 200 mg PO BEDTIME [facility] Last Admin: 09/13/23 22:21 Dose: 200 mg Quetiapine Fumarate (Quetiapine Fumarate 50 Mg Tablet) 50 mg PO BID PRN PRN Reason: perceptual alterations Last Admin: 08/28/23 18:14 Dose: 50 mg Senna (Senna [place] Extract Oral Syrup 15 Ml Syrup) 15 ml PO BEDTIME [facility] Last Admin: 09/13/23 22:22 Dose: 15 ml Sodium Biphosphate/Sodium Phosphate (Sodium Phosphate,[place]-Dibasic 133 Ml Enema) 133 ml NM ONCE PRN PRN Reason: constipation Last Admin: 09/02/23 09:31 Dose: 133 ml Sodium Biphosphate/Sodium Phosphate (Sodium Phosphate,[place]-Dibasic 133 Ml Enema) 133 ml NM DAILY PRN PRN Reason: constipation Last Admin: 09/05/23 09:00 Dose: 133 ml Trazodone HCl (Trazodone Hcl 50 Mg Tablet) 50 mg PO BEDTIME MRX1 PRN PRN Reason: Insomnia Last Admin: 09/12/23 21:45 Dose: 50 mg Allergies Allergies Allergy/AdvReac Type Severity Reaction Status Date / Time No Known Allergies Allergy Verified 08/14/23 14:09 [No Known Allergies*] Assessment & Plan Assessment & Plan (1) Opioid use disorder: Status: Acute Code(s): F11.90 - Opioid use, unspecified, uncomplicated (2) Bipolar disorder: Status: Acute Code(s): F31.9 - Bipolar disorder, unspecified (3) Polysubstance abuse: Status: Acute Code(s): F19.10 - Other psychoactive substance abuse, uncomplicated Plan 28 yo male, history of bipolar disorder, opiate use disorder, polysubstance use disorder, readmitted after a recent discharge after using heroin, cocaine, klonopin and experiencing SI. Plan: Detox Collateral contact CSS referral Increase Vraylar to 6 mg daily Atorvastatin 20 mg daily- elevated lipids 08/27/23 Seroquel 50 mg bid prn perceptual alterations. 08/28/23 patient reports feeling better and sleeping better; continue current treatment plan 08/29/23: Patient reports that he is feeling short of breath and feels pressure on his chest, though no pain; he said he has been feeling this for the past 3 days though did not mention this to continuity writer yesterday. He says he knows his EKG was normal but it still ongoing. [facility] suggested that it is likely anxiety to which patient agreed saying he is nervous about the next steps in his treatment, especially aftercare. He agreed to try Ativan to see if that calms things down. Does not appear short of breath; playing game calmly with others in the milieu Vitals/O2 sat WNL; respiratory rate WNL no hx asthma; denies chest pain Pulm exam: regular breath sounds CTA b/l throughout; no wheezing, rhonchi, Cardiac: Regular rhythm; mild tachycardia; no murmurs, rubs, gallops Patient given Ativan 1 mg which completely resolved shortness of breath 08/30/22 Depakote ER 500 mg HS Omeprazole 20 mg a.m. Dulcolax prn constipation 08/31/23 Bowel regime beginning to provide some efficacy and relief 09/01/23 Change Depakote from ER to IR 500 mg bid 09/02/23 patient reports overall well but still constipated however got relief from enema 09/03/23 Depakote taper Klonopin 0.5 mg hs UACS Continue to monitor constipation sx. 09/04/23: Regarding GI discomfort, reported he did have an enema 2 days ago and also 2 days prior to that one and reported there was some benefit from both. Overall patient would like to try enema again today and see if there are any results. We will also get formal KUB report. Schedule senna also tonight. Will review again tomorrow and reach out to GI if needed. 09/05/23: Informal discussion with surgery ref constipation despite bowel regimen and no benefit from enemas: rec golytely trial- 2 Liters (ie half of usual 4 liter bottle), if no effect after 2 hrs, then repeat i.e. take rest of bottle. If no benefit then reconsult GI +/- evacuation, scope, other intervention. 09/08/23 : Continue current regime and plan 09/09 Patient reports good mood, doing well; COVID symptoms significantly reduced and patient reports feeling much better, though still little nausea. Feels that medications are helpful and wants to continue with current regimen. Hoping for placement as soon is he is out of quarantine. Remains in good behavioral and impulse control. 09/10/23: Improved. Continue current regime and plan of care. 09/11/23: Continue current regime and plan of care. 09/12/23 Continue current regime and plan of care. 09/13/23 Continue current regime and plan of care. 09/14/23 Discharge to [facility] on 09/15/23. Pt reports being pleased with this plan of care at this time. Informed Consent: understands Reason for continued inpatient stay Substantial Risk for: stable for discharge Time Spent With Patient Time: Total time managing care of this patient today ____ minutes.
[2023-09-14 18:00] VITALS: BP 110/72; PULSE 95; TEMP 36.3; O2SAT 96
[2023-09-14] MEDS: clonazePAM 1 MG TABLET PO (22:24)
[2023-09-14] MEDS: Atorvastatin Calcium 20 MG TABLET PO (22:24)
[2023-09-14] MEDS: QUEtiapine Fumarate 200 MG TABLET PO (22:26)
[2023-09-15] MEDS: Omeprazole 20 MG CAPSULE.DR PO (06:05)
[2023-09-15] MEDS: Gabapentin 300 MG CAPSULE PO (06:22)
[2023-09-15] MEDS: Acetaminophen 325 MG TABLET 650 MG PO (06:22)
[2023-09-15 08:00] VITALS: BP 117/64; PULSE 97; RESP 16; TEMP 36.6; O2SAT 99
[2023-09-15] MEDS: methADONE HCl 20 MG/2 ML ORAL.CONC 100 MG PO (08:26)
[2023-09-15] MEDS: Cariprazine HCl 3 MG CAPSULE 6 MG PO (08:28)
[2023-09-15] MEDS: hydrOXYzine HCL 25 MG TABLET PO (08:28)
[2023-09-15] MEDS: Multivitamin TABLET 1 TAB PO (08:28)
[2023-09-15] MEDS: OXcarbazepine 300 MG TABLET PO (08:28)
[2023-09-15] MEDS: Docusate Sodium 100 MG CAPSULE 200 MG PO (08:28)
--- NOTE | 2023-09-15 17:20 | PM.PSYDC ---
DS: Providers Provider Date of Service: 09/15/23 Date of admission: 08/23/23 13:35 Date of discharge: 09/15/23 Primary care physician: Curtis Physician Admitting clinician: Kathryn Hurtado Attending physician on admission: Primo Pinzon Consults: 08/24/23 13:25 Addiction Medicine Routine Consulting Provider: Addiction Covering Reason for consultation: methadone pt-breakthrough, recovery coaching Has provider been notified: No 08/31/23 14:06 Consult to Gastroenterology Routine Consulting Provider: [facility] – [place] Gastroenterology [facility] Reason for consultation: severe constipation, pelvic phleboliths on KUB Has provider been notified: Yes Attending physician on discharge: Primo Pinzon Discharging clinician: Kathryn Hurtado DS: Diagnosis Discharge Diagnosis (1) Opioid use disorder: Status: Acute (2) Bipolar disorder: Status: Acute (3) Polysubstance abuse: Status: Acute DS: Medications Discharge Medications Home Medications: Previous Rx's Medication Instructions Recorded atorvastatin 20 mg tablet 20 mg PO BEDTIME #30 tabs 09/14/23 cariprazine 6 mg capsule (Vraylar) 6 mg PO DAILY #30 caps 09/14/23 clonazepam 1 mg tablet 1 mg PO BEDTIME #7 tabs 09/14/23 docusate sodium 100 mg capsule 200 mg (2 x 100 mg) PO BID #120 09/14/23 caps gabapentin 300 mg capsule 300 mg PO TID PRN anxiety #30 caps 09/14/23 hydroxyzine HCl 25 mg tablet 25 mg PO TID #90 tabs 09/14/23 lactulose 20 gram/30 mL oral 20 g (30 mL) PO DAILY #1,000 mL 09/14/23 solution methadone 10 mg/mL oral 100 mg (10 mL) PO DAILY #0 mL 09/14/23 concentrate (Methadose) multivitamin (Daily-Rachele tablet) 1 tab PO DAILY #30 tabs 09/14/23 nicotine (polacrilex) 4 mg buccal 4 mg buccal Q2H PRN Nicotine 09/14/23 lozenge Cravings #100 ea omeprazole 20 mg capsule,delayed 20 mg PO DAILY@0630 #30 caps 09/14/23 release oxcarbazepine 300 mg tablet 300 mg PO BID #60 tabs 09/14/23 polyethylene glycol 3350 17 gram 17 g PO BID #30 packets 09/14/23 oral powder packet quetiapine 200 mg tablet 200 mg PO BEDTIME #30 tabs 09/14/23 quetiapine 50 mg tablet 50 mg PO BID PRN perceptual 09/14/23 alterations #30 tabs senna leaf extract 176 mg/5 mL 15 ml PO BEDTIME #500 mL 09/14/23 oral syrup (senna) trazodone 50 mg tablet 50 mg PO BEDTIME MRX1 PRN Insomnia 09/14/23 #30 tabs Mental Status Exam Mental Status Exam Patient Appearance: Appropriate Patient Orientation: Person, Place, Time and Situation Level of Consciousness: Alert Patient Behavior: Talkative, Cooperative and Good Eye Contact Mood Description: Appropriate Affect Description: Appropriate Patient Cognition Impaired: No Ability to Follow Directions: Good Speech Pattern: Spontaneous Speech Memory Description: Intact Hallucinations: None Delusions: Not Present Thought Process: Intact and Goal Oriented Thought Content: positive for Intact and positive for Goal Oriented Judgement: Good Data Imaging Diagnostic Imaging Impressions KUB X-Ray 08/31/23 09:49 IMPRESSION: Constipation. KUB X-Ray 09/04/23 10:58 IMPRESSION: Mild constipation. No acute process seen. KUB X-Ray 09/07/23 15:39 IMPRESSION: Moderate stool burden. No evidence of bowel obstruction. DS: Summary Hospital Course Hospital Course: Admission to adult psychiatry for exacerbation of bipolar disorder, anxiety, polysubstance use disorder, opiate use disorder (on Methadone maintenance) with SI, plan to overdose, relapse on heroin and cocaine and overdose of #4 tabs Klonopin. Pt had been recently admitted 08/16/23 - 08/20/23. He was told by an outside source that if he presented to [facility] upon discharge, he would be admitted and return to [facility] (his program of preference as he was administratively discharged from this program in May 2023). He attempted to implement this plan upon discharge but found that he was not given the appropriate information. Medications were evaluated, implemented and titrated with Aren. He had no behavioral dyscontrol in the milieu and was an active participant. He agreed to Port[facility] applications and was accepted to [facility] after he had a bout of COVID-19. He discharged with full recovery and will continue he attempts to return to [facility] once he has completed the [facility]. Time spent discussing smoking cessation with patient: 3 to 10 minutes Status at Discharge Functional status at discharge: independent ambulation Overall status at discharge: patient is back to baseline Time Spent with Patient Time attestation: Total time managing care of this patient today ____ minutes. Time spent: Greater than 30 minutes Discharge Plan Discharge Anticipated Discharge Date/Time: 09/15/23 12:00 Patient Disposition: Xfer Inpatient Rehab Fac Discharge Diagnosis: Bipolar Disorder Opiate Use Disorder, Methadone Maintenance Polysubstance Use Disorder Referrals: [facility] [Other] (Walk in services available) Discharge Medications: New atorvastatin 20 mg Tablet 20 mg PO BEDTIME Qty: 30 0RF trazodone 50 mg Tablet 50 mg PO BEDTIME MRX1 PRN (Reason: Insomnia) Qty: 30 0RF polyethylene glycol 3350 17 gram Powder In Packet 17 g PO BID Qty: 30 0RF quetiapine 200 mg Tablet 200 mg PO BEDTIME Qty: 30 0RF clonazepam 1 mg Tablet 1 mg PO BEDTIME Qty: 7 4RF oxcarbazepine 300 mg Tablet 300 mg PO BID Qty: 60 0RF docusate sodium 100 mg Capsule 200 mg PO BID Qty: 120 0RF omeprazole 20 mg Capsule,Delayed Release(Dr/Ec) 20 mg PO DAILY@0630 Qty: 30 0RF methadone [Methadose] 10 mg/mL Concentrate 100 mg PO DAILY Qty: 0 0RF Rx Instructions: Partial Fill upon patient request. nicotine (polacrilex) 4 mg Lozenge 4 mg buccal Q2H PRN (Reason: Nicotine Cravings) Qty: 100 0RF quetiapine 50 mg Tablet 50 mg PO BID PRN (Reason: perceptual alterations) Qty: 30 0RF lactulose 20 gram/30 mL Solution 20 g PO DAILY Qty: 1000 0RF multivitamin [Daily-Rachele] Tablet 1 tab PO DAILY Qty: 30 0RF senna leaf extract [senna] 176 mg/5 mL Syrup 15 ml PO BEDTIME Qty: 500 0RF Vraylar 6 mg capsule 6 mg PO DAILY Qty: 30 0RF Continued gabapentin 300 mg capsule 300 mg PO TID PRN (Reason: anxiety) Qty: 30 0RF hydroxyzine HCl 25 mg tablet 25 mg PO TID Qty: 90 0RF Discontinued quetiapine 100 mg tablet 100 mg PO BEDTIME nicotine (polacrilex) 4 mg gum 4 mg PO Q2H PRN (Reason: smoking cessation ) doxycycline monohydrate 100 mg capsule 100 mg PO Q12H mirtazapine 15 mg tablet 15 mg PO BEDTIME aripiprazole 5 mg tablet 5 mg PO DAILY Vraylar 3 mg capsule 3 mg PO DAILY methadone [Methadone Intensol] 10 mg/mL Concentrate 95 mg PO DAILY Discharge Orders: Discharge Order (Routine); Ordered 09/14/23 Ordered By: Kathryn Hurtado Diet: Advance to usual diet Activity on Discharge: As tolerated Stand Alone Forms: Patient Portal Discharge page, Community Support Care Plan Goals: Mood and Behavioral Stabilization Ongoing work on sobriety Health Concerns: Mood and Behavioral Stabilization Ongoing work on sobriety Plan of Treatment: Admission to [facility] Attend scheduled appointments Take medications as directed Assessment: Pt interviewed prior to discharge and found to be fully oriented and without SI/HI. Pt has insight and demonstrates good judgment in terms of wanting to pursue treatment. Pt is not in imminent risk of harm to self or others and has a safety plan that includes presenting to the closest ER or calling 911 if feeling unsafe. Pt has been observed closely by nursing and unit staff throughout admission. Pt has not engaged in any behaviors that suggest dangerousness to self or others and has demonstrated appropriate behaviors and impulse control. Discharge Date/Time: 09/15/23 11:22
== END 2023-09-15 11:22 | DRG 753 ==
LOC: HO.ED 08-22 06:49 → HO.PM5 08-23 13:36
PROVIDERS: Nurse Practitioner Family; Psychiatry & Neurology Psychiatry; Student in an Organized Health Care Education/Training Program; Admitting Provider Clinical Nurse Specialist Psychiatric/Mental Health, Adult; Emergency Provider Emergency Medicine Emergency Medical Services; Visit Provider Clinical Nurse Specialist Psychiatric/Mental Health, Adult
DX: F31.9 Bipolar disorder, unspecified (principal); U07.1 COVID-19; R45.851 Suicidal ideations; F11.20 Opioid dependence, uncomplicated; F17.210 Nicotine dependence, cigarettes, uncomplicated; K59.03 Drug induced constipation; T40.3X5A Adverse effect of methadone, initial encounter; F19.10 Other psychoactive substance abuse, uncomplicated; Z71.6 Tobacco abuse counseling; Z79.899 Other long term (current) drug therapy
CPT/HCPCS: 0241U; 36415; 74018; 80048; 80061; 80076; 80143; 80179; 80307; 81001; 82607; 82746; 83036; 83735; 84439; 84443; 85025; 87635; 93005; 99285; S9485

== ENCOUNTER → 2023-08-23 13:35 | Outpatient (BNV) | payer OTHER, SELFPAY | PROVIDERS: Admitting Provider Clinical Nurse Specialist Psychiatric/Mental Health, Adult; Emergency Provider Emergency Medicine Emergency Medical Services; Visit Provider Nurse Practitioner Psychiatric/Mental Health | DX: F31.4 Bipolar disorder, current episode depressed, severe, without psychotic features (principal); F19.10 Other psychoactive substance abuse, uncomplicated; F11.90 Opioid use, unspecified, uncomplicated | CPT/HCPCS: 99231; 99232; 99499 ==

== ENCOUNTER 2023-12-18 16:27 | Inpatient (IN) | payer OTHER, SELFPAY ==
--- NOTE | ~2023-12-18 | XR_ITS ---
EXAMINATION: XR HAND, RIGHT CLINICAL INFORMATION: Right hand pain/swelling COMPARISON: None available. TECHNIQUE: PA, lateral, and oblique views of the right hand. FINDINGS: Soft tissue swelling is suspected around the thenar eminence. No fracture or malalignment. Bone mineralization is normal. Joint spaces well-preserved. No erosions. No soft tissue calcifications. XR/XR hand RT 2V IMPRESSION: Soft tissue swelling. No acute osseous findings.
--- NOTE | ~2023-12-18 | XR_ITS ---
EXAMINATION: XR RIBS, RIGHT CLINICAL INFORMATION: Difficulty breathing COMPARISON: 06/20/2023 TECHNIQUE: 3 views of the right ribs. PA view of the chest. FINDINGS: Lungs are well-inflated and clear. Trachea is midline in position. No interstitial disease, consolidation or mass. No pleural effusion or pneumothorax. Cardiac silhouette and pulmonary vessels are normal in size. The mediastinum and muriel have normal contour. The visualized bones and upper abdomen are unremarkable. The ribs have an intact appearance. No evidence of acute displaced rib fracture. XR/XR ribs RT min 3V w CXR1V IMPRESSION: * Lungs have a normal appearance. No acute cardiopulmonary abnormality. * No evidence of rib fracture.
[2023-12-18 16:40] VITALS: BP 143/100; PULSE 96; RESP 16; TEMP 36.3; O2SAT 97; BMI 27.4
--- NOTE | 2023-12-18 16:42 | ED.GENADULT ---
HPI - General Adult General Chief complaint: Psychiatric Symptoms Stated complaint: SI/Body aches Time Seen by Provider: 12/18/23 16:42 Source: patient Mode of arrival: ambulatory Limitations: no limitations History of Present Illness HPI narrative: Patient is a 28 year old assigned male at with a history of bipolar disorder and polysubstance abuse presenting to the emergency department today with suicidal ideation. Patient states that he has been feeling more down lately and plans to overdose on heroin. Patient denies any dizziness, lightheadedness, abdominal pain, nausea, vomiting, fever, chills, blurry vision, double vision, loss of vision, chest pain, difficulty breathing, shortness of breath, back pain, night sweats, pain with urination, increased urinary frequency, increased urinary urgency, blood in his urine or stool, syncope or a near syncopal episode, recent trauma or falls, bowel incontinence, bladder incontinence, bowel retention, bladder retention, or any other complaints at this time. Onset (ago): day(s) Relieving factors: none Exacerbating factors: none Associated symptoms: denies other symptoms Treatments prior to arrival: none Related Data Home Medications Medication Instructions Recorded Confirmed methadone 10 mg/mL oral 110 mg PO DAILY 12/18/23 12/18/23 concentrate (Methadose) Previous Rx's Medication Instructions Recorded cariprazine 6 mg capsule (Vraylar) 6 mg PO DAILY #30 caps 09/14/23 hydroxyzine HCl 25 mg tablet 25 mg PO TID #90 tabs 09/14/23 multivitamin (Daily-Rachele tablet) 1 tab PO DAILY #30 tabs 09/14/23 nicotine (polacrilex) 4 mg buccal 4 mg buccal Q2H PRN Nicotine 09/14/23 lozenge Cravings #100 ea omeprazole 20 mg capsule,delayed 20 mg PO DAILY@0630 #30 caps 09/14/23 release oxcarbazepine 300 mg tablet 300 mg PO BID #60 tabs 09/14/23 quetiapine 50 mg tablet 50 mg PO BID PRN perceptual 09/14/23 alterations #30 tabs cefuroxime axetil 250 mg tablet 500 mg (2 x 250 mg) PO BID 7 days 12/18/23 #28 tabs doxycycline hyclate 100 mg tablet 100 mg PO BID 7 days #14 tabs 12/18/23 Allergies Allergy/AdvReac Type Severity Reaction Status Date / Time No Known Allergies Allergy Verified 12/18/23 17:40 [No Known Allergies*] Review of Systems Constitutional: Constitutional: Reports no additional constitutional complaints, Denies chills, Denies fever(s) and Denies night sweats Eyes: Eyes: Reports no additional eye complaints, Denies blurry vision, Denies change in vision, Denies diplopia, Denies eye discharge, Denies loss of vision and Denies eye pain ENT: Denies dizziness Cardiovascular: Cardiovascular: Reports no additional cardiovascular complaints, Denies chest pain, Denies lightheadedness, Denies Loss of Consciousness and Denies dyspnea Respiratory: Respiratory: Reports no additional respiratory complaints and Denies dyspnea Gastrointestinal: Gastrointestinal: Reports no additional gastrointestinal complaints, Denies abdominal pain, Denies melena, Denies hematochezia, Denies change in bowel habits and Denies change in stool character Genitourinary: Genitourinary: Reports no additional male genitourinary complaints, Denies hematuria, Denies oliguria, Denies difficulty urinating, Denies dysuria, Denies urinary frequency, Denies urinary hesitancy, Denies urinary incontinence and Denies urinary urgency Musculoskeletal: Musculoskeletal: Reports no additional musculoskeletal complaints, Denies numbness and Denies tingling Neurologic: Denies dizziness, Denies loss of vision, Denies numbness and Denies tingling Psychiatric: Psychiatric: Denies homicidal ideation and Reports suicidal ideation Endocrine: Endocrine: Reports no additional endocrine complaints Hematologic/Lymphatic: Hematologic/Lymphatic: Reports no additional hematologic/lymphatic complaints Allergic/Immunologic: Allergic/Immunologic: Reports no additional allergic/immunologic complaints PMFSH Past Medical History Attestation statement: The following information was validated with the patient. Source: old records reviewed and nursing notes reviewed Medical History Opioid use disorder Bipolar disorder Polysubstance abuse Social History Social History Household Members: None Housing: Homeless Do you presently have visiting nurse or other home services: No Alcohol intake: current Alcohol intake frequency: holidays/special occasions only Alcohol type: beer and wine Patient Tobacco Use Status: Current everyday Tobacco user Tobacco use type: Cigarette Cigarette Packs Per Day: 1 Cigarettes Per Day: 20.0 Years Smoked: 12 Smoked in Last 30 Days: No e-Cigarette/Vaping Use: Currently Using Second Hand Smoke Exposure: No Use of substances other than those prescribed or required for medical reasons: Yes Substance Use Type: Crack/Cocaine, Heroin, IV Drugs and Opiates Substance Use Frequency: Chronic Longstanding Last Used Substance: Hours (ago) Any prior treatment program specific to substance use: No Advance Directives: No Advance Directives Information Provided: No service: No Current occupational status: unemployed Sexual orientation: Straight/Heterosexual Physical Exam ED Vital Signs: Vital Signs - 24 hr 12/18/23 16:40 Temperature 97.3 F Pulse Rate 96 Respiratory Rate 16 Blood Pressure 143/100 H Pulse Oximetry 97 Oxygen Delivery Method Room Air BMI result Body Mass Index 27.4 Const General: cooperative, no acute distress, alert and awake Nutritional Appearance: well nourished Orientation/consciousness: patient oriented x3 Limitations: no limitations HENMT Head: Yes normal to inspection and Yes atraumatic Ears: hearing grossly normal bilaterally and external ears normal General nose exam: Normal external nose present, no nasal discharge noted and no epistaxis Face and sinus: Yes normal facial exam, No abrasion and No laceration Mouth: Normal oral and palatal mucosa present, no drooling and no muffled voice Eyes General: appearance normal, both eyes and all related structures Periorbital: periorbital findings normal Eyelids: Yes eyelids normal Conjunctivae: conjunctivae normal Pupils: Equal, round and reactive pupils present EOM: EOMs intact bilaterally Neck Neck: Yes normal visual inspection, Yes full ROM and Yes no lymphadenopathy Chest Chest palpation & inspection: normal inspection of the chest Resp Effort & Inspection: normal respiratory effort and able to speak in complete sentences GI Inspection: Yes normal to inspection Neuro General: patient oriented x3 and moves all extremities Cranial nerves: Yes Equal, round and reactive pupils present Cognition (Neuro): normal cognition Motor exam (neuro): 5/5 motor strength present throughout Sensory Exam: Normal double simultaneous stimulation for sensation Coordination: [id number] test normal Extrem Other: multiple track higgins present to the bilateral upper extremities. Patient has some erythema to previous injection sites bilaterally with no warmth or swelling. General: Yes full ROM and Yes capillary refill normal Psych Appearance: grossly normal Mental Status: mental status grossly normal Affect: normal affect Attitude: cooperative Thought process: Normal thought process present Thought content: Normal thought content present Insight: Good insight present (Psych) Medical Decision Making Medical Decision Making MDM Narrative: Patient is a 28 year old assigned male at with a history of bipolar disorder and polysubstance abuse presenting to the emergency department today with suicidal ideation. Patient's physical exam was as noted in the physical exam portion of this note. Patient's upper extremities appear to have thrombophlebitis but given his IV drug use, will cover for cellulitis with cefuroxime and doxycycline. Patient's blood work showed a mild elevation of WBC count at 12.4 but otherwise unremarkable. Patient's clinical presentation is not consistent with sepsis (@2000). Patient's urine showed no acute process. Patient met with the CARE team who recommended inpatient psychiatric admission. I explained my physical exam findings as well as all test results to the patient. I answered all questions asked by the patient. Patient verbalized agreement and understanding with this treatment plan and psychiatric admission. Physician observation began at 2015 and will continue until patient admitted. Differential Diagnosis Differential Diagnoses: The differential diagnosis associated with the presentation includes Suicidal ideation Substance use Substance abuse Cellulitis Thrombophlebitis Admission/Observation Consideration of admission/observation: Escalation of care including admission/observation considered Patient to be admitted on the psychiatric floor. Consult Healthcare Provider Management of the patient was discussed with: Behavioral Health Provider (spoke to the CARE team as noted in the MDM Rationale portion of this note.) Lab Data [facility] Lab Attestation statement: I reviewed the patient's lab results. My interpretation of these results are in the MDM Rationale portion of this note. 12/18/23 16:48 12/18/23 16:48 Labs: Lab Results 12/18/23 Range/Units 16:48 WBC 12.4 H (4.8-10.8) X10*3/uL RBC 4.98 (4.60-5.80) X10*6/uL Hgb 14.3 (14.0-18.0) g/dl Hct 40.4 L (42.0-52.0) % MCV 81.1 (80.0-98.0) fL MCH 28.7 (27.0-33.0) pg MCHC 35.4 (31.0-36.0) g/dl RDW 13.1 (11.0-16.0) % Plt Count 256 (160-400) X10*3/uL MPV 10.2 (9.4-12.4) fL Immature Gran % (Auto) 0.4 (0.0-0.4) % Neut % (Auto) 73.4 H (45-73) % Lymph % (Auto) 15.6 L (20-40) % [place] % (Auto) 10.3 (2-11) % Eos % (Auto) 0.1 (0-4) % Baso % (Auto) 0.2 (0-2) % Lymph # (Auto) 1.9 (1.2-4.9) X10*3/uL [place] # (Auto) 1.3 H (0.1-1.2) X10*3/uL Eos # (Auto) 0.0 (0.0-0.4) X10*3/uL Baso # (Auto) 0.0 (0.0-0.2) X10*3/uL Abs Immat Gran (auto) 0.05 H (0.00-0.03) X10*3/uL Absolute Neuts (auto) 9.1 H (2.0-8.3) x10*3/uL Absolute Nucleated RBC 0.000 (0.0-0.012) X10*3/uL Nucleated RBC % (auto) 0.0 (0.0-0.2) /100WBC Sodium 138 (135-145) mmol/L Potassium 3.3 (3.3-5.1) mmol/L Chloride 101 (96-108) mmol/L Carbon Dioxide 23 (22-29) mmol/L Anion Gap 17 (12-20) BUN 13 (9-16) mg/dL Creatinine 0.76 (0.5-1.4) mg/dL Estim Creat Clear Calc 123.8 Estimated GFR > 60 Random Glucose 143 H (60-115) mg/dL Calcium 10.0 (8.4-10.2) mg/dL Total Bilirubin 1.0 (0.0-1.0) mg/dL AST 38 H (5-37) U/L ALT 22 (0-40) U/L Alkaline Phosphatase 103 (39-117) U/L Total Protein 8.7 H (6.5-8.0) g/dL Albumin 5.2 H (3.5-5.0) g/dL Urine Color Dark Yellow Urine Appearance Clear Urine pH 6.0 (5.0-9.0) Ur Specific [place] >= 1.030 H (1.005-1.025) Urine Protein 100 (2+) H (Neg-Trace) mg/dL Urine Glucose (UA) 100 H (Negative) mg/dL Urine Ketones 80 (Negative) mg/dL Urine Blood Negative (Negative) Urine Nitrite Negative (Negative) Ur Leukocyte Esterase Negative (Negative) Urine RBC 0-2 (0-2) /HPF Urine WBC 0-5 (0-5) /HPF Ur Squamous Epith Cells 0-2 (0-2) /HPF Urine Bacteria None Seen (None Seen) Hyaline Casts 0-2 (0-2) /LPF Salicylates < 5.0 L (15-30) mg/dL Urine Opiates Screen POSITIVE H (Not Detect) Urine Fentanyl Screen POSITIVE H (Not Detect) Acetaminophen < 3 (<30) mcg/mL Ur Barbiturates Screen Not Detected (Not Detect) Ur Phencyclidine Scrn Not Detected (Not Detect) Ur Amphetamines Screen Not Detected (Not Detect) U Benzodiazepines Scrn POSITIVE H (Not Detect) Urine Cocaine Screen POSITIVE H (Not Detect) U Marijuana (THC) Screen POSITIVE H (Not Detect) Ethyl Alcohol < 10 mg/dL COVID-19 (AMADA) Negative (Negative) COVID-19 Clin Com See Note Prescription Management I considered prescription management with: Antibiotic (patient prescribed an antibiotic for possible cellulitis) Discharge Plan Discharge Clinical Impression: Polysubstance abuse, Suicidal ideation, Cellulitis, Thrombophlebitis Patient Disposition: Still a Patient Prescriptions: New cefuroxime axetil 250 mg tablet 500 mg PO BID 7 Days Qty: 28 0RF doxycycline hyclate 100 mg tablet 100 mg PO BID 7 Days Qty: 14 0RF No Action oxcarbazepine 300 mg Tablet 300 mg PO BID Qty: 60 0RF omeprazole 20 mg Capsule,Delayed Release(Dr/Ec) 20 mg PO DAILY@0630 Qty: 30 0RF nicotine (polacrilex) 4 mg Lozenge 4 mg buccal Q2H PRN (Reason: Nicotine Cravings) Qty: 100 0RF quetiapine 50 mg Tablet 50 mg PO BID PRN (Reason: perceptual alterations) Qty: 30 0RF multivitamin [Daily-Rachele] Tablet 1 tab PO DAILY Qty: 30 0RF hydroxyzine HCl 25 mg tablet 25 mg PO TID Qty: 90 0RF Vraylar 6 mg capsule 6 mg PO DAILY Qty: 30 0RF methadone [Methadose] 10 mg/mL concentrate 110 mg PO DAILY Rx Instructions: Partial Fill upon patient request. Interventions: [place]-Suicide Risk Severity Scale Last Done: 12/18/23 16:42
[2023-12-18 17:01] LABS: MANUAL DIFF FLAG NO
[2023-12-18 17:03] LABS: Basophils Percent Auto 0.2 % (0-2); Eosinophils Percent Auto 0.1 % (0-4); Hematocrit 40.4 % (42.0-52.0); Hemoglobin 14.3 g/dl (14.0-18.0); Imm Gran Abs Auto 0.05 X10*3/uL (0.00-0.03); Imm Gran Pct Auto 0.4 % (0.0-0.4); Lymphocytes Absolute Auto 1.9 X10*3/uL (1.2-4.9); Lymphocytes Percent Auto 15.6 % (20-40); Mean Corpuscular HGB Conc 35.4 g/dl (31.0-36.0); Mean Corpuscular Hemoglobin 28.7 pg (27.0-33.0); Mean Corpuscular Volume 81.1 fL (80.0-98.0); Mean Platelet Volume 10.2 fL (9.4-12.4); Monocytes Absolute Auto 1.3 X10*3/uL (0.1-1.2); Monocytes Percent Auto 10.3 % (2-11); Neutrophils Absolute Auto 9.1 x10*3/uL (2.0-8.3); Neutrophils Percent Auto 73.4 % (45-73); Platelet Count 256 X10*3/uL (160-400); Red Blood Count 4.98 X10*6/uL (4.60-5.80); Red Cell Distribution Width 13.1 % (11.0-16.0); White Blood Count 12.4 X10*3/uL (4.8-10.8)
[2023-12-18 17:06] LABS: Appearance Urine Clear; Color Urine Dark Yellow; Glucose Urine UA 100 mg/dL (Negative); Leukocyte Esterase Urine Negative (Negative); Nitrite Urine Negative (Negative); Specific Gravity - Urine >= 1.030 (1.005-1.025); UMIC TRIGGER UA YES; Urine Blood Negative (Negative); Urine Ketones 80 mg/dL (Negative); Urine Protein 100 (2+) mg/dL (Neg-Trace)
[2023-12-18 17:09] LABS: Bacteria Urine None Seen (None Seen); Hyaline Casts Urine 0-2 /LPF (0-2); RBC Urine 0-2 /HPF (0-2); Squamous Epithelial Cell Urine 0-2 /HPF (0-2); WBC Urine 0-5 /HPF (0-5)
--- NOTE | 2023-12-18 17:11 | PC.NURSE ---
Patient presents to the ED today reporting increasing suicidal thoughts with no specific trigger. He reports he has been increasing his drug use over the past few days with hopes to overdose to end it all . Pt is calm and cooperative, wanting to seek help. he reports he has been admitted to in the past with positive outcomes of note: patient has numerous track higgins along both arms which he reports I used today and now they hurt . Both arms are warm to the touch and and extremely sensitive. MEET Melvin aware. Patient is also reporting 04/19 migraine
[2023-12-18 17:15] LABS: Amphetamine Screen Urine Not Detected (Not Detect); Barbiturates, Urine Not Detected (Not Detect); Benzodiazepines Screen Urine POSITIVE (Not Detect); Cannabinoid Screen Urine POSITIVE (Not Detect); Cocaine Screen Urine POSITIVE (Not Detect); Fentanyl, urine POSITIVE (Not Detect); Opiate Screen Urine POSITIVE (Not Detect); Phencyclidine Screen Urine Not Detected (Not Detect)
[2023-12-18 17:21] LABS: Acetaminophen LAB < 3 mcg/mL (<30); Alanine Aminotransferase 22 U/L (0-40); Albumin Level 5.2 g/dL (3.5-5.0); Alkaline Phosphatase 103 U/L (39-117); Anion Gap 17 (12-20); Aspartate Amino Transferase 38 U/L (5-37); Blood Urea Nitrogen 13 mg/dL (9-16); Carbon Dioxide 23 mmol/L (22-29); Chloride 101 mmol/L (96-108); Creatinine Clr Calc Pharmacy 123.8; Estimated Glomerular Filt Rate > 60; Ethanol < 10 mg/dL; Glucose Random 143 mg/dL (60-115); Potassium 3.3 mmol/L (3.3-5.1); Salicylate < 5.0 mg/dL (15-30); Sodium 138 mmol/L (135-145); Total Protein 8.7 g/dL (6.5-8.0)
--- NOTE | 2023-12-18 18:04 | HE.PHANOTE ---
Addendum entered by Nissa Ocasio [facility] 12/18/23 18:24: Last dose verification letter from [facility] was found by nurse Stephanie Taveras. Last dose was 110 mg given on 12/17/23 @0830 at [facility] per Jessie Jackson RN. Original Note: RE: METHADONE DOSING Last dose of methadone 100 mg was given on 12/11/23 0815 at [facility] per Rachel MCGILL. Also verified with nurse Stephanie Taveras that the date is correct (12/11/23).
[2023-12-18 18:16] LABS: IDNOW Serial# 6674DD1D
[2023-12-18 18:17] LABS: COVID-19 Test Negative (Negative)
--- NOTE | 2023-12-18 18:21 | PC.NURSE ---
RE: methadone This RN called [facility] in [place] to verify methadone dosing. Per ARTEM Ramos at [facility], the patient last dosed at the clinic on 12/10. Patient reports he dosed yesterday and that he has a last dose letter. Last dose letter found and faxed to pharmacy with methadone verification form. Patient currently takes 110 mg.
--- NOTE | 2023-12-18 19:30 | PC.NURSE ---
ssumed care of PT at 1915. PT moved to 6h due to smoke in pod. Sitter at bedside
--- NOTE | 2023-12-18 20:20 | PC.NURSE ---
Pt moved back to pod from main ED.
[2023-12-18] MEDS: OXcarbazepine 300 MG TABLET PO (21:23)
[2023-12-18] MEDS: cefuroxime axetiL 500 MG TABLET PO (21:23)
[2023-12-18] MEDS: hydrOXYzine HCL 25 MG TABLET PO (21:23)
[2023-12-18] MEDS: Doxycycline Monohydrate 100 MG CAPSULE PO (21:23)
[2023-12-18 21:28] VITALS: PULSE 91
[2023-12-18 21:30] VITALS: BP 150/88; PULSE 91; RESP 20; TEMP 37.2; O2SAT 97
--- NOTE | 2023-12-18 22:00 | MHC.CARE ---
Pt is being held on a section 12 in case he wants to leave. [facility] due to wanting to end his life by overdosing on opiates. He is agreeable to [facility].
[2023-12-18] MEDS: LORazepam 1 MG TABLET 2 MG PO (22:51)
--- NOTE | 2023-12-18 22:51 | PC.NURSE ---
PT COW 10 and pt reporting 07/20. Discussed with Ngozi Mandujano. Administered medications as per MAR>
[2023-12-19] MEDS: Omeprazole 20 MG CAPSULE.DR PO (06:22)
[2023-12-19 06:43] VITALS: BP 112/82; PULSE 103; RESP 16; TEMP 37.2; O2SAT 98
--- NOTE | 2023-12-19 07:27 | PC.NURSE ---
Assumed care of patient at 0650, patient appears to be sleeping, respirations even and unlabored, no apparent distress noted. Patient was placed on Sec 12 overnight and is currently pending inpatient bedsearch
[2023-12-19] MEDS: hydrOXYzine HCL 25 MG TABLET PO ×3 (08:18→19:57)
[2023-12-19] MEDS: methADONE HCl 20 MG/2 ML ORAL.CONC 110 MG PO (08:18)
[2023-12-19] MEDS: Cariprazine HCl 3 MG CAPSULE 6 MG PO (08:18)
[2023-12-19] MEDS: OXcarbazepine 300 MG TABLET PO ×2 (08:18→19:57)
[2023-12-19] MEDS: cefuroxime axetiL 500 MG TABLET PO ×2 (08:27→19:57)
[2023-12-19] MEDS: Multivitamin TABLET 1 TAB PO (08:27)
[2023-12-19] MEDS: Doxycycline Monohydrate 100 MG CAPSULE PO ×2 (08:27→19:57)
[2023-12-19 14:43] VITALS: BP 125/80; PULSE 103; RESP 14; TEMP 36.4; O2SAT 96
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
--- NOTE | 2023-12-19 19:19 | PC.NURSE ---
patient appears to remain asleep at present respirations are even and unlabored patient appears in no distress
[2023-12-19 20:13] VITALS: BP 117/86; PULSE 105; RESP 18; TEMP 37.6; O2SAT 97
[2023-12-19] MEDS: Bacitracin Oint 0.9 GM PACKET 1 APPL TOPICAL (21:21)
[2023-12-19] MEDS: Ibuprofen 600 MG TABLET PO (22:11)
--- NOTE | 2023-12-20 | ECG_ITS ---
Test Reason : QT INTERVAL Blood Pressure : / mmHG Vent. Rate : 081 BPM Atrial Rate : 081 BPM P-R Int : 140 ms QRS Dur : 092 ms QT Int : 408 ms P-R-T Axes : 032 057 023 degrees QTc Int : 473 ms Normal sinus rhythm Normal ECG When compared with ECG of 26-AUG-2023 13:23, No significant change was found Referred By: Ngozi Mandujano Electronically Signed By:DEREK BUSTOS MD
[2023-12-20] MEDS: Omeprazole 20 MG CAPSULE.DR PO (06:31)
[2023-12-20 06:34] VITALS: BP 114/63; PULSE 76; RESP 16; TEMP 36.7; O2SAT 97
--- NOTE | 2023-12-20 07:00 | PC.NURSE ---
Assumed care of patient at 0645, patient appears to be sleeping, respirations even and unlabored, no apparent distress noted. continue plan of care for Sec 12, inpt bedsearch
[2023-12-20] MEDS: cefuroxime axetiL 500 MG TABLET PO ×2 (08:41→21:48)
[2023-12-20] MEDS: OXcarbazepine 300 MG TABLET PO ×2 (08:41→21:48)
[2023-12-20] MEDS: Doxycycline Monohydrate 100 MG CAPSULE PO ×2 (08:41→21:49)
[2023-12-20] MEDS: methADONE HCl 20 MG/2 ML ORAL.CONC 110 MG PO (08:41)
[2023-12-20] MEDS: Cariprazine HCl 3 MG CAPSULE 6 MG PO (08:41)
[2023-12-20] MEDS: hydrOXYzine HCL 25 MG TABLET PO ×3 (08:41→21:47)
[2023-12-20] MEDS: Multivitamin TABLET 1 TAB PO (08:41)
[2023-12-20 12:53] LABS: COVID-19 Test Negative (Negative); IDNOW Serial# 152EDE1D
[2023-12-20 15:05] VITALS: BP 140/84; PULSE 91; RESP 18; TEMP 36.2; O2SAT 98
[2023-12-20 15:06] VITALS: BMI 29.4
[2023-12-20] MEDS: Acetaminophen 325 MG TABLET 650 MG PO (17:02)
[2023-12-20 17:35] VITALS: BP 124/81; PULSE 92; TEMP 36.7
[2023-12-20] MEDS: Nicotine Polacrilex Lozenge 4 MG LOZENGE BUCCAL ×2 (17:40→21:54)
[2023-12-20] MEDS: LORazepam 1 MG TABLET 2 MG PO (17:40)
[2023-12-20] MEDS: QUEtiapine Fumarate 50 MG TABLET PO (21:47)
[2023-12-20] MEDS: OLANZapine 5 MG TABLET PO (21:48)
[2023-12-20] MEDS: LORazepam 1 MG TABLET PO (21:54)
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
[2023-12-21] MEDS: Omeprazole 20 MG CAPSULE.DR PO (05:34)
[2023-12-21 08:00] VITALS: BP 114/61; PULSE 81; RESP 16; TEMP 36.2; O2SAT 97
[2023-12-21] MEDS: cefuroxime axetiL 500 MG TABLET PO ×2 (08:14→21:36)
[2023-12-21] MEDS: Folic Acid 1 MG TABLET PO (08:14)
[2023-12-21] MEDS: hydrOXYzine HCL 25 MG TABLET PO ×3 (08:14→21:36)
[2023-12-21] MEDS: Multivitamin TABLET 1 TAB PO (08:15)
[2023-12-21] MEDS: Cariprazine HCl 3 MG CAPSULE 6 MG PO (08:15)
[2023-12-21] MEDS: methADONE HCl 20 MG/2 ML ORAL.CONC 110 MG PO (08:15)
[2023-12-21] MEDS: Doxycycline Monohydrate 100 MG CAPSULE PO ×2 (08:15→21:36)
[2023-12-21] MEDS: Thiamine HCL 100 MG TABLET PO (08:15)
[2023-12-21] MEDS: OXcarbazepine 300 MG TABLET PO ×2 (08:15→21:36)
[2023-12-21 09:53] LABS: Alanine Aminotransferase 47 U/L (0-40); Albumin Level 4.4 g/dL (3.5-5.0); Alkaline Phosphatase 98 U/L (39-117); Anion Gap 12 (12-20); Aspartate Amino Transferase 40 U/L (5-37); Bilirubin Total 0.6 mg/dL (0.0-1.0); Blood Urea Nitrogen 10 mg/dL (9-16); Calcium 9.7 mg/dL (8.4-10.2); Carbon Dioxide 28 mmol/L (22-29); Chloride 104 mmol/L (96-108); Creatinine Clr Calc Pharmacy 139.9; Estimated Glomerular Filt Rate > 60; Glucose Fasting 127 mg/dL (60-99); Potassium 3.6 mmol/L (3.3-5.1); Sodium 140 mmol/L (135-145); Total Protein 7.7 g/dL (6.5-8.0)
[2023-12-21] MEDS: Nicotine Polacrilex Lozenge 4 MG LOZENGE BUCCAL ×2 (10:26→14:03)
[2023-12-21] MEDS: QUEtiapine Fumarate 50 MG TABLET PO (12:18)
--- NOTE | 2023-12-21 14:00 | MHC.CLN ---
RE: CONSULT LOSS OF 25% OVER 3 MONTHS HT 66 WT 182# IBW 142#+/-10% BMI 23 WNL PT IS 128% IBW INDICATES OBESE FOR HT PT STATES HE LOST 25# OVER 3 MONTHS PT ALSO POSITIVE FOR POLY SUBSTANCE ABUSE UPON ADMISSION (WITH HOMELESSNESS) MAY BE CONTRIBUTOR TO WT LOSS PREVIOUS WT HX REVEALS: CURRENT WT 82.6KG (12/20/23) 09/02/23 WT 87.2 KG PT WITH 5% NONSIGNIFICANT WT LOSS X 3MONTHS (PT LOST 9#) 06/20/23 WT 81.6 KG PT WITH 1% NONSIGNIFICANT WT GAIN X 6 MONTHS NO SIGNIFICANT WT CHANGES NOTED LABS UNREMARKABLE DIET RX: REGULAR-APPROPRIATE NO NEW ORDERS MONITOR PO INTAKE CLOSELY
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
[2023-12-21] MEDS: Baclofen 10 MG TABLET 5 MG PO ×2 (15:19→21:34)
[2023-12-21 17:45] VITALS: BP 132/85; PULSE 107; RESP 16; TEMP 35.9; O2SAT 98
[2023-12-22] MEDS: Omeprazole 20 MG CAPSULE.DR PO (05:54)
[2023-12-22] MEDS: methADONE HCl 20 MG/2 ML ORAL.CONC 110 MG PO (08:07)
[2023-12-22] MEDS: Baclofen 10 MG TABLET 5 MG PO ×2 (08:08→19:43)
[2023-12-22] MEDS: hydrOXYzine HCL 25 MG TABLET PO ×3 (08:08→19:43)
[2023-12-22] MEDS: Doxycycline Monohydrate 100 MG CAPSULE PO ×2 (08:09→19:43)
[2023-12-22] MEDS: Multivitamin TABLET 1 TAB PO (08:09)
[2023-12-22] MEDS: Cariprazine HCl 3 MG CAPSULE 6 MG PO (08:09)
[2023-12-22] MEDS: cefuroxime axetiL 500 MG TABLET PO ×2 (08:09→19:43)
[2023-12-22] MEDS: Folic Acid 1 MG TABLET PO (08:09)
[2023-12-22] MEDS: OXcarbazepine 300 MG TABLET PO ×2 (08:09→19:43)
[2023-12-22] MEDS: Thiamine HCL 100 MG TABLET PO (08:09)
[2023-12-22 08:10] VITALS: BP 120/83; PULSE 81; RESP 18; TEMP 35.9; O2SAT 96
[2023-12-22] MEDS: Nicotine Polacrilex Lozenge 4 MG LOZENGE BUCCAL ×3 (09:24→19:47)
--- NOTE | 2023-12-22 09:45 | P.PNPSI_ITS ---
Subjective Subjective Date of Service: 12/22/23 Reason For Visit: depression/SI Interim History: met with patient; discussed with team some hiccups last night; none today; will stay on baclofen for a few more days mood is a little better today; showered, eating; troubled sleep less anxiety but still lot of worries about relapse some intermittent AH shared that in past was sober for 6 months at a program, good mood, back with family, back with girlfriend; at that time too all of sudden got an overwhelming panic attack which derailed tx panic attacks include: -loss of control, agitation, chest tightness, pressure, hard to breath, palpitations, sweating profusely, hot flashes, get shakes, blurry vision, ominous feelings..5 to 20 minutes -despartely wants to isolate so have more control of surroundings -severity can vary -sometimes no warning; sometimes can tell if deep sigh is first sign...next foot/hand shaking (restlessness) or sweaty otherwise: mind wanders alot; sometimes races, hard to focus talking excessively, forget and losing items; would do homework but then forget homework at home liked school, got good grades discussed meds: -will try Prozac to see if can reduce or even eliminate panic attacks; also try cloninidine scheduled -discussed seroquel which patient said was there for sleep; will try without for a few more days and add if needed. -DC trazodone gives vivid nightmares Diagnostics Vital Signs (24Hr): Vital Signs - 24 hr 12/21/23 17:45 12/22/23 08:10 Temperature 96.7 F L 96.6 F L Pulse Rate 107 H 81 Respiratory Rate 16 18 Blood Pressure 132/85 120/83 Pulse Oximetry 98 96 Oxygen Delivery Method Room Air Room Air BMI result Body Mass Index 29.4 Labs 12/18/23 16:48 12/21/23 09:29 Labs: Laboratory Results - last 48 hr 12/20/23 12/21/23 12:32 09:29 Sodium 140 Potassium 3.6 Chloride 104 Carbon Dioxide 28 Anion Gap 12 BUN 10 Creatinine 0.80 Estim Creat Clear Calc 139.9 Estimated GFR > 60 Fasting Glucose 127 H Calcium 9.7 Total Bilirubin 0.6 AST 40 H ALT 47 H Alkaline Phosphatase 98 Total Protein 7.7 Albumin 4.4 COVID-19 ([facility]) Negative COVID-19 Clin Com See Note Medications Medications Current Medications Acetaminophen (Acetaminophen 325 Mg Tablet) 650 mg PO Q6H PRN PRN Reason: Headache/Pain Mild Scale(1-10) Al Hydroxide/Mg Hydroxide (Magnesium Hydrox/Alum Hydrox 30 Ml Oral.Susp) 30 ml PO Q6H PRN PRN Reason: Heartburn/Nausea Baclofen (Baclofen 10 Mg Tablet) 5 mg PO BID [facility] Last Admin: 12/22/23 08:08 Dose: 5 mg Cariprazine (Cariprazine Hcl 3 Mg Capsule) 6 mg PO DAILY [facility] Last Admin: 12/22/23 08:09 Dose: 6 mg Cefuroxime Axetil (Cefuroxime Axetil 500 Mg Tablet) 500 mg PO BID [facility] Stop: 12/25/23 20:59 Last Admin: 12/22/23 08:09 Dose: 500 mg Clonidine HCl (Clonidine Hcl 0.1 Mg Tablet) 0.1 mg PO Q4H PRN; Protocol PRN Reason: anxiety/withdrawal symptoms Doxycycline Monohydrate (Doxycycline Monohydrate 100 Mg Capsule) 100 mg PO BID [facility] Stop: 12/25/23 20:59 Last Admin: 12/22/23 08:09 Dose: 100 mg Folic Acid (Folic Acid 1 Mg Tablet) 1 mg PO DAILY [facility] Last Admin: 12/22/23 08:09 Dose: 1 mg Hydroxyzine HCl (Hydroxyzine Hcl 25 Mg Tablet) 25 mg PO TID [facility] Last Admin: 12/22/23 08:08 Dose: 25 mg Hydroxyzine HCl (Hydroxyzine Hcl 25 Mg Tablet) 25 mg PO Q6H PRN PRN Reason: Anxiety Magnesium Hydroxide (Milk Of Magnesia 30 Ml Oral.Susp) 30 ml PO DAILY PRN PRN Reason: Constipation Methadone HCl (Methadone Hcl 20 Mg/2 Ml Oral.Conc) 110 mg PO DAILY [facility] Last Admin: 12/22/23 08:07 Dose: 110 mg Multivitamins/Vitamin C (Multivitamin Tablet) 1 tab PO DAILY [facility] Last Admin: 12/22/23 08:13 Dose: Not Given Nicotine (Nicotine 21 Mg Patch.Td24) 21 mg TRANSDERMA DAILY PRN PRN Reason: smoking cessation Nicotine Polacrilex (Nicotine Polacrilex Lozenge 4 Mg Lozenge) 4 mg BUCCAL Q2H PRN PRN Reason: Nicotine Cravings Last Admin: 12/22/23 09:24 Dose: 4 mg Nicotine Polacrilex (Nicotine Polacrilex 2 Mg Gum) 4 mg BUCCAL Q2H PRN PRN Reason: Nicotine Cravings Olanzapine (Olanzapine 5 Mg Tablet) 5 mg PO TID PRN PRN Reason: agitation Last Admin: 12/20/23 21:48 Dose: 5 mg Omeprazole (Omeprazole 20 Mg Capsule.Dr) 20 mg PO DAILY@0630 [facility] Last Admin: 12/22/23 05:54 Dose: 20 mg Oxcarbazepine (Oxcarbazepine 300 Mg Tablet) 300 mg PO BID [facility] Last Admin: 12/22/23 08:09 Dose: 300 mg Quetiapine Fumarate (Quetiapine Fumarate 50 Mg Tablet) 50 mg PO BID PRN PRN Reason: perceptual alterations Last Admin: 12/21/23 12:18 Dose: 50 mg Thiamine HCl (Thiamine Hcl 100 Mg Tablet) 100 mg PO DAILY [facility] Last Admin: 12/22/23 08:09 Dose: 100 mg Trazodone HCl (Trazodone Hcl 50 Mg Tablet) 50 mg PO BEDTIME [id number] PRN PRN Reason: Insomnia Allergies Allergies Allergy/AdvReac Type Severity Reaction Status Date / Time No Known Allergies Allergy Verified 12/18/23 17:40 [No Known Allergies*] Assessment & Plan Assessment & Plan (1) Schizoaffective disorder, depressive type: Status: Acute Code(s): F25.1 - Schizoaffective disorder, depressive type (2) PTSD (post-traumatic stress disorder): Status: Acute Code(s): F43.10 - Post-traumatic stress disorder, unspecified (3) Opioid use disorder: Status: Acute Code(s): F11.90 - Opioid use, unspecified, uncomplicated (4) Thrombophlebitis: Status: Acute Code(s): I80.9 - Phlebitis and thrombophlebitis of unspecified site Plan HPI: pt is a 28 yo male with hx of schizoaffective disorder, depressed type, PTSD, opioid use disorder on methadone who presents for worsening depression and SI in face of going off medications and relapse. Pt reports at last admission Sep 2023 he ended up doing well, good mood, anxiety reduced (though still with panic attacks) and went to a program where he continued to do well, good mood, on list for sober housing...about 3 weeks into program pt had a sudden, severe panic attack; he could not stop it and all he could think of was leaving program and using. He says in the moment, all he cares about is getting rid of the panic and has no further room to consider consequences. Pt left, relapsed, stopped taking medications and depression quickly worsened; pt homeless, embroiled in substance abuse became despondent, hopeless and suicidal. He started developing vague plan so self-presented to ED for help. Denies hx of manic type episodes; has intermittent AH independent of depression, substance abuse...no alcohol abuse; no intentional cocaine use. Currently with AH and passive SI. Wants to get back on medications. Impression: meets criteria for schizoaffective disorder, depressed type Patient is significantly depressed; medications help w/ mood but have not eliminated panic attacks which seem to derail progress made. Addiction issues and hx of trauma with ptsd symptoms clearly contribute. Will restart most home meds from recent admission since they were helpful -pt also reports 2-3 days of constant hiccups, waking him up from sleep (and clearly present); pt agrees to start Baclofen Hospital course: 12/21 some hiccups last night; none today; will stay on baclofen for a few more days mood is a little better today; showered, eating; troubled sleep; intermittent AH Discussed history of panic and how it has derailed treatment in the past; discussed quality of panic and patient will try to be aware of pending panic attack to take medication Discussed other history and sounds like patient may have ADHD which could be explored as an outpatient discussed meds: -will try Prozac to see if can reduce or even eliminate panic attacks; also try cloninidine scheduled -discussed seroquel which patient said was there for sleep; will try without for a few more days and add if needed. DC trazodone gives vivid nightmares -will also add Ativan as a p.r.n. for panic only; despite his hx of substance abuse and associated risks of combining with benzos, there is no other way to prevent a pending panic attack than a benzo; given the fact that panic derails prgress, that he is often in a program where medications are dispensed by staff and an outpatient he only needs 2 tabs a week... It is policy writer's opinion that the potential benefits outweigh the obvious risks -risks/side effects of medication regimen reviewed with patient understood and wants to proceed PLAN: CV q15min Start Prozac 10 mg daily for anxiety/panic Add Ativan p.r.n. only used for for pending panic attack Scheduled clonidine 0.1 mg 0900/1300 to help prevent panic Continue Baclofen 5mg BID for hiccups; will continue for couple days to make sure hiccups do not return Continue Vraylar 6mg Continue Trileptal 300mg BID Ceftin/Doxycycline for thrombophlepitis/prevent cellulitis Continue Methadone home dose hold off on restarting Seroquel 200mg qhs for now Reviewed labs, lipids/HBA1C from recent admission a few months ago; no need to repeat at this time Patient educated on: diagnosis, medication risk/benefits, substance abuse and therapeutic strategies Informed Consent: understands Reason for continued inpatient stay Substantial Risk for: rapid decompensation Time Spent With Patient Time: Total time managing care of this patient today ____ minutes.
[2023-12-22] MEDS: QUEtiapine Fumarate 50 MG TABLET PO ×2 (11:44→16:26)
[2023-12-22] MEDS: cloNIDine HCL 0.1 MG TABLET PO ×2 (14:15→19:44)
[2023-12-22 14:19] VITALS: BP 137/97; PULSE 114
[2023-12-22] MEDS: OLANZapine 5 MG TABLET PO (15:19)
[2023-12-22 18:00] VITALS: BP 144/98; PULSE 92; RESP 18; TEMP 36.6; O2SAT 98
[2023-12-22 20:48] VITALS: BP 122/84; PULSE 95; RESP 16; TEMP 36.1; O2SAT 99
[2023-12-23] MEDS: Omeprazole 20 MG CAPSULE.DR PO (05:12)
[2023-12-23 07:00] VITALS: BMI 30.6
[2023-12-23 08:10] VITALS: BP 130/75; PULSE 83; RESP 16; TEMP 36.4; O2SAT 97
[2023-12-23] MEDS: Cariprazine HCl 3 MG CAPSULE 6 MG PO (08:13)
[2023-12-23] MEDS: methADONE HCl 20 MG/2 ML ORAL.CONC 110 MG PO (08:13)
[2023-12-23] MEDS: FLUoxetine HCl 10 MG CAPSULE PO (08:14)
[2023-12-23] MEDS: hydrOXYzine HCL 25 MG TABLET PO ×3 (08:14→19:47)
[2023-12-23] MEDS: Folic Acid 1 MG TABLET PO (08:14)
[2023-12-23] MEDS: Doxycycline Monohydrate 100 MG CAPSULE PO ×2 (08:14→19:47)
[2023-12-23] MEDS: Multivitamin TABLET 1 TAB PO (08:14)
[2023-12-23] MEDS: cloNIDine HCL 0.1 MG TABLET PO ×2 (08:14→14:23)
[2023-12-23] MEDS: cefuroxime axetiL 500 MG TABLET PO ×2 (08:14→19:48)
[2023-12-23] MEDS: Baclofen 10 MG TABLET 5 MG PO ×2 (08:14→19:46)
[2023-12-23] MEDS: Thiamine HCL 100 MG TABLET PO (08:15)
[2023-12-23] MEDS: OXcarbazepine 300 MG TABLET PO ×2 (08:15→19:46)
[2023-12-23] MEDS: Ondansetron ODT 4 MG TAB.RAPDIS TRANSLINGU (08:55)
[2023-12-23] MEDS: Nicotine Polacrilex Lozenge 4 MG LOZENGE BUCCAL ×3 (11:29→21:07)
[2023-12-23] MEDS: QUEtiapine Fumarate 50 MG TABLET PO ×2 (11:29→15:48)
[2023-12-23 14:27] VITALS: BP 122/76; PULSE 106
[2023-12-23 18:00] VITALS: BP 112/78; PULSE 92; RESP 18; TEMP 36.5; O2SAT 99
--- NOTE | 2023-12-23 18:12 | HO.PSYCHPN ---
Subjective Subjective Date of Service: 12/23/23 Reason For Visit: depression/SI Interim History: Met with patient; discussed with team Patient reports feeling depressed today, not sure why but a little better than on admission. Still very anxious though no panic. Patient took Prozac this morning and about 20 minutes later he vomited. He thinks it was probably due to the Prozac but he has not sure. He agrees to try again tomorrow; otherwise he agrees to switch to a different SSRI. Patient appropriate with peers and staff, going to groups and remains engaged with treatment Diagnostics Vital Signs (24Hr): Vital Signs - 24 hr 12/22/23 20:48 12/23/23 08:10 12/23/23 14:27 Temperature 97.0 F 97.6 F Pulse Rate 95 83 106 H Respiratory Rate 16 16 Blood Pressure 122/84 130/75 122/76 Pulse Oximetry 99 97 Oxygen Delivery Method Room Air Room Air BMI result Body Mass Index 30.6 Labs 12/18/23 16:48 12/21/23 09:29 Medications Medications Current Medications Acetaminophen (Acetaminophen 325 Mg Tablet) 650 mg PO Q6H PRN PRN Reason: Headache/Pain Mild Scale(1-10) Al Hydroxide/Mg Hydroxide (Magnesium Hydrox/Alum Hydrox 30 Ml Oral.Susp) 30 ml PO Q6H PRN PRN Reason: Heartburn/Nausea Baclofen (Baclofen 10 Mg Tablet) 5 mg PO BID PRN PRN Reason: Hiccups Baclofen (Baclofen 10 Mg Tablet) 5 mg PO BID [facility] Stop: 12/23/23 23:00 Cariprazine (Cariprazine Hcl 3 Mg Capsule) 6 mg PO DAILY [facility] Last Admin: 12/23/23 08:13 Dose: 6 mg Cefuroxime Axetil (Cefuroxime Axetil 500 Mg Tablet) 500 mg PO BID [facility] Stop: 12/25/23 20:59 Last Admin: 12/23/23 08:14 Dose: 500 mg Clonidine HCl (Clonidine Hcl 0.1 Mg Tablet) 0.1 mg PO Q4H PRN; Protocol PRN Reason: anxiety/withdrawal symptoms Last Admin: 12/22/23 19:44 Dose: 0.1 mg Clonidine HCl (Clonidine Hcl 0.1 Mg Tablet) 0.1 mg PO BID@0900,1300 [facility]; Protocol Last Admin: 12/23/23 14:23 Dose: 0.1 mg Doxycycline Monohydrate (Doxycycline Monohydrate 100 Mg Capsule) 100 mg PO BID [facility] Stop: 12/25/23 20:59 Last Admin: 12/23/23 08:14 Dose: 100 mg Fluoxetine HCl (Fluoxetine Hcl 10 Mg Capsule) 10 mg PO DAILY [facility] Last Admin: 12/23/23 08:14 Dose: 10 mg Folic Acid (Folic Acid 1 Mg Tablet) 1 mg PO DAILY [facility] Last Admin: 12/23/23 08:14 Dose: 1 mg Hydroxyzine HCl (Hydroxyzine Hcl 25 Mg Tablet) 25 mg PO TID [facility] Last Admin: 12/23/23 14:23 Dose: 25 mg Hydroxyzine HCl (Hydroxyzine Hcl 25 Mg Tablet) 25 mg PO Q6H PRN PRN Reason: Anxiety Lorazepam (Lorazepam 1 Mg Tablet) 1 mg PO DAILY PRN PRN Reason: To PREVENT panic Magnesium Hydroxide (Milk Of Magnesia 30 Ml Oral.Susp) 30 ml PO DAILY PRN PRN Reason: Constipation Methadone HCl (Methadone Hcl 20 Mg/2 Ml Oral.Conc) 110 mg PO DAILY [facility] Last Admin: 12/23/23 08:13 Dose: 110 mg Multivitamins/Vitamin C (Multivitamin Tablet) 1 tab PO DAILY [facility] Last Admin: 12/23/23 08:14 Dose: 1 tab Nicotine (Nicotine 21 Mg Patch.Td24) 21 mg TRANSDERMA DAILY PRN PRN Reason: smoking cessation Nicotine Polacrilex (Nicotine Polacrilex Lozenge 4 Mg Lozenge) 4 mg BUCCAL Q2H PRN PRN Reason: Nicotine Cravings Last Admin: 12/23/23 15:48 Dose: 4 mg Nicotine Polacrilex (Nicotine Polacrilex 2 Mg Gum) 4 mg BUCCAL Q2H PRN PRN Reason: Nicotine Cravings Olanzapine (Olanzapine 5 Mg Tablet) 5 mg PO TID PRN PRN Reason: agitation Last Admin: 12/22/23 15:19 Dose: 5 mg Omeprazole (Omeprazole 20 Mg Capsule.Dr) 20 mg PO DAILY@0630 [facility] Last Admin: 12/23/23 05:12 Dose: 20 mg Ondansetron HCl (Ondansetron Odt 4 Mg Tab.Rapdis) 4 mg TRANSLINGU Q6H PRN PRN Reason: Nausea and Vomiting Oxcarbazepine (Oxcarbazepine 300 Mg Tablet) 300 mg PO BID [facility] Last Admin: 12/23/23 08:15 Dose: 300 mg Quetiapine Fumarate (Quetiapine Fumarate 50 Mg Tablet) 50 mg PO BID PRN PRN Reason: perceptual alterations Last Admin: 12/23/23 15:48 Dose: 50 mg Thiamine HCl (Thiamine Hcl 100 Mg Tablet) 100 mg PO DAILY [facility] Last Admin: 12/23/23 08:15 Dose: 100 mg Allergies Allergies Allergy/AdvReac Type Severity Reaction Status Date / Time No Known Allergies Allergy Verified 12/18/23 17:40 [No Known Allergies*] Assessment & Plan Assessment & Plan (1) Schizoaffective disorder, depressive type: Status: Acute Code(s): F25.1 - Schizoaffective disorder, depressive type (2) PTSD (post-traumatic stress disorder): Status: Acute Code(s): F43.10 - Post-traumatic stress disorder, unspecified (3) Opioid use disorder: Status: Acute Code(s): F11.90 - Opioid use, unspecified, uncomplicated (4) Thrombophlebitis: Status: Acute Code(s): I80.9 - Phlebitis and thrombophlebitis of unspecified site Plan HPI: pt is a 28 yo male with hx of schizoaffective disorder, depressed type, PTSD, opioid use disorder on methadone who presents for worsening depression and SI in face of going off medications and relapse. Pt reports at last admission Sep 2023 he ended up doing well, good mood, anxiety reduced (though still with panic attacks) and went to a program where he continued to do well, good mood, on list for sober housing...about 3 weeks into program pt had a sudden, severe panic attack; he could not stop it and all he could think of was leaving program and using. He says in the moment, all he cares about is getting rid of the panic and has no further room to consider consequences. Pt left, relapsed, stopped taking medications and depression quickly worsened; pt homeless, embroiled in substance abuse became despondent, hopeless and suicidal. He started developing vague plan so self-presented to ED for help. Denies hx of manic type episodes; has intermittent AH independent of depression, substance abuse...no alcohol abuse; no intentional cocaine use. Currently with AH and passive SI. Wants to get back on medications. Impression: meets criteria for schizoaffective disorder, depressed type Patient is significantly depressed; medications help w/ mood but have not eliminated panic attacks which seem to derail progress made. Addiction issues and hx of trauma with ptsd symptoms clearly contribute. Will restart most home meds from recent admission since they were helpful -pt also reports 2-3 days of constant hiccups, waking him up from sleep (and clearly present); pt agrees to start Baclofen Hospital course: 12/21 some hiccups last night; none today; will stay on baclofen for a few more days mood is a little better today; showered, eating; troubled sleep; intermittent AH Discussed history of panic and how it has derailed treatment in the past; discussed quality of panic and patient will try to be aware of pending panic attack to take medication Discussed other history and sounds like patient may have ADHD which could be explored as an outpatient discussed meds: -will try Prozac to see if can reduce or even eliminate panic attacks; also try cloninidine scheduled -discussed seroquel which patient said was there for sleep; will try without for a few more days and add if needed. DC trazodone gives vivid nightmares -will also add Ativan as a p.r.n. for panic only; despite his hx of substance abuse and associated risks of combining with benzos, there is no other way to prevent a pending panic attack than a benzo; given the fact that panic derails prgress, that he is often in a program where medications are dispensed by staff and an outpatient he only needs 2 tabs a week... It is newspaper writer's opinion that the potential benefits outweigh the obvious risks -risks/side effects of medication regimen reviewed with patient understood and wants to proceed 12/22 Patient reports feeling depressed today, not sure why but a little better than on admission. Still very anxious though no panic. Patient took Prozac this morning and about 20 minutes later he vomited. He thinks it was probably due to the Prozac but he has not sure. He agrees to try again tomorrow; otherwise he agrees to switch to a different SSRI. Patient appropriate with peers and staff, going to groups and remains engaged with treatment -reports sleeping well enough PLAN: CV q15min continue Prozac 10 mg daily for anxiety/panic Add Ativan p.r.n. only used for for pending panic attack Scheduled clonidine 0.1 mg 0900/1300 to help prevent panic Switch to p.r.n. Baclofen 5mg BID if hiccups return Continue Vraylar 6mg Continue Trileptal 300mg BID Ceftin/Doxycycline for thrombophlepitis/prevent cellulitis Continue Methadone home dose hold off on restarting Seroquel 200mg qhs for now Reviewed labs, lipids/HBA1C from recent admission a few months ago; no need to repeat at this time Patient educated on: diagnosis, medication risk/benefits and therapeutic strategies Informed Consent: understands Reason for continued inpatient stay Substantial Risk for: rapid decompensation Time Spent With Patient Time: Total time managing care of this patient today ____ minutes.
[2023-12-24] MEDS: Omeprazole 20 MG CAPSULE.DR PO (05:10)
[2023-12-24] MEDS: FLUoxetine HCl 10 MG CAPSULE PO (08:05)
[2023-12-24] MEDS: methADONE HCl 20 MG/2 ML ORAL.CONC 110 MG PO (09:14)
[2023-12-24] MEDS: Thiamine HCL 100 MG TABLET PO (09:15)
[2023-12-24] MEDS: OXcarbazepine 300 MG TABLET PO ×2 (09:15→21:49)
[2023-12-24] MEDS: Folic Acid 1 MG TABLET PO (09:15)
[2023-12-24] MEDS: cloNIDine HCL 0.1 MG TABLET PO ×2 (09:15→14:37)
[2023-12-24] MEDS: Doxycycline Monohydrate 100 MG CAPSULE PO ×2 (09:15→21:49)
[2023-12-24] MEDS: cefuroxime axetiL 500 MG TABLET PO ×2 (09:15→21:49)
[2023-12-24] MEDS: Multivitamin TABLET 1 TAB PO (09:15)
[2023-12-24] MEDS: hydrOXYzine HCL 25 MG TABLET PO ×3 (09:15→21:50)
[2023-12-24] MEDS: Cariprazine HCl 3 MG CAPSULE 6 MG PO (09:15)
[2023-12-24 09:47] VITALS: BP 143/87; PULSE 98; RESP 18; TEMP 36.1; O2SAT 98
[2023-12-24] MEDS: QUEtiapine Fumarate 50 MG TABLET PO ×2 (10:11→15:53)
[2023-12-24] MEDS: Nicotine Polacrilex Lozenge 4 MG LOZENGE BUCCAL (10:58)
--- NOTE | 2023-12-24 14:35 | P.PNPSI_ITS ---
Subjective Subjective Date of Service: 12/24/23 Reason For Visit: depression/SI Subjective Notes: Conditional Voluntary Healthcare Proxy: No Guardianship: No Medical Problems Affecting Mental Status: No Interim History: Tolerating Prozac initiation, however, does report nausea after taking dosage this a.m. Will continue trial over the weekend. Talking about his anxiety, panic and beginning to work with the team on mapping symptoms, precipitants and targeting interventions. Describes his panic sx as difficulty in being able to take a deep breath. Discussed his cycle of use of substances, mgt of sx and that he is not wanting to continue the current cycle of relapse as a management strategy. Medication Compliance: Yes Side effects from medications: No Attending Groups: Intermittent Review of Systems Acute medical concerns: No Medical Review of Systems: unchanged Review of Systems Review of Systems Yes all other systems are reviewed and are negative Mental Status Exam Mental Status Exam Patient Appearance: Fatigued and Appropriate Patient Orientation: Person, Place, Time and Situation Level of Consciousness: Alert Patient Behavior: Appropriate, Talkative, Cooperative and Good Eye Contact Mood Description: Constricted, Anxious and Apprehensive Affect Description: Constricted, Anxious and Apprehensive Patient Cognition Impaired: No Ability to Follow Directions: Good Speech Pattern: Spontaneous Speech Memory Description: Intact Hallucinations: None Delusions: Not Present Perceptual Disturbances: Depersonalization and Derealization Thought Process: Rumination Thought Content: positive for Perseveration Depressive Symptoms: Increased Anxiety Judgement: Fair Diagnostics Vital Signs (24Hr): Vital Signs - 24 hr 12/23/23 18:00 12/24/23 09:47 Temperature 97.7 F 97.0 F Pulse Rate 92 98 Respiratory Rate 18 18 Blood Pressure 112/78 143/87 H Pulse Oximetry 99 98 Oxygen Delivery Method Room Air Room Air BMI result Body Mass Index 30.6 Labs 12/18/23 16:48 12/21/23 09:29 Medications Medications Current Medications Acetaminophen (Acetaminophen 325 Mg Tablet) 650 mg PO Q6H PRN PRN Reason: Headache/Pain Mild Scale(1-10) Al Hydroxide/Mg Hydroxide (Magnesium Hydrox/Alum Hydrox 30 Ml Oral.Susp) 30 ml PO Q6H PRN PRN Reason: Heartburn/Nausea Baclofen (Baclofen 10 Mg Tablet) 5 mg PO BID PRN PRN Reason: Hiccups Cariprazine (Cariprazine Hcl 3 Mg Capsule) 6 mg PO DAILY [facility] Last Admin: 12/24/23 09:15 Dose: 6 mg Cefuroxime Axetil (Cefuroxime Axetil 500 Mg Tablet) 500 mg PO BID [facility] Stop: 12/25/23 20:59 Last Admin: 12/24/23 09:15 Dose: 500 mg Clonidine HCl (Clonidine Hcl 0.1 Mg Tablet) 0.1 mg PO Q4H PRN; Protocol PRN Reason: anxiety/withdrawal symptoms Last Admin: 12/22/23 19:44 Dose: 0.1 mg Clonidine HCl (Clonidine Hcl 0.1 Mg Tablet) 0.1 mg PO BID@0900,1300 [facility]; Protocol Last Admin: 12/24/23 09:15 Dose: 0.1 mg Doxycycline Monohydrate (Doxycycline Monohydrate 100 Mg Capsule) 100 mg PO BID [facility] Stop: 12/25/23 20:59 Last Admin: 12/24/23 09:15 Dose: 100 mg Fluoxetine HCl (Fluoxetine Hcl 10 Mg Capsule) 10 mg PO DAILY [facility] Last Admin: 12/24/23 08:05 Dose: 10 mg Folic Acid (Folic Acid 1 Mg Tablet) 1 mg PO DAILY [facility] Last Admin: 12/24/23 09:15 Dose: 1 mg Hydroxyzine HCl (Hydroxyzine Hcl 25 Mg Tablet) 25 mg PO TID [facility] Last Admin: 12/24/23 09:15 Dose: 25 mg Hydroxyzine HCl (Hydroxyzine Hcl 25 Mg Tablet) 25 mg PO Q6H PRN PRN Reason: Anxiety Lorazepam (Lorazepam 1 Mg Tablet) 1 mg PO DAILY PRN PRN Reason: To PREVENT panic Magnesium Hydroxide (Milk Of Magnesia 30 Ml Oral.Susp) 30 ml PO DAILY PRN PRN Reason: Constipation Methadone HCl (Methadone Hcl 20 Mg/2 Ml Oral.Conc) 110 mg PO DAILY [facility] Last Admin: 12/24/23 09:14 Dose: 110 mg Multivitamins/Vitamin C (Multivitamin Tablet) 1 tab PO DAILY [facility] Last Admin: 12/24/23 09:15 Dose: 1 tab Nicotine (Nicotine 21 Mg Patch.Td24) 21 mg TRANSDERMA DAILY PRN PRN Reason: smoking cessation Nicotine Polacrilex (Nicotine Polacrilex Lozenge 4 Mg Lozenge) 4 mg BUCCAL Q2H PRN PRN Reason: Nicotine Cravings Last Admin: 12/24/23 10:58 Dose: 4 mg Nicotine Polacrilex (Nicotine Polacrilex 2 Mg Gum) 4 mg BUCCAL Q2H PRN PRN Reason: Nicotine Cravings Olanzapine (Olanzapine 5 Mg Tablet) 5 mg PO TID PRN PRN Reason: agitation Last Admin: 12/22/23 15:19 Dose: 5 mg Omeprazole (Omeprazole 20 Mg Capsule.Dr) 20 mg PO DAILY@0630 [facility] Last Admin: 12/24/23 05:10 Dose: 20 mg Ondansetron HCl (Ondansetron Odt 4 Mg Tab.Rapdis) 4 mg TRANSLINGU Q6H PRN PRN Reason: Nausea and Vomiting Oxcarbazepine (Oxcarbazepine 300 Mg Tablet) 300 mg PO BID [facility] Last Admin: 12/24/23 09:15 Dose: 300 mg Quetiapine Fumarate (Quetiapine Fumarate 50 Mg Tablet) 50 mg PO BID PRN PRN Reason: perceptual alterations Last Admin: 12/24/23 10:11 Dose: 50 mg Thiamine HCl (Thiamine Hcl 100 Mg Tablet) 100 mg PO DAILY [facility] Last Admin: 12/24/23 09:15 Dose: 100 mg Allergies Allergies Allergy/AdvReac Type Severity Reaction Status Date / Time No Known Allergies Allergy Verified 12/18/23 17:40 [No Known Allergies*] Assessment & Plan Assessment & Plan (1) Schizoaffective disorder, depressive type: Status: Acute Code(s): F25.1 - Schizoaffective disorder, depressive type (2) PTSD (post-traumatic stress disorder): Status: Acute Code(s): F43.10 - Post-traumatic stress disorder, unspecified (3) Opioid use disorder: Status: Acute Code(s): F11.90 - Opioid use, unspecified, uncomplicated (4) Thrombophlebitis: Status: Acute Code(s): I80.9 - Phlebitis and thrombophlebitis of unspecified site Plan HPI: pt is a 28 yo male with hx of schizoaffective disorder, depressed type, PTSD, opioid use disorder on methadone who presents for worsening depression and SI in face of going off medications and relapse. Pt reports at last admission Sep 2023 he ended up doing well, good mood, anxiety reduced (though still with panic attacks) and went to a program where he continued to do well, good mood, on list for sober housing...about 3 weeks into program pt had a sudden, severe panic attack; he could not stop it and all he could think of was leaving program and using. He says in the moment, all he cares about is getting rid of the panic and has no further room to consider consequences. Pt left, relapsed, stopped taking medications and depression quickly worsened; pt homeless, embroiled in substance abuse became despondent, hopeless and suicidal. He started developing vague plan so self-presented to ED for help. Denies hx of manic type episodes; has intermittent AH independent of depression, substance abuse...no alcohol abuse; no intentional cocaine use. Currently with AH and passive SI. Wants to get back on medications. Impression: meets criteria for schizoaffective disorder, depressed type Patient is significantly depressed; medications help w/ mood but have not eliminated panic attacks which seem to derail progress made. Addiction issues and hx of trauma with ptsd symptoms clearly contribute. Will restart most home meds from recent admission since they were helpful -pt also reports 2-3 days of constant hiccups, waking him up from sleep (and clearly present); pt agrees to start Baclofen Hospital course: 12/21 some hiccups last night; none today; will stay on baclofen for a few more days mood is a little better today; showered, eating; troubled sleep; intermittent AH Discussed history of panic and how it has derailed treatment in the past; discussed quality of panic and patient will try to be aware of pending panic attack to take medication Discussed other history and sounds like patient may have ADHD which could be explored as an outpatient discussed meds: -will try Prozac to see if can reduce or even eliminate panic attacks; also try cloninidine scheduled -discussed seroquel which patient said was there for sleep; will try without for a few more days and add if needed. DC trazodone gives vivid nightmares -will also add Ativan as a p.r.n. for panic only; despite his hx of substance abuse and associated risks of combining with benzos, there is no other way to prevent a pending panic attack than a benzo; given the fact that panic derails prgress, that he is often in a program where medications are dispensed by staff and an outpatient he only needs 2 tabs a week... It is publications writer's opinion that the potential benefits outweigh the obvious risks -risks/side effects of medication regimen reviewed with patient understood and wants to proceed 12/22 Patient reports feeling depressed today, not sure why but a little better than on admission. Still very anxious though no panic. Patient took Prozac this morning and about 20 minutes later he vomited. He thinks it was probably due to the Prozac but he has not sure. He agrees to try again tomorrow; otherwise he agrees to switch to a different SSRI. Patient appropriate with peers and staff, going to groups and remains engaged with treatment -reports sleeping well enough 12/24/23- Continue tx. Continue Prozac trial. PLAN: CV q15min continue Prozac 10 mg daily for anxiety/panic Add Ativan p.r.n. only used for for pending panic attack Scheduled clonidine 0.1 mg 0900/1300 to help prevent panic Switch to p.r.n. Baclofen 5mg BID if hiccups return Continue Vraylar 6mg Continue Trileptal 300mg BID Ceftin/Doxycycline for thrombophlepitis/prevent cellulitis Continue Methadone home dose hold off on restarting Seroquel 200mg qhs for now Reviewed labs, lipids/HBA1C from recent admission a few months ago; no need to repeat at this time Reason for continued inpatient stay Substantial Risk for: rapid decompensation Time Spent With Patient Time: Total time managing care of this patient today ____ minutes.
[2023-12-24 14:38] VITALS: BP 119/78; PULSE 95
[2023-12-24] MEDS: LORazepam 1 MG TABLET PO (16:43)
[2023-12-24 18:00] VITALS: BP 125/86; PULSE 107; RESP 16
--- NOTE | 2023-12-25 08:08 | P.PNPSI_ITS ---
Subjective Subjective Date of Service: 12/25/23 Reason For Visit: depression/SI Subjective Notes: Conditional Voluntary Interim History: Patient seen and discussed in rounds today. Records and plans were reviewed. He continues to struggle with anxiety. He continues to have some nausea with Prozac. Eating and sleeping adequately. No reports of vomiting. No other complaints. No changes were made today Review of Systems Review of Systems Nausea Yes all other systems are reviewed and are negative Mental Status Exam Mental Status Exam Narrative: In today's visit he is alert, oriented and pleasant. Normal speech. The light contact. Affect is appropriate and somewhat anxious. No signs of psychosis. Cognitively is intact to observation. No SI. Judgment is intact Diagnostics Vital Signs (24Hr): Vital Signs - 24 hr 12/24/23 09:47 12/24/23 14:38 12/24/23 18:00 Temperature 97.0 F Pulse Rate 98 95 107 H Respiratory Rate 18 16 Blood Pressure 143/87 H 119/78 125/86 Pulse Oximetry 98 Oxygen Delivery Method Room Air BMI result Body Mass Index 30.6 Labs 12/18/23 16:48 12/21/23 09:29 Medications Medications Current Medications Acetaminophen (Acetaminophen 325 Mg Tablet) 650 mg PO Q6H PRN PRN Reason: Headache/Pain Mild Scale(1-10) Al Hydroxide/Mg Hydroxide (Magnesium Hydrox/Alum Hydrox 30 Ml Oral.Susp) 30 ml PO Q6H PRN PRN Reason: Heartburn/Nausea Baclofen (Baclofen 10 Mg Tablet) 5 mg PO BID PRN PRN Reason: Hiccups Cariprazine (Cariprazine Hcl 3 Mg Capsule) 6 mg PO DAILY [facility] Last Admin: 12/24/23 09:15 Dose: 6 mg Cefuroxime Axetil (Cefuroxime Axetil 500 Mg Tablet) 500 mg PO BID [facility] Stop: 12/25/23 20:59 Last Admin: 12/24/23 21:49 Dose: 500 mg Clonidine HCl (Clonidine Hcl 0.1 Mg Tablet) 0.1 mg PO Q4H PRN; Protocol PRN Reason: anxiety/withdrawal symptoms Last Admin: 12/22/23 19:44 Dose: 0.1 mg Clonidine HCl (Clonidine Hcl 0.1 Mg Tablet) 0.1 mg PO BID@0900,1300 [facility]; Protocol Last Admin: 12/24/23 14:37 Dose: 0.1 mg Doxycycline Monohydrate (Doxycycline Monohydrate 100 Mg Capsule) 100 mg PO BID [facility] Stop: 12/25/23 20:59 Last Admin: 12/24/23 21:49 Dose: 100 mg Fluoxetine HCl (Fluoxetine Hcl 10 Mg Capsule) 10 mg PO DAILY [facility] Last Admin: 12/24/23 08:05 Dose: 10 mg Folic Acid (Folic Acid 1 Mg Tablet) 1 mg PO DAILY [facility] Last Admin: 12/24/23 09:15 Dose: 1 mg Hydroxyzine HCl (Hydroxyzine Hcl 25 Mg Tablet) 25 mg PO TID [facility] Last Admin: 12/24/23 21:50 Dose: 25 mg Hydroxyzine HCl (Hydroxyzine Hcl 25 Mg Tablet) 25 mg PO Q6H PRN PRN Reason: Anxiety Lorazepam (Lorazepam 1 Mg Tablet) 1 mg PO DAILY PRN PRN Reason: To PREVENT panic Last Admin: 12/24/23 16:43 Dose: 1 mg Magnesium Hydroxide (Milk Of Magnesia 30 Ml Oral.Susp) 30 ml PO DAILY PRN PRN Reason: Constipation Methadone HCl (Methadone Hcl 20 Mg/2 Ml Oral.Conc) 110 mg PO DAILY [facility] Last Admin: 12/24/23 09:14 Dose: 110 mg Multivitamins/Vitamin C (Multivitamin Tablet) 1 tab PO DAILY [facility] Last Admin: 12/24/23 09:15 Dose: 1 tab Nicotine (Nicotine 21 Mg Patch.Td24) 21 mg TRANSDERMA DAILY PRN PRN Reason: smoking cessation Nicotine Polacrilex (Nicotine Polacrilex Lozenge 4 Mg Lozenge) 4 mg BUCCAL Q2H PRN PRN Reason: Nicotine Cravings Last Admin: 12/24/23 10:58 Dose: 4 mg Nicotine Polacrilex (Nicotine Polacrilex 2 Mg Gum) 4 mg BUCCAL Q2H PRN PRN Reason: Nicotine Cravings Olanzapine (Olanzapine 5 Mg Tablet) 5 mg PO TID PRN PRN Reason: agitation Last Admin: 12/22/23 15:19 Dose: 5 mg Omeprazole (Omeprazole 20 Mg Capsule.Dr) 20 mg PO DAILY@0630 [facility] Last Admin: 12/24/23 05:10 Dose: 20 mg Ondansetron HCl (Ondansetron Odt 4 Mg Tab.Rapdis) 4 mg TRANSLINGU Q6H PRN PRN Reason: Nausea and Vomiting Oxcarbazepine (Oxcarbazepine 300 Mg Tablet) 300 mg PO BID [facility] Last Admin: 12/24/23 21:49 Dose: 300 mg Quetiapine Fumarate (Quetiapine Fumarate 50 Mg Tablet) 50 mg PO BID PRN PRN Reason: perceptual alterations Last Admin: 12/24/23 15:53 Dose: 50 mg Thiamine HCl (Thiamine Hcl 100 Mg Tablet) 100 mg PO DAILY [facility] Last Admin: 12/24/23 09:15 Dose: 100 mg Allergies Allergies Allergy/AdvReac Type Severity Reaction Status Date / Time No Known Allergies Allergy Verified 12/18/23 17:40 [No Known Allergies*] Assessment & Plan Assessment & Plan (1) Schizoaffective disorder, depressive type: Status: Acute Code(s): F25.1 - Schizoaffective disorder, depressive type (2) PTSD (post-traumatic stress disorder): Status: Acute Code(s): F43.10 - Post-traumatic stress disorder, unspecified (3) Opioid use disorder: Status: Acute Code(s): F11.90 - Opioid use, unspecified, uncomplicated (4) Thrombophlebitis: Status: Acute Code(s): I80.9 - Phlebitis and thrombophlebitis of unspecified site Plan HPI: pt is a 28 yo male with hx of schizoaffective disorder, depressed type, PTSD, opioid use disorder on methadone who presents for worsening depression and SI in face of going off medications and relapse. Pt reports at last admission Sep 2023 he ended up doing well, good mood, anxiety reduced (though still with panic attacks) and went to a program where he continued to do well, good mood, on list for sober housing...about 3 weeks into program pt had a sudden, severe panic attack; he could not stop it and all he could think of was leaving program and using. He says in the moment, all he cares about is getting rid of the panic and has no further room to consider consequences. Pt left, relapsed, stopped taking medications and depression quickly worsened; pt homeless, embroiled in substance abuse became despondent, hopeless and suicidal. He started developing vague plan so self-presented to ED for help. Denies hx of manic type episodes; has intermittent AH independent of depression, substance abuse...no alcohol abuse; no intentional cocaine use. Currently with AH and passive SI. Wants to get back on medications. Impression: meets criteria for schizoaffective disorder, depressed type Patient is significantly depressed; medications help w/ mood but have not eliminated panic attacks which seem to derail progress made. Addiction issues and hx of trauma with ptsd symptoms clearly contribute. Will restart most home meds from recent admission since they were helpful -pt also reports 2-3 days of constant hiccups, waking him up from sleep (and clearly present); pt agrees to start Baclofen Hospital course: 12/21 some hiccups last night; none today; will stay on baclofen for a few more days mood is a little better today; showered, eating; troubled sleep; intermittent AH Discussed history of panic and how it has derailed treatment in the past; discussed quality of panic and patient will try to be aware of pending panic attack to take medication Discussed other history and sounds like patient may have ADHD which could be explored as an outpatient discussed meds: -will try Prozac to see if can reduce or even eliminate panic attacks; also try cloninidine scheduled -discussed seroquel which patient said was there for sleep; will try without for a few more days and add if needed. DC trazodone gives vivid nightmares -will also add Ativan as a p.r.n. for panic only; despite his hx of substance abuse and associated risks of combining with benzos, there is no other way to prevent a pending panic attack than a benzo; given the fact that panic derails prgress, that he is often in a program where medications are dispensed by staff and an outpatient he only needs 2 tabs a week... It is senior underwriter's opinion that the potential benefits outweigh the obvious risks -risks/side effects of medication regimen reviewed with patient understood and wants to proceed 12/22 Patient reports feeling depressed today, not sure why but a little better than on admission. Still very anxious though no panic. Patient took Prozac this morning and about 20 minutes later he vomited. He thinks it was probably due to the Prozac but he has not sure. He agrees to try again tomorrow; otherwise he agrees to switch to a different SSRI. Patient appropriate with peers and staff, going to groups and remains engaged with treatment -reports sleeping well enough 12/24/23- Continue tx. Continue Prozac trial. 12/25/2023: Continue current regimen and plans. PLAN: CV q15min continue Prozac 10 mg daily for anxiety/panic Add Ativan p.r.n. only used for for pending panic attack Scheduled clonidine 0.1 mg 0900/1300 to help prevent panic Switch to p.r.n. Baclofen 5mg BID if hiccups return Continue Vraylar 6mg Continue Trileptal 300mg BID Ceftin/Doxycycline for thrombophlepitis/prevent cellulitis Continue Methadone home dose hold off on restarting Seroquel 200mg qhs for now Reviewed labs, lipids/HBA1C from recent admission a few months ago; no need to repeat at this time Reason for continued inpatient stay Substantial Risk for: med/psych decompensation Time Spent With Patient Time: Total time managing care of this patient today ____ minutes.
[2023-12-25] MEDS: cloNIDine HCL 0.1 MG TABLET PO ×2 (08:49→15:06)
[2023-12-25] MEDS: Folic Acid 1 MG TABLET PO (08:49)
[2023-12-25] MEDS: FLUoxetine HCl 10 MG CAPSULE PO (08:49)
[2023-12-25] MEDS: Doxycycline Monohydrate 100 MG CAPSULE PO (08:49)
[2023-12-25] MEDS: Omeprazole 20 MG CAPSULE.DR PO (08:49)
[2023-12-25] MEDS: Cariprazine HCl 3 MG CAPSULE 6 MG PO (08:49)
[2023-12-25] MEDS: cefuroxime axetiL 500 MG TABLET PO (08:49)
[2023-12-25] MEDS: hydrOXYzine HCL 25 MG TABLET PO ×3 (08:49→20:41)
[2023-12-25] MEDS: OXcarbazepine 300 MG TABLET PO ×2 (08:49→20:40)
[2023-12-25] MEDS: methADONE HCl 20 MG/2 ML ORAL.CONC 110 MG PO (08:49)
[2023-12-25] MEDS: Multivitamin TABLET 1 TAB PO (08:49)
[2023-12-25] MEDS: Thiamine HCL 100 MG TABLET PO (08:49)
[2023-12-25 09:00] VITALS: BP 146/87; PULSE 75; RESP 18; TEMP 36.5; O2SAT 98
[2023-12-25] MEDS: QUEtiapine Fumarate 50 MG TABLET PO ×2 (10:36→17:00)
[2023-12-25 15:06] VITALS: BP 139/87; PULSE 98
[2023-12-25 16:55] VITALS: BP 122/70; PULSE 106; TEMP 36.2
[2023-12-25] MEDS: LORazepam 1 MG TABLET PO (20:40)
[2023-12-26] MEDS: Omeprazole 20 MG CAPSULE.DR PO (06:06)
[2023-12-26] MEDS: methADONE HCl 20 MG/2 ML ORAL.CONC 110 MG PO (07:58)
[2023-12-26] MEDS: Thiamine HCL 100 MG TABLET PO (07:58)
[2023-12-26] MEDS: FLUoxetine HCl 10 MG CAPSULE PO (07:58)
[2023-12-26] MEDS: Cariprazine HCl 3 MG CAPSULE 6 MG PO (07:58)
[2023-12-26] MEDS: Multivitamin TABLET 1 TAB PO (07:58)
[2023-12-26] MEDS: cloNIDine HCL 0.1 MG TABLET PO ×3 (07:58→20:46)
[2023-12-26] MEDS: hydrOXYzine HCL 25 MG TABLET PO ×3 (07:58→20:44)
[2023-12-26] MEDS: OXcarbazepine 300 MG TABLET PO ×2 (07:59→20:44)
[2023-12-26] MEDS: Folic Acid 1 MG TABLET PO (07:59)
[2023-12-26 08:02] VITALS: BP 120/72; PULSE 93; RESP 18; TEMP 36.7; O2SAT 97
--- NOTE | 2023-12-26 08:45 | HO.PSYCHPN ---
Subjective Subjective Date of Service: 12/26/23 Reason For Visit: depression/SI Subjective Notes: Conditional Voluntary Interim History: Patient seen and discussed in rounds today. Records and plans were reviewed. He he has been doing a little better but continues to have anxiety. No complaints of nausea. He states that he has not sleeping well and is interested in being on a medication. We discussed options and he states that previously he had done well on Seroquel 200 mg which I will prescribe for him. Other medications were reviewed. No other changes were made Review of Systems Review of Systems Sleep Yes all other systems are reviewed and are negative Mental Status Exam Mental Status Exam Narrative: In today's visit he is alert, oriented and pleasant. Normal speech. The light contact. Affect is appropriate and somewhat anxious. No signs of psychosis. Cognitively is intact to observation. No SI. Judgment is intact Diagnostics Vital Signs (24Hr): Vital Signs - 24 hr 12/25/23 09:00 12/25/23 15:06 12/25/23 16:55 Temperature 97.7 F 97.2 F Pulse Rate 75 98 106 H Respiratory Rate 18 Blood Pressure 146/87 H 139/87 122/70 Pulse Oximetry 98 Oxygen Delivery Method Room Air 12/26/23 08:02 Temperature 98.1 F Pulse Rate 93 Respiratory Rate 18 Blood Pressure 120/72 Pulse Oximetry 97 Oxygen Delivery Method Room Air BMI result Body Mass Index 30.6 Labs 12/18/23 16:48 12/21/23 09:29 Medications Medications Current Medications Acetaminophen (Acetaminophen 325 Mg Tablet) 650 mg PO Q6H PRN PRN Reason: Headache/Pain Mild Scale(1-10) Al Hydroxide/Mg Hydroxide (Magnesium Hydrox/Alum Hydrox 30 Ml Oral.Susp) 30 ml PO Q6H PRN PRN Reason: Heartburn/Nausea Baclofen (Baclofen 10 Mg Tablet) 5 mg PO BID PRN PRN Reason: Hiccups Cariprazine (Cariprazine Hcl 3 Mg Capsule) 6 mg PO DAILY [facility] Last Admin: 12/26/23 07:58 Dose: 6 mg Clonidine HCl (Clonidine Hcl 0.1 Mg Tablet) 0.1 mg PO Q4H PRN; Protocol PRN Reason: anxiety/withdrawal symptoms Last Admin: 12/22/23 19:44 Dose: 0.1 mg Clonidine HCl (Clonidine Hcl 0.1 Mg Tablet) 0.1 mg PO BID@0900,1300 [facility]; Protocol Last Admin: 12/26/23 07:58 Dose: 0.1 mg Fluoxetine HCl (Fluoxetine Hcl 10 Mg Capsule) 10 mg PO DAILY [facility] Last Admin: 12/26/23 07:58 Dose: 10 mg Folic Acid (Folic Acid 1 Mg Tablet) 1 mg PO DAILY [facility] Last Admin: 12/26/23 07:59 Dose: 1 mg Hydroxyzine HCl (Hydroxyzine Hcl 25 Mg Tablet) 25 mg PO TID [facility] Last Admin: 12/26/23 07:58 Dose: 25 mg Hydroxyzine HCl (Hydroxyzine Hcl 25 Mg Tablet) 25 mg PO Q6H PRN PRN Reason: Anxiety Lorazepam (Lorazepam 1 Mg Tablet) 1 mg PO DAILY PRN PRN Reason: To PREVENT panic Last Admin: 12/25/23 20:40 Dose: 1 mg Magnesium Hydroxide (Milk Of Magnesia 30 Ml Oral.Susp) 30 ml PO DAILY PRN PRN Reason: Constipation Methadone HCl (Methadone Hcl 20 Mg/2 Ml Oral.Conc) 110 mg PO DAILY [facility] Last Admin: 12/26/23 07:58 Dose: 110 mg Multivitamins/Vitamin C (Multivitamin Tablet) 1 tab PO DAILY [facility] Last Admin: 12/26/23 07:58 Dose: 1 tab Nicotine (Nicotine 21 Mg Patch.Td24) 21 mg TRANSDERMA DAILY PRN PRN Reason: smoking cessation Nicotine Polacrilex (Nicotine Polacrilex Lozenge 4 Mg Lozenge) 4 mg BUCCAL Q2H PRN PRN Reason: Nicotine Cravings Last Admin: 12/24/23 10:58 Dose: 4 mg Nicotine Polacrilex (Nicotine Polacrilex 2 Mg Gum) 4 mg BUCCAL Q2H PRN PRN Reason: Nicotine Cravings Olanzapine (Olanzapine 5 Mg Tablet) 5 mg PO TID PRN PRN Reason: agitation Last Admin: 12/22/23 15:19 Dose: 5 mg Omeprazole (Omeprazole 20 Mg Capsule.Dr) 20 mg PO DAILY@0630 [facility] Last Admin: 12/26/23 06:06 Dose: 20 mg Ondansetron HCl (Ondansetron Odt 4 Mg Tab.Rapdis) 4 mg TRANSLINGU Q6H PRN PRN Reason: Nausea and Vomiting Oxcarbazepine (Oxcarbazepine 300 Mg Tablet) 300 mg PO BID [facility] Last Admin: 12/26/23 07:59 Dose: 300 mg Quetiapine Fumarate (Quetiapine Fumarate 50 Mg Tablet) 50 mg PO BID PRN PRN Reason: perceptual alterations Last Admin: 12/25/23 17:00 Dose: 50 mg Thiamine HCl (Thiamine Hcl 100 Mg Tablet) 100 mg PO DAILY [facility] Last Admin: 12/26/23 07:58 Dose: 100 mg Allergies Allergies Allergy/AdvReac Type Severity Reaction Status Date / Time No Known Allergies Allergy Verified 12/18/23 17:40 [No Known Allergies*] Assessment & Plan Assessment & Plan (1) Schizoaffective disorder, depressive type: Status: Acute Code(s): F25.1 - Schizoaffective disorder, depressive type (2) PTSD (post-traumatic stress disorder): Status: Acute Code(s): F43.10 - Post-traumatic stress disorder, unspecified (3) Opioid use disorder: Status: Acute Code(s): F11.90 - Opioid use, unspecified, uncomplicated (4) Thrombophlebitis: Status: Acute Code(s): I80.9 - Phlebitis and thrombophlebitis of unspecified site Plan HPI: pt is a 28 yo male with hx of schizoaffective disorder, depressed type, PTSD, opioid use disorder on methadone who presents for worsening depression and SI in face of going off medications and relapse. Pt reports at last admission Sep 2023 he ended up doing well, good mood, anxiety reduced (though still with panic attacks) and went to a program where he continued to do well, good mood, on list for sober housing...about 3 weeks into program pt had a sudden, severe panic attack; he could not stop it and all he could think of was leaving program and using. He says in the moment, all he cares about is getting rid of the panic and has no further room to consider consequences. Pt left, relapsed, stopped taking medications and depression quickly worsened; pt homeless, embroiled in substance abuse became despondent, hopeless and suicidal. He started developing vague plan so self-presented to ED for help. Denies hx of manic type episodes; has intermittent AH independent of depression, substance abuse...no alcohol abuse; no intentional cocaine use. Currently with AH and passive SI. Wants to get back on medications. Impression: meets criteria for schizoaffective disorder, depressed type Patient is significantly depressed; medications help w/ mood but have not eliminated panic attacks which seem to derail progress made. Addiction issues and hx of trauma with ptsd symptoms clearly contribute. Will restart most home meds from recent admission since they were helpful -pt also reports 2-3 days of constant hiccups, waking him up from sleep (and clearly present); pt agrees to start Baclofen Hospital course: 12/21 some hiccups last night; none today; will stay on baclofen for a few more days mood is a little better today; showered, eating; troubled sleep; intermittent AH Discussed history of panic and how it has derailed treatment in the past; discussed quality of panic and patient will try to be aware of pending panic attack to take medication Discussed other history and sounds like patient may have ADHD which could be explored as an outpatient discussed meds: -will try Prozac to see if can reduce or even eliminate panic attacks; also try cloninidine scheduled -discussed seroquel which patient said was there for sleep; will try without for a few more days and add if needed. DC trazodone gives vivid nightmares -will also add Ativan as a p.r.n. for panic only; despite his hx of substance abuse and associated risks of combining with benzos, there is no other way to prevent a pending panic attack than a benzo; given the fact that panic derails prgress, that he is often in a program where medications are dispensed by staff and an outpatient he only needs 2 tabs a week... It is scientific writer's opinion that the potential benefits outweigh the obvious risks -risks/side effects of medication regimen reviewed with patient understood and wants to proceed 12/22 Patient reports feeling depressed today, not sure why but a little better than on admission. Still very anxious though no panic. Patient took Prozac this morning and about 20 minutes later he vomited. He thinks it was probably due to the Prozac but he has not sure. He agrees to try again tomorrow; otherwise he agrees to switch to a different SSRI. Patient appropriate with peers and staff, going to groups and remains engaged with treatment -reports sleeping well enough 12/24/23- Continue tx. Continue Prozac trial. 12/25/2023: Continue current regimen and plans. 12/26/2023: Continue current regimen and plans. Added Seroquel 200 mg q.h.s. PLAN: CV q15min continue Prozac 10 mg daily for anxiety/panic Add Ativan p.r.n. only used for for pending panic attack Scheduled clonidine 0.1 mg 0900/1300 to help prevent panic Switch to p.r.n. Baclofen 5mg BID if hiccups return Continue Vraylar 6mg Continue Trileptal 300mg BID Ceftin/Doxycycline for thrombophlepitis/prevent cellulitis Continue Methadone home dose hold off on restarting Seroquel 200mg qhs for now Reviewed labs, lipids/HBA1C from recent admission a few months ago; no need to repeat at this time Patient educated on: medication risk/benefits Reason for continued inpatient stay Substantial Risk for: med/psych decompensation Time Spent With Patient Time: Total time managing care of this patient today ____ minutes.
[2023-12-26] MEDS: Nicotine Polacrilex Lozenge 4 MG LOZENGE BUCCAL (14:38)
[2023-12-26] MEDS: QUEtiapine Fumarate 50 MG TABLET PO (17:09)
[2023-12-26 18:00] VITALS: BP 132/76; PULSE 100; RESP 18; TEMP 36.7; O2SAT 98
[2023-12-26] MEDS: QUEtiapine Fumarate 200 MG TABLET PO (20:44)
[2023-12-26] MEDS: LORazepam 1 MG TABLET PO (21:47)
[2023-12-26] MEDS: Acetaminophen 325 MG TABLET 650 MG PO (21:47)
[2023-12-27] MEDS: Omeprazole 20 MG CAPSULE.DR PO (06:10)
[2023-12-27 07:57] VITALS: BP 99/56; PULSE 85; RESP 18; TEMP 36.2; O2SAT 96
--- NOTE | 2023-12-27 07:59 | HO.PSYCHPN ---
Subjective Subjective Date of Service: 12/27/23 Reason For Visit: depression/SI Interim History: Met with patient; discussed with team; reviewed chart Patient feeling a little better today. Discussed this weekend and its challenges; patient was triggered by a few things, an interaction that he knows was benign and friendly but at the time, triggered him into remembering being bullied in high school; patient punched the door with his hand later on, x-ray unremarkable. Patient also missing his family and his ex-girlfriend whose birthday is today and who broke with him right before this admission, wanting him to focus on his sobriety. Discussed medication management; tolerating Prozac; will add Seroquel p.r.n. which he has been on before to help with anxiety. Will hold off on increasing Trileptal at this time. Mental Status Exam Mental Status Exam Narrative: Pt is alert and oriented; behavior is cooperative, calm, friendly; patient is not in distress; dressed in casual attire with unkempt hair, adequate hygiene; mood is described as depressed and affect congruent, still somewhat downcast; eye contact somewhat avoidant; Speech normal rate, volume and prosody not pressured; still some psychomotor retardation present; thought process is organized and goal directed; Thought content is on struggles and on tx; otherwise pertinent to relevant topics and without any delusional content, paranoid ideations or grandiosity; currently no SI; no HI; AH intermittently present saying negative things about him. Patients insight and judgment impaired. Diagnostics Vital Signs (24Hr): Vital Signs - 24 hr 12/26/23 08:02 12/26/23 18:00 12/27/23 07:57 Temperature 98.1 F 98.0 F 97.2 F Pulse Rate 93 100 85 Respiratory Rate 18 18 18 Blood Pressure 120/72 132/76 99/56 L Pulse Oximetry 97 98 96 Oxygen Delivery Method Room Air Room Air Room Air BMI result Body Mass Index 30.6 Labs 12/18/23 16:48 12/21/23 09:29 Imaging Radiology Impressions: ITS Impressions Hand X-Ray 12/26/23 22:30 IMPRESSION: Soft tissue swelling. No acute osseous findings. Medications Medications Current Medications Acetaminophen (Acetaminophen 325 Mg Tablet) 650 mg PO Q6H PRN PRN Reason: Headache/Pain Mild Scale(1-10) Last Admin: 12/26/23 21:47 Dose: 650 mg Al Hydroxide/Mg Hydroxide (Magnesium Hydrox/Alum Hydrox 30 Ml Oral.Susp) 30 ml PO Q6H PRN PRN Reason: Heartburn/Nausea Baclofen (Baclofen 10 Mg Tablet) 5 mg PO BID PRN PRN Reason: Hiccups Cariprazine (Cariprazine Hcl 3 Mg Capsule) 6 mg PO DAILY [facility] Last Admin: 12/26/23 07:58 Dose: 6 mg Clonidine HCl (Clonidine Hcl 0.1 Mg Tablet) 0.1 mg PO Q4H PRN; Protocol PRN Reason: anxiety/withdrawal symptoms Last Admin: 12/26/23 20:46 Dose: 0.1 mg Clonidine HCl (Clonidine Hcl 0.1 Mg Tablet) 0.1 mg PO BID@0900,1300 [facility]; Protocol Last Admin: 12/26/23 14:36 Dose: 0.1 mg Fluoxetine HCl (Fluoxetine Hcl 10 Mg Capsule) 10 mg PO DAILY [facility] Last Admin: 12/26/23 07:58 Dose: 10 mg Folic Acid (Folic Acid 1 Mg Tablet) 1 mg PO DAILY [facility] Last Admin: 12/26/23 07:59 Dose: 1 mg Hydroxyzine HCl (Hydroxyzine Hcl 25 Mg Tablet) 25 mg PO TID [facility] Last Admin: 12/26/23 20:44 Dose: 25 mg Hydroxyzine HCl (Hydroxyzine Hcl 25 Mg Tablet) 25 mg PO Q6H PRN PRN Reason: Anxiety Lorazepam (Lorazepam 1 Mg Tablet) 1 mg PO DAILY PRN PRN Reason: To PREVENT panic Last Admin: 12/26/23 21:47 Dose: 1 mg Magnesium Hydroxide (Milk Of Magnesia 30 Ml Oral.Susp) 30 ml PO DAILY PRN PRN Reason: Constipation Methadone HCl (Methadone Hcl 20 Mg/2 Ml Oral.Conc) 110 mg PO DAILY [facility] Last Admin: 12/26/23 07:58 Dose: 110 mg Multivitamins/Vitamin C (Multivitamin Tablet) 1 tab PO DAILY [facility] Last Admin: 12/26/23 07:58 Dose: 1 tab Nicotine (Nicotine 21 Mg Patch.Td24) 21 mg TRANSDERMA DAILY PRN PRN Reason: smoking cessation Nicotine Polacrilex (Nicotine Polacrilex Lozenge 4 Mg Lozenge) 4 mg BUCCAL Q2H PRN PRN Reason: Nicotine Cravings Last Admin: 12/26/23 14:38 Dose: 4 mg Nicotine Polacrilex (Nicotine Polacrilex 2 Mg Gum) 4 mg BUCCAL Q2H PRN PRN Reason: Nicotine Cravings Olanzapine (Olanzapine 5 Mg Tablet) 5 mg PO TID PRN PRN Reason: agitation Last Admin: 12/22/23 15:19 Dose: 5 mg Omeprazole (Omeprazole 20 Mg Capsule.Dr) 20 mg PO DAILY@0630 [facility] Last Admin: 12/27/23 06:10 Dose: 20 mg Ondansetron HCl (Ondansetron Odt 4 Mg Tab.Rapdis) 4 mg TRANSLINGU Q6H PRN PRN Reason: Nausea and Vomiting Oxcarbazepine (Oxcarbazepine 300 Mg Tablet) 300 mg PO BID [facility] Last Admin: 12/26/23 20:44 Dose: 300 mg Quetiapine Fumarate (Quetiapine Fumarate 50 Mg Tablet) 50 mg PO BID PRN PRN Reason: perceptual alterations Last Admin: 12/26/23 17:09 Dose: 50 mg Quetiapine Fumarate (Quetiapine Fumarate 200 Mg Tablet) 200 mg PO BEDTIME [facility] Last Admin: 12/26/23 20:44 Dose: 200 mg Thiamine HCl (Thiamine Hcl 100 Mg Tablet) 100 mg PO DAILY [facility] Last Admin: 12/26/23 07:58 Dose: 100 mg Allergies Allergies Allergy/AdvReac Type Severity Reaction Status Date / Time No Known Allergies Allergy Verified 12/18/23 17:40 [No Known Allergies*] Assessment & Plan Assessment & Plan (1) Schizoaffective disorder, depressive type: Status: Acute Code(s): F25.1 - Schizoaffective disorder, depressive type (2) PTSD (post-traumatic stress disorder): Status: Acute Code(s): F43.10 - Post-traumatic stress disorder, unspecified (3) Opioid use disorder: Status: Acute Code(s): F11.90 - Opioid use, unspecified, uncomplicated (4) Thrombophlebitis: Status: Acute Code(s): I80.9 - Phlebitis and thrombophlebitis of unspecified site Plan HPI: pt is a 28 yo male with hx of schizoaffective disorder, depressed type, PTSD, opioid use disorder on methadone who presents for worsening depression and SI in face of going off medications and relapse. Pt reports at last admission Sep 2023 he ended up doing well, good mood, anxiety reduced (though still with panic attacks) and went to a program where he continued to do well, good mood, on list for sober housing...about 3 weeks into program pt had a sudden, severe panic attack; he could not stop it and all he could think of was leaving program and using. He says in the moment, all he cares about is getting rid of the panic and has no further room to consider consequences. Pt left, relapsed, stopped taking medications and depression quickly worsened; pt homeless, embroiled in substance abuse became despondent, hopeless and suicidal. He started developing vague plan so self-presented to ED for help. Denies hx of manic type episodes; has intermittent AH independent of depression, substance abuse...no alcohol abuse; no intentional cocaine use. Currently with AH and passive SI. Wants to get back on medications. Impression: meets criteria for schizoaffective disorder, depressed type Patient is significantly depressed; medications help w/ mood but have not eliminated panic attacks which seem to derail progress made. Addiction issues and hx of trauma with ptsd symptoms clearly contribute. Will restart most home meds from recent admission since they were helpful -pt also reports 2-3 days of constant hiccups, waking him up from sleep (and clearly present); pt agrees to start Baclofen Hospital course: 12/21 some hiccups last night; none today; will stay on baclofen for a few more days mood is a little better today; showered, eating; troubled sleep; intermittent AH Discussed history of panic and how it has derailed treatment in the past; discussed quality of panic and patient will try to be aware of pending panic attack to take medication Discussed other history and sounds like patient may have ADHD which could be explored as an outpatient discussed meds: -will try Prozac to see if can reduce or even eliminate panic attacks; also try cloninidine scheduled -discussed seroquel which patient said was there for sleep; will try without for a few more days and add if needed. DC trazodone gives vivid nightmares -will also add Ativan as a p.r.n. for panic only; despite his hx of substance abuse and associated risks of combining with benzos, there is no other way to prevent a pending panic attack than a benzo; given the fact that panic derails prgress, that he is often in a program where medications are dispensed by staff and an outpatient he only needs 2 tabs a week... It is procedure writer's opinion that the potential benefits outweigh the obvious risks -risks/side effects of medication regimen reviewed with patient understood and wants to proceed 12/22 Patient reports feeling depressed today, not sure why but a little better than on admission. Still very anxious though no panic. Patient took Prozac this morning and about 20 minutes later he vomited. He thinks it was probably due to the Prozac but he has not sure. He agrees to try again tomorrow; otherwise he agrees to switch to a different SSRI. Patient appropriate with peers and staff, going to groups and remains engaged with treatment -reports sleeping well enough 12/24/23- Continue tx. Continue Prozac trial. 12/25/2023: Continue current regimen and plans. 12/26/2023: Continue current regimen and plans. Added Seroquel 200 mg q.h.s. Xray right hand 12/25: IMPRESSION: Soft tissue swelling. No acute osseous findings. 12/26 Patient feeling a little better today. Discussed how patient felt triggered this weekend. Feeling better now. Accept for this outburst, Otherwise he overall remains in good behavioral and impulse, getting along well with peers and staff and engaged in treatment, attending groups and forthcoming in 1 on 1 sessions. Discussed medication management; tolerating Prozac; will add Seroquel p.r.n. which he has been on before to help with anxiety. Will hold off on increasing Trileptal at this time. adding Seroquel 50mg PRn for anxiety PLAN: CV q15min adding Seroquel 50mg BID prn for anxiety continue Prozac 10 mg daily for anxiety/panic; tolerating Continue Ativan p.r.n. only used for for pending panic attack Continue clonidine 0.1 mg 0900/1300 to help prevent panic Switch to p.r.n. Baclofen 5mg BID if hiccups return Continue Vraylar 6mg Continue Trileptal 300mg BID Ceftin/Doxycycline for thrombophlepitis/prevent cellulitis Continue Methadone home dose hold off on restarting Seroquel 200mg qhs for now Reviewed labs, lipids/HBA1C from recent admission a few months ago; no need to repeat at this time Patient educated on: diagnosis, medication risk/benefits, substance abuse and therapeutic strategies Informed Consent: understands Reason for continued inpatient stay Substantial Risk for: rapid decompensation Time Spent With Patient Time: Total time managing care of this patient today ____ minutes.
[2023-12-27] MEDS: cloNIDine HCL 0.1 MG TABLET PO ×2 (09:57→14:05)
[2023-12-27] MEDS: FLUoxetine HCl 10 MG CAPSULE PO (09:57)
[2023-12-27] MEDS: Multivitamin TABLET 1 TAB PO (09:57)
[2023-12-27] MEDS: Thiamine HCL 100 MG TABLET PO (09:58)
[2023-12-27] MEDS: OXcarbazepine 300 MG TABLET PO ×2 (09:58→20:11)
[2023-12-27] MEDS: Folic Acid 1 MG TABLET PO (09:58)
[2023-12-27] MEDS: Cariprazine HCl 3 MG CAPSULE 6 MG PO (09:58)
[2023-12-27] MEDS: hydrOXYzine HCL 25 MG TABLET PO ×3 (09:58→20:11)
[2023-12-27] MEDS: methADONE HCl 20 MG/2 ML ORAL.CONC 110 MG PO (10:00)
[2023-12-27] MEDS: Nicotine Polacrilex Lozenge 4 MG LOZENGE BUCCAL (14:05)
[2023-12-27] MEDS: QUEtiapine Fumarate 50 MG TABLET PO (14:05)
[2023-12-27 14:06] VITALS: BP 110/82; PULSE 102; RESP 18
[2023-12-27 18:00] VITALS: RESP 18
[2023-12-27] MEDS: QUEtiapine Fumarate 200 MG TABLET PO (20:11)
[2023-12-28] MEDS: Omeprazole 20 MG CAPSULE.DR PO (06:03)
[2023-12-28 07:59] VITALS: BP 125/76; PULSE 95; RESP 18; TEMP 36.3; O2SAT 98
[2023-12-28] MEDS: cloNIDine HCL 0.1 MG TABLET PO ×2 (08:14→12:15)
[2023-12-28] MEDS: FLUoxetine HCl 10 MG CAPSULE PO (08:14)
[2023-12-28] MEDS: Thiamine HCL 100 MG TABLET PO (08:14)
[2023-12-28] MEDS: hydrOXYzine HCL 25 MG TABLET PO ×3 (08:14→20:26)
[2023-12-28] MEDS: Cariprazine HCl 3 MG CAPSULE 6 MG PO (08:15)
[2023-12-28] MEDS: OXcarbazepine 300 MG TABLET PO ×2 (08:15→20:26)
[2023-12-28] MEDS: Folic Acid 1 MG TABLET PO (08:15)
[2023-12-28] MEDS: Multivitamin TABLET 1 TAB PO (08:15)
[2023-12-28] MEDS: methADONE HCl 20 MG/2 ML ORAL.CONC 110 MG PO (08:16)
--- NOTE | 2023-12-28 09:44 | HO.PSYCHPN ---
Subjective Subjective Date of Service: 12/28/23 Reason For Visit: depression/SI Interim History: met with pt; discussed with team pt reports overall doing better, though he remains with anxiety/depression, it's less. no SI; Says he thinks meds are helping and he took less PRN's yesterday/today. fEels tired in AM and asks for Methadone to be lowered. Mental Status Exam Mental Status Exam Narrative: Pt is alert and oriented; behavior is cooperative, calm, friendly; patient is not in distress; dressed in casual attire with combed hair, adequate hygiene; mood is described as depressed...but less and affect congruent, calmer, brighter though still somewhat downcast; eye contact somewhat avoidant; Speech normal rate, volume and prosody not pressured; still some psychomotor retardation present; thought process is organized and goal directed; Thought content is on struggles and on tx; otherwise pertinent to relevant topics and without any delusional content, paranoid ideations or grandiosity; currently no SI; no HI; Patients insight and judgment impaired but improving. Diagnostics Vital Signs (24Hr): Vital Signs - 24 hr 12/27/23 14:06 12/27/23 18:00 12/28/23 07:59 Temperature 97.3 F Pulse Rate 102 H 95 Respiratory Rate 18 18 18 Blood Pressure 110/82 125/76 Pulse Oximetry 98 Oxygen Delivery Method Room Air Room Air BMI result Body Mass Index 30.6 Labs 12/18/23 16:48 12/21/23 09:29 Imaging Radiology Impressions: ITS Impressions Hand X-Ray 12/26/23 22:30 IMPRESSION: Soft tissue swelling. No acute osseous findings. Medications Medications Current Medications Acetaminophen (Acetaminophen 325 Mg Tablet) 650 mg PO Q6H PRN PRN Reason: Headache/Pain Mild Scale(1-10) Last Admin: 12/26/23 21:47 Dose: 650 mg Al Hydroxide/Mg Hydroxide (Magnesium Hydrox/Alum Hydrox 30 Ml Oral.Susp) 30 ml PO Q6H PRN PRN Reason: Heartburn/Nausea Baclofen (Baclofen 10 Mg Tablet) 5 mg PO BID PRN PRN Reason: Hiccups Cariprazine (Cariprazine Hcl 3 Mg Capsule) 6 mg PO DAILY [facility] Last Admin: 12/28/23 08:15 Dose: 6 mg Clonidine HCl (Clonidine Hcl 0.1 Mg Tablet) 0.1 mg PO Q4H PRN; Protocol PRN Reason: anxiety/withdrawal symptoms Last Admin: 12/26/23 20:46 Dose: 0.1 mg Clonidine HCl (Clonidine Hcl 0.1 Mg Tablet) 0.1 mg PO BID@0900,1300 [facility]; Protocol Last Admin: 12/28/23 08:14 Dose: 0.1 mg Fluoxetine HCl (Fluoxetine Hcl 10 Mg Capsule) 10 mg PO DAILY [facility] Last Admin: 12/28/23 08:14 Dose: 10 mg Folic Acid (Folic Acid 1 Mg Tablet) 1 mg PO DAILY [facility] Last Admin: 12/28/23 08:15 Dose: 1 mg Hydroxyzine HCl (Hydroxyzine Hcl 25 Mg Tablet) 25 mg PO TID [facility] Last Admin: 12/28/23 08:14 Dose: 25 mg Hydroxyzine HCl (Hydroxyzine Hcl 25 Mg Tablet) 25 mg PO Q6H PRN PRN Reason: Anxiety Lorazepam (Lorazepam 1 Mg Tablet) 1 mg PO DAILY PRN PRN Reason: To PREVENT panic Last Admin: 12/26/23 21:47 Dose: 1 mg Magnesium Hydroxide (Milk Of Magnesia 30 Ml Oral.Susp) 30 ml PO DAILY PRN PRN Reason: Constipation Methadone HCl (Methadone Hcl 20 Mg/2 Ml Oral.Conc) 110 mg PO DAILY [facility] Last Admin: 12/28/23 08:16 Dose: 110 mg Multivitamins/Vitamin C (Multivitamin Tablet) 1 tab PO DAILY [facility] Last Admin: 12/28/23 08:15 Dose: 1 tab Nicotine (Nicotine 21 Mg Patch.Td24) 21 mg TRANSDERMA DAILY PRN PRN Reason: smoking cessation Nicotine Polacrilex (Nicotine Polacrilex Lozenge 4 Mg Lozenge) 4 mg BUCCAL Q2H PRN PRN Reason: Nicotine Cravings Last Admin: 12/27/23 14:05 Dose: 4 mg Nicotine Polacrilex (Nicotine Polacrilex 2 Mg Gum) 4 mg BUCCAL Q2H PRN PRN Reason: Nicotine Cravings Olanzapine (Olanzapine 5 Mg Tablet) 5 mg PO TID PRN PRN Reason: agitation Last Admin: 12/22/23 15:19 Dose: 5 mg Omeprazole (Omeprazole 20 Mg Capsule.Dr) 20 mg PO DAILY@0630 [facility] Last Admin: 12/28/23 06:03 Dose: 20 mg Ondansetron HCl (Ondansetron Odt 4 Mg Tab.Rapdis) 4 mg TRANSLINGU Q6H PRN PRN Reason: Nausea and Vomiting Oxcarbazepine (Oxcarbazepine 300 Mg Tablet) 300 mg PO BID [facility] Last Admin: 12/28/23 08:15 Dose: 300 mg Quetiapine Fumarate (Quetiapine Fumarate 50 Mg Tablet) 50 mg PO BID PRN PRN Reason: perceptual alterations Last Admin: 12/26/23 17:09 Dose: 50 mg Quetiapine Fumarate (Quetiapine Fumarate 200 Mg Tablet) 200 mg PO BEDTIME [facility] Last Admin: 12/27/23 20:11 Dose: 200 mg Quetiapine Fumarate (Quetiapine Fumarate 50 Mg Tablet) 50 mg PO BID PRN PRN Reason: anxiety Last Admin: 12/27/23 14:05 Dose: 50 mg Thiamine HCl (Thiamine Hcl 100 Mg Tablet) 100 mg PO DAILY [facility] Last Admin: 12/28/23 08:14 Dose: 100 mg Allergies Allergies Allergy/AdvReac Type Severity Reaction Status Date / Time No Known Allergies Allergy Verified 12/18/23 17:40 [No Known Allergies*] Assessment & Plan Assessment & Plan (1) Schizoaffective disorder, depressive type: Status: Acute Code(s): F25.1 - Schizoaffective disorder, depressive type (2) PTSD (post-traumatic stress disorder): Status: Acute Code(s): F43.10 - Post-traumatic stress disorder, unspecified (3) Opioid use disorder: Status: Acute Code(s): F11.90 - Opioid use, unspecified, uncomplicated (4) Thrombophlebitis: Status: Acute Code(s): I80.9 - Phlebitis and thrombophlebitis of unspecified site Plan HPI: pt is a 28 yo male with hx of schizoaffective disorder, depressed type, PTSD, opioid use disorder on methadone who presents for worsening depression and SI in face of going off medications and relapse. Pt reports at last admission Sep 2023 he ended up doing well, good mood, anxiety reduced (though still with panic attacks) and went to a program where he continued to do well, good mood, on list for sober housing...about 3 weeks into program pt had a sudden, severe panic attack; he could not stop it and all he could think of was leaving program and using. He says in the moment, all he cares about is getting rid of the panic and has no further room to consider consequences. Pt left, relapsed, stopped taking medications and depression quickly worsened; pt homeless, embroiled in substance abuse became despondent, hopeless and suicidal. He started developing vague plan so self-presented to ED for help. Denies hx of manic type episodes; has intermittent AH independent of depression, substance abuse...no alcohol abuse; no intentional cocaine use. Currently with AH and passive SI. Wants to get back on medications. Impression: meets criteria for schizoaffective disorder, depressed type Patient is significantly depressed; medications help w/ mood but have not eliminated panic attacks which seem to derail progress made. Addiction issues and hx of trauma with ptsd symptoms clearly contribute. Will restart most home meds from recent admission since they were helpful -pt also reports 2-3 days of constant hiccups, waking him up from sleep (and clearly present); pt agrees to start Baclofen Hospital course: 12/21 some hiccups last night; none today; will stay on baclofen for a few more days mood is a little better today; showered, eating; troubled sleep; intermittent AH Discussed history of panic and how it has derailed treatment in the past; discussed quality of panic and patient will try to be aware of pending panic attack to take medication Discussed other history and sounds like patient may have ADHD which could be explored as an outpatient discussed meds: -will try Prozac to see if can reduce or even eliminate panic attacks; also try cloninidine scheduled -discussed seroquel which patient said was there for sleep; will try without for a few more days and add if needed. DC trazodone gives vivid nightmares -will also add Ativan as a p.r.n. for panic only; despite his hx of substance abuse and associated risks of combining with benzos, there is no other way to prevent a pending panic attack than a benzo; given the fact that panic derails prgress, that he is often in a program where medications are dispensed by staff and an outpatient he only needs 2 tabs a week... It is program writer's opinion that the potential benefits outweigh the obvious risks -risks/side effects of medication regimen reviewed with patient understood and wants to proceed 12/22 Patient reports feeling depressed today, not sure why but a little better than on admission. Still very anxious though no panic. Patient took Prozac this morning and about 20 minutes later he vomited. He thinks it was probably due to the Prozac but he has not sure. He agrees to try again tomorrow; otherwise he agrees to switch to a different SSRI. Patient appropriate with peers and staff, going to groups and remains engaged with treatment -reports sleeping well enough 12/24/23- Continue tx. Continue Prozac trial. 12/25/2023: Continue current regimen and plans. 12/26/2023: Continue current regimen and plans. Added Seroquel 200 mg q.h.s. Xray right hand 12/25: IMPRESSION: Soft tissue swelling. No acute osseous findings. 12/26 Patient feeling a little better today. Discussed how patient felt triggered this weekend. Feeling better now. Accept for this outburst, Otherwise he overall remains in good behavioral and impulse, getting along well with peers and staff and engaged in treatment, attending groups and forthcoming in 1 on 1 sessions. Discussed medication management; tolerating Prozac; will add Seroquel p.r.n. which he has been on before to help with anxiety. Will hold off on increasing Trileptal at this time. adding Seroquel 50mg PRn for anxiety 12/27 improving; engaged in treatment, attending groups, good behavioral/impulse control and getting along well w/ staff/peers; still down, but less so. asks to lower methadone due to daytime sedation PLAN: CV q15min lower methadone to 105mg daily adding Seroquel 50mg BID prn for anxiety continue Prozac 10 mg daily for anxiety/panic; tolerating Continue Ativan p.r.n. only used for for pending panic attack Continue clonidine 0.1 mg 0900/1300 to help prevent panic Switch to p.r.n. Baclofen 5mg BID if hiccups return Continue Vraylar 6mg Continue Trileptal 300mg BID Ceftin/Doxycycline for thrombophlepitis/prevent cellulitis Seroquel 200mg qhs for now Reviewed labs, lipids/HBA1C from recent admission a few months ago; no need to repeat at this time Patient educated on: diagnosis, medication risk/benefits, substance abuse and therapeutic strategies Informed Consent: understands Reason for continued inpatient stay Substantial Risk for: rapid decompensation Time Spent With Patient Time: Total time managing care of this patient today ____ minutes.
[2023-12-28 12:13] VITALS: BP 114/66; PULSE 93; O2SAT 97
[2023-12-28 16:38] VITALS: BP 117/74; PULSE 92; RESP 18; TEMP 36.4; O2SAT 96
[2023-12-28] MEDS: QUEtiapine Fumarate 200 MG TABLET PO (20:26)
[2023-12-29 09:20] VITALS: BP 108/60; PULSE 82; RESP 16; TEMP 36.1; O2SAT 95
[2023-12-29] MEDS: methADONE HCl 20 MG/2 ML ORAL.CONC 105 MG PO (09:25)
[2023-12-29] MEDS: Multivitamin TABLET 1 TAB PO (09:27)
[2023-12-29] MEDS: Thiamine HCL 100 MG TABLET PO (09:27)
[2023-12-29] MEDS: hydrOXYzine HCL 25 MG TABLET PO ×3 (09:27→19:58)
[2023-12-29] MEDS: Omeprazole 20 MG CAPSULE.DR PO (09:27)
[2023-12-29] MEDS: Folic Acid 1 MG TABLET PO (09:27)
[2023-12-29] MEDS: FLUoxetine HCl 10 MG CAPSULE PO (09:27)
[2023-12-29] MEDS: Cariprazine HCl 3 MG CAPSULE 6 MG PO (09:28)
[2023-12-29] MEDS: OXcarbazepine 300 MG TABLET PO ×2 (09:28→19:58)
[2023-12-29] MEDS: cloNIDine HCL 0.1 MG TABLET PO ×2 (09:28→14:32)
--- NOTE | 2023-12-29 09:55 | HO.PSYCHPN ---
Subjective Subjective Date of Service: 12/29/23 Reason For Visit: depression/SI Interim History: met with patient; discussed with team pt reports continued depression/anxiety but working on coping. Reports says he's having trouble taking in breath, only on inspiration, which he says occurs off/on throughout the day for past couple of days. Says always anxious so not sure if it's that or something else. -02 sat a little low at 95 (though it' has been this low at times in past) but RR 16 -Denies any chest pain; -ROS and denies any upper respiratory symptoms -denies any hx of Asthma, COPD, DVT/PE, chest/rib trauma, recent upper respiratory illness, denies allergy symptoms H&H grossly WNL and not anemia Pt does not appear in any distress, no signs of labored breathing; he is observed able to talk, walk without difficulty focused exam: Pulm: CTA b/l throughout; no wheezing, rhonchi/rales -will get CXR out of abundance of caution Mental Status Exam Mental Status Exam Narrative: Pt is alert and oriented; behavior is cooperative, calm, friendly; patient is not in distress; dressed in casual attire with combed hair, adequate hygiene; mood is described as depressed and affect congruent, still somewhat downcast; eye contact somewhat avoidant; Speech normal rate, volume and prosody not pressured; still some psychomotor retardation present; thought process is organized and goal directed; Thought content is on struggles and on tx; otherwise pertinent to relevant topics and without any delusional content, paranoid ideations or grandiosity; currently no SI; no HI; Patients insight and judgment impaired but improving. Diagnostics Vital Signs (24Hr): Vital Signs - 24 hr 12/28/23 12:13 12/28/23 16:38 12/29/23 09:20 Temperature 97.6 F 97.0 F Pulse Rate 93 92 82 Respiratory Rate 18 16 Blood Pressure 114/66 117/74 108/60 Pulse Oximetry 97 96 95 Oxygen Delivery Method Room Air Room Air Room Air BMI result Body Mass Index 30.6 Labs 12/18/23 16:48 12/21/23 09:29 Imaging Radiology Impressions: ITS Impressions Hand X-Ray 12/26/23 22:30 IMPRESSION: Soft tissue swelling. No acute osseous findings. Medications Medications Current Medications Acetaminophen (Acetaminophen 325 Mg Tablet) 650 mg PO Q6H PRN PRN Reason: Headache/Pain Mild Scale(1-10) Last Admin: 12/26/23 21:47 Dose: 650 mg Al Hydroxide/Mg Hydroxide (Magnesium Hydrox/Alum Hydrox 30 Ml Oral.Susp) 30 ml PO Q6H PRN PRN Reason: Heartburn/Nausea Baclofen (Baclofen 10 Mg Tablet) 5 mg PO BID PRN PRN Reason: Hiccups Cariprazine (Cariprazine Hcl 3 Mg Capsule) 6 mg PO DAILY [facility] Last Admin: 12/29/23 09:28 Dose: 6 mg Clonidine HCl (Clonidine Hcl 0.1 Mg Tablet) 0.1 mg PO Q4H PRN; Protocol PRN Reason: anxiety/withdrawal symptoms Last Admin: 12/26/23 20:46 Dose: 0.1 mg Clonidine HCl (Clonidine Hcl 0.1 Mg Tablet) 0.1 mg PO BID@0900,1300 [facility]; Protocol Last Admin: 12/29/23 09:28 Dose: 0.1 mg Fluoxetine HCl (Fluoxetine Hcl 10 Mg Capsule) 10 mg PO DAILY [facility] Last Admin: 12/29/23 09:27 Dose: 10 mg Folic Acid (Folic Acid 1 Mg Tablet) 1 mg PO DAILY [facility] Last Admin: 12/29/23 09:27 Dose: 1 mg Hydroxyzine HCl (Hydroxyzine Hcl 25 Mg Tablet) 25 mg PO TID [facility] Last Admin: 12/29/23 09:27 Dose: 25 mg Hydroxyzine HCl (Hydroxyzine Hcl 25 Mg Tablet) 25 mg PO Q6H PRN PRN Reason: Anxiety Lorazepam (Lorazepam 1 Mg Tablet) 1 mg PO DAILY PRN PRN Reason: To PREVENT panic Last Admin: 12/26/23 21:47 Dose: 1 mg Magnesium Hydroxide (Milk Of Magnesia 30 Ml Oral.Susp) 30 ml PO DAILY PRN PRN Reason: Constipation Methadone HCl (Methadone Hcl 20 Mg/2 Ml Oral.Conc) 105 mg PO DAILY [facility] Last Admin: 12/29/23 09:25 Dose: 105 mg Multivitamins/Vitamin C (Multivitamin Tablet) 1 tab PO DAILY [facility] Last Admin: 12/29/23 09:27 Dose: 1 tab Nicotine (Nicotine 21 Mg Patch.Td24) 21 mg TRANSDERMA DAILY PRN PRN Reason: smoking cessation Nicotine Polacrilex (Nicotine Polacrilex Lozenge 4 Mg Lozenge) 4 mg BUCCAL Q2H PRN PRN Reason: Nicotine Cravings Last Admin: 12/27/23 14:05 Dose: 4 mg Nicotine Polacrilex (Nicotine Polacrilex 2 Mg Gum) 4 mg BUCCAL Q2H PRN PRN Reason: Nicotine Cravings Olanzapine (Olanzapine 5 Mg Tablet) 5 mg PO TID PRN PRN Reason: agitation Last Admin: 12/22/23 15:19 Dose: 5 mg Omeprazole (Omeprazole 20 Mg Capsule.Dr) 20 mg PO DAILY@0630 [facility] Last Admin: 12/29/23 09:27 Dose: 20 mg Ondansetron HCl (Ondansetron Odt 4 Mg Tab.Rapdis) 4 mg TRANSLINGU Q6H PRN PRN Reason: Nausea and Vomiting Oxcarbazepine (Oxcarbazepine 300 Mg Tablet) 300 mg PO BID [facility] Last Admin: 12/29/23 09:28 Dose: 300 mg Quetiapine Fumarate (Quetiapine Fumarate 50 Mg Tablet) 50 mg PO BID PRN PRN Reason: perceptual alterations Last Admin: 12/26/23 17:09 Dose: 50 mg Quetiapine Fumarate (Quetiapine Fumarate 200 Mg Tablet) 200 mg PO BEDTIME [facility] Last Admin: 12/28/23 20:26 Dose: 200 mg Quetiapine Fumarate (Quetiapine Fumarate 50 Mg Tablet) 50 mg PO BID PRN PRN Reason: anxiety Last Admin: 12/27/23 14:05 Dose: 50 mg Thiamine HCl (Thiamine Hcl 100 Mg Tablet) 100 mg PO DAILY [facility] Last Admin: 12/29/23 09:27 Dose: 100 mg Allergies Allergies Allergy/AdvReac Type Severity Reaction Status Date / Time No Known Allergies Allergy Verified 12/18/23 17:40 [No Known Allergies*] Assessment & Plan Assessment & Plan (1) Schizoaffective disorder, depressive type: Status: Acute Code(s): F25.1 - Schizoaffective disorder, depressive type (2) PTSD (post-traumatic stress disorder): Status: Acute Code(s): F43.10 - Post-traumatic stress disorder, unspecified (3) Opioid use disorder: Status: Acute Code(s): F11.90 - Opioid use, unspecified, uncomplicated (4) Thrombophlebitis: Status: Acute Code(s): I80.9 - Phlebitis and thrombophlebitis of unspecified site Plan HPI: pt is a 28 yo male with hx of schizoaffective disorder, depressed type, PTSD, opioid use disorder on methadone who presents for worsening depression and SI in face of going off medications and relapse. Pt reports at last admission Sep 2023 he ended up doing well, good mood, anxiety reduced (though still with panic attacks) and went to a program where he continued to do well, good mood, on list for sober housing...about 3 weeks into program pt had a sudden, severe panic attack; he could not stop it and all he could think of was leaving program and using. He says in the moment, all he cares about is getting rid of the panic and has no further room to consider consequences. Pt left, relapsed, stopped taking medications and depression quickly worsened; pt homeless, embroiled in substance abuse became despondent, hopeless and suicidal. He started developing vague plan so self-presented to ED for help. Denies hx of manic type episodes; has intermittent AH independent of depression, substance abuse...no alcohol abuse; no intentional cocaine use. Currently with AH and passive SI. Wants to get back on medications. Impression: meets criteria for schizoaffective disorder, depressed type Patient is significantly depressed; medications help w/ mood but have not eliminated panic attacks which seem to derail progress made. Addiction issues and hx of trauma with ptsd symptoms clearly contribute. Will restart most home meds from recent admission since they were helpful -pt also reports 2-3 days of constant hiccups, waking him up from sleep (and clearly present); pt agrees to start Baclofen Hospital course: 12/21 some hiccups last night; none today; will stay on baclofen for a few more days mood is a little better today; showered, eating; troubled sleep; intermittent AH Discussed history of panic and how it has derailed treatment in the past; discussed quality of panic and patient will try to be aware of pending panic attack to take medication Discussed other history and sounds like patient may have ADHD which could be explored as an outpatient discussed meds: -will try Prozac to see if can reduce or even eliminate panic attacks; also try cloninidine scheduled -discussed seroquel which patient said was there for sleep; will try without for a few more days and add if needed. DC trazodone gives vivid nightmares -will also add Ativan as a p.r.n. for panic only; despite his hx of substance abuse and associated risks of combining with benzos, there is no other way to prevent a pending panic attack than a benzo; given the fact that panic derails prgress, that he is often in a program where medications are dispensed by staff and an outpatient he only needs 2 tabs a week... It is financial underwriter's opinion that the potential benefits outweigh the obvious risks -risks/side effects of medication regimen reviewed with patient understood and wants to proceed 12/22 Patient reports feeling depressed today, not sure why but a little better than on admission. Still very anxious though no panic. Patient took Prozac this morning and about 20 minutes later he vomited. He thinks it was probably due to the Prozac but he has not sure. He agrees to try again tomorrow; otherwise he agrees to switch to a different SSRI. Patient appropriate with peers and staff, going to groups and remains engaged with treatment -reports sleeping well enough 12/24/23- Continue tx. Continue Prozac trial. 12/25/2023: Continue current regimen and plans. 12/26/2023: Continue current regimen and plans. Added Seroquel 200 mg q.h.s. Xray right hand 12/25: IMPRESSION: Soft tissue swelling. No acute osseous findings. 12/26 Patient feeling a little better today. Discussed how patient felt triggered this weekend. Feeling better now. Accept for this outburst, Otherwise he overall remains in good behavioral and impulse, getting along well with peers and staff and engaged in treatment, attending groups and forthcoming in 1 on 1 sessions. Discussed medication management; tolerating Prozac; will add Seroquel p.r.n. which he has been on before to help with anxiety. Will hold off on increasing Trileptal at this time. adding Seroquel 50mg PRn for anxiety 12/27 improving; engaged in treatment, attending groups, good behavioral/impulse control and getting along well w/ staff/peers; still down, but less so. asks to lower methadone due to daytime sedation 12/28 pt reports continued depression/anxiety but working on coping. Reports says he's having trouble taking in breath, only on inspiration, which he says occurs off/on throughout the day for past couple of days. Says always anxious so not sure if it's that or something else. -02 sat a little low at 95 (though it' has been this low at times in past), but RR 16 -Denies any chest pain; -ROS and denies any upper respiratory symptoms -denies any hx of Asthma, COPD, DVT/PE, chest/rib trauma, recent upper respiratory illness, denies allergy symptoms H&H grossly WNL and not anemia Pt does not appear in any distress, no signs of labored breathing; he is observed able to talk, walk without difficulty focused exam: Pulm: CTA b/l throughout; no wheezing, rhonchi/rales -will get CXR out of abundance of caution PLAN: CV q15min CXR ordered lowered methadone to 105mg daily adding Seroquel 50mg BID prn for anxiety continue Prozac 10 mg daily for anxiety/panic; tolerating Continue Ativan p.r.n. only used for for pending panic attack Continue clonidine 0.1 mg 0900/1300 to help prevent panic Switch to p.r.n. Baclofen 5mg BID if hiccups return Continue Vraylar 6mg Continue Trileptal 300mg BID Ceftin/Doxycycline for thrombophlepitis/prevent cellulitis Seroquel 200mg qhs for now Reviewed labs, lipids/HBA1C from recent admission a few months ago; no need to repeat at this time Patient educated on: diagnosis, medication risk/benefits and medical condition Informed Consent: understands Reason for continued inpatient stay Substantial Risk for: rapid decompensation Time Spent With Patient Time: Total time managing care of this patient today ____ minutes.
[2023-12-29 14:30] VITALS: BP 120/74; PULSE 84
[2023-12-29 19:01] VITALS: BP 121/81; PULSE 82; RESP 16; TEMP 36.6; O2SAT 97
[2023-12-29] MEDS: QUEtiapine Fumarate 200 MG TABLET PO (19:58)
[2023-12-30] MEDS: Omeprazole 20 MG CAPSULE.DR PO (05:20)
[2023-12-30 08:15] VITALS: BP 121/68; PULSE 88; RESP 18; TEMP 36.5; O2SAT 98
[2023-12-30] MEDS: FLUoxetine HCl 10 MG CAPSULE PO (08:15)
[2023-12-30] MEDS: methADONE HCl 20 MG/2 ML ORAL.CONC 105 MG PO (08:15)
[2023-12-30] MEDS: OXcarbazepine 300 MG TABLET PO ×2 (08:15→20:38)
[2023-12-30] MEDS: Multivitamin TABLET 1 TAB PO (08:15)
[2023-12-30] MEDS: Cariprazine HCl 3 MG CAPSULE 6 MG PO (08:15)
[2023-12-30] MEDS: Folic Acid 1 MG TABLET PO (08:16)
[2023-12-30] MEDS: Thiamine HCL 100 MG TABLET PO (08:16)
[2023-12-30] MEDS: cloNIDine HCL 0.1 MG TABLET PO ×2 (08:16→13:50)
[2023-12-30] MEDS: hydrOXYzine HCL 25 MG TABLET PO (08:16)
[2023-12-30 10:34] VITALS: BMI 31.5
--- NOTE | 2023-12-30 12:29 | P.PNPSI_ITS ---
Subjective Subjective Date of Service: 12/30/23 Reason For Visit: depression/SI Interim History: met with patient; discussed with team pt depressed, though better; wants a program. still c/o trouble w/ inspiration, though review of CXR unremarkable. pt feeling sedated -lowering sedating meds Mental Status Exam Mental Status Exam Narrative: Pt is alert and oriented; behavior is cooperative, calm, friendly; patient is not in distress; dressed in casual attire with combed hair, adequate hygiene; mood is described as depressed and affect congruent, still somewhat downcast; eye contact somewhat avoidant; Speech normal rate, volume and prosody not pressured; still some psychomotor retardation present; thought process is organized and goal directed; Thought content is on struggles and on tx; otherwise pertinent to relevant topics and without any delusional content, paranoid ideations or grandiosity; currently no SI; no HI; Patients insight and judgment impaired but improving. Diagnostics Vital Signs (24Hr): Vital Signs - 24 hr 12/29/23 14:30 12/29/23 19:01 12/30/23 08:15 Temperature 97.8 F 97.7 F Pulse Rate 84 82 88 Respiratory Rate 16 18 Blood Pressure 120/74 121/81 121/68 Pulse Oximetry 97 98 Oxygen Delivery Method Room Air Room Air BMI result Body Mass Index 31.5 Labs 12/18/23 16:48 12/21/23 09:29 Imaging Radiology Impressions: ITS Impressions Hand X-Ray 12/26/23 22:30 IMPRESSION: Soft tissue swelling. No acute osseous findings. Medications Medications Current Medications Acetaminophen (Acetaminophen 325 Mg Tablet) 650 mg PO Q6H PRN PRN Reason: Headache/Pain Mild Scale(1-10) Last Admin: 12/26/23 21:47 Dose: 650 mg Al Hydroxide/Mg Hydroxide (Magnesium Hydrox/Alum Hydrox 30 Ml Oral.Susp) 30 ml PO Q6H PRN PRN Reason: Heartburn/Nausea Cariprazine (Cariprazine Hcl 3 Mg Capsule) 6 mg PO DAILY [facility] Last Admin: 12/30/23 08:15 Dose: 6 mg Clonidine HCl (Clonidine Hcl 0.1 Mg Tablet) 0.1 mg PO Q4H PRN; Protocol PRN Reason: anxiety Clonidine HCl (Clonidine Hcl 0.1 Mg Tablet) 0.1 mg PO DAILY@1300 [facility]; Protocol Fluoxetine HCl (Fluoxetine Hcl 10 Mg Capsule) 10 mg PO DAILY [facility] Last Admin: 12/30/23 08:15 Dose: 10 mg Folic Acid (Folic Acid 1 Mg Tablet) 1 mg PO DAILY [facility] Last Admin: 12/30/23 08:16 Dose: 1 mg Hydroxyzine HCl (Hydroxyzine Hcl 25 Mg Tablet) 25 mg PO Q6H PRN PRN Reason: Anxiety Lorazepam (Lorazepam 1 Mg Tablet) 1 mg PO DAILY PRN PRN Reason: To PREVENT panic Last Admin: 12/26/23 21:47 Dose: 1 mg Magnesium Hydroxide (Milk Of Magnesia 30 Ml Oral.Susp) 30 ml PO DAILY PRN PRN Reason: Constipation Methadone HCl (Methadone Hcl 20 Mg/2 Ml Oral.Conc) 105 mg PO DAILY [facility] Last Admin: 12/30/23 08:15 Dose: 105 mg Multivitamins/Vitamin C (Multivitamin Tablet) 1 tab PO DAILY [facility] Last Admin: 12/30/23 08:15 Dose: 1 tab Nicotine (Nicotine 21 Mg Patch.Td24) 21 mg TRANSDERMA DAILY PRN PRN Reason: smoking cessation Nicotine Polacrilex (Nicotine Polacrilex 2 Mg Gum) 4 mg BUCCAL Q2H PRN PRN Reason: Nicotine Cravings Olanzapine (Olanzapine 5 Mg Tablet) 5 mg PO TID PRN PRN Reason: agitation Last Admin: 12/22/23 15:19 Dose: 5 mg Omeprazole (Omeprazole 20 Mg Capsule.Dr) 20 mg PO DAILY@0630 [facility] Last Admin: 12/30/23 05:20 Dose: 20 mg Ondansetron HCl (Ondansetron Odt 4 Mg Tab.Rapdis) 4 mg TRANSLINGU Q6H PRN PRN Reason: Nausea and Vomiting Oxcarbazepine (Oxcarbazepine 300 Mg Tablet) 300 mg PO BID [facility] Last Admin: 12/30/23 08:15 Dose: 300 mg Quetiapine Fumarate (Quetiapine Fumarate 50 Mg Tablet) 50 mg PO BID PRN PRN Reason: perceptual alterations Last Admin: 12/26/23 17:09 Dose: 50 mg Quetiapine Fumarate (Quetiapine Fumarate 50 Mg Tablet) 50 mg PO BID PRN PRN Reason: anxiety Last Admin: 12/27/23 14:05 Dose: 50 mg Quetiapine Fumarate (Quetiapine Fumarate 50 Mg Tablet) 150 mg PO BEDTIME [facility] Thiamine HCl (Thiamine Hcl 100 Mg Tablet) 100 mg PO DAILY [facility] Last Admin: 12/30/23 08:16 Dose: 100 mg Allergies Allergies Allergy/AdvReac Type Severity Reaction Status Date / Time No Known Allergies Allergy Verified 12/18/23 17:40 [No Known Allergies*] Assessment & Plan Assessment & Plan (1) Schizoaffective disorder, depressive type: Status: Acute Code(s): F25.1 - Schizoaffective disorder, depressive type (2) PTSD (post-traumatic stress disorder): Status: Acute Code(s): F43.10 - Post-traumatic stress disorder, unspecified (3) Opioid use disorder: Status: Acute Code(s): F11.90 - Opioid use, unspecified, uncomplicated (4) Thrombophlebitis: Status: Acute Code(s): I80.9 - Phlebitis and thrombophlebitis of unspecified site Plan HPI: pt is a 28 yo male with hx of schizoaffective disorder, depressed type, PTSD, opioid use disorder on methadone who presents for worsening depression and SI in face of going off medications and relapse. Pt reports at last admission Sep 2023 he ended up doing well, good mood, anxiety reduced (though still with panic attacks) and went to a program where he continued to do well, good mood, on list for sober housing...about 3 weeks into program pt had a sudden, severe panic attack; he could not stop it and all he could think of was leaving program and using. He says in the moment, all he cares about is getting rid of the panic and has no further room to consider consequences. Pt left, relapsed, stopped taking medications and depression quickly worsened; pt homeless, embroiled in substance abuse became despondent, hopeless and suicidal. He started developing vague plan so self-presented to ED for help. Denies hx of manic type episodes; has intermittent AH independent of depression, substance abuse...no alcohol abuse; no intentional cocaine use. Currently with AH and passive SI. Wants to get back on medications. Impression: meets criteria for schizoaffective disorder, depressed type Patient is significantly depressed; medications help w/ mood but have not eliminated panic attacks which seem to derail progress made. Addiction issues and hx of trauma with ptsd symptoms clearly contribute. Will restart most home meds from recent admission since they were helpful -pt also reports 2-3 days of constant hiccups, waking him up from sleep (and clearly present); pt agrees to start Baclofen Hospital course: 12/21 some hiccups last night; none today; will stay on baclofen for a few more days mood is a little better today; showered, eating; troubled sleep; intermittent AH Discussed history of panic and how it has derailed treatment in the past; discussed quality of panic and patient will try to be aware of pending panic attack to take medication Discussed other history and sounds like patient may have ADHD which could be explored as an outpatient discussed meds: -will try Prozac to see if can reduce or even eliminate panic attacks; also try cloninidine scheduled -discussed seroquel which patient said was there for sleep; will try without for a few more days and add if needed. DC trazodone gives vivid nightmares -will also add Ativan as a p.r.n. for panic only; despite his hx of substance abuse and associated risks of combining with benzos, there is no other way to prevent a pending panic attack than a benzo; given the fact that panic derails prgress, that he is often in a program where medications are dispensed by staff and an outpatient he only needs 2 tabs a week... It is assembly instructions writer's opinion that the potential benefits outweigh the obvious risks -risks/side effects of medication regimen reviewed with patient understood and wants to proceed 12/22 Patient reports feeling depressed today, not sure why but a little better than on admission. Still very anxious though no panic. Patient took Prozac this morning and about 20 minutes later he vomited. He thinks it was probably due to the Prozac but he has not sure. He agrees to try again tomorrow; otherwise he agrees to switch to a different SSRI. Patient appropriate with peers and staff, going to groups and remains engaged with treatment -reports sleeping well enough 12/24/23- Continue tx. Continue Prozac trial. 12/25/2023: Continue current regimen and plans. 12/26/2023: Continue current regimen and plans. Added Seroquel 200 mg q.h.s. Xray right hand 12/25: IMPRESSION: Soft tissue swelling. No acute osseous findings. 12/26 Patient feeling a little better today. Discussed how patient felt triggered this weekend. Feeling better now. Accept for this outburst, Otherwise he overall remains in good behavioral and impulse, getting along well with peers and staff and engaged in treatment, attending groups and forthcoming in 1 on 1 sessions. Discussed medication management; tolerating Prozac; will add Seroquel p.r.n. which he has been on before to help with anxiety. Will hold off on increasing Trileptal at this time. adding Seroquel 50mg PRn for anxiety 12/27 improving; engaged in treatment, attending groups, good behavioral/impulse control and getting along well w/ staff/peers; still down, but less so. asks to lower methadone due to daytime sedation 12/28 pt reports continued depression/anxiety but working on coping. Reports says he's having trouble taking in breath, only on inspiration, which he says occurs off/on throughout the day for past couple of days. Says always anxious so not sure if it's that or something else. -02 sat a little low at 95 (though it' has been this low at times in past), but RR 16 -Denies any chest pain; -ROS and denies any upper respiratory symptoms -denies any hx of Asthma, COPD, DVT/PE, chest/rib trauma, recent upper respiratory illness, denies allergy symptoms H&H grossly WNL and not anemia Pt does not appear in any distress, no signs of labored breathing; he is observed able to talk, walk without difficulty focused exam: Pulm: CTA b/l throughout; no wheezing, rhonchi/rales -will get CXR out of abundance of caution 12/29 review of CXR unremarkable pt depressed, though better; wants a program. still c/o trouble w/ inspiration, though review of CXR unremarkable, O2 sat WNL. pt still feeling sedated -at this time, low concern for cardio/pulm/other organic etiology to pt's report of trouble w/ inspiration however, will continue to monitor -lowering sedating meds PLAN: CV q15min lowered to Seroquel 150mg qhs for now DC clonidine 0.1 mg 0900 Continue Clonidine 0.1mg 1300 to help prevent panic changed scheduled Hydroxyzine to prn lowered methadone to 105mg daily Seroquel 50mg BID prn for anxiety continue Prozac 10 mg daily for anxiety/panic; tolerating Continue Ativan p.r.n. only used for for pending panic attack Continue Vraylar 6mg Continue Trileptal 300mg BID completed Ceftin/Doxycycline for thrombophlepitis/prevent cellulitis DC Baclofen 5mg Reviewed labs, lipids/HBA1C from recent admission a few months ago; no need to repeat at this time Patient educated on: diagnosis, medication risk/benefits and medical condition Informed Consent: understands Reason for continued inpatient stay Substantial Risk for: rapid decompensation Time Spent With Patient Time: Total time managing care of this patient today ____ minutes.
[2023-12-30 13:51] VITALS: BP 117/74; PULSE 95
[2023-12-30 18:00] VITALS: BP 175/67; PULSE 95; TEMP 36.1
[2023-12-30] MEDS: QUEtiapine Fumarate 50 MG TABLET 150 MG PO (20:37)
[2023-12-31] MEDS: Omeprazole 20 MG CAPSULE.DR PO (05:17)
[2023-12-31] MEDS: Cariprazine HCl 3 MG CAPSULE 6 MG PO (08:12)
[2023-12-31] MEDS: methADONE HCl 20 MG/2 ML ORAL.CONC 105 MG PO (08:12)
[2023-12-31] MEDS: FLUoxetine HCl 10 MG CAPSULE PO (08:13)
[2023-12-31] MEDS: Multivitamin TABLET 1 TAB PO (08:13)
[2023-12-31] MEDS: OXcarbazepine 300 MG TABLET PO ×2 (08:13→20:05)
[2023-12-31] MEDS: Thiamine HCL 100 MG TABLET PO (08:13)
[2023-12-31] MEDS: Folic Acid 1 MG TABLET PO (08:13)
[2023-12-31 08:15] VITALS: BP 126/83; PULSE 89; RESP 18; TEMP 36.8; O2SAT 98
[2023-12-31] MEDS: QUEtiapine Fumarate 50 MG TABLET PO (11:22)
[2023-12-31] MEDS: cloNIDine HCL 0.1 MG TABLET PO (14:32)
[2023-12-31 14:33] VITALS: BP 119/71; PULSE 97
[2023-12-31] MEDS: Albuterol Sulfate 90 MCG 8 GM INHALER 2 PUFF INHALE (19:33)
[2023-12-31 19:40] VITALS: BP 136/68; PULSE 92; RESP 18; TEMP 36.2; O2SAT 98
--- NOTE | 2023-12-31 20:00 | HO.PSYCHPN ---
Subjective Subjective Date of Service: 12/31/23 Reason For Visit: depression/SI Interim History: Met with patient; discussed with team reports lots of anxiety less sedated w/ med changes; wants to go lower on methadone; still reports trouble w/ inspiration and agrees to try prn albuterol to see if relieves Mental Status Exam Mental Status Exam Narrative: Pt is alert and oriented; behavior is cooperative, calm, friendly; patient is not in distress; dressed in casual attire with combed hair, adequate hygiene; mood is described as anxious and affect congruent, still somewhat downcast; eye contact somewhat avoidant; Speech normal rate, volume and prosody not pressured; still some psychomotor retardation present; thought process is organized and goal directed; Thought content is on struggles and on tx; otherwise pertinent to relevant topics and without any delusional content, paranoid ideations or grandiosity; currently no SI; no HI; Patients insight and judgment impaired but improving. Diagnostics Vital Signs (24Hr): Vital Signs - 24 hr 12/31/23 08:15 12/31/23 14:33 Temperature 98.2 F Pulse Rate 89 97 Respiratory Rate 18 Blood Pressure 126/83 119/71 Pulse Oximetry 98 Oxygen Delivery Method Room Air BMI result Body Mass Index 31.5 Labs 12/18/23 16:48 12/21/23 09:29 Imaging Radiology Impressions: ITS Impressions Hand X-Ray 12/26/23 22:30 IMPRESSION: Soft tissue swelling. No acute osseous findings. Ribs X-Ray 12/29/23 20:35 IMPRESSION: * Lungs have a normal appearance. No acute cardiopulmonary abnormality. * No evidence of rib fracture. Medications Medications Current Medications Acetaminophen (Acetaminophen 325 Mg Tablet) 650 mg PO Q6H PRN PRN Reason: Headache/Pain Mild Scale(1-10) Last Admin: 12/26/23 21:47 Dose: 650 mg Al Hydroxide/Mg Hydroxide (Magnesium Hydrox/Alum Hydrox 30 Ml Oral.Susp) 30 ml PO Q6H PRN PRN Reason: Heartburn/Nausea Albuterol Sulfate (Albuterol Sulfate 90 Mcg 8 Gm Inhaler) 2 puff INHALE RQ4H PRN PRN Reason: Shortness of Breath Cariprazine (Cariprazine Hcl 3 Mg Capsule) 6 mg PO DAILY [facility] Last Admin: 12/31/23 08:12 Dose: 6 mg Clonidine HCl (Clonidine Hcl 0.1 Mg Tablet) 0.1 mg PO Q4H PRN; Protocol PRN Reason: anxiety Clonidine HCl (Clonidine Hcl 0.1 Mg Tablet) 0.1 mg PO DAILY@1300 [facility]; Protocol Last Admin: 12/31/23 14:32 Dose: 0.1 mg Fluoxetine HCl (Fluoxetine Hcl 10 Mg Capsule) 10 mg PO DAILY [facility] Last Admin: 12/31/23 08:13 Dose: 10 mg Folic Acid (Folic Acid 1 Mg Tablet) 1 mg PO DAILY [facility] Last Admin: 12/31/23 08:13 Dose: 1 mg Hydroxyzine HCl (Hydroxyzine Hcl 25 Mg Tablet) 25 mg PO Q6H PRN PRN Reason: Anxiety Lorazepam (Lorazepam 1 Mg Tablet) 1 mg PO DAILY PRN PRN Reason: To PREVENT panic Last Admin: 12/26/23 21:47 Dose: 1 mg Magnesium Hydroxide (Milk Of Magnesia 30 Ml Oral.Susp) 30 ml PO DAILY PRN PRN Reason: Constipation Methadone HCl (Methadone Hcl 20 Mg/2 Ml Oral.Conc) 105 mg PO DAILY [facility] Last Admin: 12/31/23 08:12 Dose: 105 mg Multivitamins/Vitamin C (Multivitamin Tablet) 1 tab PO DAILY [facility] Last Admin: 12/31/23 08:13 Dose: 1 tab Nicotine (Nicotine 21 Mg Patch.Td24) 21 mg TRANSDERMA DAILY PRN PRN Reason: smoking cessation Nicotine Polacrilex (Nicotine Polacrilex 2 Mg Gum) 4 mg BUCCAL Q2H PRN PRN Reason: Nicotine Cravings Olanzapine (Olanzapine 5 Mg Tablet) 5 mg PO TID PRN PRN Reason: agitation Last Admin: 12/22/23 15:19 Dose: 5 mg Omeprazole (Omeprazole 20 Mg Capsule.Dr) 20 mg PO DAILY@0630 [facility] Last Admin: 12/31/23 05:17 Dose: 20 mg Ondansetron HCl (Ondansetron Odt 4 Mg Tab.Rapdis) 4 mg TRANSLINGU Q6H PRN PRN Reason: Nausea and Vomiting Oxcarbazepine (Oxcarbazepine 300 Mg Tablet) 300 mg PO BID [facility] Last Admin: 12/31/23 08:13 Dose: 300 mg Quetiapine Fumarate (Quetiapine Fumarate 50 Mg Tablet) 50 mg PO BID PRN PRN Reason: perceptual alterations Last Admin: 12/26/23 17:09 Dose: 50 mg Quetiapine Fumarate (Quetiapine Fumarate 50 Mg Tablet) 50 mg PO BID PRN PRN Reason: anxiety Last Admin: 12/31/23 11:22 Dose: 50 mg Quetiapine Fumarate (Quetiapine Fumarate 50 Mg Tablet) 150 mg PO BEDTIME [facility] Last Admin: 12/30/23 20:37 Dose: 150 mg Thiamine HCl (Thiamine Hcl 100 Mg Tablet) 100 mg PO DAILY [facility] Last Admin: 12/31/23 08:13 Dose: 100 mg Allergies Allergies Allergy/AdvReac Type Severity Reaction Status Date / Time No Known Allergies Allergy Verified 12/18/23 17:40 [No Known Allergies*] Assessment & Plan Assessment & Plan (1) Schizoaffective disorder, depressive type: Status: Acute Code(s): F25.1 - Schizoaffective disorder, depressive type (2) PTSD (post-traumatic stress disorder): Status: Acute Code(s): F43.10 - Post-traumatic stress disorder, unspecified (3) Opioid use disorder: Status: Acute Code(s): F11.90 - Opioid use, unspecified, uncomplicated (4) Thrombophlebitis: Status: Acute Code(s): I80.9 - Phlebitis and thrombophlebitis of unspecified site Plan HPI: pt is a 28 yo male with hx of schizoaffective disorder, depressed type, PTSD, opioid use disorder on methadone who presents for worsening depression and SI in face of going off medications and relapse. Pt reports at last admission Sep 2023 he ended up doing well, good mood, anxiety reduced (though still with panic attacks) and went to a program where he continued to do well, good mood, on list for sober housing...about 3 weeks into program pt had a sudden, severe panic attack; he could not stop it and all he could think of was leaving program and using. He says in the moment, all he cares about is getting rid of the panic and has no further room to consider consequences. Pt left, relapsed, stopped taking medications and depression quickly worsened; pt homeless, embroiled in substance abuse became despondent, hopeless and suicidal. He started developing vague plan so self-presented to ED for help. Denies hx of manic type episodes; has intermittent AH independent of depression, substance abuse...no alcohol abuse; no intentional cocaine use. Currently with AH and passive SI. Wants to get back on medications. Impression: meets criteria for schizoaffective disorder, depressed type Patient is significantly depressed; medications help w/ mood but have not eliminated panic attacks which seem to derail progress made. Addiction issues and hx of trauma with ptsd symptoms clearly contribute. Will restart most home meds from recent admission since they were helpful -pt also reports 2-3 days of constant hiccups, waking him up from sleep (and clearly present); pt agrees to start Baclofen Hospital course: 12/21 some hiccups last night; none today; will stay on baclofen for a few more days mood is a little better today; showered, eating; troubled sleep; intermittent AH Discussed history of panic and how it has derailed treatment in the past; discussed quality of panic and patient will try to be aware of pending panic attack to take medication Discussed other history and sounds like patient may have ADHD which could be explored as an outpatient discussed meds: -will try Prozac to see if can reduce or even eliminate panic attacks; also try cloninidine scheduled -discussed seroquel which patient said was there for sleep; will try without for a few more days and add if needed. DC trazodone gives vivid nightmares -will also add Ativan as a p.r.n. for panic only; despite his hx of substance abuse and associated risks of combining with benzos, there is no other way to prevent a pending panic attack than a benzo; given the fact that panic derails prgress, that he is often in a program where medications are dispensed by staff and an outpatient he only needs 2 tabs a week... It is caption writer's opinion that the potential benefits outweigh the obvious risks -risks/side effects of medication regimen reviewed with patient understood and wants to proceed 12/22 Patient reports feeling depressed today, not sure why but a little better than on admission. Still very anxious though no panic. Patient took Prozac this morning and about 20 minutes later he vomited. He thinks it was probably due to the Prozac but he has not sure. He agrees to try again tomorrow; otherwise he agrees to switch to a different SSRI. Patient appropriate with peers and staff, going to groups and remains engaged with treatment -reports sleeping well enough 12/24/23- Continue tx. Continue Prozac trial. 12/25/2023: Continue current regimen and plans. 12/26/2023: Continue current regimen and plans. Added Seroquel 200 mg q.h.s. Xray right hand 12/25: IMPRESSION: Soft tissue swelling. No acute osseous findings. 12/26 Patient feeling a little better today. Discussed how patient felt triggered this weekend. Feeling better now. Accept for this outburst, Otherwise he overall remains in good behavioral and impulse, getting along well with peers and staff and engaged in treatment, attending groups and forthcoming in 1 on 1 sessions. Discussed medication management; tolerating Prozac; will add Seroquel p.r.n. which he has been on before to help with anxiety. Will hold off on increasing Trileptal at this time. adding Seroquel 50mg PRn for anxiety 12/27 improving; engaged in treatment, attending groups, good behavioral/impulse control and getting along well w/ staff/peers; still down, but less so. asks to lower methadone due to daytime sedation 12/28 pt reports continued depression/anxiety but working on coping. Reports says he's having trouble taking in breath, only on inspiration, which he says occurs off/on throughout the day for past couple of days. Says always anxious so not sure if it's that or something else. -02 sat a little low at 95 (though it' has been this low at times in past), but RR 16 -Denies any chest pain; -ROS and denies any upper respiratory symptoms -denies any hx of Asthma, COPD, DVT/PE, chest/rib trauma, recent upper respiratory illness, denies allergy symptoms H&H grossly WNL and not anemia Pt does not appear in any distress, no signs of labored breathing; he is observed able to talk, walk without difficulty focused exam: Pulm: CTA b/l throughout; no wheezing, rhonchi/rales -will get CXR out of abundance of caution 12/29 review of CXR unremarkable pt depressed, though better; wants a program. still c/o trouble w/ inspiration, though review of CXR unremarkable, O2 sat WNL. pt still feeling sedated -at this time, low concern for cardio/pulm/other organic etiology to pt's report of trouble w/ inspiration given absence of other symptoms/findings; however will continue to monitor -lowering sedating meds 12/30 feels less sedated w/ med changes; wants to go down a little more on methadone added albuterol to see if makes any improvement in pt's reported trouble with inspiration PLAN: CV q15min added Albuterol inhaler, one time dose and PRN Continue Seroquel 150mg qhs for now DC clonidine 0.1 mg 0900 Continue Clonidine 0.1mg 1300 to help prevent panic changed scheduled Hydroxyzine to prn Will lower to methadone to 100mg daily Seroquel 50mg BID prn for anxiety continue Prozac 10 mg daily for anxiety/panic; tolerating Continue Ativan p.r.n. only used for for pending panic attack Continue Vraylar 6mg Continue Trileptal 300mg BID completed Ceftin/Doxycycline for thrombophlepitis/prevent cellulitis DC Baclofen 5mg Reviewed labs, lipids/HBA1C from recent admission a few months ago; no need to repeat at this time . Patient educated on: diagnosis, medication risk/benefits and medical condition Informed Consent: understands Reason for continued inpatient stay Substantial Risk for: rapid decompensation Time Spent With Patient Time: Total time managing care of this patient today ____ minutes.
[2023-12-31] MEDS: QUEtiapine Fumarate 50 MG TABLET 150 MG PO (20:05)
[2023-12-31] MEDS: LORazepam 1 MG TABLET PO (20:08)
[2024-01-01] MEDS: Omeprazole 20 MG CAPSULE.DR PO (05:43)
[2024-01-01 08:23] VITALS: BP 112/67; PULSE 98; RESP 16; TEMP 36.9; O2SAT 99
[2024-01-01] MEDS: methADONE HCl 20 MG/2 ML ORAL.CONC 105 MG PO (08:30)
[2024-01-01] MEDS: Thiamine HCL 100 MG TABLET PO (08:32)
[2024-01-01] MEDS: Cariprazine HCl 3 MG CAPSULE 6 MG PO (08:32)
[2024-01-01] MEDS: Multivitamin TABLET 1 TAB PO (08:32)
[2024-01-01] MEDS: OXcarbazepine 300 MG TABLET PO ×2 (08:32→20:17)
[2024-01-01] MEDS: FLUoxetine HCl 10 MG CAPSULE PO (08:32)
[2024-01-01] MEDS: Folic Acid 1 MG TABLET PO (08:32)
[2024-01-01] MEDS: Albuterol Sulfate 90 MCG 8 GM INHALER 2 PUFF INHALE (08:40)
[2024-01-01] MEDS: Nicotine Polacrilex 2 MG GUM 4 MG BUCCAL (08:41)
--- NOTE | 2024-01-01 09:45 | P.PNPSI_ITS ---
Documented by User: Cristofer Alvarez MD 01/02/24 09:02 Subjective Subjective Date of Service: 01/01/24 Reason For Visit: depression/SI Interim History: Met with patient; discussed with team reports lots of anxiety Albuterol didn't relieve the anxiety/trouble with inspiration. He doesn't appear to be in any distress. They have no side effects in terms of medications. Review of Systems Review of Systems Sleep Yes all other systems are reviewed and are negative Constitutional: Reports no additional constitutional complaints, Denies chills, Denies fever(s) and Denies night sweats Eyes: Reports no additional eye complaints, Denies blurry vision, Denies change in vision, Denies diplopia, Denies eye discharge, Denies loss of vision and Denies eye pain Denies dizziness Cardiovascular: Reports no additional cardiovascular complaints, Denies chest pain, Denies lightheadedness, Denies Loss of Consciousness and Denies dyspnea Respiratory: Reports no additional respiratory complaints and Denies dyspnea Gastrointestinal: Reports no additional gastrointestinal complaints, Denies abdominal pain, Denies melena, Denies hematochezia, Denies change in bowel habits and Denies change in stool character Genitourinary: Reports no additional male genitourinary complaints, Denies hematuria, Denies oliguria, Denies difficulty urinating, Denies dysuria, Denies urinary frequency, Denies urinary hesitancy, Denies urinary incontinence and Denies urinary urgency Musculoskeletal: Reports no additional musculoskeletal complaints, Denies numbness and Denies tingling Denies dizziness, Denies loss of vision, Denies numbness and Denies tingling Psychiatric: Denies homicidal ideation and Reports suicidal ideation Endocrine: Reports no additional endocrine complaints Hematologic/Lymphatic: Reports no additional hematologic/lymphatic complaints Allergic/Immunologic: Reports no additional allergic/immunologic complaints Mental Status Exam Mental Status Exam Narrative: Pt is alert and oriented; behavior is cooperative, calm, friendly; patient is not in distress; dressed in casual attire with combed hair, adequate hygiene; mood is described as anxious and affect congruent, still somewhat downcast; eye contact somewhat avoidant; Speech normal rate, volume and prosody not pressured; still some psychomotor retardation present; thought process is organized and goal directed; Thought content is on struggles and on tx; otherwise pertinent to relevant topics and without any delusional content, paranoid ideations or grandiosity; currently no SI; no HI; Patients insight and judgment impaired but improving. Patient Appearance: Fatigued and Appropriate Patient Orientation: Person, Place, Time and Situation Level of Consciousness: Alert Patient Behavior: Appropriate, Talkative, Cooperative and Good Eye Contact Mood Description: Constricted, Anxious and Apprehensive Affect Description: Constricted, Anxious and Apprehensive Patient Cognition Impaired: No Ability to Follow Directions: Good Speech Pattern: Spontaneous Speech Memory Description: Intact Diagnostics Vital Signs (24Hr): Vital Signs - 24 hr 12/31/23 14:33 12/31/23 19:40 01/01/24 08:23 Temperature 97.2 F 98.4 F Pulse Rate 97 92 98 Respiratory Rate 18 16 Blood Pressure 119/71 136/68 112/67 Pulse Oximetry 98 99 Oxygen Delivery Method Room Air Room Air BMI result Body Mass Index 31.5 Labs 12/18/23 16:48 12/21/23 09:29 Imaging Radiology Impressions: ITS Impressions Hand X-Ray 12/26/23 22:30 IMPRESSION: Soft tissue swelling. No acute osseous findings. Ribs X-Ray 12/29/23 20:35 IMPRESSION: * Lungs have a normal appearance. No acute cardiopulmonary abnormality. * No evidence of rib fracture. Medications Medications Current Medications Acetaminophen (Acetaminophen 325 Mg Tablet) 650 mg PO Q6H PRN PRN Reason: Headache/Pain Mild Scale(1-10) Last Admin: 12/26/23 21:47 Dose: 650 mg Al Hydroxide/Mg Hydroxide (Magnesium Hydrox/Alum Hydrox 30 Ml Oral.Susp) 30 ml PO Q6H PRN PRN Reason: Heartburn/Nausea Albuterol Sulfate (Albuterol Sulfate 90 Mcg 8 Gm Inhaler) 2 puff INHALE RQ4H PRN PRN Reason: Shortness of Breath Last Admin: 01/01/24 08:40 Dose: 2 puff Cariprazine (Cariprazine Hcl 3 Mg Capsule) 6 mg PO DAILY [facility] Last Admin: 01/01/24 08:32 Dose: 6 mg Clonidine HCl (Clonidine Hcl 0.1 Mg Tablet) 0.1 mg PO Q4H PRN; Protocol PRN Reason: anxiety Clonidine HCl (Clonidine Hcl 0.1 Mg Tablet) 0.1 mg PO DAILY@1300 [facility]; Protocol Last Admin: 12/31/23 14:32 Dose: 0.1 mg Fluoxetine HCl (Fluoxetine Hcl 10 Mg Capsule) 10 mg PO DAILY [facility] Last Admin: 01/01/24 08:32 Dose: 10 mg Folic Acid (Folic Acid 1 Mg Tablet) 1 mg PO DAILY [facility] Last Admin: 01/01/24 08:32 Dose: 1 mg Hydroxyzine HCl (Hydroxyzine Hcl 25 Mg Tablet) 25 mg PO Q6H PRN PRN Reason: Anxiety Lorazepam (Lorazepam 1 Mg Tablet) 1 mg PO DAILY PRN PRN Reason: To PREVENT panic Last Admin: 12/31/23 20:08 Dose: 1 mg Magnesium Hydroxide (Milk Of Magnesia 30 Ml Oral.Susp) 30 ml PO DAILY PRN PRN Reason: Constipation Methadone HCl (Methadone Hcl 20 Mg/2 Ml Oral.Conc) 105 mg PO DAILY [facility] Last Admin: 01/01/24 08:30 Dose: 105 mg Multivitamins/Vitamin C (Multivitamin Tablet) 1 tab PO DAILY [facility] Last Admin: 01/01/24 08:32 Dose: 1 tab Nicotine (Nicotine 21 Mg Patch.Td24) 21 mg TRANSDERMA DAILY PRN PRN Reason: smoking cessation Nicotine Polacrilex (Nicotine Polacrilex 2 Mg Gum) 4 mg BUCCAL Q2H PRN PRN Reason: Nicotine Cravings Last Admin: 01/01/24 08:41 Dose: 4 mg Olanzapine (Olanzapine 5 Mg Tablet) 5 mg PO TID PRN PRN Reason: agitation Last Admin: 12/22/23 15:19 Dose: 5 mg Omeprazole (Omeprazole 20 Mg Capsule.Dr) 20 mg PO DAILY@0630 [facility] Last Admin: 01/01/24 05:43 Dose: 20 mg Ondansetron HCl (Ondansetron Odt 4 Mg Tab.Rapdis) 4 mg TRANSLINGU Q6H PRN PRN Reason: Nausea and Vomiting Oxcarbazepine (Oxcarbazepine 300 Mg Tablet) 300 mg PO BID [facility] Last Admin: 01/01/24 08:32 Dose: 300 mg Quetiapine Fumarate (Quetiapine Fumarate 50 Mg Tablet) 50 mg PO BID PRN PRN Reason: perceptual alterations Last Admin: 12/26/23 17:09 Dose: 50 mg Quetiapine Fumarate (Quetiapine Fumarate 50 Mg Tablet) 50 mg PO BID PRN PRN Reason: anxiety Last Admin: 12/31/23 11:22 Dose: 50 mg Quetiapine Fumarate (Quetiapine Fumarate 50 Mg Tablet) 150 mg PO BEDTIME [facility] Last Admin: 12/31/23 20:05 Dose: 150 mg Thiamine HCl (Thiamine Hcl 100 Mg Tablet) 100 mg PO DAILY [facility] Last Admin: 01/01/24 08:32 Dose: 100 mg Allergies Allergies Allergy/AdvReac Type Severity Reaction Status Date / Time No Known Allergies Allergy Verified 12/18/23 17:40 [No Known Allergies*] Assessment & Plan Assessment & Plan (1) Schizoaffective disorder, depressive type: Status: Acute Code(s): F25.1 - Schizoaffective disorder, depressive type (2) PTSD (post-traumatic stress disorder): Status: Acute Code(s): F43.10 - Post-traumatic stress disorder, unspecified (3) Opioid use disorder: Status: Acute Code(s): F11.90 - Opioid use, unspecified, uncomplicated (4) Thrombophlebitis: Status: Acute Code(s): I80.9 - Phlebitis and thrombophlebitis of unspecified site Plan HPI: pt is a 28 yo male with hx of schizoaffective disorder, depressed type, PTSD, opioid use disorder on methadone who presents for worsening depression and SI in face of going off medications and relapse. Pt reports at last admission Sep 2023 he ended up doing well, good mood, anxiety reduced (though still with panic attacks) and went to a program where he continued to do well, good mood, on list for sober housing...about 3 weeks into program pt had a sudden, severe panic attack; he could not stop it and all he could think of was leaving program and using. He says in the moment, all he cares about is getting rid of the panic and has no further room to consider consequences. Pt left, relapsed, stopped taking medications and depression quickly worsened; pt homeless, embroiled in substance abuse became despondent, hopeless and suicidal. He started developing vague plan so self-presented to ED for help. Denies hx of manic type episodes; has intermittent AH independent of depression, substance abuse...no alcohol abuse; no intentional cocaine use. Currently with AH and passive SI. Wants to get back on medications. Impression: meets criteria for schizoaffective disorder, depressed type Patient is significantly depressed; medications help w/ mood but have not eliminated panic attacks which seem to derail progress made. Addiction issues and hx of trauma with ptsd symptoms clearly contribute. Will restart most home meds from recent admission since they were helpful -pt also reports 2-3 days of constant hiccups, waking him up from sleep (and clearly present); pt agrees to start Baclofen Hospital course: 12/21 some hiccups last night; none today; will stay on baclofen for a few more days mood is a little better today; showered, eating; troubled sleep; intermittent AH Discussed history of panic and how it has derailed treatment in the past; discussed quality of panic and patient will try to be aware of pending panic attack to take medication Discussed other history and sounds like patient may have ADHD which could be explored as an outpatient discussed meds: -will try Prozac to see if can reduce or even eliminate panic attacks; also try cloninidine scheduled -discussed seroquel which patient said was there for sleep; will try without for a few more days and add if needed. DC trazodone gives vivid nightmares -will also add Ativan as a p.r.n. for panic only; despite his hx of substance abuse and associated risks of combining with benzos, there is no other way to prevent a pending panic attack than a benzo; given the fact that panic derails prgress, that he is often in a program where medications are dispensed by staff and an outpatient he only needs 2 tabs a week... It is technical proposal writer's opinion that the potential benefits outweigh the obvious risks -risks/side effects of medication regimen reviewed with patient understood and wants to proceed 12/22 Patient reports feeling depressed today, not sure why but a little better than on admission. Still very anxious though no panic. Patient took Prozac this morning and about 20 minutes later he vomited. He thinks it was probably due to the Prozac but he has not sure. He agrees to try again tomorrow; otherwise he agrees to switch to a different SSRI. Patient appropriate with peers and staff, going to groups and remains engaged with treatment -reports sleeping well enough 12/24/23- Continue tx. Continue Prozac trial. 12/25/2023: Continue current regimen and plans. 12/26/2023: Continue current regimen and plans. Added Seroquel 200 mg q.h.s. Xray right hand 3/17: IMPRESSION: Soft tissue swelling. No acute osseous findings. 12/26 Patient feeling a little better today. Discussed how patient felt triggered this weekend. Feeling better now. Accept for this outburst, Otherwise he overall remains in good behavioral and impulse, getting along well with peers and staff and engaged in treatment, attending groups and forthcoming in 1 on 1 sessions. Discussed medication management; tolerating Prozac; will add Seroquel p.r.n. which he has been on before to help with anxiety. Will hold off on increasing Trileptal at this time. adding Seroquel 50mg PRn for anxiety 12/27 improving; engaged in treatment, attending groups, good behavioral/impulse control and getting along well w/ staff/peers; still down, but less so. asks to lower methadone due to daytime sedation 12/28 pt reports continued depression/anxiety but working on coping. Reports says he's having trouble taking in breath, only on inspiration, which he says occurs off/on throughout the day for past couple of days. Says always anxious so not sure if it's that or something else. -02 sat a little low at 95 (though it' has been this low at times in past), but RR 16 -Denies any chest pain; -ROS and denies any upper respiratory symptoms -denies any hx of Asthma, COPD, DVT/PE, chest/rib trauma, recent upper respiratory illness, denies allergy symptoms H&H grossly WNL and not anemia Pt does not appear in any distress, no signs of labored breathing; he is observed able to talk, walk without difficulty focused exam: Pulm: CTA b/l throughout; no wheezing, rhonchi/rales -will get CXR out of abundance of caution 12/29 review of CXR unremarkable pt depressed, though better; wants a program. still c/o trouble w/ inspiration, though review of CXR unremarkable, O2 sat WNL. pt still feeling sedated -at this time, low concern for cardio/pulm/other organic etiology to pt's report of trouble w/ inspiration given absence of other symptoms/findings; however will continue to monitor -lowering sedating meds 12/30 feels less sedated w/ med changes; wants to go down a little more on methadone added albuterol to see if makes any improvement in pt's reported trouble with inspiration 12/31: continue current management and treatment plan. PLAN: CV q15min added Albuterol inhaler, one time dose and PRN Continue Seroquel 150mg qhs for now DC clonidine 0.1 mg 0900 Continue Clonidine 0.1mg 1300 to help prevent panic changed scheduled Hydroxyzine to prn Will lower to methadone to 100mg daily Seroquel 50mg BID prn for anxiety continue Prozac 10 mg daily for anxiety/panic; tolerating Continue Ativan p.r.n. only used for for pending panic attack Continue Vraylar 6mg Continue Trileptal 300mg BID completed Ceftin/Doxycycline for thrombophlepitis/prevent cellulitis DC Baclofen 5mg Reviewed labs, lipids/HBA1C from recent admission a few months ago; no need to repeat at this time Reason for continued inpatient stay Substantial Risk for: harm to self Time Spent With Patient Time: Total time managing care of this patient today ____ minutes. Documented by User: Camron Gomes MD 01/01/24 11:48 Subjective Subjective Reason For Visit: depression/SI Diagnostics Labs 12/18/23 16:48 12/21/23 09:29 Assessment & Plan Assessment & Plan (1) Schizoaffective disorder, depressive type: Status: Acute Code(s): F25.1 - Schizoaffective disorder, depressive type (2) PTSD (post-traumatic stress disorder): Status: Acute Code(s): F43.10 - Post-traumatic stress disorder, unspecified (3) Opioid use disorder: Status: Acute Code(s): F11.90 - Opioid use, unspecified, uncomplicated (4) Thrombophlebitis: Status: Acute Code(s): I80.9 - Phlebitis and thrombophlebitis of unspecified site Plan HPI: pt is a 28 yo male with hx of schizoaffective disorder, depressed type, PTSD, opioid use disorder on methadone who presents for worsening depression and SI in face of going off medications and relapse. Pt reports at last admission Sep 2023 he ended up doing well, good mood, anxiety reduced (though still with panic attacks) and went to a program where he continued to do well, good mood, on list for sober housing...about 3 weeks into program pt had a sudden, severe panic attack; he could not stop it and all he could think of was leaving program and using. He says in the moment, all he cares about is getting rid of the panic and has no further room to consider consequences. Pt left, relapsed, stopped taking medications and depression quickly worsened; pt homeless, embroiled in substance abuse became despondent, hopeless and suicidal. He started developing vague plan so self-presented to ED for help. Denies hx of manic type episodes; has intermittent AH independent of depression, substance abuse...no alcohol abuse; no intentional cocaine use. Currently with AH and passive SI. Wants to get back on medications. Impression: meets criteria for schizoaffective disorder, depressed type Patient is significantly depressed; medications help w/ mood but have not eliminated panic attacks which seem to derail progress made. Addiction issues and hx of trauma with ptsd symptoms clearly contribute. Will restart most home meds from recent admission since they were helpful -pt also reports 2-3 days of constant hiccups, waking him up from sleep (and clearly present); pt agrees to start Baclofen Hospital course: 12/21 some hiccups last night; none today; will stay on baclofen for a few more days mood is a little better today; showered, eating; troubled sleep; intermittent AH Discussed history of panic and how it has derailed treatment in the past; discussed quality of panic and patient will try to be aware of pending panic attack to take medication Discussed other history and sounds like patient may have ADHD which could be explored as an outpatient discussed meds: -will try Prozac to see if can reduce or even eliminate panic attacks; also try cloninidine scheduled -discussed seroquel which patient said was there for sleep; will try without for a few more days and add if needed. DC trazodone gives vivid nightmares -will also add Ativan as a p.r.n. for panic only; despite his hx of substance abuse and associated risks of combining with benzos, there is no other way to prevent a pending panic attack than a benzo; given the fact that panic derails prgress, that he is often in a program where medications are dispensed by staff and an outpatient he only needs 2 tabs a week... It is technical proposal writer's opinion that the potential benefits outweigh the obvious risks -risks/side effects of medication regimen reviewed with patient understood and wants to proceed 12/22 Patient reports feeling depressed today, not sure why but a little better than on admission. Still very anxious though no panic. Patient took Prozac this morning and about 20 minutes later he vomited. He thinks it was probably due to the Prozac but he has not sure. He agrees to try again tomorrow; otherwise he agrees to switch to a different SSRI. Patient appropriate with peers and staff, going to groups and remains engaged with treatment -reports sleeping well enough 12/24/23- Continue tx. Continue Prozac trial. 12/25/2023: Continue current regimen and plans. 12/26/2023: Continue current regimen and plans. Added Seroquel 200 mg q.h.s. Xray right hand 12/25: IMPRESSION: Soft tissue swelling. No acute osseous findings. 12/26 Patient feeling a little better today. Discussed how patient felt triggered this weekend. Feeling better now. Accept for this outburst, Otherwise he overall remains in good behavioral and impulse, getting along well with peers and staff and engaged in treatment, attending groups and forthcoming in 1 on 1 sessions. Discussed medication management; tolerating Prozac; will add Seroquel p.r.n. which he has been on before to help with anxiety. Will hold off on increasing Trileptal at this time. adding Seroquel 50mg PRn for anxiety 12/27 improving; engaged in treatment, attending groups, good behavioral/impulse control and getting along well w/ staff/peers; still down, but less so. asks to lower methadone due to daytime sedation 12/28 pt reports continued depression/anxiety but working on coping. Reports says he's having trouble taking in breath, only on inspiration, which he says occurs off/on throughout the day for past couple of days. Says always anxious so not sure if it's that or something else. -02 sat a little low at 95 (though it' has been this low at times in past), but RR 16 -Denies any chest pain; -ROS and denies any upper respiratory symptoms -denies any hx of Asthma, COPD, DVT/PE, chest/rib trauma, recent upper respiratory illness, denies allergy symptoms H&H grossly WNL and not anemia Pt does not appear in any distress, no signs of labored breathing; he is observed able to talk, walk without difficulty focused exam: Pulm: CTA b/l throughout; no wheezing, rhonchi/rales -will get CXR out of abundance of caution 12/29 review of CXR unremarkable pt depressed, though better; wants a program. still c/o trouble w/ inspiration, though review of CXR unremarkable, O2 sat WNL. pt still feeling sedated -at this time, low concern for cardio/pulm/other organic etiology to pt's report of trouble w/ inspiration given absence of other symptoms/findings; however will continue to monitor -lowering sedating meds 12/30 feels less sedated w/ med changes; wants to go down a little more on methadone added albuterol to see if makes any improvement in pt's reported trouble with inspiration PLAN: CV q15min added Albuterol inhaler, one time dose and PRN Continue Seroquel 150mg qhs for now DC clonidine 0.1 mg 0900 Continue Clonidine 0.1mg 1300 to help prevent panic changed scheduled Hydroxyzine to prn Will lower to methadone to 100mg daily Seroquel 50mg BID prn for anxiety continue Prozac 10 mg daily for anxiety/panic; tolerating Continue Ativan p.r.n. only used for for pending panic attack Continue Vraylar 6mg Continue Trileptal 300mg BID completed Ceftin/Doxycycline for thrombophlepitis/prevent cellulitis DC Baclofen 5mg Reviewed labs, lipids/HBA1C from recent admission a few months ago; no need to repeat at this time
[2024-01-01] MEDS: Nicotine Polacrilex Lozenge 4 MG LOZENGE BUCCAL ×2 (10:17→20:14)
[2024-01-01 12:25] VITALS: BP 126/83; PULSE 107
[2024-01-01] MEDS: cloNIDine HCL 0.1 MG TABLET PO (12:30)
[2024-01-01 18:00] VITALS: BP 121/85; PULSE 94; RESP 16; TEMP 36.6; O2SAT 96
[2024-01-01] MEDS: QUEtiapine Fumarate 50 MG TABLET 150 MG PO (20:17)
[2024-01-02] MEDS: Omeprazole 20 MG CAPSULE.DR PO (06:16)
[2024-01-02 08:27] VITALS: BP 114/78; PULSE 87; RESP 18; TEMP 36.4; O2SAT 99
[2024-01-02] MEDS: Thiamine HCL 100 MG TABLET PO (08:36)
[2024-01-02] MEDS: Folic Acid 1 MG TABLET PO (08:36)
[2024-01-02] MEDS: Multivitamin TABLET 1 TAB PO (08:37)
[2024-01-02] MEDS: FLUoxetine HCl 10 MG CAPSULE PO (08:37)
[2024-01-02] MEDS: OXcarbazepine 300 MG TABLET PO ×2 (08:37→19:20)
[2024-01-02] MEDS: methADONE HCl 20 MG/2 ML ORAL.CONC 100 MG PO (08:37)
[2024-01-02] MEDS: Cariprazine HCl 3 MG CAPSULE 6 MG PO (08:37)
--- NOTE | 2024-01-02 09:03 | HO.PSYCHPN ---
Subjective Subjective Date of Service: 01/02/24 Reason For Visit: depression/SI Interim History: Met with patient; discussed with team Reports not big improvements in mood. Says his sleep has improved very much which he is appreciative of and says sleep helps. Denies side effects. Albuterol didn't help with the SOB. He doesn't appear to be in any distress. They have no side effects in terms of medications. Visible in milieu. Mom may visit to bring him clothes. Review of Systems Review of Systems Sleep Yes all other systems are reviewed and are negative Constitutional: Reports no additional constitutional complaints, Denies chills, Denies fever(s) and Denies night sweats Eyes: Reports no additional eye complaints, Denies blurry vision, Denies change in vision, Denies diplopia, Denies eye discharge, Denies loss of vision and Denies eye pain Denies dizziness Cardiovascular: Reports no additional cardiovascular complaints, Denies chest pain, Denies lightheadedness, Denies Loss of Consciousness and Denies dyspnea Respiratory: Reports no additional respiratory complaints and Denies dyspnea Gastrointestinal: Reports no additional gastrointestinal complaints, Denies abdominal pain, Denies melena, Denies hematochezia, Denies change in bowel habits and Denies change in stool character Genitourinary: Reports no additional male genitourinary complaints, Denies hematuria, Denies oliguria, Denies difficulty urinating, Denies dysuria, Denies urinary frequency, Denies urinary hesitancy, Denies urinary incontinence and Denies urinary urgency Musculoskeletal: Reports no additional musculoskeletal complaints, Denies numbness and Denies tingling Denies dizziness, Denies loss of vision, Denies numbness and Denies tingling Psychiatric: Denies homicidal ideation and Reports suicidal ideation Endocrine: Reports no additional endocrine complaints Hematologic/Lymphatic: Reports no additional hematologic/lymphatic complaints Allergic/Immunologic: Reports no additional allergic/immunologic complaints Mental Status Exam Mental Status Exam Narrative: Pt is alert and oriented; behavior is cooperative, calm, friendly; patient is not in distress; dressed in casual attire with combed hair, adequate hygiene; mood is described as anxious and affect congruent, still somewhat downcast; eye contact somewhat avoidant; Speech normal rate, volume and prosody not pressured; still some psychomotor retardation present; thought process is organized and goal directed; Thought content is on struggles and on tx; otherwise pertinent to relevant topics and without any delusional content, paranoid ideations or grandiosity; currently no SI; no HI; Patients insight and judgment impaired but improving. Patient Appearance: Fatigued and Appropriate Patient Orientation: Person, Place, Time and Situation Level of Consciousness: Alert Patient Behavior: Appropriate, Talkative, Cooperative and Good Eye Contact Mood Description: Constricted, Anxious and Apprehensive Affect Description: Constricted, Anxious and Apprehensive Patient Cognition Impaired: No Ability to Follow Directions: Good Speech Pattern: Spontaneous Speech Memory Description: Intact Diagnostics Vital Signs (24Hr): Vital Signs - 24 hr 01/01/24 12:25 01/01/24 18:00 01/02/24 08:27 Temperature 97.9 F 97.6 F Pulse Rate 107 H 94 87 Respiratory Rate 16 18 Blood Pressure 126/83 121/85 114/78 Pulse Oximetry 96 99 Oxygen Delivery Method Room Air Room Air BMI result Body Mass Index 31.5 Labs 12/18/23 16:48 12/21/23 09:29 Imaging Radiology Impressions: ITS Impressions Hand X-Ray 12/26/23 22:30 IMPRESSION: Soft tissue swelling. No acute osseous findings. Ribs X-Ray 12/29/23 20:35 IMPRESSION: * Lungs have a normal appearance. No acute cardiopulmonary abnormality. * No evidence of rib fracture. Medications Medications Current Medications Acetaminophen (Acetaminophen 325 Mg Tablet) 650 mg PO Q6H PRN PRN Reason: Headache/Pain Mild Scale(1-10) Last Admin: 12/26/23 21:47 Dose: 650 mg Al Hydroxide/Mg Hydroxide (Magnesium Hydrox/Alum Hydrox 30 Ml Oral.Susp) 30 ml PO Q6H PRN PRN Reason: Heartburn/Nausea Albuterol Sulfate (Albuterol Sulfate 90 Mcg 8 Gm Inhaler) 2 puff INHALE RQ4H PRN PRN Reason: Shortness of Breath Last Admin: 01/01/24 08:40 Dose: 2 puff Cariprazine (Cariprazine Hcl 3 Mg Capsule) 6 mg PO DAILY [facility] Last Admin: 01/02/24 08:37 Dose: 6 mg Clonidine HCl (Clonidine Hcl 0.1 Mg Tablet) 0.1 mg PO Q4H PRN; Protocol PRN Reason: anxiety Clonidine HCl (Clonidine Hcl 0.1 Mg Tablet) 0.1 mg PO DAILY@1300 [facility]; Protocol Last Admin: 01/01/24 12:30 Dose: 0.1 mg Fluoxetine HCl (Fluoxetine Hcl 10 Mg Capsule) 10 mg PO DAILY [facility] Last Admin: 01/02/24 08:37 Dose: 10 mg Folic Acid (Folic Acid 1 Mg Tablet) 1 mg PO DAILY [facility] Last Admin: 01/02/24 08:36 Dose: 1 mg Hydroxyzine HCl (Hydroxyzine Hcl 25 Mg Tablet) 25 mg PO Q6H PRN PRN Reason: Anxiety Lorazepam (Lorazepam 1 Mg Tablet) 1 mg PO DAILY PRN PRN Reason: To PREVENT panic Last Admin: 12/31/23 20:08 Dose: 1 mg Magnesium Hydroxide (Milk Of Magnesia 30 Ml Oral.Susp) 30 ml PO DAILY PRN PRN Reason: Constipation Methadone HCl (Methadone Hcl 20 Mg/2 Ml Oral.Conc) 100 mg PO DAILY [facility] Last Admin: 01/02/24 08:37 Dose: 100 mg Multivitamins/Vitamin C (Multivitamin Tablet) 1 tab PO DAILY [facility] Last Admin: 01/02/24 08:37 Dose: 1 tab Nicotine (Nicotine 21 Mg Patch.Td24) 21 mg TRANSDERMA DAILY PRN PRN Reason: smoking cessation Nicotine Polacrilex (Nicotine Polacrilex Lozenge 4 Mg Lozenge) 4 mg BUCCAL Q2H PRN PRN Reason: Nicotine Cravings Last Admin: 01/01/24 20:14 Dose: 4 mg Olanzapine (Olanzapine 5 Mg Tablet) 5 mg PO TID PRN PRN Reason: agitation Last Admin: 12/22/23 15:19 Dose: 5 mg Omeprazole (Omeprazole 20 Mg Capsule.Dr) 20 mg PO DAILY@0630 [facility] Last Admin: 01/02/24 06:16 Dose: 20 mg Ondansetron HCl (Ondansetron Odt 4 Mg Tab.Rapdis) 4 mg TRANSLINGU Q6H PRN PRN Reason: Nausea and Vomiting Oxcarbazepine (Oxcarbazepine 300 Mg Tablet) 300 mg PO BID [facility] Last Admin: 01/02/24 08:37 Dose: 300 mg Quetiapine Fumarate (Quetiapine Fumarate 50 Mg Tablet) 50 mg PO BID PRN PRN Reason: perceptual alterations Last Admin: 12/26/23 17:09 Dose: 50 mg Quetiapine Fumarate (Quetiapine Fumarate 50 Mg Tablet) 50 mg PO BID PRN PRN Reason: anxiety Last Admin: 12/31/23 11:22 Dose: 50 mg Quetiapine Fumarate (Quetiapine Fumarate 50 Mg Tablet) 150 mg PO BEDTIME [facility] Last Admin: 01/01/24 20:17 Dose: 150 mg Thiamine HCl (Thiamine Hcl 100 Mg Tablet) 100 mg PO DAILY [facility] Last Admin: 01/02/24 08:36 Dose: 100 mg Allergies Allergies Allergy/AdvReac Type Severity Reaction Status Date / Time No Known Allergies Allergy Verified 12/18/23 17:40 [No Known Allergies*] Assessment & Plan Assessment & Plan (1) Schizoaffective disorder, depressive type: Status: Acute Code(s): F25.1 - Schizoaffective disorder, depressive type (2) PTSD (post-traumatic stress disorder): Status: Acute Code(s): F43.10 - Post-traumatic stress disorder, unspecified (3) Opioid use disorder: Status: Acute Code(s): F11.90 - Opioid use, unspecified, uncomplicated (4) Thrombophlebitis: Status: Acute Code(s): I80.9 - Phlebitis and thrombophlebitis of unspecified site Plan HPI: pt is a 28 yo male with hx of schizoaffective disorder, depressed type, PTSD, opioid use disorder on methadone who presents for worsening depression and SI in face of going off medications and relapse. Pt reports at last admission Sep 2023 he ended up doing well, good mood, anxiety reduced (though still with panic attacks) and went to a program where he continued to do well, good mood, on list for sober housing...about 3 weeks into program pt had a sudden, severe panic attack; he could not stop it and all he could think of was leaving program and using. He says in the moment, all he cares about is getting rid of the panic and has no further room to consider consequences. Pt left, relapsed, stopped taking medications and depression quickly worsened; pt homeless, embroiled in substance abuse became despondent, hopeless and suicidal. He started developing vague plan so self-presented to ED for help. Denies hx of manic type episodes; has intermittent AH independent of depression, substance abuse...no alcohol abuse; no intentional cocaine use. Currently with AH and passive SI. Wants to get back on medications. Impression: meets criteria for schizoaffective disorder, depressed type Patient is significantly depressed; medications help w/ mood but have not eliminated panic attacks which seem to derail progress made. Addiction issues and hx of trauma with ptsd symptoms clearly contribute. Will restart most home meds from recent admission since they were helpful -pt also reports 2-3 days of constant hiccups, waking him up from sleep (and clearly present); pt agrees to start Baclofen Hospital course: 12/21 some hiccups last night; none today; will stay on baclofen for a few more days mood is a little better today; showered, eating; troubled sleep; intermittent AH Discussed history of panic and how it has derailed treatment in the past; discussed quality of panic and patient will try to be aware of pending panic attack to take medication Discussed other history and sounds like patient may have ADHD which could be explored as an outpatient discussed meds: -will try Prozac to see if can reduce or even eliminate panic attacks; also try cloninidine scheduled -discussed seroquel which patient said was there for sleep; will try without for a few more days and add if needed. DC trazodone gives vivid nightmares -will also add Ativan as a p.r.n. for panic only; despite his hx of substance abuse and associated risks of combining with benzos, there is no other way to prevent a pending panic attack than a benzo; given the fact that panic derails prgress, that he is often in a program where medications are dispensed by staff and an outpatient he only needs 2 tabs a week... It is press writer's opinion that the potential benefits outweigh the obvious risks -risks/side effects of medication regimen reviewed with patient understood and wants to proceed 12/22 Patient reports feeling depressed today, not sure why but a little better than on admission. Still very anxious though no panic. Patient took Prozac this morning and about 20 minutes later he vomited. He thinks it was probably due to the Prozac but he has not sure. He agrees to try again tomorrow; otherwise he agrees to switch to a different SSRI. Patient appropriate with peers and staff, going to groups and remains engaged with treatment -reports sleeping well enough 12/24/23- Continue tx. Continue Prozac trial. 12/25/2023: Continue current regimen and plans. 12/26/2023: Continue current regimen and plans. Added Seroquel 200 mg q.h.s. Xray right hand 12/25: IMPRESSION: Soft tissue swelling. No acute osseous findings. 12/26 Patient feeling a little better today. Discussed how patient felt triggered this weekend. Feeling better now. Accept for this outburst, Otherwise he overall remains in good behavioral and impulse, getting along well with peers and staff and engaged in treatment, attending groups and forthcoming in 1 on 1 sessions. Discussed medication management; tolerating Prozac; will add Seroquel p.r.n. which he has been on before to help with anxiety. Will hold off on increasing Trileptal at this time. adding Seroquel 50mg PRn for anxiety 12/27 improving; engaged in treatment, attending groups, good behavioral/impulse control and getting along well w/ staff/peers; still down, but less so. asks to lower methadone due to daytime sedation 12/28 pt reports continued depression/anxiety but working on coping. Reports says he's having trouble taking in breath, only on inspiration, which he says occurs off/on throughout the day for past couple of days. Says always anxious so not sure if it's that or something else. -02 sat a little low at 95 (though it' has been this low at times in past), but RR 16 -Denies any chest pain; -ROS and denies any upper respiratory symptoms -denies any hx of Asthma, COPD, DVT/PE, chest/rib trauma, recent upper respiratory illness, denies allergy symptoms H&H grossly WNL and not anemia Pt does not appear in any distress, no signs of labored breathing; he is observed able to talk, walk without difficulty focused exam: Pulm: CTA b/l throughout; no wheezing, rhonchi/rales -will get CXR out of abundance of caution 12/29 review of CXR unremarkable pt depressed, though better; wants a program. still c/o trouble w/ inspiration, though review of CXR unremarkable, O2 sat WNL. pt still feeling sedated -at this time, low concern for cardio/pulm/other organic etiology to pt's report of trouble w/ inspiration given absence of other symptoms/findings; however will continue to monitor -lowering sedating meds 12/30 feels less sedated w/ med changes; wants to go down a little more on methadone added albuterol to see if makes any improvement in pt's reported trouble with inspiration 12/31: continue current management and treatment plan. 01/01: continue current management and treatment plan. PLAN: CV q15min added Albuterol inhaler, one time dose and PRN Continue Seroquel 150mg qhs for now DC clonidine 0.1 mg 0900 Continue Clonidine 0.1mg 1300 to help prevent panic changed scheduled Hydroxyzine to prn Will lower to methadone to 100mg daily Seroquel 50mg BID prn for anxiety continue Prozac 10 mg daily for anxiety/panic; tolerating Continue Ativan p.r.n. only used for for pending panic attack Continue Vraylar 6mg Continue Trileptal 300mg BID completed Ceftin/Doxycycline for thrombophlepitis/prevent cellulitis DC Baclofen 5mg Reviewed labs, lipids/HBA1C from recent admission a few months ago; no need to repeat at this time Reason for continued inpatient stay Substantial Risk for: harm to self, inability to function and rapid decompensation Time Spent With Patient Time: Total time managing care of this patient today ____ minutes.
[2024-01-02] MEDS: OLANZapine 5 MG TABLET PO (09:33)
[2024-01-02] MEDS: Nicotine Polacrilex Lozenge 4 MG LOZENGE BUCCAL (09:33)
[2024-01-02 13:05] VITALS: BP 122/84; PULSE 89
[2024-01-02] MEDS: cloNIDine HCL 0.1 MG TABLET PO (13:06)
[2024-01-02 17:19] VITALS: BP 130/77; PULSE 84; RESP 16; TEMP 36.4; O2SAT 97
[2024-01-02] MEDS: QUEtiapine Fumarate 50 MG TABLET 150 MG PO (19:20)
[2024-01-02] MEDS: LORazepam 1 MG TABLET PO (19:21)
[2024-01-03] MEDS: Omeprazole 20 MG CAPSULE.DR PO (06:18)
[2024-01-03 08:02] VITALS: BP 125/80; PULSE 101; RESP 16; TEMP 36.4; O2SAT 98
[2024-01-03] MEDS: OXcarbazepine 300 MG TABLET PO ×2 (08:03→19:35)
[2024-01-03] MEDS: Multivitamin TABLET 1 TAB PO (08:03)
[2024-01-03] MEDS: FLUoxetine HCl 10 MG CAPSULE PO ×2 (08:03→14:25)
[2024-01-03] MEDS: Folic Acid 1 MG TABLET PO (08:03)
[2024-01-03] MEDS: Thiamine HCL 100 MG TABLET PO (08:03)
[2024-01-03] MEDS: Cariprazine HCl 3 MG CAPSULE 6 MG PO (08:03)
[2024-01-03] MEDS: methADONE HCl 20 MG/2 ML ORAL.CONC 100 MG PO (08:04)
--- NOTE | 2024-01-03 09:45 | HO.PSYCHPN ---
Subjective Subjective Date of Service: 01/03/24 Reason For Visit: depression/SI Interim History: met with patient; discussed with team; reviewed chart pt feeling better; talked about efforts to overcome panic and while had a panic attack wednesday, on Wednesday was able to talk himself down and avoid one. Pt agrees to increasing Prozac. Discussed struggles breathing which he says is getting better and attributes to anxiety Mental Status Exam Mental Status Exam Narrative: Pt is alert and oriented; behavior is cooperative, calm, friendly; patient is not in distress; dressed in casual attire with combed hair, adequate hygiene; mood is described as little better and affect congruent, brighter; eye contact somewhat appropriate; Speech normal rate, volume and prosody not pressured; no psychomotor retardation present; thought process is organized and goal directed; Thought content is on struggles and on tx; otherwise pertinent to relevant topics and without any delusional content, paranoid ideations or grandiosity; intermittent, chronic passive SI which is fleeting; otherwise none and no plans/intent; no HI; Patients insight and judgment fair Diagnostics Vital Signs (24Hr): Vital Signs - 24 hr 01/02/24 13:05 01/02/24 17:19 01/03/24 08:02 Temperature 97.5 F 97.6 F Pulse Rate 89 84 101 H Respiratory Rate 16 16 Blood Pressure 122/84 130/77 125/80 Pulse Oximetry 97 98 Oxygen Delivery Method Room Air Room Air BMI result Body Mass Index 31.5 Labs 12/18/23 16:48 12/21/23 09:29 Imaging Radiology Impressions: ITS Impressions Hand X-Ray 12/26/23 22:30 IMPRESSION: Soft tissue swelling. No acute osseous findings. Ribs X-Ray 12/29/23 20:35 IMPRESSION: * Lungs have a normal appearance. No acute cardiopulmonary abnormality. * No evidence of rib fracture. Medications Medications Current Medications Acetaminophen (Acetaminophen 325 Mg Tablet) 650 mg PO Q6H PRN PRN Reason: Headache/Pain Mild Scale(1-10) Last Admin: 12/26/23 21:47 Dose: 650 mg Al Hydroxide/Mg Hydroxide (Magnesium Hydrox/Alum Hydrox 30 Ml Oral.Susp) 30 ml PO Q6H PRN PRN Reason: Heartburn/Nausea Albuterol Sulfate (Albuterol Sulfate 90 Mcg 8 Gm Inhaler) 2 puff INHALE RQ4H PRN PRN Reason: Shortness of Breath Last Admin: 01/01/24 08:40 Dose: 2 puff Cariprazine (Cariprazine Hcl 3 Mg Capsule) 6 mg PO DAILY [facility] Last Admin: 01/03/24 08:03 Dose: 6 mg Clonidine HCl (Clonidine Hcl 0.1 Mg Tablet) 0.1 mg PO Q4H PRN; Protocol PRN Reason: anxiety Clonidine HCl (Clonidine Hcl 0.1 Mg Tablet) 0.1 mg PO DAILY@1300 [facility]; Protocol Last Admin: 01/02/24 13:06 Dose: 0.1 mg Fluoxetine HCl (Fluoxetine Hcl 10 Mg Capsule) 10 mg PO DAILY [facility] Last Admin: 01/03/24 08:03 Dose: 10 mg Folic Acid (Folic Acid 1 Mg Tablet) 1 mg PO DAILY [facility] Last Admin: 01/03/24 08:03 Dose: 1 mg Hydroxyzine HCl (Hydroxyzine Hcl 25 Mg Tablet) 25 mg PO Q6H PRN PRN Reason: Anxiety Lorazepam (Lorazepam 1 Mg Tablet) 1 mg PO DAILY PRN PRN Reason: To PREVENT panic Last Admin: 01/02/24 19:21 Dose: 1 mg Magnesium Hydroxide (Milk Of Magnesia 30 Ml Oral.Susp) 30 ml PO DAILY PRN PRN Reason: Constipation Methadone HCl (Methadone Hcl 20 Mg/2 Ml Oral.Conc) 100 mg PO DAILY [facility] Last Admin: 01/03/24 08:04 Dose: 100 mg Multivitamins/Vitamin C (Multivitamin Tablet) 1 tab PO DAILY [facility] Last Admin: 01/03/24 08:03 Dose: 1 tab Nicotine (Nicotine 21 Mg Patch.Td24) 21 mg TRANSDERMA DAILY PRN PRN Reason: smoking cessation Nicotine Polacrilex (Nicotine Polacrilex Lozenge 4 Mg Lozenge) 4 mg BUCCAL Q2H PRN PRN Reason: Nicotine Cravings Last Admin: 01/02/24 09:33 Dose: 4 mg Olanzapine (Olanzapine 5 Mg Tablet) 5 mg PO TID PRN PRN Reason: agitation Last Admin: 01/02/24 09:33 Dose: 5 mg Omeprazole (Omeprazole 20 Mg Capsule.Dr) 20 mg PO DAILY@0630 [facility] Last Admin: 01/03/24 06:18 Dose: 20 mg Ondansetron HCl (Ondansetron Odt 4 Mg Tab.Rapdis) 4 mg TRANSLINGU Q6H PRN PRN Reason: Nausea and Vomiting Oxcarbazepine (Oxcarbazepine 300 Mg Tablet) 300 mg PO BID [facility] Last Admin: 01/03/24 08:03 Dose: 300 mg Quetiapine Fumarate (Quetiapine Fumarate 50 Mg Tablet) 50 mg PO BID PRN PRN Reason: perceptual alterations Last Admin: 12/26/23 17:09 Dose: 50 mg Quetiapine Fumarate (Quetiapine Fumarate 50 Mg Tablet) 50 mg PO BID PRN PRN Reason: anxiety Last Admin: 12/31/23 11:22 Dose: 50 mg Quetiapine Fumarate (Quetiapine Fumarate 50 Mg Tablet) 150 mg PO BEDTIME [facility] Last Admin: 01/02/24 19:20 Dose: 150 mg Thiamine HCl (Thiamine Hcl 100 Mg Tablet) 100 mg PO DAILY [facility] Last Admin: 01/03/24 08:03 Dose: 100 mg Allergies Allergies Allergy/AdvReac Type Severity Reaction Status Date / Time No Known Allergies Allergy Verified 12/18/23 17:40 [No Known Allergies*] Assessment & Plan Assessment & Plan (1) Schizoaffective disorder, depressive type: Status: Acute Code(s): F25.1 - Schizoaffective disorder, depressive type (2) PTSD (post-traumatic stress disorder): Status: Acute Code(s): F43.10 - Post-traumatic stress disorder, unspecified (3) Opioid use disorder: Status: Acute Code(s): F11.90 - Opioid use, unspecified, uncomplicated (4) Thrombophlebitis: Status: Acute Code(s): I80.9 - Phlebitis and thrombophlebitis of unspecified site Plan HPI: pt is a 28 yo male with hx of schizoaffective disorder, depressed type, PTSD, opioid use disorder on methadone who presents for worsening depression and SI in face of going off medications and relapse. Pt reports at last admission Sep 2023 he ended up doing well, good mood, anxiety reduced (though still with panic attacks) and went to a program where he continued to do well, good mood, on list for sober housing...about 3 weeks into program pt had a sudden, severe panic attack; he could not stop it and all he could think of was leaving program and using. He says in the moment, all he cares about is getting rid of the panic and has no further room to consider consequences. Pt left, relapsed, stopped taking medications and depression quickly worsened; pt homeless, embroiled in substance abuse became despondent, hopeless and suicidal. He started developing vague plan so self-presented to ED for help. Denies hx of manic type episodes; has intermittent AH independent of depression, substance abuse...no alcohol abuse; no intentional cocaine use. Currently with AH and passive SI. Wants to get back on medications. Impression: meets criteria for schizoaffective disorder, depressed type Patient is significantly depressed; medications help w/ mood but have not eliminated panic attacks which seem to derail progress made. Addiction issues and hx of trauma with ptsd symptoms clearly contribute. Will restart most home meds from recent admission since they were helpful -pt also reports 2-3 days of constant hiccups, waking him up from sleep (and clearly present); pt agrees to start Baclofen Hospital course: 12/21 some hiccups last night; none today; will stay on baclofen for a few more days mood is a little better today; showered, eating; troubled sleep; intermittent AH Discussed history of panic and how it has derailed treatment in the past; discussed quality of panic and patient will try to be aware of pending panic attack to take medication Discussed other history and sounds like patient may have ADHD which could be explored as an outpatient discussed meds: -will try Prozac to see if can reduce or even eliminate panic attacks; also try cloninidine scheduled -discussed seroquel which patient said was there for sleep; will try without for a few more days and add if needed. DC trazodone gives vivid nightmares -will also add Ativan as a p.r.n. for panic only; despite his hx of substance abuse and associated risks of combining with benzos, there is no other way to prevent a pending panic attack than a benzo; given the fact that panic derails prgress, that he is often in a program where medications are dispensed by staff and an outpatient he only needs 2 tabs a week... It is newspaper writer's opinion that the potential benefits outweigh the obvious risks -risks/side effects of medication regimen reviewed with patient understood and wants to proceed 12/22 Patient reports feeling depressed today, not sure why but a little better than on admission. Still very anxious though no panic. Patient took Prozac this morning and about 20 minutes later he vomited. He thinks it was probably due to the Prozac but he has not sure. He agrees to try again tomorrow; otherwise he agrees to switch to a different SSRI. Patient appropriate with peers and staff, going to groups and remains engaged with treatment -reports sleeping well enough 12/24/23- Continue tx. Continue Prozac trial. 12/25/2023: Continue current regimen and plans. 12/26/2023: Continue current regimen and plans. Added Seroquel 200 mg q.h.s. Xray right hand 12/25: IMPRESSION: Soft tissue swelling. No acute osseous findings. 12/26 Patient feeling a little better today. Discussed how patient felt triggered this weekend. Feeling better now. Accept for this outburst, Otherwise he overall remains in good behavioral and impulse, getting along well with peers and staff and engaged in treatment, attending groups and forthcoming in 1 on 1 sessions. Discussed medication management; tolerating Prozac; will add Seroquel p.r.n. which he has been on before to help with anxiety. Will hold off on increasing Trileptal at this time. adding Seroquel 50mg PRn for anxiety 12/27 improving; engaged in treatment, attending groups, good behavioral/impulse control and getting along well w/ staff/peers; still down, but less so. asks to lower methadone due to daytime sedation 12/28 pt reports continued depression/anxiety but working on coping. Reports says he's having trouble taking in breath, only on inspiration, which he says occurs off/on throughout the day for past couple of days. Says always anxious so not sure if it's that or something else. -02 sat a little low at 95 (though it' has been this low at times in past), but RR 16 -Denies any chest pain; -ROS and denies any upper respiratory symptoms -denies any hx of Asthma, COPD, DVT/PE, chest/rib trauma, recent upper respiratory illness, denies allergy symptoms H&H grossly WNL and not anemia Pt does not appear in any distress, no signs of labored breathing; he is observed able to talk, walk without difficulty focused exam: Pulm: CTA b/l throughout; no wheezing, rhonchi/rales -will get CXR out of abundance of caution 12/29 review of CXR unremarkable pt depressed, though better; wants a program. still c/o trouble w/ inspiration, though review of CXR unremarkable, O2 sat WNL. pt still feeling sedated -at this time, low concern for cardio/pulm/other organic etiology to pt's report of trouble w/ inspiration given absence of other symptoms/findings; however will continue to monitor -lowering sedating meds 12/30 feels less sedated w/ med changes; wants to go down a little more on methadone added albuterol to see if makes any improvement in pt's reported trouble with inspiration 01/02 pt feeling better; talked about efforts to overcome panic and while had a panic attack wednesday, on Wednesday was able to talk himself down and avoid one. Pt agrees to increasing Prozac. Discussed struggles breathing which he says is getting better and attributes to anxiety; albuterol made no difference PLAN: CV q15min DC Albuterol inhaler, one time dose and PRN Continue Seroquel 150mg qhs for now DC clonidine 0.1 mg 0900 Continue Clonidine 0.1mg 1300 to help prevent panic changed scheduled Hydroxyzine to prn Will lower to methadone to 100mg daily Seroquel 50mg BID prn for anxiety INCREASE to Prozac 20 mg daily for anxiety/panic; tolerating Continue Ativan p.r.n. only used for for pending panic attack Continue Vraylar 6mg Continue Trileptal 300mg BID completed Ceftin/Doxycycline for thrombophlepitis/prevent cellulitis DC Baclofen 5mg Reviewed labs, lipids/HBA1C from recent admission a few months ago; no need to repeat at this time Patient educated on: diagnosis, medication risk/benefits and therapeutic strategies Informed Consent: understands Reason for continued inpatient stay Substantial Risk for: stable for discharge Time Spent With Patient Time: Total time managing care of this patient today ____ minutes.
[2024-01-03] MEDS: Nicotine Polacrilex Lozenge 4 MG LOZENGE BUCCAL ×2 (10:05→14:27)
[2024-01-03] MEDS: OLANZapine 5 MG TABLET PO (10:29)
[2024-01-03] MEDS: cloNIDine HCL 0.1 MG TABLET PO (14:25)
[2024-01-03] MEDS: QUEtiapine Fumarate 50 MG TABLET 150 MG PO (19:34)
[2024-01-03 20:45] VITALS: BP 123/78; PULSE 101; TEMP 36.8
[2024-01-04] MEDS: Omeprazole 20 MG CAPSULE.DR PO (05:18)
[2024-01-04 08:17] VITALS: BP 123/80; PULSE 94; RESP 16; TEMP 36.5; O2SAT 98
[2024-01-04] MEDS: methADONE HCl 20 MG/2 ML ORAL.CONC 100 MG PO (08:23)
[2024-01-04] MEDS: Cariprazine HCl 3 MG CAPSULE 6 MG PO (08:24)
[2024-01-04] MEDS: FLUoxetine HCl 20 MG CAPSULE PO (08:24)
[2024-01-04] MEDS: Multivitamin TABLET 1 TAB PO (08:24)
[2024-01-04] MEDS: Folic Acid 1 MG TABLET PO (08:24)
[2024-01-04] MEDS: OXcarbazepine 300 MG TABLET PO ×2 (08:24→19:31)
[2024-01-04] MEDS: Thiamine HCL 100 MG TABLET PO (08:24)
--- NOTE | 2024-01-04 09:50 | P.PNPSI_ITS ---
Subjective Subjective Date of Service: 01/04/24 Reason For Visit: depression/SI Interim History: met with patient; discussed with team pt says his mood is good and is with noticeably brighter affect; depression and anxiety significantly improved. Pt was accepted to program and is looking forward to discharging tomorrow. Expresses appreciation for help received. Mental Status Exam Mental Status Exam Narrative: Pt is alert and oriented; behavior is cooperative, calm, friendly; patient is not in distress; dressed in casual attire with combed hair, adequate hygiene; mood is described as good and affect congruent, brighter; eye contact somewhat appropriate; Speech normal rate, volume and prosody not pressured; no psychomotor retardation present; thought process is organized and goal directed; Thought content is on new program; otherwise pertinent to relevant topics and without any delusional content, paranoid ideations or grandiosity; no SI; no HI; No AVH; Patients insight and judgment fair Diagnostics Vital Signs (24Hr): Vital Signs - 24 hr 01/03/24 20:45 01/04/24 08:17 Temperature 98.3 F 97.7 F Pulse Rate 101 H 94 Respiratory Rate 16 Blood Pressure 123/78 123/80 Pulse Oximetry 98 Oxygen Delivery Method Room Air BMI result Body Mass Index 31.5 Labs 12/18/23 16:48 12/21/23 09:29 Imaging Radiology Impressions: ITS Impressions Hand X-Ray 12/26/23 22:30 IMPRESSION: Soft tissue swelling. No acute osseous findings. Ribs X-Ray 12/29/23 20:35 IMPRESSION: * Lungs have a normal appearance. No acute cardiopulmonary abnormality. * No evidence of rib fracture. Medications Medications Current Medications Acetaminophen (Acetaminophen 325 Mg Tablet) 650 mg PO Q6H PRN PRN Reason: Headache/Pain Mild Scale(1-10) Last Admin: 12/26/23 21:47 Dose: 650 mg Al Hydroxide/Mg Hydroxide (Magnesium Hydrox/Alum Hydrox 30 Ml Oral.Susp) 30 ml PO Q6H PRN PRN Reason: Heartburn/Nausea Albuterol Sulfate (Albuterol Sulfate 90 Mcg 8 Gm Inhaler) 2 puff INHALE RQ4H PRN PRN Reason: Shortness of Breath Last Admin: 01/01/24 08:40 Dose: 2 puff Cariprazine (Cariprazine Hcl 3 Mg Capsule) 6 mg PO DAILY [facility] Last Admin: 01/04/24 08:24 Dose: 6 mg Clonidine HCl (Clonidine Hcl 0.1 Mg Tablet) 0.1 mg PO Q4H PRN; Protocol PRN Reason: anxiety Clonidine HCl (Clonidine Hcl 0.1 Mg Tablet) 0.1 mg PO DAILY@1300 [facility]; Protocol Last Admin: 01/03/24 14:25 Dose: 0.1 mg Fluoxetine HCl (Fluoxetine Hcl 20 Mg Capsule) 20 mg PO DAILY [facility] Last Admin: 01/04/24 08:24 Dose: 20 mg Folic Acid (Folic Acid 1 Mg Tablet) 1 mg PO DAILY [facility] Last Admin: 01/04/24 08:24 Dose: 1 mg Hydroxyzine HCl (Hydroxyzine Hcl 25 Mg Tablet) 25 mg PO Q6H PRN PRN Reason: Anxiety Lorazepam (Lorazepam 1 Mg Tablet) 1 mg PO DAILY PRN PRN Reason: To PREVENT panic Last Admin: 01/02/24 19:21 Dose: 1 mg Magnesium Hydroxide (Milk Of Magnesia 30 Ml Oral.Susp) 30 ml PO DAILY PRN PRN Reason: Constipation Methadone HCl (Methadone Hcl 20 Mg/2 Ml Oral.Conc) 100 mg PO DAILY [facility] Last Admin: 01/04/24 08:23 Dose: 100 mg Multivitamins/Vitamin C (Multivitamin Tablet) 1 tab PO DAILY [facility] Last Admin: 01/04/24 08:24 Dose: 1 tab Nicotine (Nicotine 21 Mg Patch.Td24) 21 mg TRANSDERMA DAILY PRN PRN Reason: smoking cessation Nicotine Polacrilex (Nicotine Polacrilex Lozenge 4 Mg Lozenge) 4 mg BUCCAL Q2H PRN PRN Reason: Nicotine Cravings Last Admin: 01/03/24 14:27 Dose: 4 mg Olanzapine (Olanzapine 5 Mg Tablet) 5 mg PO TID PRN PRN Reason: agitation Last Admin: 01/03/24 10:29 Dose: 5 mg Omeprazole (Omeprazole 20 Mg Capsule.Dr) 20 mg PO DAILY@0630 [facility] Last Admin: 01/04/24 05:18 Dose: 20 mg Ondansetron HCl (Ondansetron Odt 4 Mg Tab.Rapdis) 4 mg TRANSLINGU Q6H PRN PRN Reason: Nausea and Vomiting Oxcarbazepine (Oxcarbazepine 300 Mg Tablet) 300 mg PO BID [facility] Last Admin: 01/04/24 08:24 Dose: 300 mg Quetiapine Fumarate (Quetiapine Fumarate 50 Mg Tablet) 50 mg PO BID PRN PRN Reason: perceptual alterations Last Admin: 12/26/23 17:09 Dose: 50 mg Quetiapine Fumarate (Quetiapine Fumarate 50 Mg Tablet) 50 mg PO BID PRN PRN Reason: anxiety Last Admin: 12/31/23 11:22 Dose: 50 mg Quetiapine Fumarate (Quetiapine Fumarate 50 Mg Tablet) 150 mg PO BEDTIME [facility] Last Admin: 01/03/24 19:34 Dose: 150 mg Thiamine HCl (Thiamine Hcl 100 Mg Tablet) 100 mg PO DAILY [facility] Last Admin: 01/04/24 08:24 Dose: 100 mg Allergies Allergies Allergy/AdvReac Type Severity Reaction Status Date / Time No Known Allergies Allergy Verified 12/18/23 17:40 [No Known Allergies*] Assessment & Plan Assessment & Plan (1) Schizoaffective disorder, depressive type: Status: Acute Code(s): F25.1 - Schizoaffective disorder, depressive type (2) PTSD (post-traumatic stress disorder): Status: Acute Code(s): F43.10 - Post-traumatic stress disorder, unspecified (3) Opioid use disorder: Status: Acute Code(s): F11.90 - Opioid use, unspecified, uncomplicated (4) Thrombophlebitis: Status: Acute Code(s): I80.9 - Phlebitis and thrombophlebitis of unspecified site Plan HPI: pt is a 28 yo male with hx of schizoaffective disorder, depressed type, PTSD, opioid use disorder on methadone who presents for worsening depression and SI in face of going off medications and relapse. Pt reports at last admission Sep 2023 he ended up doing well, good mood, anxiety reduced (though still with panic attacks) and went to a program where he continued to do well, good mood, on list for sober housing...about 3 weeks into program pt had a sudden, severe panic attack; he could not stop it and all he could think of was leaving program and using. He says in the moment, all he cares about is getting rid of the panic and has no further room to consider consequences. Pt left, relapsed, stopped taking medications and depression quickly worsened; pt homeless, embroiled in substance abuse became despondent, hopeless and suicidal. He started developing vague plan so self-presented to ED for help. Denies hx of manic type episodes; has intermittent AH independent of depression, substance abuse...no alcohol abuse; no intentional cocaine use. Currently with AH and passive SI. Wants to get back on medications. Impression: meets criteria for schizoaffective disorder, depressed type Patient is significantly depressed; medications help w/ mood but have not eliminated panic attacks which seem to derail progress made. Addiction issues and hx of trauma with ptsd symptoms clearly contribute. Will restart most home meds from recent admission since they were helpful -pt also reports 2-3 days of constant hiccups, waking him up from sleep (and clearly present); pt agrees to start Baclofen Hospital course: 12/21 some hiccups last night; none today; will stay on baclofen for a few more days mood is a little better today; showered, eating; troubled sleep; intermittent AH Discussed history of panic and how it has derailed treatment in the past; discussed quality of panic and patient will try to be aware of pending panic attack to take medication Discussed other history and sounds like patient may have ADHD which could be explored as an outpatient discussed meds: -will try Prozac to see if can reduce or even eliminate panic attacks; also try cloninidine scheduled -discussed seroquel which patient said was there for sleep; will try without for a few more days and add if needed. DC trazodone gives vivid nightmares -will also add Ativan as a p.r.n. for panic only; despite his hx of substance abuse and associated risks of combining with benzos, there is no other way to prevent a pending panic attack than a benzo; given the fact that panic derails prgress, that he is often in a program where medications are dispensed by staff and an outpatient he only needs 2 tabs a week... It is keno writer / runner's opinion that the potential benefits outweigh the obvious risks -risks/side effects of medication regimen reviewed with patient understood and wants to proceed 12/22 Patient reports feeling depressed today, not sure why but a little better than on admission. Still very anxious though no panic. Patient took Prozac this morning and about 20 minutes later he vomited. He thinks it was probably due to the Prozac but he has not sure. He agrees to try again tomorrow; otherwise he agrees to switch to a different SSRI. Patient appropriate with peers and staff, going to groups and remains engaged with treatment -reports sleeping well enough 12/24/23- Continue tx. Continue Prozac trial. 12/25/2023: Continue current regimen and plans. 12/26/2023: Continue current regimen and plans. Added Seroquel 200 mg q.h.s. Xray right hand 12/25: IMPRESSION: Soft tissue swelling. No acute osseous findings. 12/26 Patient feeling a little better today. Discussed how patient felt triggered this weekend. Feeling better now. Accept for this outburst, Otherwise he overall remains in good behavioral and impulse, getting along well with peers and staff and engaged in treatment, attending groups and forthcoming in 1 on 1 sessions. Discussed medication management; tolerating Prozac; will add Seroquel p.r.n. which he has been on before to help with anxiety. Will hold off on increasing Trileptal at this time. adding Seroquel 50mg PRn for anxiety 12/27 improving; engaged in treatment, attending groups, good behavioral/impulse control and getting along well w/ staff/peers; still down, but less so. asks to lower methadone due to daytime sedation 12/28 pt reports continued depression/anxiety but working on coping. Reports says he's having trouble taking in breath, only on inspiration, which he says occurs off/on throughout the day for past couple of days. Says always anxious so not sure if it's that or something else. -02 sat a little low at 95 (though it' has been this low at times in past), but RR 16 -Denies any chest pain; -ROS and denies any upper respiratory symptoms -denies any hx of Asthma, COPD, DVT/PE, chest/rib trauma, recent upper respiratory illness, denies allergy symptoms H&H grossly WNL and not anemia Pt does not appear in any distress, no signs of labored breathing; he is observed able to talk, walk without difficulty focused exam: Pulm: CTA b/l throughout; no wheezing, rhonchi/rales -will get CXR out of abundance of caution 12/29 review of CXR unremarkable pt depressed, though better; wants a program. still c/o trouble w/ inspiration, though review of CXR unremarkable, O2 sat WNL. pt still feeling sedated -at this time, low concern for cardio/pulm/other organic etiology to pt's report of trouble w/ inspiration given absence of other symptoms/findings; however will continue to monitor -lowering sedating meds 12/30 feels less sedated w/ med changes; wants to go down a little more on methadone added albuterol to see if makes any improvement in pt's reported trouble with inspiration 01/02 pt feeling better; talked about efforts to overcome panic and while had a panic attack wednesday, on Wednesday was able to talk himself down and avoid one. Pt agrees to increasing Prozac. Discussed struggles breathing which he says is getting better and attributes to anxiety; albuterol made no difference 01/03 mood is good; depression and anxiety much better; no SI or AH. pt optimistic about stability and sobriety and is looking forward to going to program. He is not in imminent risk for harm to self or others and appropriate to return to the community for tx PLAN: CV q15min DC Albuterol inhaler, one time dose and PRN Continue Seroquel 150mg qhs for now DC clonidine 0.1 mg 0900 Continue Clonidine 0.1mg 1300 to help prevent panic changed scheduled Hydroxyzine to prn Will lower to methadone to 100mg daily Seroquel 50mg BID prn for anxiety INCREASE to Prozac 20 mg daily for anxiety/panic; tolerating Continue Ativan p.r.n. only used for for pending panic attack Continue Vraylar 6mg Continue Trileptal 300mg BID completed Ceftin/Doxycycline for thrombophlepitis/prevent cellulitis DC Baclofen 5mg Reviewed labs, lipids/HBA1C from recent admission a few months ago; no need to repeat at this time Patient educated on: diagnosis Informed Consent: understands Reason for continued inpatient stay Substantial Risk for: stable for discharge Time Spent With Patient Time: Total time managing care of this patient today ____ minutes.
[2024-01-04 12:05] VITALS: BP 133/98; PULSE 96
[2024-01-04] MEDS: Nicotine Polacrilex Lozenge 4 MG LOZENGE BUCCAL ×2 (12:08→15:50)
[2024-01-04] MEDS: OLANZapine 5 MG TABLET PO (12:08)
[2024-01-04] MEDS: cloNIDine HCL 0.1 MG TABLET PO (12:08)
[2024-01-04 16:15] VITALS: BP 127/82; PULSE 86; TEMP 36.8; O2SAT 97
[2024-01-04] MEDS: LORazepam 1 MG TABLET PO (19:31)
[2024-01-04] MEDS: QUEtiapine Fumarate 50 MG TABLET 150 MG PO (19:31)
--- NOTE | 2024-01-04 22:34 | PM.PSYDC ---
DS: Providers Provider Date of Service: 01/05/24 Date of admission: 12/20/23 14:04 Date of discharge: 01/05/24 Primary care physician: Curtis Physician Attending physician on admission: Camron Gomes Attending physician on discharge: Camron Gomes DS: Diagnosis Discharge Diagnosis (1) Schizoaffective disorder, depressive type: Status: Acute (2) PTSD (post-traumatic stress disorder): Status: Acute (3) Opioid use disorder: Status: Acute (4) Thrombophlebitis: Status: Resolved DS: Medications Discharge Medications Home Medications: Previous Rx's Medication Instructions Recorded cariprazine 6 mg capsule (Vraylar) 6 mg PO DAILY 30 days #30 caps 01/04/24 clonidine HCl 0.1 mg tablet 0.1 mg PO DAILY@1300 30 days #30 01/04/24 tabs fluoxetine 20 mg capsule 20 mg PO DAILY 30 days #30 caps 01/04/24 lorazepam 1 mg tablet 1 mg PO DAILY PRN To PREVENT panic 01/04/24 30 days #15 tabs methadone 10 mg/mL oral 100 mg (10 mL) PO DAILY #0 mL 01/04/24 concentrate (Methadose) nicotine (polacrilex) 4 mg buccal 4 mg buccal Q2H PRN Nicotine 01/04/24 lozenge Cravings #100 ea olanzapine 5 mg tablet 5 mg PO TID PRN agitation 30 days 01/04/24 #60 tabs omeprazole 20 mg capsule,delayed 20 mg PO DAILY 30 days #30 caps 01/04/24 release oxcarbazepine 300 mg tablet 300 mg PO BID 30 days #60 tabs 01/04/24 quetiapine 150 mg tablet 150 mg PO BEDTIME 30 days #30 tabs 01/04/24 Mental Status Exam Mental Status Exam Narrative: Pt is alert and oriented; behavior is cooperative, calm, friendly; patient is not in distress; dressed in casual attire with combed hair, adequate hygiene; mood is described as good and affect congruent, brighter; eye contact somewhat appropriate; Speech normal rate, volume and prosody not pressured; no psychomotor retardation present; thought process is organized and goal directed; Thought content is on new program; otherwise pertinent to relevant topics and without any delusional content, paranoid ideations or grandiosity; no SI; no HI; No AVH; Patients insight and judgment fair Data Imaging Diagnostic Imaging Impressions Hand X-Ray 12/26/23 22:30 IMPRESSION: Soft tissue swelling. No acute osseous findings. Ribs X-Ray 12/29/23 20:35 IMPRESSION: * Lungs have a normal appearance. No acute cardiopulmonary abnormality. * No evidence of rib fracture. DS: Summary Hospital Course Hospital Course: HPI: pt is a 28 yo male with hx of schizoaffective disorder, depressed type, PTSD, opioid use disorder on methadone who presents for worsening depression and SI in face of going off medications and relapse. Pt reports at last admission Sep 2023 he ended up doing well, good mood, anxiety reduced (though still with panic attacks) and went to a program where he continued to do well, good mood, on list for sober housing...about 3 weeks into program pt had a sudden, severe panic attack; he could not stop it and all he could think of was leaving program and using. He says in the moment, all he cares about is getting rid of the panic and has no further room to consider consequences. Pt left, relapsed, stopped taking medications and depression quickly worsened; pt homeless, embroiled in substance abuse became despondent, hopeless and suicidal. He started developing vague plan so self-presented to ED for help. Denies hx of manic type episodes; has intermittent AH independent of depression, substance abuse...no alcohol abuse; no intentional cocaine use. Currently with AH and passive SI. Wants to get back on medications. Impression: meets criteria for schizoaffective disorder, depressed type Patient is significantly depressed; medications help w/ mood but have not eliminated panic attacks which seem to derail progress made. Addiction issues and hx of trauma with ptsd symptoms clearly contribute. Will restart most home meds from recent admission since they were helpful -pt also reports 2-3 days of constant hiccups, waking him up from sleep (and clearly present); pt agrees to start Baclofen Hospital course: 12/21 some hiccups last night; none today; will stay on baclofen for a few more days mood is a little better today; showered, eating; troubled sleep; intermittent AH Discussed history of panic and how it has derailed treatment in the past; discussed quality of panic and patient will try to be aware of pending panic attack to take medication Discussed other history and sounds like patient may have ADHD which could be explored as an outpatient discussed meds: -will try Prozac to see if can reduce or even eliminate panic attacks; also try cloninidine scheduled -discussed seroquel which patient said was there for sleep; will try without for a few more days and add if needed. DC trazodone gives vivid nightmares -will also add Ativan as a p.r.n. for panic only; despite his hx of substance abuse and associated risks of combining with benzos, there is no other way to prevent a pending panic attack than a benzo; given the fact that panic derails prgress, that he is often in a program where medications are dispensed by staff and an outpatient he only needs 2 tabs a week... It is mortgage loan underwriter's opinion that the potential benefits outweigh the obvious risks -risks/side effects of medication regimen reviewed with patient understood and wants to proceed 12/22 Patient reports feeling depressed today, not sure why but a little better than on admission. Still very anxious though no panic. Patient took Prozac this morning and about 20 minutes later he vomited. He thinks it was probably due to the Prozac but he has not sure. He agrees to try again tomorrow; otherwise he agrees to switch to a different SSRI. Patient appropriate with peers and staff, going to groups and remains engaged with treatment -reports sleeping well enough 12/24/23- Continue tx. Continue Prozac trial. 12/26/2023: Added Seroquel 200 mg q.h.s. Xray right hand 12/25: IMPRESSION: Soft tissue swelling. No acute osseous findings. 12/26 Patient feeling a little better today. Discussed how patient felt triggered this weekend. Feeling better now. Accept for this outburst, Otherwise he overall remains in good behavioral and impulse, getting along well with peers and staff and engaged in treatment, attending groups and forthcoming in 1 on 1 sessions. Discussed medication management; tolerating Prozac; will add Seroquel p.r.n. which he has been on before to help with anxiety. Will hold off on increasing Trileptal at this time. adding Seroquel 50mg PRn for anxiety 12/27 improving; engaged in treatment, attending groups, good behavioral/impulse control and getting along well w/ staff/peers; still down, but less so. asks to lower methadone due to daytime sedation 12/28 pt reports continued depression/anxiety but working on coping. Reports says he's having trouble taking in breath, only on inspiration, which he says occurs off/on throughout the day for past couple of days. Says always anxious so not sure if it's that or something else. -02 sat a little low at 95 (though it' has been this low at times in past), but RR 16 -Denies any chest pain; -ROS and denies any upper respiratory symptoms -denies any hx of Asthma, COPD, DVT/PE, chest/rib trauma, recent upper respiratory illness, denies allergy symptoms H&H grossly WNL and not anemia Pt does not appear in any distress, no signs of labored breathing; he is observed able to talk, walk without difficulty focused exam: Pulm: CTA b/l throughout; no wheezing, rhonchi/rales -will get CXR out of abundance of caution As patient progressed, he started feeling better and though still depressed felt he was making progress. wants a program. -lowering sedating meds -patient is currently on 3 antipsychotic medications; patient understands the risks. At this time patient has achieved stability on current regimen at does not want to change with which mortgage loan underwriter agrees as the current benefits outweigh the risks.. With continued sobriety and as patient remains stable, it is expected he will no longer need p.r.n. Zyprexa. By the end of his admission, patient reported feeling better and started and mood much improved. He talked about efforts to overcome panic and while had a panic attack wednesday, on Wednesday was able to talk himself down and avoid one. Pt agrees to increasing Prozac. Discussed struggles breathing which he says is getting better and attributes to anxiety; albuterol made no difference By time of discharge, patient reported that his mood is good depression and anxiety much better; no SI or AH. He remains optimistic about stability and sobriety and is looking forward to going to program. He is not in imminent risk for harm to self or others and appropriate to return to the community for tx Time spent discussing smoking cessation with patient: 3 to 10 minutes Status at Discharge Functional status at discharge: independent ambulation Overall status at discharge: patient is back to baseline Time Spent with Patient Time attestation: Total time managing care of this patient today ____ minutes. Time spent: Less than 30 minutes Discharge Plan Discharge Anticipated Discharge Date/Time: 01/05/24 11:30 Patient Disposition: Home, Self-Care Discharge Diagnosis: Schizoaffective disorder, depressed type Referrals: Physician,None [Primary Care Provider] - (No PCP. Pt declined. ) Discharge Medications: New clonidine HCl 0.1 mg Tablet 0.1 mg PO DAILY@1300 30 Days Qty: 30 1RF Protocol: Hold for SBP< HOLD for SBP < : 90 methadone [Methadose] 10 mg/mL Concentrate 100 mg PO DAILY Qty: 0 0RF Rx Instructions: Partial Fill upon patient request. quetiapine 150 mg tablet 150 mg PO BEDTIME 30 Days Qty: 30 1RF fluoxetine 20 mg Capsule 20 mg PO DAILY 30 Days Qty: 30 1RF olanzapine 5 mg Tablet 5 mg PO TID PRN (Reason: agitation) 30 Days Qty: 60 1RF lorazepam 1 mg Tablet 1 mg PO DAILY PRN (Reason: To PREVENT panic) 30 Days Qty: 15 1RF Continued oxcarbazepine 300 mg Tablet 300 mg PO BID 30 Days Qty: 60 1RF nicotine (polacrilex) 4 mg Lozenge 4 mg buccal Q2H PRN (Reason: Nicotine Cravings) Qty: 100 1RF Vraylar 6 mg capsule 6 mg PO DAILY 30 Days Qty: 30 1RF Changed omeprazole 20 mg Capsule,Delayed Release(Dr/Ec) 20 mg PO DAILY 30 Days Qty: 30 1RF Discontinued quetiapine 50 mg Tablet 50 mg PO BID PRN (Reason: perceptual alterations) Qty: 30 0RF multivitamin [Daily-Rachele] Tablet 1 tab PO DAILY Qty: 30 0RF hydroxyzine HCl 25 mg tablet 25 mg PO TID Qty: 90 0RF methadone [Methadose] 10 mg/mL concentrate 110 mg PO DAILY Rx Instructions: Partial Fill upon patient request. Discharge Orders: Discharge Order (Routine); Ordered 01/05/24 Ordered By: Camron Gomes Diet: Regular diet Activity on Discharge: As tolerated Stand Alone Forms: Patient Portal Discharge page, Community Support Print Language: Swedish Care Plan Goals: Maintain mood and safe behaviors Take medications as prescribed Continue to pursue sobriety Practice coping skills Continue with outpatient providers and reach out to them as needed Health Concerns: Mood stability and behaviors Sobriety Plan of Treatment: Follow up with your PCP, psychiatric provider and other outpatient providers regarding above concerns Take medications as prescribed Assessment: Risk assessment at time of discharge:? Patient was interviewed prior to discharge and found to be fully oriented and without any SI or HI. Patient has improved insight and judgment and wants to continue treatment. Patient is not in imminent risk of harm to self or others and has a safety plan that includes presenting to the closest ER or calling 911 if feeling unsafe.? Patient has been observed closely by nursing and unit staff throughout admission; patient has not engaged in any behaviors that suggest dangerousness to self or others and has demonstrated appropriate behaviors and impulse control Discharge Date/Time: 01/05/24 10:42
[2024-01-05] MEDS: cloNIDine HCL 0.1 MG TABLET PO (05:54)
[2024-01-05] MEDS: Omeprazole 20 MG CAPSULE.DR PO (05:54)
[2024-01-05] MEDS: hydrOXYzine HCL 25 MG TABLET PO (05:54)
[2024-01-05] MEDS: QUEtiapine Fumarate 50 MG TABLET PO (05:54)
[2024-01-05 07:58] VITALS: BP 124/73; PULSE 110; RESP 18; TEMP 36.8; O2SAT 98
[2024-01-05] MEDS: methADONE HCl 20 MG/2 ML ORAL.CONC 100 MG PO (08:27)
[2024-01-05] MEDS: Cariprazine HCl 3 MG CAPSULE 6 MG PO (08:29)
[2024-01-05] MEDS: Naloxone HCl Nasal TAKE HOME 4 MG SPRAY 8 MG NOSTRILALT (08:29)
[2024-01-05] MEDS: Thiamine HCL 100 MG TABLET PO (08:30)
[2024-01-05] MEDS: Folic Acid 1 MG TABLET PO (08:30)
[2024-01-05] MEDS: FLUoxetine HCl 20 MG CAPSULE PO (08:30)
[2024-01-05] MEDS: Multivitamin TABLET 1 TAB PO (08:30)
[2024-01-05] MEDS: OXcarbazepine 300 MG TABLET PO (08:30)
[2024-01-05] MEDS: LORazepam 1 MG TABLET PO (08:39)
[2024-01-05] MEDS: Nicotine Polacrilex Lozenge 4 MG LOZENGE BUCCAL (08:39)
== END 2024-01-05 10:42 | disposition home or self-care (01) | DRG 750 ==
LOC: HO.ED 20:17 → HO.PM5 12-20 14:13
PROVIDERS: Emergency Medicine; Physician Assistant Medical; Admitting Provider Psychiatry & Neurology Psychiatry; Emergency Provider Emergency Medicine Emergency Medical Services; Visit Provider Psychiatry & Neurology Psychiatry
DX: F25.1 Schizoaffective disorder, depressive type (principal); R45.851 Suicidal ideations; I80.8 Phlebitis and thrombophlebitis of other sites; F11.20 Opioid dependence, uncomplicated; F17.210 Nicotine dependence, cigarettes, uncomplicated; L03.114 Cellulitis of left upper limb; L03.113 Cellulitis of right upper limb; F43.10 Post-traumatic stress disorder, unspecified; Z59.02 Unsheltered homelessness; F19.10 Other psychoactive substance abuse, uncomplicated; Z71.6 Tobacco abuse counseling; Z20.822 Contact with and (suspected) exposure to COVID-19; Z79.899 Other long term (current) drug therapy
CPT/HCPCS: 36415; 71101; 73120; 80053; 80143; 80179; 80307; 81001; 85025; 87635; 93005; 99285; S9485

== ENCOUNTER → 2023-12-20 11:34 | Outpatient (BNV) | payer OTHER, SELFPAY | PROVIDERS: Admitting Provider Psychiatry & Neurology Psychiatry; Emergency Provider Emergency Medicine Emergency Medical Services; Visit Provider Internal Medicine Cardiovascular Disease | DX: R45.851 Suicidal ideations (principal); F19.10 Other psychoactive substance abuse, uncomplicated | CPT/HCPCS: 93010 ==

== ENCOUNTER → 2023-12-20 14:04 | Outpatient (BNV) | payer OTHER, SELFPAY | PROVIDERS: Admitting Provider Psychiatry & Neurology Psychiatry; Emergency Provider Emergency Medicine Emergency Medical Services; Visit Provider Psychiatry & Neurology Psychiatry | DX: F25.1 Schizoaffective disorder, depressive type (principal); F43.11 Post-traumatic stress disorder, acute; F11.90 Opioid use, unspecified, uncomplicated; I80.9 Phlebitis and thrombophlebitis of unspecified site | CPT/HCPCS: 99231; 99232 ==

== ENCOUNTER 2024-05-04 00:32 | Inpatient (IN) | payer OTHER, SELFPAY ==
--- NOTE | 2024-05-04 | ECG_ITS ---
Test Reason : TACHY, COCAINE USE Blood Pressure : / mmHG Vent. Rate : 123 BPM Atrial Rate : 123 BPM P-R Int : 138 ms QRS Dur : 082 ms QT Int : 316 ms P-R-T Axes : 048 038 021 degrees QTc Int : 452 ms Sinus tachycardia Otherwise normal ECG When compared with ECG of 20-DEC-2023 11:34, Vent. rate has increased BY 42 BPM Referred By: Generic ED Physician Electronically Signed By:JOVANNI CHOWDHURY
[2024-05-04 00:34] VITALS: BP 144/100; PULSE 131; RESP 18; TEMP 36.7; O2SAT 90; BMI 33.9
--- NOTE | 2024-05-04 00:41 | PC.NURSE ---
Pt presented this RN with bag of used drug paraphernalia, syringes, self-described empty heroin pouches. Gave bag to security for disposal.
[2024-05-04 01:15] VITALS: BP 142/91; PULSE 121; RESP 18; TEMP 36.8; O2SAT 95
--- NOTE | 2024-05-04 01:24 | PC.NURSE ---
PT HAS UNCONTROLLED HOME MEDS BROUGHT TO DECON WITH REST OF BELONGINGS.
[2024-05-04 01:28] LABS: Basophils Percent Auto 0.3 % (0-2); Eosinophils Absolute Auto 0.1 X10*3/uL (0.0-0.4); Eosinophils Percent Auto 0.6 % (0-4); Hematocrit 40.7 % (42.0-52.0); Imm Gran Abs Auto 0.03 X10*3/uL (0.00-0.03); Imm Gran Pct Auto 0.3 % (0.0-0.4); Lymphocytes Absolute Auto 3.6 X10*3/uL (1.2-4.9); MANUAL DIFF FLAG NO; Mean Corpuscular HGB Conc 34.4 g/dl (31.0-36.0); Mean Corpuscular Hemoglobin 29.6 pg (27.0-33.0); Mean Platelet Volume 9.7 fL (9.4-12.4); Monocytes Percent Auto 8.4 % (2-11); Neutrophils Absolute Auto 6.8 x10*3/uL (2.0-8.3); Neutrophils Percent Auto 59.4 % (45-73); Platelet Count 297 X10*3/uL (160-400); Red Blood Count 4.73 X10*6/uL (4.60-5.80); Red Cell Distribution Width 13.7 % (11.0-16.0); White Blood Count 11.5 X10*3/uL (4.8-10.8)
--- NOTE | 2024-05-04 01:30 | ED.PSYCH ---
HPI - Psych General Chief Complaint: Psychiatric Symptoms Stated Complaint: crisis Time Seen by Provider: 05/04/24 01:16 Source: patient and EMS Mode of arrival: EMS Limitations: no limitations History of Present Illness ED Provider: Dr. Valerie Nava HPI Narrative: Patient comes to the emergency room by ambulance complaining of drug relapse, endorsing using crack, heroin, fentanyl. Patient states that today he attempted to commit suicide by overdosing. Patient did not overdose, no wound Narcan was given. Patient states that for about a month and a half his depression has increased. Denies HI. Patient states that he recently left a detox program prematurely but would like to try again. Related Data Previous Rx's ?Medication ?Instructions ?Recorded cariprazine 6 mg capsule (Vraylar) 6 mg PO DAILY 30 days #30 caps 01/04/24 clonidine HCl 0.1 mg tablet 0.1 mg PO DAILY@1300 30 days #30 01/04/24 tabs fluoxetine 20 mg capsule 20 mg PO DAILY 30 days #30 caps 01/04/24 lorazepam 1 mg tablet 1 mg PO DAILY PRN To PREVENT panic 01/04/24 30 days #15 tabs methadone 10 mg/mL oral 100 mg (10 mL) PO DAILY #0 mL 01/04/24 concentrate (Methadose) nicotine (polacrilex) 4 mg buccal 4 mg buccal Q2H PRN Nicotine 01/04/24 lozenge Cravings #100 ea olanzapine 5 mg tablet 5 mg PO TID PRN agitation 30 days 01/04/24 #60 tabs omeprazole 20 mg capsule,delayed 20 mg PO DAILY 30 days #30 caps 01/04/24 release oxcarbazepine 300 mg tablet 300 mg PO BID 30 days #60 tabs 01/04/24 quetiapine 150 mg tablet 150 mg PO BEDTIME 30 days #30 tabs 01/04/24 Allergies Allergy/AdvReac Type Severity Reaction Status Date / Time No Known Allergies Allergy Verified 05/04/24 00:37 [No Known Allergies*] Review of Systems Review of Systems: Constitutional : No Weight loss, No Fever, No Chills, No Night Sweats, No Fatigue, No Malaise ENT/Mouth : No Hearing loss, No Ear Pain, No Nasal Congestion, No Sinus Pain, No Hoarseness, No sore throat, No Rhinorrhea, No Swallowing Difficulty Eyes: No Eye Pain, No Swelling, No Redness, No Foreign Body, No Discharge, No Vision Changes Cardiovascular : No Chest Pain, No SOB, No Dyspnea on Exertion, No Orthopnea, No Edema, No Palpitations Respiratory : No Cough, No Sputum, No Wheezing, No Smoke Exposure, No Dyspnea Gastrointestinal : No Nausea, No Vomiting, No Diarrhea, No Constipation, No abdominal Pain, No Hematochezia, No Melena Genitourinary : no irregular bleeding, No Dysuria, No Urinary Frequency, No Hematuria, No Urinary Incontinence, No Urgency, No Flank Pain, No Urinary Flow Changes, No Hesitancy Musculoskeletal : No joint pain, No Myalgias, No Joint Swelling Skin : No Skin Lesions, No rash Neuro : No Weakness, No Numbness, No Paresthesias, No Loss of Consciousness, No Dizziness, No Headache Psych : Anxiety, depression, polysubstance abuse Heme/Lymph: No Bruising, No Bleeding,No Lymphadenopathy Endocrine : No Polyuria, No Polydipsia, No Temperature Intolerance PMFSH Past Medical History Medical History Schizoaffective disorder, depressive type PTSD (post-traumatic stress disorder) Cellulitis Opioid use disorder Bipolar disorder Polysubstance abuse Family History Family History (Updated 12/18/23 @ 21:03 by Nato Vizcarra LCSW) Unknown Addiction to drug Social History Social History Household Members: None Housing: Homeless Do you presently have visiting nurse or other home services: No Alcohol intake: current Alcohol intake frequency: holidays/special occasions only Alcohol type: beer and wine Patient Tobacco Use Status: Current everyday Tobacco user Tobacco use type: Cigarette Cigarette Packs Per Day: 0.5 Cigarettes Per Day: 10.0 Years Smoked: 15 e-Cigarette/Vaping Use: Never Used Second Hand Smoke Exposure: Yes Substance Use Type: Crack/Cocaine, Marijuana and Opiates Advance Directives: No Advance Directives Information Provided: No Do you have a plan to hurt others: No Plan service: No Current occupational status: unemployed Sexual orientation: Straight/Heterosexual Physical Exam Vital Signs: Vital Signs: Last Vital Signs Temp 98.2 F 05/04/24 01:15 Pulse 121 H 05/04/24 01:15 Resp 18 05/04/24 01:15 BP 142/91 H 07/25/24 01:15 Pulse Ox 95 05/04/24 01:15 O2 Del Method Room Air 05/04/24 01:15 BMI result Body Mass Index 33.9 Const: Other: Appearance: Alert. Oriented X3. No acute distress. Disheveled Eyes: Pupils equal, round and reactive to light. ENT: Pharynx normal. Neck: Normal inspection. Neck supple. No lymph nodes noted. No crepitus CVS: Normal heart rate and rhythm. Pulses normal. Normal S1 and S2 Respiratory: No respiratory distress. Breath sounds normal. No Wheezing. No rales Abdomen: Soft and nontender. No rigidity. No distention. Skin: Skin warm and dry. Normal skin color. Normal skin turgor. Extremities: No lower extremity edema. No Lacerations. No Rash Neuro: Oriented X 3. No motor deficit. No sensory deficit. Moving all extremities. No slurred speech. CN 2 through 12 grossly intact Psych: calm, cooperative, normal affect Course Course Course Narrative: -patient is on a Section 12 waiting to be seen by the care team Medical Decision Making Differential Diagnosis Differential Diagnoses: The differential diagnosis associated with the presentation includes (Anxiety, depression, polysubstance abuse) Admission/Observation Consideration of admission/observation: Escalation of care including admission/observation considered (Patient does on a Section 12, waiting for the care team to evaluate the patient and determine disposition) Lab Data MDM Lab Attestation statement: I reviewed the patient's lab results. 05/04/24 01:23 05/04/24 01:23 Labs: Lab Results 05/04/24 Range/Units 01:23 WBC 11.5 H (4.8-10.8) X10*3/uL RBC 4.73 (4.60-5.80) X10*6/uL Hgb 14.0 (14.0-18.0) g/dl Hct 40.7 L (42.0-52.0) % MCV 86.0 (80.0-98.0) fL MCH 29.6 (27.0-33.0) pg MCHC 34.4 (31.0-36.0) g/dl RDW 13.7 (11.0-16.0) % Plt Count 297 (160-400) X10*3/uL MPV 9.7 (9.4-12.4) fL Immature Gran % (Auto) 0.3 (0.0-0.4) % Neut % (Auto) 59.4 (45-73) % Lymph % (Auto) 31.0 (20-40) % [place] % (Auto) 8.4 (2-11) % Eos % (Auto) 0.6 (0-4) % Baso % (Auto) 0.3 (0-2) % Lymph # (Auto) 3.6 (1.2-4.9) X10*3/uL [place] # (Auto) 1.0 (0.1-1.2) X10*3/uL Eos # (Auto) 0.1 (0.0-0.4) X10*3/uL Baso # (Auto) 0.0 (0.0-0.2) X10*3/uL Abs Immat Gran (auto) 0.03 (0.00-0.03) X10*3/uL Absolute Neuts (auto) 6.8 (2.0-8.3) x10*3/uL Absolute Nucleated RBC 0.000 (0.0-0.012) X10*3/uL Nucleated RBC % (auto) 0.0 (0.0-0.2) /100WBC Critical Care Time Critical Care Time Critical Care Time: Yes Total Critical Care Time: 30 Attestation: I have personally provided critical care time. Time includes review of lab data, radiology results, discussion with consultants, and monitoring for potential decompensation. Intervention performed as documented. Discharge Plan Discharge Clinical Impression: Polysubstance abuse, Suicidal ideation Patient Disposition: Still a Patient Prescriptions: No Action clonidine HCl 0.1 mg Tablet 0.1 mg PO DAILY@1300 30 Days Qty: 30 1RF Protocol: Hold for SBP< HOLD for SBP < : 90 methadone [Methadose] 10 mg/mL Concentrate 100 mg PO DAILY Qty: 0 0RF Rx Instructions: Partial Fill upon patient request. quetiapine 150 mg tablet 150 mg PO BEDTIME 30 Days Qty: 30 1RF fluoxetine 20 mg Capsule 20 mg PO DAILY 30 Days Qty: 30 1RF olanzapine 5 mg Tablet 5 mg PO TID PRN (Reason: agitation) 30 Days Qty: 60 1RF lorazepam 1 mg Tablet 1 mg PO DAILY PRN (Reason: To PREVENT panic) 30 Days Qty: 15 1RF oxcarbazepine 300 mg Tablet 300 mg PO BID 30 Days Qty: 60 1RF omeprazole 20 mg Capsule,Delayed Release(Dr/Ec) 20 mg PO DAILY 30 Days Qty: 30 1RF nicotine (polacrilex) 4 mg Lozenge 4 mg buccal Q2H PRN (Reason: Nicotine Cravings) Qty: 100 1RF Vraylar 6 mg capsule 6 mg PO DAILY 30 Days Qty: 30 1RF Print Language: Slovenian
[2024-05-04 01:56] LABS: Acetaminophen LAB < 3 mcg/mL (<30); Alanine Aminotransferase 337 U/L (0-40); Albumin Level 4.7 g/dL (3.5-5.0); Alkaline Phosphatase 158 U/L (39-117); Anion Gap 18 (12-20); Aspartate Amino Transferase 79 U/L (5-37); Bilirubin Total 0.5 mg/dL (0.0-1.0); Blood Urea Nitrogen 10 mg/dL (9-16); Calcium 10.3 mg/dL (8.4-10.2); Carbon Dioxide 23 mmol/L (22-29); Chloride 104 mmol/L (96-108); Creatinine Clr Calc Pharmacy 130.5; Estimated Glomerular Filt Rate > 60; Ethanol < 10 mg/dL; Glucose Random 116 mg/dL (60-115); Salicylate < 5.0 mg/dL (15-30); Sodium 141 mmol/L (135-145); Total Protein 8.4 g/dL (6.5-8.0)
--- NOTE | 2024-05-04 03:26 | MHC.EDTECH ---
patient belongings in [facility]
[2024-05-04 06:01] VITALS: BP 99/55; PULSE 100; RESP 18; TEMP 36.8; O2SAT 95
--- NOTE | 2024-05-04 07:05 | PHA.MEDREC ---
Pharmacy Consult ? Medication Reconciliation Pharmacy has completed the medication reconciliation. Checked med rec done overnight
--- NOTE | 2024-05-04 07:11 | PC.NURSE ---
Resumed care of pt at 0700. Pt resting in bed quietly, eating breakfast. All belongings locked in decon, 1:1 sitter at bedside, awaiting CARE team, call francois within reach, all needs met at this time.
[2024-05-04 07:57] VITALS: BP 103/56; PULSE 104; RESP 15; TEMP 36.7; O2SAT 93
[2024-05-04 08:36] LABS: Appearance Urine Clear; Color Urine Dark Yellow; Glucose Urine UA Negative (Negative); Leukocyte Esterase Urine Negative (Negative); Nitrite Urine Negative (Negative); PH 5.5 (5.0-9.0); Specific Gravity - Urine >= 1.030 (1.005-1.025); Urine Blood Negative (Negative); Urine Ketones Negative (Negative); Urine Protein Trace mg/dL (Neg-Trace)
[2024-05-04 08:45] LABS: Amphetamine Screen Urine Not Detected (Not Detect); Barbiturates, Urine Not Detected (Not Detect); Benzodiazepines Screen Urine Not Detected (Not Detect); Buprenorphine Scr Positive (Not Detect); Cannabinoid Screen Urine Not Detected (Not Detect); Cocaine Screen Urine POSITIVE (Not Detect); Fentanyl, urine POSITIVE (Not Detect); Methadone Screen, Urine Positive (Not Detect); Opiate Screen Urine Not Detected (Not Detect); Oxycodone Screen Urine Not Detected (Not Detect); Phencyclidine Screen Urine Not Detected (Not Detect)
[2024-05-04] MEDS: hydrOXYzine HCL 25 MG TABLET PO ×4 (09:50→20:41)
[2024-05-04] MEDS: Omeprazole 20 MG CAPSULE.DR PO (09:51)
[2024-05-04] MEDS: OXcarbazepine 300 MG TABLET PO ×2 (09:51→20:41)
[2024-05-04] MEDS: FLUoxetine HCl 20 MG CAPSULE PO (09:51)
[2024-05-04] MEDS: Cariprazine HCl 3 MG CAPSULE 6 MG PO (09:51)
[2024-05-04] MEDS: cloNIDine HCL 0.1 MG TABLET PO (13:37)
[2024-05-04 14:30] VITALS: BP 116/74; PULSE 92; RESP 16; TEMP 36.6; O2SAT 97
--- NOTE | 2024-05-04 17:18 | PC.ADMIT ---
Aren arrived via wheelchair from [facility] ED pod. He is alert, oriented x4 and cooperative. Sharps/safety check was done, skin assessment is unremarkable. He reports he got cellulitis on left lower quad of abdomen from sublocade injection on 04/26/24. The area is semi-firm to touch but no other findings. Aern signed a CV with Zita Paulson [employer]. Aren self presented to ED with suicidal ideation with plan to overdose on illicit substances. He had been sober for over 4 months, he left the [facility] AM and was trying to transition from methadone to sublocade but it required him to not be on methadone for 3 days prior. Once he got the injection it didnt work, I still wanted to use . He used a 30 bags of heroin, cocaine, crack, fentanyl during a short time. I felt so guilty , I knew I needed help . Aren reports being medication adherent up to yesterday, I dont remember if I took my medicine . He is on a new medication epclusa , for my hepC . The medication was with his belongings in [facility], but was retreived as the medication is nonformulary and taken daily. It was brought to pharmacy, ordered, labeled and is now in patient specific bin for daily administration. Aren is on 15 minute safety checks per order.
[2024-05-04 20:00] VITALS: BP 101/56; PULSE 93; RESP 16; TEMP 36.8; O2SAT 96
[2024-05-04] MEDS: QUEtiapine Fumarate 50 MG TABLET PO (20:40)
[2024-05-04] MEDS: traZODone HCL 50 MG TABLET PO (20:41)
[2024-05-04] MEDS: QUEtiapine Fumarate 50 MG TABLET 150 MG PO (20:41)
[2024-05-05 08:00] VITALS: BP 118/66; PULSE 89; RESP 18; TEMP 36.4; O2SAT 94
[2024-05-05 08:36] LABS: Estimated Average Glucose 120 mg/dL; Hemoglobin A1c % 5.8 % (<6.0)
[2024-05-05] MEDS: hydrOXYzine HCL 25 MG TABLET PO ×4 (08:48→20:08)
[2024-05-05] MEDS: Cariprazine HCl 3 MG CAPSULE 6 MG PO (08:48)
[2024-05-05 08:49] LABS: Cholesterol 128 mg/dL (<200); HDL Cholesterol 34 mg/dL (>40); LDL Cholesterol Calculated 65 mg/dL (<100); Magnesium 2.1 mg/dL (1.6-2.6); Triglycerides 145 mg/dL (<150)
[2024-05-05] MEDS: OXcarbazepine 300 MG TABLET PO (08:49)
[2024-05-05] MEDS: Omeprazole 20 MG CAPSULE.DR PO (08:49)
[2024-05-05] MEDS: FLUoxetine HCl 20 MG CAPSULE PO (08:49)
[2024-05-05 09:06] LABS: Free T4 (Free Thyroxine) 0.94 ng/dL (0.71-1.85); Thyroid Stimulating Hormone 0.71 uIU/mL (0.32-4.0)
[2024-05-05 09:29] LABS: Vitamin B12 594 pg/mL (200-900)
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
[2024-05-05 12:59] VITALS: BP 121/73
[2024-05-05] MEDS: cloNIDine HCL 0.1 MG TABLET PO (12:59)
[2024-05-05 20:00] VITALS: BP 120/77; PULSE 98; RESP 16; TEMP 36.9; O2SAT 98
[2024-05-05] MEDS: QUEtiapine Fumarate 50 MG TABLET 150 MG PO (20:08)
[2024-05-05] MEDS: QUEtiapine Fumarate 50 MG TABLET PO (20:08)
[2024-05-05] MEDS: Acetaminophen 325 MG TABLET 650 MG PO (20:45)
[2024-05-06 08:00] VITALS: BP 111/60; PULSE 87; TEMP 36.9; O2SAT 87
[2024-05-06] MEDS: Omeprazole 20 MG CAPSULE.DR PO (09:00)
[2024-05-06] MEDS: hydrOXYzine HCL 25 MG TABLET PO ×4 (09:00→20:52)
[2024-05-06] MEDS: Cariprazine HCl 3 MG CAPSULE 6 MG PO (09:00)
[2024-05-06] MEDS: FLUoxetine HCl 20 MG CAPSULE 40 MG PO (09:00)
--- NOTE | 2024-05-06 11:40 | HO.PSYCHPN ---
Subjective Subjective Date of Service: 05/06/24 Reason For Visit: Schizoaffective disorder, PTSD Interim History: Met with patient; discussed with team Reviewed recent history since last discharge. Patient said that after leaving he was overall feeling pretty good and though still had some depression, much less and though still anxiety and sometimes panic significantly less. AH seemed to intermittently come up, but also much less frequently and able to be ignored. Patient liked the program where he went. At some point however patient's psychiatrist discontinued Seroquel q.h.s. since his mood had improved and it was causing weight gain. It is not exactly clear if this was the trigger but at some point not that long afterwards, patient's mood started to decline and depression crept back in. Patient had been sober for these 4-1/2 months but as depression worsened and AH started become intrusive again he also started having panic attacks and began to crave opioids. Patient was discontinued off methadone and put on Sublocade but during that transition he reports some withdrawal symptoms which exacerbated cravings and for the past 2-1/2 weeks patient relapsed. Patient reports AH ongoing however none today. Further reviewed history and patient has history of manic episodes, last 1 about a year ago. They last for 4-5 days during which time he feels unstoppable, high energy, starting project after project but not finishing them, cleaning excessively adn being too much; reports talking a little faster, not needing as much sleep (though denies increased libido spending money); after such an episode he crashes and gets very depressed. Discussed medication regimen in more detail. Agreed to get rid of Seroquel since a caused weight gain. Reviewed risks/side effects of lithium and patient agrees to start Mental Status Exam Mental Status Exam Narrative: Pt is alert and oriented; behavior is cooperative, calm, quiet, slowed; patient is not in distress; dressed in casual attire with hair dyed blond, facial rings; mood is described as depressed and affect congruent, downcast; eye contact somewhat avoidant; Speech slowed rate, soft volume; normal prosody; not pressured;psychomotor retardation present; thought process is organized and goal directed; Thought content is on struggles and on tx; otherwise pertinent to relevant topics and without any delusional content, paranoid ideations or grandiosity; currently no SI; no HI; Patients insight and judgment impaired Diagnostics Vital Signs (24Hr): Vital Signs - 24 hr 05/05/24 12:59 05/05/24 20:00 05/06/24 08:00 Temperature 98.4 F 98.5 F Pulse Rate 98 87 Respiratory Rate 16 Blood Pressure 121/73 120/77 111/60 Pulse Oximetry 98 87 L Oxygen Delivery Method Room Air Room Air BMI result Body Mass Index 33.9 Labs 05/04/24 01:23 05/04/24 01:23 Labs: Laboratory Results - last 48 hr 05/05/24 08:16 Estimat Average Glucose 120 Hemoglobin A1c % 5.8 Magnesium 2.1 Triglycerides 145 Cholesterol 128 LDL Cholesterol, Calc 65 HDL Cholesterol 34 L Vitamin B12 594 Folate 13.0 TSH 0.71 Free T4 0.94 Medications Medications Current Medications Acetaminophen (Acetaminophen 325 Mg Tablet) 650 mg PO Q6H PRN PRN Reason: Headache/Pain Mild Scale (1-3) Last Admin: 05/05/24 20:45 Dose: 650 mg Al Hydroxide/Mg Hydroxide (Magnesium Hydrox/Alum Hydrox 30 Ml Oral.Susp) 30 ml PO Q6H PRN PRN Reason: Heartburn/Nausea Cariprazine (Cariprazine Hcl 3 Mg Capsule) 6 mg PO DAILY [facility] Last Admin: 05/06/24 09:00 Dose: 6 mg Clonidine HCl (Clonidine Hcl 0.1 Mg Tablet) 0.1 mg PO DAILY@1300 [facility]; Protocol Last Admin: 05/05/24 12:59 Dose: 0.1 mg Fluoxetine HCl (Fluoxetine Hcl 20 Mg Capsule) 40 mg PO DAILY [facility] Last Admin: 05/06/24 09:00 Dose: 40 mg Hydroxyzine HCl (Hydroxyzine Hcl 25 Mg Tablet) 25 mg PO QID [facility] Last Admin: 05/06/24 09:00 Dose: 25 mg Hydroxyzine HCl (Hydroxyzine Hcl 25 Mg Tablet) 25 mg PO Q6H PRN PRN Reason: Anxiety Magnesium Hydroxide (Milk Of Magnesia 30 Ml Oral.Susp) 30 ml PO DAILY PRN PRN Reason: Constipation Nicotine (Nicotine 21 Mg Patch.Td24) 21 mg TRANSDERMA DAILY PRN PRN Reason: nicotine cravings Nicotine Polacrilex (Nicotine Polacrilex Lozenge 4 Mg Lozenge) 4 mg BUCCAL Q2H PRN PRN Reason: Nicotine Cravings Nicotine Polacrilex (Nicotine Polacrilex 2 Mg Gum) 4 mg BUCCAL Q2H PRN PRN Reason: Nicotine Cravings Patient Own ( Sofosbuvir- Velpatasvir 1 Tab) 1 tab PO DAILY@1300 [facility] Last Admin: 05/05/24 13:02 Dose: Not Given Omeprazole (Omeprazole 20 Mg Capsule.Dr) 20 mg PO DAILY [facility] Last Admin: 05/06/24 09:00 Dose: 20 mg Quetiapine Fumarate (Quetiapine Fumarate 50 Mg Tablet) 50 mg PO BEDTIME [facility] Last Admin: 05/05/24 20:08 Dose: 50 mg Quetiapine Fumarate (Quetiapine Fumarate 50 Mg Tablet) 150 mg PO BEDTIME [facility] Last Admin: 05/05/24 20:08 Dose: 150 mg Trazodone HCl (Trazodone Hcl 50 Mg Tablet) 50 mg PO BEDTIME MRX1 PRN PRN Reason: Insomnia Last Admin: 05/04/24 20:41 Dose: 50 mg Trolamine Salicylate (Trolamine Salicylate 10 % Cream 141 Gm Tube) 1 appl TOPICAL TID PRN PRN Reason: left lower abdomen/induration Allergies Allergies Allergy/AdvReac Type Severity Reaction Status Date / Time No Known Allergies Allergy Verified 05/04/24 00:37 [No Known Allergies*] Assessment & Plan Assessment & Plan (1) Bipolar disorder: Status: Acute Code(s): F31.9 - Bipolar disorder, unspecified (2) Opioid use disorder: Status: Acute Code(s): F11.90 - Opioid use, unspecified, uncomplicated (3) Cocaine use disorder, moderate, dependence: Status: Acute Code(s): F14.20 - Cocaine dependence, uncomplicated Plan Mr. Julio is a 29 year-old male with hx of Mood Disorder, opiod and cocaine use disorder who self presented to [facility] reporting increased depression, suicidal ideation with plan to OD on substances. He had been in a program for 4 months, relapsed, sent to [facility], relapsed again 2 days ago. He was last admitted here on M5 on 12/2023. We discussed risks, benefits and alternative treatment options. WIll increase prozac to 40mg po daily. dc trileptal was it induces metabolism of suboxone and methadone. Examined induration of injection site on LLQ abdomen, induration noted but no erythema, purulent discharge, no swelling, afebrile...continue to monitor. Hospital course: 05/06 Reviewed recent history since last discharge. Patient said that after leaving he was overall feeling pretty good and though still had some depression, much less and though still anxiety and sometimes panic significantly less. AH seemed to intermittently come up, but also much less frequently and able to be ignored. Patient liked the program where he went. At some point however patient's psychiatrist discontinued Seroquel q.h.s. since his mood had improved and it was causing weight gain. It is not exactly clear if this was the trigger but at some point not that long afterwards, patient's mood started to decline and depression crept back in. Patient had been sober for these 4-1/2 months but as depression worsened and AH started become intrusive again he also started having panic attacks and began to crave opioids. Patient was discontinued off methadone and put on Sublocade but during that transition he reports some withdrawal symptoms which exacerbated cravings and for the past 2-1/2 weeks patient relapsed. Patient reports AH ongoing however none today. Further reviewed history and patient has history of manic episodes, last 1 about a year ago. They last for 4-5 days during which time he feels unstoppable, high energy, starting project after project but not finishing them, cleaning excessively adn being too much; reports talking a little faster, not needing as much sleep (though denies increased libido spending money); after such an episode he crashes and gets very depressed. Discussed medication regimen in more detail. Agreed to get rid of Seroquel since a caused weight gain. Reviewed risks/side effects of lithium and patient agrees to start -not sure if he wants to get back on methadone; thinking about PLAN 1. Admit to M5, CV, 15 minutes checks for safety DC Seroquel q.h.s.; caused weight gain Continue Vraylar 6 mg daily Start lithium ER 600 mg q.h.s. for bipolar depression -labs ordered Continue Prozac 40 mg daily -Trileptal discontinued (used to be on 300 mg b.i.d.) since concern for inducing metabolism of subacute/methadone; however this also helped with anxiety; will see how lithium works and whether not to add Trileptal Past regimen: Cariprazine (Cariprazine Hcl 3 Mg Capsule) 6 mg PO DAILY [facility] Clonidine HCl (Clonidine Hcl 0.1 Mg Tablet) 0.1 mg PO Q4H PRN; Protocol Clonidine HCl (Clonidine Hcl 0.1 Mg Tablet) 0.1 mg PO DAILY@1300 [facility]; Protocol Fluoxetine HCl (Fluoxetine Hcl 20 Mg Capsule) 20 mg PO DAILY [facility] Lorazepam (Lorazepam 1 Mg Tablet) 1 mg PO DAILY PRN To PREVENT panic Olanzapine (Olanzapine 5 Mg Tablet) 5 mg PO TID PRN Omeprazole (Omeprazole 20 Mg Capsule.Dr) 20 mg PO DAILY@0630 [facility] Ondansetron HCl (Ondansetron Odt 4 Mg Tab.Rapdis) 4 mg TRANSLINGU Q6H PRN Oxcarbazepine (Oxcarbazepine 300 Mg Tablet) 300 mg PO BID [facility] Quetiapine Fumarate (Quetiapine Fumarate 50 Mg Tablet) 50 mg PO BID PRN Quetiapine Fumarate (Quetiapine Fumarate 50 Mg Tablet) 150 mg PO BEDTIME [facility] Patient educated on: diagnosis, medication risk/benefits, substance abuse and therapeutic strategies Informed Consent: understands Reason for continued inpatient stay Substantial Risk for: inability to function and rapid decompensation Time Spent With Patient Time: Total time managing care of this patient today ____ minutes.
[2024-05-06 13:38] VITALS: BP 128/67; PULSE 103
[2024-05-06] MEDS: cloNIDine HCL 0.1 MG TABLET PO (13:44)
[2024-05-06] MEDS: Nicotine Polacrilex Lozenge 4 MG LOZENGE BUCCAL (16:51)
[2024-05-06 20:00] VITALS: BP 121/74; PULSE 89; RESP 16; TEMP 36.8; O2SAT 98
[2024-05-06] MEDS: Lithium Carbonate ER 300 MG TABLET.ER 600 MG PO (20:52)
[2024-05-07 08:00] VITALS: BP 132/59; PULSE 97; RESP 16; TEMP 36.9; O2SAT 98
[2024-05-07] MEDS: Omeprazole 20 MG CAPSULE.DR PO (08:46)
[2024-05-07] MEDS: hydrOXYzine HCL 25 MG TABLET PO ×5 (08:47→20:13)
[2024-05-07] MEDS: FLUoxetine HCl 20 MG CAPSULE 40 MG PO (08:47)
[2024-05-07] MEDS: Cariprazine HCl 3 MG CAPSULE 6 MG PO (08:48)
--- NOTE | 2024-05-07 11:07 | HO.PSYCHPN ---
Subjective Subjective Date of Service: 05/07/24 Reason For Visit: Schizoaffective disorder, PTSD Interim History: Met with patient; discussed with team Patient remains very depressed, slept moving, slow talking demonstrating significant psychomotor retardation. Patient reports he did not sleep very well at all and that his anxiety is high. Denies medication side effects. 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 Mental Status Exam Mental Status Exam Narrative: Pt is alert and oriented; behavior is cooperative, calm, quiet, slowed; patient is not in distress; dressed in casual attire with hair dyed blond, facial rings; mood is described as depressed and affect congruent, downcast; eye contact avoidant; Speech slowed rate, soft volume; normal prosody; psychomotor retardation present; thought process is organized and goal directed; Thought content is on struggles and on tx; otherwise pertinent to relevant topics and without any delusional content, paranoid ideations or grandiosity; currently no SI; no HI; Patients insight and judgment impaired Diagnostics Vital Signs (24Hr): Vital Signs - 24 hr 05/06/24 13:38 05/06/24 20:00 05/07/24 08:00 Temperature 98.2 F 98.4 F Pulse Rate 103 H 89 97 Respiratory Rate 16 16 Blood Pressure 128/67 121/74 132/59 L Pulse Oximetry 98 98 Oxygen Delivery Method Room Air Room Air BMI result Body Mass Index 33.9 Labs 05/04/24 01:23 05/04/24 01:23 Medications Medications Current Medications Acetaminophen (Acetaminophen 325 Mg Tablet) 650 mg PO Q6H PRN PRN Reason: Headache/Pain Mild Scale (1-3) Last Admin: 05/05/24 20:45 Dose: 650 mg Al Hydroxide/Mg Hydroxide (Magnesium Hydrox/Alum Hydrox 30 Ml Oral.Susp) 30 ml PO Q6H PRN PRN Reason: Heartburn/Nausea Cariprazine (Cariprazine Hcl 3 Mg Capsule) 6 mg PO DAILY [facility] Last Admin: 05/07/24 08:48 Dose: 6 mg Clonidine HCl (Clonidine Hcl 0.1 Mg Tablet) 0.1 mg PO DAILY@1300 [facility]; Protocol Last Admin: 05/06/24 13:44 Dose: 0.1 mg Fluoxetine HCl (Fluoxetine Hcl 20 Mg Capsule) 40 mg PO DAILY [facility] Last Admin: 05/07/24 08:47 Dose: 40 mg Hydroxyzine HCl (Hydroxyzine Hcl 25 Mg Tablet) 25 mg PO QID [facility] Last Admin: 05/07/24 08:47 Dose: 25 mg Hydroxyzine HCl (Hydroxyzine Hcl 25 Mg Tablet) 25 mg PO Q6H PRN PRN Reason: Anxiety [place] Carbonate ([place] Carbonate Er 300 Mg Tablet.Er) 600 mg PO BEDTIME [facility] Last Admin: 05/06/24 20:52 Dose: 600 mg Magnesium Hydroxide (Milk Of Magnesia 30 Ml Oral.Susp) 30 ml PO DAILY PRN PRN Reason: Constipation Nicotine (Nicotine 21 Mg Patch.Td24) 21 mg TRANSDERMA DAILY PRN PRN Reason: nicotine cravings Nicotine Polacrilex (Nicotine Polacrilex Lozenge 4 Mg Lozenge) 4 mg BUCCAL Q2H PRN PRN Reason: Nicotine Cravings Last Admin: 05/06/24 16:51 Dose: 4 mg Nicotine Polacrilex (Nicotine Polacrilex 2 Mg Gum) 4 mg BUCCAL Q2H PRN PRN Reason: Nicotine Cravings Patient Own ( Sofosbuvir- Velpatasvir 1 Tab) 1 tab PO DAILY@1300 [facility] Last Admin: 05/06/24 13:44 Dose: 1 tab Omeprazole (Omeprazole 20 Mg Capsule.Dr) 20 mg PO DAILY [facility] Last Admin: 05/07/24 08:46 Dose: 20 mg Trazodone HCl (Trazodone Hcl 50 Mg Tablet) 50 mg PO BEDTIME MRX1 PRN PRN Reason: Insomnia Last Admin: 05/04/24 20:41 Dose: 50 mg Trolamine Salicylate (Trolamine Salicylate 10 % Cream 141 Gm Tube) 1 appl TOPICAL TID PRN PRN Reason: left lower abdomen/induration Allergies Allergies Allergy/AdvReac Type Severity Reaction Status Date / Time No Known Allergies Allergy Verified 05/04/24 00:37 [No Known Allergies*] Assessment & Plan Assessment & Plan (1) Schizoaffective disorder, bipolar type: Status: Acute Code(s): F25.0 - Schizoaffective disorder, bipolar type (2) Opioid use disorder: Status: Acute Code(s): F11.90 - Opioid use, unspecified, uncomplicated (3) Cocaine use disorder, moderate, dependence: Status: Acute Code(s): F14.20 - Cocaine dependence, uncomplicated Plan Mr. Julio is a 29 year-old male with hx of Mood Disorder, opiod and cocaine use disorder who self presented [place] [facility] reporting increased depression, suicidal ideation with plan to OD on substances. He had been in a program for 4 months, relapsed, sent to [facility], relapsed again 2 days ago. He was last admitted here on M5 on 12/2023. We discussed risks, benefits and alternative treatment options. WIll increase prozac to 40mg po daily. dc trileptal was it induces metabolism of suboxone and methadone. Examined induration of injection site on LLQ abdomen, induration noted but no erythema, purulent discharge, no swelling, afebrile...continue to monitor. Hospital course: 05/06 Reviewed recent history since last discharge. Patient said that after leaving he was overall feeling pretty good and though still had some depression, much less and though still anxiety and sometimes panic significantly less. AH seemed to intermittently come up, but also much less frequently and able to be ignored. Patient liked the program where he went. At some point however patient's psychiatrist discontinued Seroquel q.h.s. since his mood had improved and it was causing weight gain. It is not exactly clear if this was the trigger but at some point not that long afterwards, patient's mood started to decline and depression crept back in. Patient had been sober for these 4-1/2 months but as depression worsened and AH started become intrusive again he also started having panic attacks and began to crave opioids. Patient was discontinued off methadone and put on Sublocade but during that transition he reports some withdrawal symptoms which exacerbated cravings and for the past 2-1/2 weeks patient relapsed. Patient reports AH ongoing however none today. -changing diagnosis to schizoaffective bipolar type: Further reviewed history and patient has history of manic episodes, last 1 about a year ago. They last for 4-5 days during which time he feels unstoppable, high energy, starting project after project but not finishing them, cleaning excessively adn being too much; reports talking a little faster, not needing as much sleep (though denies increased libido spending money); after such an episode he crashes and gets very depressed. Patient has intermittent AH independent of mood episodes -Discussed medication regimen in more detail. Agreed to get rid of Seroquel since a caused weight gain. Reviewed risks/side effects of lithium and patient agrees to start -not sure if he wants to get back on methadone; thinking about 05/07 remains very depressed with significant psychomotor retardation. Not sleeping well and high anxiety. Will consider restarting Seroquel, at least for help with sleep if insomnia not improved; will also consider restarting Trileptal as likely minimal impact on Suboxone/methadone. [place] just getting started and not sure if it is therapeutic. Will hold off on medication changes at this time. ECT remains an option with which patient is amenable PLAN 1. Admit to M5, CV, 15 minutes checks for safety DC Seroquel q.h.s.; caused weight gain Continue Vraylar 6 mg daily Continue lithium ER 600 mg q.h.s. for bipolar depression -labs ordered Continue Prozac 40 mg daily -Trileptal discontinued (used to be on 300 mg b.i.d.) since concern for inducing metabolism of subacute/methadone; however this also helped with anxiety; will see how lithium works and whether not to add Trileptal Past regimen: Cariprazine (Cariprazine Hcl 3 Mg Capsule) 6 mg PO DAILY [facility] Clonidine HCl (Clonidine Hcl 0.1 Mg Tablet) 0.1 mg PO Q4H PRN; Protocol Clonidine HCl (Clonidine Hcl 0.1 Mg Tablet) 0.1 mg PO DAILY@1300 [facility]; Protocol Fluoxetine HCl (Fluoxetine Hcl 20 Mg Capsule) 20 mg PO DAILY [facility] Lorazepam (Lorazepam 1 Mg Tablet) 1 mg PO DAILY PRN To PREVENT panic Olanzapine (Olanzapine 5 Mg Tablet) 5 mg PO TID PRN Omeprazole (Omeprazole 20 Mg Capsule.) 20 mg PO DAILY@0630 [facility] Ondansetron HCl (Ondansetron Odt 4 Mg Tab.Rapdis) 4 mg TRANSLINGU Q6H PRN Oxcarbazepine (Oxcarbazepine 300 Mg Tablet) 300 mg PO BID [facility] Quetiapine Fumarate (Quetiapine Fumarate 50 Mg Tablet) 50 mg PO BID PRN Quetiapine Fumarate (Quetiapine Fumarate 50 Mg Tablet) 150 mg PO BEDTIME [facility] Patient educated on: diagnosis, medication risk/benefits, substance abuse, ECT and therapeutic strategies Informed Consent: understands Reason for continued inpatient stay Substantial Risk for: inability to function Time Spent With Patient Time: Total time managing care of this patient today ____ minutes.
[2024-05-07 13:10] VITALS: BP 138/62
[2024-05-07] MEDS: cloNIDine HCL 0.1 MG TABLET PO (13:10)
[2024-05-07] MEDS: Nicotine Polacrilex Lozenge 4 MG LOZENGE BUCCAL (16:32)
[2024-05-07 20:00] VITALS: BP 125/82; PULSE 97; RESP 1; TEMP 36.8; O2SAT 97
[2024-05-07] MEDS: Lithium Carbonate ER 300 MG TABLET.ER 600 MG PO (20:13)
[2024-05-07] MEDS: traZODone HCL 50 MG TABLET PO (20:13)
[2024-05-08 08:00] VITALS: BP 115/69; PULSE 80; TEMP 36.5; O2SAT 95
[2024-05-08] MEDS: hydrOXYzine HCL 25 MG TABLET PO ×4 (08:55→20:09)
[2024-05-08] MEDS: FLUoxetine HCl 20 MG CAPSULE 40 MG PO (08:55)
[2024-05-08] MEDS: Omeprazole 20 MG CAPSULE.DR PO (08:57)
[2024-05-08] MEDS: Cariprazine HCl 3 MG CAPSULE 6 MG PO (08:57)
--- NOTE | 2024-05-08 09:00 | HO.PSYCHPN ---
Subjective Subjective Date of Service: 05/08/24 Reason For Visit: Schizoaffective disorder, PTSD Interim History: Met with patient; discussed with team Patient remains depressed however he does think lithium might be helping because he he says maybe his mood is getting a little better. He reports significant anxiety and near panic but agrees to hold off restarting Trileptal to see how lithium plays out. Patient still exhibits significant psychomotor retardation however his eye contact was improved today which is hopeful. Patient struggling to sleep and had nightmares on trazodone; Remeron, Vistaril with Benadryl, not helpful in the past. Patient says he was on doxepin in the past for insomnia and agrees to restart that. Patient got Sublocade 2 weeks ago; he says he was using on top of that and is continuing to have withdrawal symptoms. Patient discussed with addiction counselor history and concluded that his longest times of sobriety were with methadone and he is considering getting back on that. Mental Status Exam Mental Status Exam Narrative: Pt is alert and oriented; behavior is cooperative, calm, quiet, slowed; patient is not in distress; dressed in casual attire with hair dyed blond, facial rings; mood is described as depressed and affect congruent, downcast; eye contact avoidant; Speech slowed rate, soft volume; normal prosody; psychomotor retardation present; thought process is organized and goal directed; Thought content is on struggles and on tx; otherwise pertinent to relevant topics and without any delusional content, paranoid ideations or grandiosity; currently no SI; no HI; Patients insight and judgment impaired Diagnostics Vital Signs (24Hr): Vital Signs - 24 hr 05/07/24 13:10 05/07/24 20:00 05/08/24 08:00 Temperature 98.2 F 97.7 F Pulse Rate 97 80 Respiratory Rate 1 L Blood Pressure 138/62 125/82 115/69 Pulse Oximetry 97 95 Oxygen Delivery Method Room Air Room Air BMI result Body Mass Index 33.9 Labs 05/04/24 01:23 05/04/24 01:23 Medications Medications Current Medications Acetaminophen (Acetaminophen 325 Mg Tablet) 650 mg PO Q6H PRN PRN Reason: Headache/Pain Mild Scale (1-3) Last Admin: 05/05/24 20:45 Dose: 650 mg Al Hydroxide/Mg Hydroxide (Magnesium Hydrox/Alum Hydrox 30 Ml Oral.Susp) 30 ml PO Q6H PRN PRN Reason: Heartburn/Nausea Cariprazine (Cariprazine Hcl 3 Mg Capsule) 6 mg PO DAILY [facility] Last Admin: 05/08/24 08:57 Dose: 6 mg Clonidine HCl (Clonidine Hcl 0.1 Mg Tablet) 0.1 mg PO DAILY@1300 [facility]; Protocol Last Admin: 05/07/24 13:10 Dose: 0.1 mg Fluoxetine HCl (Fluoxetine Hcl 20 Mg Capsule) 40 mg PO DAILY [facility] Last Admin: 05/08/24 08:55 Dose: 40 mg Hydroxyzine HCl (Hydroxyzine Hcl 25 Mg Tablet) 25 mg PO QID [facility] Last Admin: 05/08/24 08:55 Dose: 25 mg Hydroxyzine HCl (Hydroxyzine Hcl 25 Mg Tablet) 25 mg PO Q6H PRN PRN Reason: Anxiety Last Admin: 05/07/24 20:13 Dose: 25 mg [place] Carbonate ([place] Carbonate Er 300 Mg Tablet.Er) 600 mg PO BEDTIME [facility] Last Admin: 05/07/24 20:13 Dose: 600 mg Magnesium Hydroxide (Milk Of Magnesia 30 Ml Oral.Susp) 30 ml PO DAILY PRN PRN Reason: Constipation Nicotine (Nicotine 21 Mg Patch.Td24) 21 mg TRANSDERMA DAILY PRN PRN Reason: nicotine cravings Nicotine Polacrilex (Nicotine Polacrilex Lozenge 4 Mg Lozenge) 4 mg BUCCAL Q2H PRN PRN Reason: Nicotine Cravings Last Admin: 05/07/24 16:32 Dose: 4 mg Nicotine Polacrilex (Nicotine Polacrilex 2 Mg Gum) 4 mg BUCCAL Q2H PRN PRN Reason: Nicotine Cravings Patient Own ( Sofosbuvir- Velpatasvir 1 Tab) 1 tab PO DAILY@1300 [facility] Last Admin: 05/07/24 14:00 Dose: 1 tab Omeprazole (Omeprazole 20 Mg Capsule.Dr) 20 mg PO DAILY [facility] Last Admin: 05/08/24 08:57 Dose: 20 mg Trazodone HCl (Trazodone Hcl 50 Mg Tablet) 50 mg PO BEDTIME MRX1 PRN PRN Reason: Insomnia Last Admin: 05/07/24 20:13 Dose: 50 mg Trolamine Salicylate (Trolamine Salicylate 10 % Cream 141 Gm Tube) 1 appl TOPICAL TID PRN PRN Reason: left lower abdomen/induration Allergies Allergies Allergy/AdvReac Type Severity Reaction Status Date / Time No Known Allergies Allergy Verified 05/04/24 00:37 [No Known Allergies*] Assessment & Plan Assessment & Plan (1) Schizoaffective disorder, bipolar type: Status: Acute Code(s): F25.0 - Schizoaffective disorder, bipolar type (2) Opioid use disorder: Status: Acute Code(s): F11.90 - Opioid use, unspecified, uncomplicated (3) Cocaine use disorder, moderate, dependence: Status: Acute Code(s): F14.20 - Cocaine dependence, uncomplicated Plan Mr. Julio is a 29 year-old male with hx of Mood Disorder, opiod and cocaine use disorder who self presented to [facility] reporting increased depression, suicidal ideation with plan to OD on substances. He had been in a program for 4 months, relapsed, sent to [facility], relapsed again 2 days ago. He was last admitted here on on 12/2023. We discussed risks, benefits and alternative treatment options. WIll increase prozac to 40mg po daily. dc trileptal was it induces metabolism of suboxone and methadone. Examined induration of injection site on LLQ abdomen, induration noted but no erythema, purulent discharge, no swelling, afebrile...continue to monitor. Hospital course: 05/06 Reviewed recent history since last discharge. Patient said that after leaving he was overall feeling pretty good and though still had some depression, much less and though still anxiety and sometimes panic significantly less. AH seemed to intermittently come up, but also much less frequently and able to be ignored. Patient liked the program where he went. At some point however patient's psychiatrist discontinued Seroquel q.h.s. since his mood had improved and it was causing weight gain. It is not exactly clear if this was the trigger but at some point not that long afterwards, patient's mood started to decline and depression crept back in. Patient had been sober for these 4-1/2 months but as depression worsened and AH started become intrusive again he also started having panic attacks and began to crave opioids. Patient was discontinued off methadone and put on Sublocade but during that transition he reports some withdrawal symptoms which exacerbated cravings and for the past 2-1/2 weeks patient relapsed. Patient reports AH ongoing however none today. -changing diagnosis to schizoaffective bipolar type: Further reviewed history and patient has history of manic episodes, last 1 about a year ago. They last for 4-5 days during which time he feels unstoppable, high energy, starting project after project but not finishing them, cleaning excessively adn being too much; reports talking a little faster, not needing as much sleep (though denies increased libido spending money); after such an episode he crashes and gets very depressed. Patient has intermittent AH independent of mood episodes -Discussed medication regimen in more detail. Agreed to get rid of Seroquel since a caused weight gain. Reviewed risks/side effects of lithium and patient agrees to start -not sure if he wants to get back on methadone; thinking about 05/07 remains very depressed with significant psychomotor retardation. Not sleeping well and high anxiety. Will consider restarting Seroquel, at least for help with sleep if insomnia not improved; will also consider restarting Trileptal as likely minimal impact on Suboxone/methadone. [place] just getting started and not sure if it is therapeutic. Will hold off on medication changes at this time. ECT remains an option with which patient is amenable 05/08 Patient remains depressed however he does think lithium might be helping because he he says maybe his mood is getting a little better. He reports significant anxiety and near panic but agrees to hold off restarting Trileptal to see how lithium plays out. Patient still exhibits significant psychomotor retardation however his eye contact was improved today which is hopeful. Patient struggling to sleep and had nightmares on trazodone; Remeron, Vistaril with Benadryl, not helpful in the past. Patient says he was on doxepin in the past for insomnia and agrees to restart that. Patient got Sublocade 2 weeks ago; he says he was using on top of that and is continuing to have withdrawal symptoms. Patient discussed with addiction counselor history and concluded that his longest times of sobriety were with methadone and he is considering getting back on that. PLAN 1. Admit to M5, CV, 15 minutes checks for safety START Doxepin qhs for insomnia DC Seroquel q.h.s.; caused weight gain Continue Vraylar 6 mg daily Continue lithium ER 600 mg q.h.s. for bipolar depression -labs ordered Continue Prozac 40 mg daily -Trileptal discontinued (used to be on 300 mg b.i.d.) since concern for inducing metabolism of subacute/methadone; however this also helped with anxiety; will see how lithium works and whether not to add Trileptal Past regimen: Cariprazine (Cariprazine Hcl 3 Mg Capsule) 6 mg PO DAILY [facility] Clonidine HCl (Clonidine Hcl 0.1 Mg Tablet) 0.1 mg PO Q4H PRN; Protocol Clonidine HCl (Clonidine Hcl 0.1 Mg Tablet) 0.1 mg PO DAILY@1300 [facility]; Protocol Fluoxetine HCl (Fluoxetine Hcl 20 Mg Capsule) 20 mg PO DAILY [facility] Lorazepam (Lorazepam 1 Mg Tablet) 1 mg PO DAILY PRN To PREVENT panic Olanzapine (Olanzapine 5 Mg Tablet) 5 mg PO TID PRN Omeprazole (Omeprazole 20 Mg Capsule.Dr) 20 mg PO DAILY@0630 [facility] Ondansetron HCl (Ondansetron Odt 4 Mg Tab.Rapdis) 4 mg TRANSLINGU Q6H PRN Oxcarbazepine (Oxcarbazepine 300 Mg Tablet) 300 mg PO BID [facility] Quetiapine Fumarate (Quetiapine Fumarate 50 Mg Tablet) 50 mg PO BID PRN Quetiapine Fumarate (Quetiapine Fumarate 50 Mg Tablet) 150 mg PO BEDTIME [facility] Patient educated on: diagnosis, medication risk/benefits, substance abuse and therapeutic strategies Informed Consent: understands Reason for continued inpatient stay Substantial Risk for: inability to function Time Spent With Patient Time: Total time managing care of this patient today ____ minutes.
--- NOTE | 2024-05-08 13:33 | MHC.RECOVRN ---
Met with pt on M5 after Addiction Medicine consult placed for MITCH and recurrence. Pt had presented to the ED reporting substance use and SI. Upon evaluation, pt admitted for bipolar disorder, OUD, StUD. Pt awake, alert, easily engages in conversation. Pt reports he had been at [facility] x 4 months, had a recurrence so he returned to [facility], had another recurrence 2 days prior to admission. Pt reports during those couple of days using 2-3 bundles heroin/fentanyl and an unknown amount of cocaine. Pt reports he had been on methadone with a recent transition to Sublocade. Reports injection was about 2 weeks ago through [facility]. Pt is unsure at this time if he would like to continue Sublocade or return to methadone due to feeling diaphoretic at times. Pt reports longest period in recovery was 1.5 years in [place] a few years ago. Pt reports he has many supports in place including mom, cricket coach, [facility] worker, and therapist. Pt does not feel he needs additional recovery supports at this time was was accepting of written resources. Pt also provided with t/w contact information if needed. Denies questions or concerns for t/w. Discussed with Reny Blackwell APRN.
[2024-05-08] MEDS: Nicotine Polacrilex Lozenge 4 MG LOZENGE BUCCAL (16:04)
[2024-05-08 20:00] VITALS: BP 170/99; PULSE 101; RESP 16; TEMP 36.3; O2SAT 95
[2024-05-08] MEDS: Lithium Carbonate ER 300 MG TABLET.ER 600 MG PO (20:09)
[2024-05-08] MEDS: QUEtiapine Fumarate 50 MG TABLET PO (20:09)
[2024-05-08] MEDS: Doxepin HCl 10 MG CAPSULE PO (20:09)
[2024-05-09 08:35] VITALS: BP 146/78; PULSE 93; RESP 18; TEMP 36.4; O2SAT 93
[2024-05-09] MEDS: Omeprazole 20 MG CAPSULE.DR PO (08:40)
[2024-05-09] MEDS: FLUoxetine HCl 20 MG CAPSULE 40 MG PO (08:41)
[2024-05-09] MEDS: hydrOXYzine HCL 25 MG TABLET PO ×4 (08:42→20:03)
[2024-05-09] MEDS: Cariprazine HCl 3 MG CAPSULE 6 MG PO (08:42)
--- NOTE | 2024-05-09 09:58 | P.PNPSI_ITS ---
Subjective Subjective Date of Service: 05/09/24 Reason For Visit: Schizoaffective disorder, PTSD Interim History: Met with pt; discussed with team reports feeling better and can tell as he has enjoyed conversations with others, found himself laughing, Still has intermittent AH of saying his name a few times, which is baseline. dc'd doxepin; asked to increase thorazine to 100mg for sleep wants Methadone; was recently on 70mg before switched to sublicade; did best on 95mg Mental Status Exam Mental Status Exam Narrative: Pt is alert and oriented; behavior is cooperative, calm, quiet, slowed but less so; patient is not in distress; dressed in hospital attire with hair dyed blond, facial rings; mood is described as little better and affect congruent, a little brighter; eye contact improved; Speech closer to normal rate, volume, prosody; psychomotor retardation still present; thought process is organized and goal directed; Thought content is on struggles and on tx; otherwise pertinent to relevant topics and without any delusional content, paranoid ideations or grandiosity; currently no SI; no HI; interittent AH Patients insight and judgment impaired but improved. Diagnostics Vital Signs (24Hr): Vital Signs - 24 hr 05/08/24 20:00 05/09/24 08:35 Temperature 97.3 F 97.5 F Pulse Rate 101 H 93 Respiratory Rate 16 18 Blood Pressure 170/99 H 146/78 H Pulse Oximetry 95 93 Oxygen Delivery Method Room Air Room Air BMI result Body Mass Index 33.9 Labs 05/04/24 01:23 05/04/24 01:23 Medications Medications Current Medications Acetaminophen (Acetaminophen 325 Mg Tablet) 650 mg PO Q6H PRN PRN Reason: Headache/Pain Mild Scale (1-3) Last Admin: 05/05/24 20:45 Dose: 650 mg Al Hydroxide/Mg Hydroxide (Magnesium Hydrox/Alum Hydrox 30 Ml Oral.Susp) 30 ml PO Q6H PRN PRN Reason: Heartburn/Nausea Cariprazine (Cariprazine Hcl 3 Mg Capsule) 6 mg PO DAILY [facility] Last Admin: 05/09/24 08:42 Dose: 6 mg Doxepin HCl (Doxepin Hcl 10 Mg Capsule) 10 mg PO BEDTIME [facility] Last Admin: 05/08/24 20:09 Dose: 10 mg Fluoxetine HCl (Fluoxetine Hcl 20 Mg Capsule) 40 mg PO DAILY [facility] Last Admin: 05/09/24 08:41 Dose: 40 mg Hydroxyzine HCl (Hydroxyzine Hcl 25 Mg Tablet) 25 mg PO QID [facility] Last Admin: 05/09/24 08:42 Dose: 25 mg Hydroxyzine HCl (Hydroxyzine Hcl 25 Mg Tablet) 25 mg PO Q6H PRN PRN Reason: Anxiety Last Admin: 05/07/24 20:13 Dose: 25 mg [place] Carbonate ([place]wn Carbonate Er 300 Mg Tablet.Er) 600 mg PO BEDTIME [facility] Last Admin: 05/08/24 20:09 Dose: 600 mg Magnesium Hydroxide (Milk Of Magnesia 30 Ml Oral.Susp) 30 ml PO DAILY PRN PRN Reason: Constipation Nicotine (Nicotine 21 Mg Patch.Td24) 21 mg TRANSDERMA DAILY PRN PRN Reason: nicotine cravings Nicotine Polacrilex (Nicotine Polacrilex Lozenge 4 Mg Lozenge) 4 mg BUCCAL Q2H PRN PRN Reason: Nicotine Cravings Last Admin: 05/08/24 16:04 Dose: 4 mg Nicotine Polacrilex (Nicotine Polacrilex 2 Mg Gum) 4 mg BUCCAL Q2H PRN PRN Reason: Nicotine Cravings Patient Own ( Sofosbuvir- Velpatasvir 1 Tab) 1 tab PO DAILY@1300 [facility] Last Admin: 05/08/24 14:11 Dose: 1 tab Omeprazole (Omeprazole 20 Mg Capsule.Dr) 20 mg PO DAILY [facility] Last Admin: 05/09/24 08:40 Dose: 20 mg Quetiapine Fumarate (Quetiapine Fumarate 50 Mg Tablet) 50 mg PO BEDTIME PRN PRN Reason: for CONtinued insomnia Last Admin: 05/08/24 20:09 Dose: 50 mg Trazodone HCl (Trazodone Hcl 50 Mg Tablet) 50 mg PO BEDTIME MRX1 PRN PRN Reason: Insomnia Last Admin: 05/07/24 20:13 Dose: 50 mg Trolamine Salicylate (Trolamine Salicylate 10 % Cream 141 Gm Tube) 1 appl TOPICAL TID PRN PRN Reason: left lower abdomen/induration Allergies Allergies Allergy/AdvReac Type Severity Reaction Status Date / Time No Known Allergies Allergy Verified 05/04/24 00:37 [No Known Allergies*] Assessment & Plan Assessment & Plan (1) Schizoaffective disorder, bipolar type: Status: Acute Code(s): F25.0 - Schizoaffective disorder, bipolar type (2) Opioid use disorder: Status: Acute Code(s): F11.90 - Opioid use, unspecified, uncomplicated (3) Cocaine use disorder, moderate, dependence: Status: Acute Code(s): F14.20 - Cocaine dependence, uncomplicated Plan Mr. Julio is a 29 year-old male with hx of Mood Disorder, opiod and cocaine use disorder who self presented to [facility] ED reporting increased depression, suicidal ideation with plan to OD on substances. He had been in a program for 4 months, relapsed, sent to [facility], relapsed again 2 days ago. He was last admitted here on M5 on 12/2023. We discussed risks, benefits and alternative treatment options. WIll increase prozac to 40mg po daily. dc trileptal was it induces metabolism of suboxone and methadone. Examined induration of injection site on LLQ abdomen, induration noted but no erythema, purulent discharge, no swelling, afebrile...continue to monitor. Hospital course: 05/06 Reviewed recent history since last discharge. Patient said that after leaving he was overall feeling pretty good and though still had some depression, much less and though still anxiety and sometimes panic significantly less. AH seemed to intermittently come up, but also much less frequently and able to be ignored. Patient liked the program where he went. At some point however patient's psychiatrist discontinued Seroquel q.h.s. since his mood had improved and it was causing weight gain. It is not exactly clear if this was the trigger but at some point not that long afterwards, patient's mood started to decline and depression crept back in. Patient had been sober for these 4-1/2 months but as depression worsened and AH started become intrusive again he also started having panic attacks and began to crave opioids. Patient was discontinued off methadone and put on Sublocade but during that transition he reports some withdrawal symptoms which exacerbated cravings and for the past 2-1/2 weeks patient relapsed. Patient reports AH ongoing however none today. -changing diagnosis to schizoaffective bipolar type: Further reviewed history and patient has history of manic episodes, last 1 about a year ago. They last for 4-5 days during which time he feels unstoppable, high energy, starting project after project but not finishing them, cleaning excessively adn being too much; reports talking a little faster, not needing as much sleep (though denies increased libido spending money); after such an episode he crashes and gets very depressed. Patient has intermittent AH independent of mood episodes -Discussed medication regimen in more detail. Agreed to get rid of Seroquel since a caused weight gain. Reviewed risks/side effects of lithium and patient agrees to start -not sure if he wants to get back on methadone; thinking about 05/07 remains very depressed with significant psychomotor retardation. Not sleeping well and high anxiety. Will consider restarting Seroquel, at least for help with sleep if insomnia not improved; will also consider restarting Trileptal as likely minimal impact on Suboxone/methadone. [place] just getting started and not sure if it is therapeutic. Will hold off on medication changes at this time. ECT remains an option with which patient is amenable 05/08 Patient remains depressed however he does think lithium might be helping because he he says maybe his mood is getting a little better. He reports significant anxiety and near panic but agrees to hold off restarting Trileptal to see how lithium plays out. Patient still exhibits significant psychomotor retardation however his eye contact was improved today which is hopeful. Patient struggling to sleep and had nightmares on trazodone; Remeron, Vistaril with Benadryl, not helpful in the past. Patient says he was on doxepin in the past for insomnia and agrees to restart that. Patient got Sublocade 2 weeks ago; he says he was using on top of that and is continuing to have withdrawal symptoms. Patient discussed with addiction counselor history and concluded that his longest times of sobriety were with methadone and he is considering getting back on that. 05/09 starting to do better, mood improving, more engaged, going to groups; stuggles w/ insomnia PLAN CV, 15 minutes checks for safety DC Doxepin Increased Thorazine to 100mg suboxone prn for withdrawal DC Seroquel q.h.s.; caused weight gain Continue Vraylar 6 mg daily Continue lithium ER 600 mg q.h.s. for bipolar depression -labs ordered Continue Prozac 40 mg daily -Trileptal discontinued (used to be on 300 mg b.i.d.) since concern for inducing metabolism of subacute/methadone; however this also helped with anxiety; will see how lithium works and whether not to add Trileptal Past regimen: Cariprazine (Cariprazine Hcl 3 Mg Capsule) 6 mg PO DAILY [facility] Clonidine HCl (Clonidine Hcl 0.1 Mg Tablet) 0.1 mg PO Q4H PRN; Protocol Clonidine HCl (Clonidine Hcl 0.1 Mg Tablet) 0.1 mg PO DAILY@1300 [facility]; Protocol Fluoxetine HCl (Fluoxetine Hcl 20 Mg Capsule) 20 mg PO DAILY [facility] Lorazepam (Lorazepam 1 Mg Tablet) 1 mg PO DAILY PRN To PREVENT panic Olanzapine (Olanzapine 5 Mg Tablet) 5 mg PO TID PRN Omeprazole (Omeprazole 20 Mg Capsule.Dr) 20 mg PO DAILY@0630 [facility] Ondansetron HCl (Ondansetron Odt 4 Mg Tab.Rapdis) 4 mg TRANSLINGU Q6H PRN Oxcarbazepine (Oxcarbazepine 300 Mg Tablet) 300 mg PO BID [facility] Quetiapine Fumarate (Quetiapine Fumarate 50 Mg Tablet) 50 mg PO BID PRN Quetiapine Fumarate (Quetiapine Fumarate 50 Mg Tablet) 150 mg PO BEDTIME [facility] Patient educated on: diagnosis, medication risk/benefits, substance abuse and therapeutic strategies Informed Consent: understands Reason for continued inpatient stay Substantial Risk for: rapid decompensation Time Spent With Patient Time: Total time managing care of this patient today ____ minutes.
[2024-05-09] MEDS: Buprenorphine/Naloxone 2/0.5mg FILM 1 FILM SUBLINGUAL (18:39)
[2024-05-09 20:00] VITALS: BP 134/88; PULSE 90; RESP 18; TEMP 36.8; O2SAT 95
[2024-05-09] MEDS: Lithium Carbonate ER 300 MG TABLET.ER 600 MG PO (20:03)
[2024-05-09] MEDS: chlorproMAZINE HCl 100 MG TABLET PO (20:03)
[2024-05-09] MEDS: QUEtiapine Fumarate 100 MG TABLET PO (21:04)
[2024-05-10 08:00] VITALS: BP 131/71; PULSE 95; RESP 16; TEMP 36.8; O2SAT 97
[2024-05-10] MEDS: Omeprazole 20 MG CAPSULE.DR PO (09:04)
[2024-05-10] MEDS: hydrOXYzine HCL 25 MG TABLET PO ×4 (09:04→20:07)
[2024-05-10] MEDS: FLUoxetine HCl 20 MG CAPSULE 40 MG PO (09:05)
[2024-05-10] MEDS: Cariprazine HCl 3 MG CAPSULE 6 MG PO (09:05)
[2024-05-10] MEDS: Buprenorphine/Naloxone 4/1 mg FILM 1 FILM SUBLINGUAL (09:12)
--- NOTE | 2024-05-10 10:03 | HO.PSYCHPN ---
Subjective Subjective Date of Service: 05/10/24 Reason For Visit: Schizoaffective disorder, PTSD Interim History: Met with patient; discussed with team Patient reports mood is starting to improve. He found out today that his mom said he can not stay there and normally he would have gotten very upset but thinks that on lithium he stayed much more calm. Still has a lot of anxiety and is considering getting back on Trileptal though concern for it lowering buprenorphine availability. Patient says that Thorazine not helpful for sleep and will just continue on Seroquel. Discussed being on sublicade verses getting back to methadone. Patient maintains that he was most sober on methadone; law writer explained concern after discussing case with addiction consult but agrees to inquire further. Mental Status Exam Mental Status Exam Narrative: Pt is alert and oriented; behavior is cooperative, calm, quiet, slowed but less so; patient is not in distress; dressed in hospital attire with hair dyed blond, facial rings; mood is described as little better and affect congruent, a little brighter; eye contact improved; Speech closer to normal rate, volume, prosody; psychomotor retardation still present; thought process is organized and goal directed; Thought content is on struggles and on tx; otherwise pertinent to relevant topics and without any delusional content, paranoid ideations or grandiosity; currently no SI; no HI; interittent AH Patients insight and judgment impaired but improving Diagnostics Vital Signs (24Hr): Vital Signs - 24 hr 05/09/24 20:00 05/10/24 08:00 Temperature 98.2 F 98.2 F Pulse Rate 90 95 Respiratory Rate 18 16 Blood Pressure 134/88 131/71 Pulse Oximetry 95 97 Oxygen Delivery Method Room Air Room Air BMI result Body Mass Index 33.9 Labs 05/04/24 01:23 05/11/24 08:25 Medications Medications Current Medications Acetaminophen (Acetaminophen 325 Mg Tablet) 650 mg PO Q6H PRN PRN Reason: Headache/Pain Mild Scale (1-3) Last Admin: 05/05/24 20:45 Dose: 650 mg Al Hydroxide/Mg Hydroxide (Magnesium Hydrox/Alum Hydrox 30 Ml Oral.Susp) 30 ml PO Q6H PRN PRN Reason: Heartburn/Nausea Buprenorphine/Naloxone (Buprenorphine/Naloxone 4/1 Mg Film) 1 film SUBLINGUAL BID PRN PRN Reason: withdrawal Last Admin: 05/10/24 09:12 Dose: 1 film Cariprazine (Cariprazine Hcl 3 Mg Capsule) 6 mg PO DAILY [facility] Last Admin: 05/10/24 09:05 Dose: 6 mg Chlorpromazine HCl (Chlorpromazine Hcl 100 Mg Tablet) 100 mg PO BEDTIME [facility] Last Admin: 05/09/24 20:03 Dose: 100 mg Fluoxetine HCl (Fluoxetine Hcl 20 Mg Capsule) 40 mg PO DAILY [facility] Last Admin: 05/10/24 09:05 Dose: 40 mg Hydroxyzine HCl (Hydroxyzine Hcl 25 Mg Tablet) 25 mg PO QID [facility] Last Admin: 05/10/24 09:04 Dose: 25 mg Hydroxyzine HCl (Hydroxyzine Hcl 25 Mg Tablet) 25 mg PO Q6H PRN PRN Reason: Anxiety Last Admin: 05/07/24 20:13 Dose: 25 mg [place] Carbonate ([place] Carbonate Er 300 Mg Tablet.Er) 600 mg PO BEDTIME [facility] Last Admin: 05/09/24 20:03 Dose: 600 mg Magnesium Hydroxide (Milk Of Magnesia 30 Ml Oral.Susp) 30 ml PO DAILY PRN PRN Reason: Constipation Nicotine (Nicotine 21 Mg Patch.Td24) 21 mg TRANSDERMA DAILY PRN PRN Reason: nicotine cravings Nicotine Polacrilex (Nicotine Polacrilex Lozenge 4 Mg Lozenge) 4 mg BUCCAL Q2H PRN PRN Reason: Nicotine Cravings Last Admin: 05/08/24 16:04 Dose: 4 mg Nicotine Polacrilex (Nicotine Polacrilex 2 Mg Gum) 4 mg BUCCAL Q2H PRN PRN Reason: Nicotine Cravings Patient Own ( Sofosbuvir- Velpatasvir 1 Tab) 1 tab PO DAILY@1300 [facility] Last Admin: 05/09/24 13:51 Dose: 1 tab Omeprazole (Omeprazole 20 Mg Capsule.Dr) 20 mg PO DAILY [facility] Last Admin: 05/10/24 09:04 Dose: 20 mg Quetiapine Fumarate (Quetiapine Fumarate 100 Mg Tablet) 100 mg PO BEDTIME PRN PRN Reason: for CONtinued insomnia Last Admin: 05/09/24 21:04 Dose: 100 mg Trazodone HCl (Trazodone Hcl 50 Mg Tablet) 50 mg PO BEDTIME MRX1 PRN PRN Reason: Insomnia Last Admin: 05/07/24 20:13 Dose: 50 mg Trolamine Salicylate (Trolamine Salicylate 10 % Cream 141 Gm Tube) 1 appl TOPICAL TID PRN PRN Reason: left lower abdomen/induration Allergies Allergies Allergy/AdvReac Type Severity Reaction Status Date / Time No Known Allergies Allergy Verified 05/04/24 00:37 [No Known Allergies*] Assessment & Plan Assessment & Plan (1) Schizoaffective disorder, bipolar type: Status: Acute Code(s): F25.0 - Schizoaffective disorder, bipolar type (2) Opioid use disorder: Status: Acute Code(s): F11.90 - Opioid use, unspecified, uncomplicated (3) Cocaine use disorder, moderate, dependence: Status: Acute Code(s): F14.20 - Cocaine dependence, uncomplicated Plan Mr. Julio is a 29 year-old male with hx of Mood Disorder, opiod and cocaine use disorder who self presented to [facility] reporting increased depression, suicidal ideation with plan to OD on substances. He had been in a program for 4 months, relapsed, sent to [facility], relapsed again 2 days ago. He was last admitted here on M5 on 12/2023. We discussed risks, benefits and alternative treatment options. WIll increase prozac to 40mg po daily. dc trileptal was it induces metabolism of suboxone and methadone. Examined induration of injection site on LLQ abdomen, induration noted but no erythema, purulent discharge, no swelling, afebrile...continue to monitor. Hospital course: 05/06 Reviewed recent history since last discharge. Patient said that after leaving he was overall feeling pretty good and though still had some depression, much less and though still anxiety and sometimes panic significantly less. AH seemed to intermittently come up, but also much less frequently and able to be ignored. Patient liked the program where he went. At some point however patient's psychiatrist discontinued Seroquel q.h.s. since his mood had improved and it was causing weight gain. It is not exactly clear if this was the trigger but at some point not that long afterwards, patient's mood started to decline and depression crept back in. Patient had been sober for these 4-1/2 months but as depression worsened and AH started become intrusive again he also started having panic attacks and began to crave opioids. Patient was discontinued off methadone and put on Sublocade but during that transition he reports some withdrawal symptoms which exacerbated cravings and for the past 2-1/2 weeks patient relapsed. Patient reports AH ongoing however none today. -changing diagnosis to schizoaffective bipolar type: Further reviewed history and patient has history of manic episodes, last 1 about a year ago. They last for 4-5 days during which time he feels unstoppable, high energy, starting project after project but not finishing them, cleaning excessively adn being too much; reports talking a little faster, not needing as much sleep (though denies increased libido spending money); after such an episode he crashes and gets very depressed. Patient has intermittent AH independent of mood episodes -Discussed medication regimen in more detail. Agreed to get rid of Seroquel since a caused weight gain. Reviewed risks/side effects of lithium and patient agrees to start -not sure if he wants to get back on methadone; thinking about 05/07 remains very depressed with significant psychomotor retardation. Not sleeping well and high anxiety. Will consider restarting Seroquel, at least for help with sleep if insomnia not improved; will also consider restarting Trileptal as likely minimal impact on Suboxone/methadone. [place] just getting started and not sure if it is therapeutic. Will hold off on medication changes at this time. ECT remains an option with which patient is amenable 05/08 Patient remains depressed however he does think lithium might be helping because he he says maybe his mood is getting a little better. He reports significant anxiety and near panic but agrees to hold off restarting Trileptal to see how lithium plays out. Patient still exhibits significant psychomotor retardation however his eye contact was improved today which is hopeful. Patient struggling to sleep and had nightmares on trazodone; Remeron, Vistaril with Benadryl, not helpful in the past. Patient says he was on doxepin in the past for insomnia and agrees to restart that. Patient got Sublocade 2 weeks ago; he says he was using on top of that and is continuing to have withdrawal symptoms. Patient discussed with addiction counselor history and concluded that his longest times of sobriety were with methadone and he is considering getting back on that. 05/09 starting to do better, mood improving, more engaged, going to groups; stuggles w/ insomnia 05/10 feels mood is getting better; anxiety still quite a problem but no panic yet. Skeptical about staying on Sublocade; says p.r.n. Suboxone did not help but agrees to continue trying with higher dose. Thorazine not helping for sleep so patient decided to go back on Seroquel even though caused weight gain. Digital Marketing Intern discussing MATwith addiction consult PLAN CV, 15 minutes checks for safety DC Doxepin Discontinue Thorazine Continue Seroquel 100 mg q.h.s.; helps with insomnia and patient will take it despite history of it causing weight gain suboxone prn for withdrawal Continue Vraylar 6 mg daily Continue lithium ER 600 mg q.h.s. for bipolar depression -labs ordered Continue Prozac 40 mg daily -Trileptal discontinued (used to be on 300 mg b.i.d.) since concern for inducing metabolism of subacute/methadone; however this also helped with anxiety; will see how lithium works and whether not to add Trileptal Past regimen: Cariprazine (Cariprazine Hcl 3 Mg Capsule) 6 mg PO DAILY [facility] Clonidine HCl (Clonidine Hcl 0.1 Mg Tablet) 0.1 mg PO Q4H PRN; Protocol Clonidine HCl (Clonidine Hcl 0.1 Mg Tablet) 0.1 mg PO DAILY@1300 [facility]; Protocol Fluoxetine HCl (Fluoxetine Hcl 20 Mg Capsule) 20 mg PO DAILY [facility] Lorazepam (Lorazepam 1 Mg Tablet) 1 mg PO DAILY PRN To PREVENT panic Olanzapine (Olanzapine 5 Mg Tablet) 5 mg PO TID PRN Omeprazole (Omeprazole 20 Mg Capsule.Dr) 20 mg PO DAILY@0630 [facility] Ondansetron HCl (Ondansetron Odt 4 Mg Tab.Rapdis) 4 mg TRANSLINGU Q6H PRN Oxcarbazepine (Oxcarbazepine 300 Mg Tablet) 300 mg PO BID [facility] Quetiapine Fumarate (Quetiapine Fumarate 50 Mg Tablet) 50 mg PO BID PRN Quetiapine Fumarate (Quetiapine Fumarate 50 Mg Tablet) 150 mg PO BEDTIME [facility] Patient educated on: diagnosis, medication risk/benefits, substance abuse and therapeutic strategies Informed Consent: understands Reason for continued inpatient stay Substantial Risk for: rapid decompensation Time Spent With Patient Time: Total time managing care of this patient today ____ minutes.
[2024-05-10] MEDS: Buprenorphine/Naloxone 8/2 mg FILM 1 FILM SUBLINGUAL (17:14)
[2024-05-10 20:00] VITALS: BP 170/96; PULSE 107; RESP 16; TEMP 36.4; O2SAT 95
[2024-05-10] MEDS: Lithium Carbonate ER 300 MG TABLET.ER 600 MG PO (20:07)
[2024-05-10] MEDS: Acetaminophen 325 MG TABLET 650 MG PO (20:08)
[2024-05-10] MEDS: QUEtiapine Fumarate 100 MG TABLET PO (20:08)
[2024-05-11 07:00] VITALS: BMI 35.5
[2024-05-11 08:00] VITALS: BP 132/75; PULSE 97; TEMP 36.9; O2SAT 100
[2024-05-11] MEDS: Omeprazole 20 MG CAPSULE.DR PO (08:40)
[2024-05-11] MEDS: FLUoxetine HCl 20 MG CAPSULE 40 MG PO (08:40)
[2024-05-11] MEDS: Cariprazine HCl 3 MG CAPSULE 6 MG PO (08:41)
[2024-05-11] MEDS: hydrOXYzine HCL 25 MG TABLET PO ×5 (08:41→20:02)
[2024-05-11] MEDS: Buprenorphine/Naloxone 8/2 mg TAB.SUBL 1 TAB SUBLINGUAL ×2 (08:42→17:36)
[2024-05-11 08:55] LABS: Lithium 0.43 mmol/L (0.60-1.20)
[2024-05-11 09:08] LABS: Anion Gap 13 (12-20); Blood Urea Nitrogen 15 mg/dL (9-16); Calcium 10.4 mg/dL (8.4-10.2); Carbon Dioxide 26 mmol/L (22-29); Chloride 103 mmol/L (96-108); Creatinine Clr Calc Pharmacy 148.5; Estimated Glomerular Filt Rate > 60; Glucose Random 105 mg/dL (60-115); Potassium 4.2 mmol/L (3.3-5.1); Sodium 138 mmol/L (135-145)
[2024-05-11 09:26] LABS: TSH reflex Free T4 2.21 uIU/mL (0.32-4.0)
[2024-05-11 20:00] VITALS: BP 139/83; PULSE 107; RESP 18; TEMP 36.4; O2SAT 96
[2024-05-11] MEDS: OXcarbazepine 150 MG TABLET PO (20:02)
[2024-05-11] MEDS: Lithium Carbonate ER 300 MG TABLET.ER 600 MG PO (20:02)
[2024-05-11] MEDS: QUEtiapine Fumarate 100 MG TABLET PO (20:03)
[2024-05-12] MEDS: Buprenorphine/Naloxone 8/2 mg TAB.SUBL 1 TAB SUBLINGUAL ×2 (05:27→14:57)
[2024-05-12] MEDS: FLUoxetine HCl 20 MG CAPSULE 40 MG PO (08:29)
[2024-05-12] MEDS: Omeprazole 20 MG CAPSULE.DR PO (08:29)
[2024-05-12] MEDS: hydrOXYzine HCL 25 MG TABLET PO ×4 (08:29→20:39)
[2024-05-12] MEDS: OXcarbazepine 150 MG TABLET PO (08:29)
[2024-05-12] MEDS: Cariprazine HCl 3 MG CAPSULE 6 MG PO (08:29)
[2024-05-12 08:43] VITALS: BP 146/84; PULSE 96; RESP 18; TEMP 36.4; O2SAT 98
[2024-05-12] MEDS: Nicotine Polacrilex 2 MG GUM 4 MG BUCCAL ×2 (13:55→20:40)
--- NOTE | 2024-05-12 14:50 | P.PNPSI_ITS ---
Subjective Subjective Date of Service: 05/11/24 Reason For Visit: Schizoaffective disorder, PTSD Interim History: Late entry note for patient seen on 05/11/2024; discussed with team Patient reports sleeping with Seroquel. Thinks mood is continuing to get better; reviewed lab work patient is within therapeutic range but low. Patient considered going higher but since he feels that mood is much improved he decided to hold at current dose for now with which service writer advisor agrees. Patient still has much anxiety and says would like to go back on Trileptal but will started lower dose. Sr. Media Manager discussed switching to methadone with another provider who also agreed that it is premature to switch to methadone as the risks of switching, only 2 weeks after starting subsequently made are not clear. Mental Status Exam Mental Status Exam Narrative: Pt is alert and oriented; behavior is cooperative, calm, quiet, slowed but less so; patient is not in distress; dressed in hospital attire with hair dyed blond, facial rings; mood is described as better and affect congruent, a little brighter; eye contact appropriate; Speech closer to normal rate, volume, prosody; psychomotor retardation still present; thought process is organized and goal directed; Thought content is on struggles and on tx; otherwise pertinent to relevant topics and without any delusional content, paranoid ideations or grandiosity; currently no SI; no HI; no AH Patients insight and judgment fair Diagnostics Vital Signs (24Hr): Vital Signs - 24 hr 05/11/24 20:00 05/12/24 08:43 Temperature 97.5 F 97.6 F Pulse Rate 107 H 96 Respiratory Rate 18 18 Blood Pressure 139/83 146/84 H Pulse Oximetry 96 98 Oxygen Delivery Method Room Air Room Air BMI result Body Mass Index 35.5 Labs 05/04/24 01:23 05/11/24 08:25 Labs: Laboratory Results - last 48 hr 05/11/24 08:25 Sodium 138 Potassium 4.2 Chloride 103 Carbon Dioxide 26 Anion Gap 13 BUN 15 Creatinine 0.80 Estim Creat Clear Calc 148.5 Estimated GFR > 60 Random Glucose 105 Calcium 10.4 H TSH 2.21 Loop 0.43 L Medications Medications Current Medications Acetaminophen (Acetaminophen 325 Mg Tablet) 650 mg PO Q6H PRN PRN Reason: Headache/Pain Mild Scale (1-3) Last Admin: 05/10/24 20:08 Dose: 650 mg Al Hydroxide/Mg Hydroxide (Magnesium Hydrox/Alum Hydrox 30 Ml Oral.Susp) 30 ml PO Q6H PRN PRN Reason: Heartburn/Nausea Buprenorphine/Naloxone (Buprenorphine/Naloxone 8/2 Mg Tab.Subl) 1 tab SUBLINGUAL BID PRN PRN Reason: withdrawal symptoms Last Admin: 05/12/24 05:27 Dose: 1 tab Cariprazine (Cariprazine Hcl 3 Mg Capsule) 6 mg PO DAILY [facility] Last Admin: 05/12/24 08:29 Dose: 6 mg Fluoxetine HCl (Fluoxetine Hcl 20 Mg Capsule) 40 mg PO DAILY [facility] Last Admin: 05/12/24 08:29 Dose: 40 mg Hydroxyzine HCl (Hydroxyzine Hcl 25 Mg Tablet) 25 mg PO QID [facility] Last Admin: 05/12/24 12:32 Dose: 25 mg Hydroxyzine HCl (Hydroxyzine Hcl 25 Mg Tablet) 25 mg PO Q6H PRN PRN Reason: Anxiety Last Admin: 05/11/24 15:29 Dose: 25 mg Loop Carbonate (Loop Carbonate Er 300 Mg Tablet.Er) 600 mg PO BEDTIME [facility] Last Admin: 05/11/24 20:02 Dose: 600 mg Magnesium Hydroxide (Milk Of Magnesia 30 Ml Oral.Susp) 30 ml PO DAILY PRN PRN Reason: Constipation Nicotine (Nicotine 21 Mg Patch.Td24) 21 mg TRANSDERMA DAILY PRN PRN Reason: nicotine cravings Nicotine Polacrilex (Nicotine Polacrilex 2 Mg Gum) 4 mg BUCCAL Q2H PRN PRN Reason: Nicotine Cravings Last Admin: 05/12/24 13:55 Dose: 2 mg Patient Own ( Sofosbuvir- Velpatasvir 1 Tab) 1 tab PO DAILY@1300 [facility] Last Admin: 05/12/24 12:31 Dose: 1 tab Omeprazole (Omeprazole 20 Mg Capsule.Dr) 20 mg PO DAILY [facility] Last Admin: 05/12/24 08:29 Dose: 20 mg Oxcarbazepine (Oxcarbazepine 150 Mg Tablet) 150 mg PO BID [facility] Last Admin: 05/12/24 08:29 Dose: 150 mg Quetiapine Fumarate (Quetiapine Fumarate 100 Mg Tablet) 100 mg PO BEDTIME [facility] Last Admin: 05/11/24 20:03 Dose: 100 mg Trolamine Salicylate (Trolamine Salicylate 10 % Cream 141 Gm Tube) 1 appl TOPICAL TID PRN PRN Reason: left lower abdomen/induration Allergies Allergies Allergy/AdvReac Type Severity Reaction Status Date / Time No Known Allergies Allergy Verified 05/04/24 00:37 [No Known Allergies*] Assessment & Plan Assessment & Plan (1) Schizoaffective disorder, bipolar type: Status: Acute Code(s): F25.0 - Schizoaffective disorder, bipolar type (2) Opioid use disorder: Status: Acute Code(s): F11.90 - Opioid use, unspecified, uncomplicated (3) Cocaine use disorder, moderate, dependence: Status: Acute Code(s): F14.20 - Cocaine dependence, uncomplicated Plan Mr. Julio is a 29 year-old male with hx of Mood Disorder, opiod and cocaine use disorder who self presented to [facility] reporting increased depression, suicidal ideation with plan to OD on substances. He had been in a program for 4 months, relapsed, sent to [facility], relapsed again 2 days ago. He was last admitted here on M5 on 12/2023. We discussed risks, benefits and alternative treatment options. WIll increase prozac to 40mg po daily. dc trileptal was it induces metabolism of suboxone and methadone. Examined induration of injection site on LLQ abdomen, induration noted but no erythema, purulent discharge, no swelling, afebrile...continue to monitor. Hospital course: 05/06 Reviewed recent history since last discharge. Patient said that after leaving he was overall feeling pretty good and though still had some depression, much less and though still anxiety and sometimes panic significantly less. AH seemed to intermittently come up, but also much less frequently and able to be ignored. Patient liked the program where he went. At some point however patient's psychiatrist discontinued Seroquel q.h.s. since his mood had improved and it was causing weight gain. It is not exactly clear if this was the trigger but at some point not that long afterwards, patient's mood started to decline and depression crept back in. Patient had been sober for these 4-1/2 months but as depression worsened and AH started become intrusive again he also started having panic attacks and began to crave opioids. Patient was discontinued off methadone and put on Sublocade but during that transition he reports some withdrawal symptoms which exacerbated cravings and for the past 2-1/2 weeks patient relapsed. Patient reports AH ongoing however none today. -changing diagnosis to schizoaffective bipolar type: Further reviewed history and patient has history of manic episodes, last 1 about a year ago. They last for 4-5 days during which time he feels unstoppable, high energy, starting project after project but not finishing them, cleaning excessively adn being too much; reports talking a little faster, not needing as much sleep (though denies increased libido spending money); after such an episode he crashes and gets very depressed. Patient has intermittent AH independent of mood episodes -Discussed medication regimen in more detail. Agreed to get rid of Seroquel since a caused weight gain. Reviewed risks/side effects of lithium and patient agrees to start -not sure if he wants to get back on methadone; thinking about 05/07 remains very depressed with significant psychomotor retardation. Not sleeping well and high anxiety. Will consider restarting Seroquel, at least for help with sleep if insomnia not improved; will also consider restarting Trileptal as likely minimal impact on Suboxone/methadone. Loop just getting started and not sure if it is therapeutic. Will hold off on medication changes at this time. ECT remains an option with which patient is amenable 05/08 Patient remains depressed however he does think lithium might be helping because he he says maybe his mood is getting a little better. He reports significant anxiety and near panic but agrees to hold off restarting Trileptal to see how lithium plays out. Patient still exhibits significant psychomotor retardation however his eye contact was improved today which is hopeful. Patient struggling to sleep and had nightmares on trazodone; Remeron, Vistaril with Benadryl, not helpful in the past. Patient says he was on doxepin in the past for insomnia and agrees to restart that. Patient got Sublocade 2 weeks ago; he says he was using on top of that and is continuing to have withdrawal symptoms. Patient discussed with addiction counselor history and concluded that his longest times of sobriety were with methadone and he is considering getting back on that. 05/09 starting to do better, mood improving, more engaged, going to groups; stuggles w/ insomnia 05/10 feels mood is getting better; anxiety still quite a problem but no panic yet. Skeptical about staying on Sublocade; says p.r.n. Suboxone did not help but agrees to continue trying with higher dose. Thorazine not helping for sleep so patient decided to go back on Seroquel even though caused weight gain. Sr. Media Manager discussing MATwith addiction consult 05/11 increased p.r.n. Suboxone to 8 mg to see if can help with perceived withdrawal symptoms; placed addiction consult to review options with patient; wants program PLAN CV, 15 minutes checks for safety Restart Trileptal 150 mg b.i.d.; used to be on 300 mg b.i.d.; some concern for inducing metabolism of Sublocade/methadone however this medication help with anxiety in the past. Continue Seroquel 100 mg q.h.s.; helps with insomnia and patient will take it despite history of it causing weight gain suboxone 8/2 mg b.i.d. prn for withdrawal Continue Vraylar 6 mg daily Continue lithium ER 600 mg q.h.s. for bipolar depression; level WNL; associated labs wnl Continue Prozac 40 mg daily DC Doxepin Discontinue Thorazine Addiction consult placed Past regimen: Cariprazine (Cariprazine Hcl 3 Mg Capsule) 6 mg PO DAILY [facility] Clonidine HCl (Clonidine Hcl 0.1 Mg Tablet) 0.1 mg PO Q4H PRN; Protocol Clonidine HCl (Clonidine Hcl 0.1 Mg Tablet) 0.1 mg PO DAILY@1300 [facility]; Protocol Fluoxetine HCl (Fluoxetine Hcl 20 Mg Capsule) 20 mg PO DAILY [facility] Lorazepam (Lorazepam 1 Mg Tablet) 1 mg PO DAILY PRN To PREVENT panic Olanzapine (Olanzapine 5 Mg Tablet) 5 mg PO TID PRN Omeprazole (Omeprazole 20 Mg Capsule.Dr) 20 mg PO DAILY@0630 [facility] Ondansetron HCl (Ondansetron Odt 4 Mg Tab.Rapdis) 4 mg TRANSLINGU Q6H PRN Oxcarbazepine (Oxcarbazepine 300 Mg Tablet) 300 mg PO BID [facility] Quetiapine Fumarate (Quetiapine Fumarate 50 Mg Tablet) 50 mg PO BID PRN Quetiapine Fumarate (Quetiapine Fumarate 50 Mg Tablet) 150 mg PO BEDTIME [facility] Patient educated on: diagnosis, medication risk/benefits, substance abuse and therapeutic strategies Informed Consent: understands Reason for continued inpatient stay Substantial Risk for: rapid decompensation Time Spent With Patient Time: Total time managing care of this patient today ____ minutes.
--- NOTE | 2024-05-12 15:01 | HO.PSYCHPN ---
Subjective Subjective Date of Service: 05/12/24 Reason For Visit: Schizoaffective disorder, PTSD Interim History: Met with patient; discussed with team Patient reports that he is feeling better. Higher dose of Suboxone seem to help lower cravings and gave patient more hope that Sublocade could perhaps be helpful. Says Trileptal caused nausea and not sure if he is ready for it. Asks for it to be discontinued. Mental Status Exam Mental Status Exam Narrative: Pt is alert and oriented; behavior is cooperative, calm, quiet, slowed but less so; patient is not in distress; dressed in hospital attire with hair dyed blond, facial rings; mood is described as better and affect congruent, a little brighter; eye contact appropriate; Speech closer to normal rate, volume, prosody; psychomotor retardation still present; thought process is organized and goal directed; Thought content is on struggles and on tx; otherwise pertinent to relevant topics and without any delusional content, paranoid ideations or grandiosity; currently no SI; no HI; no AH Patients insight and judgment fair Diagnostics Vital Signs (24Hr): Vital Signs - 24 hr 05/11/24 20:00 05/12/24 08:43 Temperature 97.5 F 97.6 F Pulse Rate 107 H 96 Respiratory Rate 18 18 Blood Pressure 139/83 146/84 H Pulse Oximetry 96 98 Oxygen Delivery Method Room Air Room Air BMI result Body Mass Index 35.5 Labs 05/04/24 01:23 05/11/24 08:25 Labs: Laboratory Results - last 48 hr 05/11/24 08:25 Sodium 138 Potassium 4.2 Chloride 103 Carbon Dioxide 26 Anion Gap 13 BUN 15 Creatinine 0.80 Estim Creat Clear Calc 148.5 Estimated GFR > 60 Random Glucose 105 Calcium 10.4 H TSH 2.21 [place] 0.43 L Medications Medications Current Medications Acetaminophen (Acetaminophen 325 Mg Tablet) 650 mg PO Q6H PRN PRN Reason: Headache/Pain Mild Scale (1-3) Last Admin: 05/10/24 20:08 Dose: 650 mg Al Hydroxide/Mg Hydroxide (Magnesium Hydrox/Alum Hydrox 30 Ml Oral.Susp) 30 ml PO Q6H PRN PRN Reason: Heartburn/Nausea Buprenorphine/Naloxone (Buprenorphine/Naloxone 8/2 Mg Tab.Subl) 1 tab SUBLINGUAL BID PRN PRN Reason: withdrawal symptoms Last Admin: 05/12/24 14:57 Dose: 1 tab Cariprazine (Cariprazine Hcl 3 Mg Capsule) 6 mg PO DAILY [facility] Last Admin: 05/12/24 08:29 Dose: 6 mg Fluoxetine HCl (Fluoxetine Hcl 20 Mg Capsule) 40 mg PO DAILY [facility] Last Admin: 05/12/24 08:29 Dose: 40 mg Hydroxyzine HCl (Hydroxyzine Hcl 25 Mg Tablet) 25 mg PO QID [facility] Last Admin: 05/12/24 12:32 Dose: 25 mg Hydroxyzine HCl (Hydroxyzine Hcl 25 Mg Tablet) 25 mg PO Q6H PRN PRN Reason: Anxiety Last Admin: 05/11/24 15:29 Dose: 25 mg [place] Carbonate ([place] Carbonate Er 300 Mg Tablet.Er) 600 mg PO BEDTIME [facility] Last Admin: 05/11/24 20:02 Dose: 600 mg Magnesium Hydroxide (Milk Of Magnesia 30 Ml Oral.Susp) 30 ml PO DAILY PRN PRN Reason: Constipation Nicotine (Nicotine 21 Mg Patch.Td24) 21 mg TRANSDERMA DAILY PRN PRN Reason: nicotine cravings Nicotine Polacrilex (Nicotine Polacrilex 2 Mg Gum) 4 mg BUCCAL Q2H PRN PRN Reason: Nicotine Cravings Last Admin: 05/12/24 13:55 Dose: 2 mg Patient Own ( Sofosbuvir- Velpatasvir 1 Tab) 1 tab PO DAILY@1300 [facility] Last Admin: 05/12/24 12:31 Dose: 1 tab Omeprazole (Omeprazole 20 Mg Capsule.Dr) 20 mg PO DAILY [facility] Last Admin: 05/12/24 08:29 Dose: 20 mg Oxcarbazepine (Oxcarbazepine 150 Mg Tablet) 150 mg PO BID [facility] Last Admin: 05/12/24 08:29 Dose: 150 mg Quetiapine Fumarate (Quetiapine Fumarate 100 Mg Tablet) 100 mg PO BEDTIME [facility] Last Admin: 05/11/24 20:03 Dose: 100 mg Trolamine Salicylate (Trolamine Salicylate 10 % Cream 141 Gm Tube) 1 appl TOPICAL TID PRN PRN Reason: left lower abdomen/induration Allergies Allergies Allergy/AdvReac Type Severity Reaction Status Date / Time No Known Allergies Allergy Verified 05/04/24 00:37 [No Known Allergies*] Assessment & Plan Assessment & Plan (1) Schizoaffective disorder, bipolar type: Status: Acute Code(s): F25.0 - Schizoaffective disorder, bipolar type (2) Opioid use disorder: Status: Acute Code(s): F11.90 - Opioid use, unspecified, uncomplicated (3) Cocaine use disorder, moderate, dependence: Status: Acute Code(s): F14.20 - Cocaine dependence, uncomplicated Plan Mr. Julio is a 29 year-old male with hx of Mood Disorder, opiod and cocaine use disorder who self presented to [facility] reporting increased depression, suicidal ideation with plan to OD on substances. He had been in a program for 4 months, relapsed, sent to [facility], relapsed again 2 days ago. He was last admitted here on M5 on 12/2023. We discussed risks, benefits and alternative treatment options. WIll increase prozac to 40mg po daily. dc trileptal was it induces metabolism of suboxone and methadone. Examined induration of injection site on LLQ abdomen, induration noted but no erythema, purulent discharge, no swelling, afebrile...continue to monitor. Hospital course: 05/06 Reviewed recent history since last discharge. Patient said that after leaving he was overall feeling pretty good and though still had some depression, much less and though still anxiety and sometimes panic significantly less. AH seemed to intermittently come up, but also much less frequently and able to be ignored. Patient liked the program where he went. At some point however patient's psychiatrist discontinued Seroquel q.h.s. since his mood had improved and it was causing weight gain. It is not exactly clear if this was the trigger but at some point not that long afterwards, patient's mood started to decline and depression crept back in. Patient had been sober for these 4-1/2 months but as depression worsened and AH started become intrusive again he also started having panic attacks and began to crave opioids. Patient was discontinued off methadone and put on Sublocade but during that transition he reports some withdrawal symptoms which exacerbated cravings and for the past 2-1/2 weeks patient relapsed. Patient reports AH ongoing however none today. -changing diagnosis to schizoaffective bipolar type: Further reviewed history and patient has history of manic episodes, last 1 about a year ago. They last for 4-5 days during which time he feels unstoppable, high energy, starting project after project but not finishing them, cleaning excessively adn being too much; reports talking a little faster, not needing as much sleep (though denies increased libido spending money); after such an episode he crashes and gets very depressed. Patient has intermittent AH independent of mood episodes -Discussed medication regimen in more detail. Agreed to get rid of Seroquel since a caused weight gain. Reviewed risks/side effects of lithium and patient agrees to start -not sure if he wants to get back on methadone; thinking about 05/07 remains very depressed with significant psychomotor retardation. Not sleeping well and high anxiety. Will consider restarting Seroquel, at least for help with sleep if insomnia not improved; will also consider restarting Trileptal as likely minimal impact on Suboxone/methadone. [place] just getting started and not sure if it is therapeutic. Will hold off on medication changes at this time. ECT remains an option with which patient is amenable 05/08 Patient remains depressed however he does think lithium might be helping because he he says maybe his mood is getting a little better. He reports significant anxiety and near panic but agrees to hold off restarting Trileptal to see how lithium plays out. Patient still exhibits significant psychomotor retardation however his eye contact was improved today which is hopeful. Patient struggling to sleep and had nightmares on trazodone; Remeron, Vistaril with Benadryl, not helpful in the past. Patient says he was on doxepin in the past for insomnia and agrees to restart that. Patient got Sublocade 2 weeks ago; he says he was using on top of that and is continuing to have withdrawal symptoms. Patient discussed with addiction counselor history and concluded that his longest times of sobriety were with methadone and he is considering getting back on that. 05/09 starting to do better, mood improving, more engaged, going to groups; stuggles w/ insomnia 05/10 feels mood is getting better; anxiety still quite a problem but no panic yet. Skeptical about staying on Sublocade; says p.r.n. Suboxone did not help but agrees to continue trying with higher dose. Thorazine not helping for sleep so patient decided to go back on Seroquel even though caused weight gain. 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 Suboxone to 8 mg to see if can help with perceived withdrawal symptoms; placed addiction consult to review options with patient; wants program 8/2 DC Trileptal for now; will likely restart but want more to see how p.r.n. Suboxone helps with patient's withdrawal symptoms. This however was what was helpful for anxiety in the past and may need to be restarted PLAN CV, 15 minutes checks for safety For now... DC Trileptal 150 mg b.i.d.; used to be on 300 mg b.i.d.; some concern for inducing metabolism of Sublocade/methadone however this medication help with anxiety in the past. Continue Seroquel 100 mg q.h.s.; helps with insomnia and patient will take it despite history of it causing weight gain suboxone 8/2 mg b.i.d. prn for withdrawal Continue Vraylar 6 mg daily Continue lithium ER 600 mg q.h.s. for bipolar depression; level WNL; associated labs wnl Continue Prozac 40 mg daily DC Doxepin Discontinue Thorazine Addiction consult placed Past regimen: Cariprazine (Cariprazine Hcl 3 Mg Capsule) 6 mg PO DAILY [facility] Clonidine HCl (Clonidine Hcl 0.1 Mg Tablet) 0.1 mg PO Q4H PRN; Protocol Clonidine HCl (Clonidine Hcl 0.1 Mg Tablet) 0.1 mg PO DAILY@1300 [facility]; Protocol Fluoxetine HCl (Fluoxetine Hcl 20 Mg Capsule) 20 mg PO DAILY [facility] Lorazepam (Lorazepam 1 Mg Tablet) 1 mg PO DAILY PRN To PREVENT panic Olanzapine (Olanzapine 5 Mg Tablet) 5 mg PO TID PRN Omeprazole (Omeprazole 20 Mg Capsule.) 20 mg PO DAILY@0630 [facility] Ondansetron HCl (Ondansetron Odt 4 Mg Tab.Rapdis) 4 mg TRANSLINGU Q6H PRN Oxcarbazepine (Oxcarbazepine 300 Mg Tablet) 300 mg PO BID [facility] Quetiapine Fumarate (Quetiapine Fumarate 50 Mg Tablet) 50 mg PO BID PRN Quetiapine Fumarate (Quetiapine Fumarate 50 Mg Tablet) 150 mg PO BEDTIME [facility] Patient educated on: diagnosis, medication risk/benefits and substance abuse Informed Consent: understands Reason for continued inpatient stay Substantial Risk for: stable for discharge Time Spent With Patient Time: Total time managing care of this patient today ____ minutes.
[2024-05-12 20:00] VITALS: BP 129/74; PULSE 98; RESP 16; TEMP 36.8; O2SAT 97
[2024-05-12] MEDS: Acetaminophen 325 MG TABLET 650 MG PO (20:38)
[2024-05-12] MEDS: Lithium Carbonate ER 300 MG TABLET.ER 600 MG PO (20:39)
[2024-05-12] MEDS: QUEtiapine Fumarate 100 MG TABLET PO (20:40)
[2024-05-13] MEDS: Buprenorphine/Naloxone 8/2 mg TAB.SUBL 1 TAB SUBLINGUAL ×2 (05:56→16:38)
[2024-05-13] MEDS: FLUoxetine HCl 20 MG CAPSULE 40 MG PO (08:24)
[2024-05-13] MEDS: Cariprazine HCl 3 MG CAPSULE 6 MG PO (08:24)
[2024-05-13] MEDS: hydrOXYzine HCL 25 MG TABLET PO ×4 (08:25→20:03)
[2024-05-13] MEDS: Omeprazole 20 MG CAPSULE.DR PO (08:25)
[2024-05-13 09:05] VITALS: BP 125/81; PULSE 93; RESP 16; TEMP 36.9; O2SAT 97
--- NOTE | 2024-05-13 09:45 | HO.PSYCHPN ---
Subjective Subjective Date of Service: 05/13/24 Reason For Visit: Schizoaffective disorder, PTSD Interim History: met with patient. Discuss[place] with Nursing[place] [facility]. Very knowledgeable regarding same. Noted started on Trileptal 150 mg twice daily for mood and anxiety symptoms. Awaiting bed at the [facility]. Reports anxiety is still high and felt nauseous on Trileptal. We did discuss potentially trialing Trileptal 150 mg daily rather than twice daily to see if he can tolerate this before discontinuing. Otherwise denies cravings. Hopeful he can maintain sobriety as he was sober for over 4 months prior to recent relapse. Sleep energy and appetite okay. Feeling supported on the unit. No SI except her Medication Compliance: Yes Side effects from medications: No Attending Groups: Yes Review of Systems Acute medical concerns: No Review of Systems Review of Systems overall unremarkable Mental Status Exam Mental Status Exam Narrative: pleasant. Engaged. Hospital clothing. Fair self-care. Organized. Enjoying the [employer] on television. Very knowledgeable regarding same. Overall endorses anxiety. No SI. No HI. No agitation. No psychosis. Insight and judgment good Diagnostics Vital Signs (24Hr): Vital Signs - 24 hr 05/12/24 20:00 05/13/24 09:05 Temperature 98.2 F 98.5 F Pulse Rate 98 93 Respiratory Rate 16 16 Blood Pressure 129/74 125/81 Pulse Oximetry 97 97 Oxygen Delivery Method Room Air Room Air BMI result Body Mass Index 35.5 Labs 05/04/24 01:23 05/11/24 08:25 Medications Medications Current Medications Acetaminophen (Acetaminophen 325 Mg Tablet) 650 mg PO Q6H PRN PRN Reason: Headache/Pain Mild Scale (1-3) Last Admin: 05/12/24 20:38 Dose: 650 mg Al Hydroxide/Mg Hydroxide (Magnesium Hydrox/Alum Hydrox 30 Ml Oral.Susp) 30 ml PO Q6H PRN PRN Reason: Heartburn/Nausea Buprenorphine/Naloxone (Buprenorphine/Naloxone 8/2 Mg Tab.Subl) 1 tab SUBLINGUAL BID PRN PRN Reason: withdrawal symptoms Last Admin: 05/13/24 05:56 Dose: 1 tab Cariprazine (Cariprazine Hcl 3 Mg Capsule) 6 mg PO DAILY [facility] Last Admin: 05/13/24 08:24 Dose: 6 mg Fluoxetine HCl (Fluoxetine Hcl 20 Mg Capsule) 40 mg PO DAILY [facility] Last Admin: 05/13/24 08:24 Dose: 40 mg Hydroxyzine HCl (Hydroxyzine Hcl 25 Mg Tablet) 25 mg PO QID [facility] Last Admin: 05/13/24 08:25 Dose: 25 mg Hydroxyzine HCl (Hydroxyzine Hcl 25 Mg Tablet) 25 mg PO Q6H PRN PRN Reason: Anxiety Last Admin: 05/11/24 15:29 Dose: 25 mg Ellsworth Carbonate ([place]sworth Carbonate Er 300 Mg Tablet.Er) 600 mg PO BEDTIME [facility] Last Admin: 05/12/24 20:39 Dose: 600 mg Magnesium Hydroxide (Milk Of Magnesia 30 Ml Oral.Susp) 30 ml PO DAILY PRN PRN Reason: Constipation Nicotine (Nicotine 21 Mg Patch.Td24) 21 mg TRANSDERMA DAILY PRN PRN Reason: nicotine cravings Nicotine Polacrilex (Nicotine Polacrilex 2 Mg Gum) 4 mg BUCCAL Q2H PRN PRN Reason: Nicotine Cravings Last Admin: 05/12/24 20:40 Dose: 4 mg Patient Own ( Sofosbuvir- Velpatasvir 1 Tab) 1 tab PO DAILY@1300 [facility] Last Admin: 05/12/24 12:31 Dose: 1 tab Omeprazole (Omeprazole 20 Mg Capsule.Dr) 20 mg PO DAILY [facility] Last Admin: 05/13/24 08:25 Dose: 20 mg Quetiapine Fumarate (Quetiapine Fumarate 100 Mg Tablet) 100 mg PO BEDTIME [facility] Last Admin: 05/12/24 20:40 Dose: 100 mg Trolamine Salicylate (Trolamine Salicylate 10 % Cream 141 Gm Tube) 1 appl TOPICAL TID PRN PRN Reason: left lower abdomen/induration Allergies Allergies Allergy/AdvReac Type Severity Reaction Status Date / Time No Known Allergies Allergy Verified 05/04/24 00:37 [No Known Allergies*] Assessment & Plan Assessment & Plan (1) Schizoaffective disorder, bipolar type: Status: Acute Code(s): F25.0 - Schizoaffective disorder, bipolar type (2) Opioid use disorder: Status: Acute Code(s): F11.90 - Opioid use, unspecified, uncomplicated (3) Cocaine use disorder, moderate, dependence: Status: Acute Code(s): F14.20 - Cocaine dependence, uncomplicated Plan Mr. Julio is a 29 year-old male with hx of Mood Disorder, opiod and cocaine use disorder who self presented to [facility] reporting increased depression, suicidal ideation with plan to OD on substances. He had been in a program for 4 months, relapsed, sent to [facility], relapsed again 2 days ago. He was last admitted here on M5 on 12/2023. We discussed risks, benefits and alternative treatment options. WIll increase prozac to 40mg po daily. dc trileptal was it induces metabolism of suboxone and methadone. Examined induration of injection site on LLQ abdomen, induration noted but no erythema, purulent discharge, no swelling, afebrile...continue to monitor. Hospital course: 05/06 Reviewed recent history since last discharge. Patient said that after leaving he was overall feeling pretty good and though still had some depression, much less and though still anxiety and sometimes panic significantly less. AH seemed to intermittently come up, but also much less frequently and able to be ignored. Patient liked the program where he went. At some point however patient's psychiatrist discontinued Seroquel q.h.s. since his mood had improved and it was causing weight gain. It is not exactly clear if this was the trigger but at some point not that long afterwards, patient's mood started to decline and depression crept back in. Patient had been sober for these 4-1/2 months but as depression worsened and AH started become intrusive again he also started having panic attacks and began to crave opioids. Patient was discontinued off methadone and put on Sublocade but during that transition he reports some withdrawal symptoms which exacerbated cravings and for the past 2-1/2 weeks patient relapsed. Patient reports AH ongoing however none today. -changing diagnosis to schizoaffective bipolar type: Further reviewed history and patient has history of manic episodes, last 1 about a year ago. They last for 4-5 days during which time he feels unstoppable, high energy, starting project after project but not finishing them, cleaning excessively adn being too much; reports talking a little faster, not needing as much sleep (though denies increased libido spending money); after such an episode he crashes and gets very depressed. Patient has intermittent AH independent of mood episodes -Discussed medication regimen in more detail. Agreed to get rid of Seroquel since a caused weight gain. Reviewed risks/side effects of lithium and patient agrees to start -not sure if he wants to get back on methadone; thinking about 05/07 remains very depressed with significant psychomotor retardation. Not sleeping well and high anxiety. Will consider restarting Seroquel, at least for help with sleep if insomnia not improved; will also consider restarting Trileptal as likely minimal impact on Suboxone/methadone. Ellsworth just getting started and not sure if it is therapeutic. Will hold off on medication changes at this time. ECT remains an option with which patient is amenable 05/08 Patient remains depressed however he does think lithium might be helping because he he says maybe his mood is getting a little better. He reports significant anxiety and near panic but agrees to hold off restarting Trileptal to see how lithium plays out. Patient still exhibits significant psychomotor retardation however his eye contact was improved today which is hopeful. Patient struggling to sleep and had nightmares on trazodone; Remeron, Vistaril with Benadryl, not helpful in the past. Patient says he was on doxepin in the past for insomnia and agrees to restart that. Patient got Sublocade 2 weeks ago; he says he was using on top of that and is continuing to have withdrawal symptoms. Patient discussed with addiction counselor history and concluded that his longest times of sobriety were with methadone and he is considering getting back on that. 05/09 starting to do better, mood improving, more engaged, going to groups; stuggles w/ insomnia 05/10 feels mood is getting better; anxiety still quite a problem but no panic yet. Skeptical about staying on Sublocade; says p.r.n. Suboxone did not help but agrees to continue trying with higher dose. Thorazine not helping for sleep so patient decided to go back on Seroquel even though caused weight gain. 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 Suboxone to 8 mg to see if can help with perceived withdrawal symptoms; placed addiction consult to review options with patient; wants program 05/12 DC Trileptal for now; will likely restart but want more to see how p.r.n. Suboxone helps with patient's withdrawal symptoms. This however was what was helpful for anxiety in the past and may need to be restarted 05/13/24: Reports anxiety is still high and felt nauseous on Trileptal. We did discuss potentially trialing Trileptal 150 mg daily rather than twice daily to see if he can tolerate this before discontinuing. PLAN CV, 15 minutes checks for safety For now... DC Trileptal 150 mg b.i.d.; used to be on 300 mg b.i.d.; some concern for inducing metabolism of Sublocade/methadone however this medication help with anxiety in the past. Continue Seroquel 100 mg q.h.s.; helps with insomnia and patient will take it despite history of it causing weight gain suboxone 8/2 mg b.i.d. prn for withdrawal Continue Vraylar 6 mg daily Continue lithium ER 600 mg q.h.s. for bipolar depression; level WNL; associated labs wnl Continue Prozac 40 mg daily DC Doxepin Discontinue Thorazine Addiction consult placed Past regimen: Cariprazine (Cariprazine Hcl 3 Mg Capsule) 6 mg PO DAILY [facility] Clonidine HCl (Clonidine Hcl 0.1 Mg Tablet) 0.1 mg PO Q4H PRN; Protocol Clonidine HCl (Clonidine Hcl 0.1 Mg Tablet) 0.1 mg PO DAILY@1300 [facility]; Protocol Fluoxetine HCl (Fluoxetine Hcl 20 Mg Capsule) 20 mg PO DAILY [facility] Lorazepam (Lorazepam 1 Mg Tablet) 1 mg PO DAILY PRN To PREVENT panic Olanzapine (Olanzapine 5 Mg Tablet) 5 mg PO TID PRN Omeprazole (Omeprazole 20 Mg Capsule.Dr) 20 mg PO DAILY@0630 [facility] Ondansetron HCl (Ondansetron Odt 4 Mg Tab.Rapdis) 4 mg TRANSLINGU Q6H PRN Oxcarbazepine (Oxcarbazepine 300 Mg Tablet) 300 mg PO BID [facility] Quetiapine Fumarate (Quetiapine Fumarate 50 Mg Tablet) 50 mg PO BID PRN Quetiapine Fumarate (Quetiapine Fumarate 50 Mg Tablet) 150 mg PO BEDTIME [facility] Reason for continued inpatient stay Substantial Risk for: rapid decompensation Time Spent With Patient Time: Total time managing care of this patient today ____ minutes.
[2024-05-13] MEDS: OXcarbazepine 150 MG TABLET PO (10:38)
[2024-05-13] MEDS: Nicotine Polacrilex 2 MG GUM 4 MG BUCCAL (13:06)
[2024-05-13] MEDS: Acetaminophen 325 MG TABLET 650 MG PO (15:51)
[2024-05-13] MEDS: Nicotine Polacrilex Lozenge 4 MG LOZENGE BUCCAL ×2 (15:54→20:02)
[2024-05-13 20:00] VITALS: BP 133/90; PULSE 97; RESP 16; TEMP 36.6; O2SAT 96
[2024-05-13] MEDS: QUEtiapine Fumarate 100 MG TABLET PO (20:03)
[2024-05-13] MEDS: Lithium Carbonate ER 300 MG TABLET.ER 600 MG PO (20:03)
[2024-05-14] MEDS: Buprenorphine/Naloxone 8/2 mg TAB.SUBL 1 TAB SUBLINGUAL ×2 (08:04→17:08)
[2024-05-14] MEDS: Cariprazine HCl 3 MG CAPSULE 6 MG PO (08:04)
[2024-05-14] MEDS: FLUoxetine HCl 20 MG CAPSULE 40 MG PO (08:04)
[2024-05-14] MEDS: hydrOXYzine HCL 25 MG TABLET PO ×4 (08:04→20:02)
[2024-05-14] MEDS: Omeprazole 20 MG CAPSULE.DR PO (08:04)
[2024-05-14 08:06] VITALS: BP 143/83; PULSE 93; RESP 16; TEMP 36.4; O2SAT 96
--- NOTE | 2024-05-14 08:42 | P.PNPSI_ITS ---
Subjective Subjective Date of Service: 05/14/24 Reason For Visit: Schizoaffective disorder, PTSD Interim History: met with patient. Discussed with Nursing. In [place], [place] the Olympics on television. Very knowledgeable regarding same. Reports not wanting to take Trileptal at all due to nausea he experienced yesterday. Will therefore formally discontinue this. We will discuss further medication options with primary team. Otherwise, awaiting bed at the [facility]. Reports anxiety is still intermittently high. Sleep energy and appetite okay. Otherwise denies cravings. Feeling supported on the unit. No SI Medication Compliance: Yes Side effects from medications: No Attending Groups: Yes Review of Systems Acute medical concerns: No Review of Systems Review of Systems overall unremarkable Mental Status Exam Mental Status Exam Narrative: pleasant. Engaged. Hospital clothing. Fair self-care. Organized. Enjoying the [employer] on television. Very knowledgeable regarding same. Overall endorses anxiety. No SI. No HI. No agitation. No psychosis. Insight and judgment good Diagnostics Vital Signs (24Hr): Vital Signs - 24 hr 05/13/24 09:05 05/13/24 20:00 05/14/24 08:06 Temperature 98.5 F 97.9 F 97.6 F Pulse Rate 93 97 93 Respiratory Rate 16 16 16 Blood Pressure 125/81 133/90 H 143/83 H Pulse Oximetry 97 96 96 Oxygen Delivery Method Room Air Room Air Room Air BMI result Body Mass Index 35.5 Labs 05/04/24 01:23 05/11/24 08:25 Medications Medications Current Medications Acetaminophen (Acetaminophen 325 Mg Tablet) 650 mg PO Q6H PRN PRN Reason: Headache/Pain Mild Scale (1-3) Last Admin: 05/13/24 15:51 Dose: 650 mg Al Hydroxide/Mg Hydroxide (Magnesium Hydrox/Alum Hydrox 30 Ml Oral.Susp) 30 ml PO Q6H PRN PRN Reason: Heartburn/Nausea Buprenorphine/Naloxone (Buprenorphine/Naloxone 8/2 Mg Tab.Subl) 1 tab SUBLINGUAL BID PRN PRN Reason: withdrawal symptoms Last Admin: 05/14/24 08:04 Dose: 1 tab Cariprazine (Cariprazine Hcl 3 Mg Capsule) 6 mg PO DAILY [facility] Last Admin: 05/14/24 08:04 Dose: 6 mg Fluoxetine HCl (Fluoxetine Hcl 20 Mg Capsule) 40 mg PO DAILY [facility] Last Admin: 05/14/24 08:04 Dose: 40 mg Hydroxyzine HCl (Hydroxyzine Hcl 25 Mg Tablet) 25 mg PO QID [facility] Last Admin: 05/14/24 08:04 Dose: 25 mg Hydroxyzine HCl (Hydroxyzine Hcl 25 Mg Tablet) 25 mg PO Q6H PRN PRN Reason: Anxiety Last Admin: 05/11/24 15:29 Dose: 25 mg S[place] Carbonate (Sula Carbonate Er 300 Mg Tablet.Er) 600 mg PO BEDTIME [facility] Last Admin: 05/13/24 20:03 Dose: 600 mg Magnesium Hydroxide (Milk Of Magnesia 30 Ml Oral.Susp) 30 ml PO DAILY PRN PRN Reason: Constipation Nicotine (Nicotine 21 Mg Patch.Td24) 21 mg TRANSDERMA DAILY PRN PRN Reason: nicotine cravings Nicotine Polacrilex (Nicotine Polacrilex Lozenge 4 Mg Lozenge) 4 mg BUCCAL Q2H PRN PRN Reason: Nicotine Cravings Last Admin: 05/13/24 20:02 Dose: 4 mg Patient Own ( Sofosbuvir- Velpatasvir 1 Tab) 1 tab PO DAILY@1300 [facility] Last Admin: 05/13/24 13:02 Dose: 1 tab Omeprazole (Omeprazole 20 Mg Capsule.Dr) 20 mg PO DAILY [facility] Last Admin: 05/14/24 08:04 Dose: 20 mg Oxcarbazepine (Oxcarbazepine 150 Mg Tablet) 150 mg PO DAILY [facility] Last Admin: 05/14/24 08:05 Dose: Not Given Quetiapine Fumarate (Quetiapine Fumarate 100 Mg Tablet) 100 mg PO BEDTIME [facility] Last Admin: 05/13/24 20:03 Dose: 100 mg Trolamine Salicylate (Trolamine Salicylate 10 % Cream 141 Gm Tube) 1 appl TOPICAL TID PRN PRN Reason: left lower abdomen/induration Allergies Allergies Allergy/AdvReac Type Severity Reaction Status Date / Time No Known Allergies Allergy Verified 05/04/24 00:37 [No Known Allergies*] Assessment & Plan Assessment & Plan (1) Schizoaffective disorder, bipolar type: Status: Acute Code(s): F25.0 - Schizoaffective disorder, bipolar type (2) Opioid use disorder: Status: Acute Code(s): F11.90 - Opioid use, unspecified, uncomplicated (3) Cocaine use disorder, moderate, dependence: Status: Acute Code(s): F14.20 - Cocaine dependence, uncomplicated Plan Mr. Julio is a 29 year-old male with hx of Mood Disorder, opiod and cocaine use disorder who self presented to [facility] reporting increased depression, suicidal ideation with plan to OD on substances. He had been in a program for 4 months, relapsed, sent to [facility], relapsed again 2 days ago. He was last admitted here on M5 on 12/2023. We discussed risks, benefits and alternative treatment options. WIll increase prozac to 40mg po daily. dc trileptal was it induces metabolism of suboxone and methadone. Examined induration of injection site on LLQ abdomen, induration noted but no erythema, purulent discharge, no swelling, afebrile...continue to monitor. Hospital course: 05/06 Reviewed recent history since last discharge. Patient said that after leaving he was overall feeling pretty good and though still had some depression, much less and though still anxiety and sometimes panic significantly less. AH seemed to intermittently come up, but also much less frequently and able to be ignored. Patient liked the program where he went. At some point however patient's psychiatrist discontinued Seroquel q.h.s. since his mood had improved and it was causing weight gain. It is not exactly clear if this was the trigger but at some point not that long afterwards, patient's mood started to decline and depression crept back in. Patient had been sober for these 4-1/2 months but as depression worsened and AH started become intrusive again he also started having panic attacks and began to crave opioids. Patient was discontinued off methadone and put on Sublocade but during that transition he reports some withdrawal symptoms which exacerbated cravings and for the past 2-1/2 weeks patient relapsed. Patient reports AH ongoing however none today. -changing diagnosis to schizoaffective bipolar type: Further reviewed history and patient has history of manic episodes, last 1 about a year ago. They last for 4-5 days during which time he feels unstoppable, high energy, starting project after project but not finishing them, cleaning excessively adn being too much; reports talking a little faster, not needing as much sleep (though denies increased libido spending money); after such an episode he crashes and gets very depressed. Patient has intermittent AH independent of mood episodes -Discussed medication regimen in more detail. Agreed to get rid of Seroquel since a caused weight gain. Reviewed risks/side effects of lithium and patient agrees to start -not sure if he wants to get back on methadone; thinking about 05/07 remains very depressed with significant psychomotor retardation. Not sleeping well and high anxiety. Will consider restarting Seroquel, at least for help with sleep if insomnia not improved; will also consider restarting Trileptal as likely minimal impact on Suboxone/methadone. Sula just getting started and not sure if it is therapeutic. Will hold off on medication changes at this time. ECT remains an option with which patient is amenable 05/08 Patient remains depressed however he does think lithium might be helping because he he says maybe his mood is getting a little better. He reports significant anxiety and near panic but agrees to hold off restarting Trileptal to see how lithium plays out. Patient still exhibits significant psychomotor retardation however his eye contact was improved today which is hopeful. Patient struggling to sleep and had nightmares on trazodone; Remeron, Vistaril with Benadryl, not helpful in the past. Patient says he was on doxepin in the past for insomnia and agrees to restart that. Patient got Sublocade 2 weeks ago; he says he was using on top of that and is continuing to have withdrawal symptoms. Patient discussed with addiction counselor history and concluded that his longest times of sobriety were with methadone and he is considering getting back on that. 05/09 starting to do better, mood improving, more engaged, going to groups; stuggles w/ insomnia 05/10 feels mood is getting better; anxiety still quite a problem but no panic yet. Skeptical about staying on Sublocade; says p.r.n. Suboxone did not help but agrees to continue trying with higher dose. Thorazine not helping for sleep so patient decided to go back on Seroquel even though caused weight gain. [employer] Supervisor discussing MATwith addiction consult 05/11 increased p.r.n. Suboxone to 8 mg to see if can help with perceived withdrawal symptoms; placed addiction consult to review options with patient; wants program 05/12 DC Trileptal for now; will likely restart but want more to see how p.r.n. Suboxone helps with patient's withdrawal symptoms. This however was what was helpful for anxiety in the past and may need to be restarted 05/13/24: Reports anxiety is still high and felt nauseous on Trileptal. We did discuss potentially trialing Trileptal 150 mg daily rather than twice daily to see if he can tolerate this before discontinuing. 05/14/2024: Formally discontinue Trileptal. Awaiting bed at [facility]. PLAN CV, 15 minutes checks for safety For now... DC Trileptal 150 mg b.i.d.; used to be on 300 mg b.i.d.; some concern for inducing metabolism of Sublocade/methadone however this medication help with anxiety in the past. Continue Seroquel 100 mg q.h.s.; helps with insomnia and patient will take it despite history of it causing weight gain suboxone 8/2 mg b.i.d. prn for withdrawal Continue Vraylar 6 mg daily Continue lithium ER 600 mg q.h.s. for bipolar depression; level WNL; associated labs wnl Continue Prozac 40 mg daily DC Doxepin Discontinue Thorazine Addiction consult placed Past regimen: Cariprazine (Cariprazine Hcl 3 Mg Capsule) 6 mg PO DAILY [facility] Clonidine HCl (Clonidine Hcl 0.1 Mg Tablet) 0.1 mg PO Q4H PRN; Protocol Clonidine HCl (Clonidine Hcl 0.1 Mg Tablet) 0.1 mg PO DAILY@1300 [facility]; Protocol Fluoxetine HCl (Fluoxetine Hcl 20 Mg Capsule) 20 mg PO DAILY [facility] Lorazepam (Lorazepam 1 Mg Tablet) 1 mg PO DAILY PRN To PREVENT panic Olanzapine (Olanzapine 5 Mg Tablet) 5 mg PO TID PRN Omeprazole (Omeprazole 20 Mg Capsule.Dr) 20 mg PO DAILY@0630 [facility] Ondansetron HCl (Ondansetron Odt 4 Mg Tab.Rapdis) 4 mg TRANSLINGU Q6H PRN Oxcarbazepine (Oxcarbazepine 300 Mg Tablet) 300 mg PO BID [facility] Quetiapine Fumarate (Quetiapine Fumarate 50 Mg Tablet) 50 mg PO BID PRN Quetiapine Fumarate (Quetiapine Fumarate 50 Mg Tablet) 150 mg PO BEDTIME [facility] Reason for continued inpatient stay Substantial Risk for: rapid decompensation Time Spent With Patient Time: Total time managing care of this patient today ____ minutes.
[2024-05-14] MEDS: Nicotine Polacrilex Lozenge 4 MG LOZENGE BUCCAL ×3 (10:33→20:02)
[2024-05-14 20:00] VITALS: BP 144/71; PULSE 97; RESP 16; TEMP 36.4; O2SAT 96
[2024-05-14] MEDS: QUEtiapine Fumarate 100 MG TABLET PO (20:02)
[2024-05-14] MEDS: Lithium Carbonate ER 300 MG TABLET.ER 600 MG PO (20:02)
[2024-05-15] MEDS: Buprenorphine/Naloxone 8/2 mg TAB.SUBL 1 TAB SUBLINGUAL ×2 (05:55→17:59)
[2024-05-15] MEDS: FLUoxetine HCl 20 MG CAPSULE 40 MG PO (08:24)
[2024-05-15] MEDS: Omeprazole 20 MG CAPSULE.DR PO (08:24)
[2024-05-15] MEDS: hydrOXYzine HCL 25 MG TABLET PO ×4 (08:24→20:08)
[2024-05-15] MEDS: Cariprazine HCl 3 MG CAPSULE 6 MG PO (08:24)
--- NOTE | 2024-05-15 10:37 | P.PNPSI_ITS ---
Subjective Subjective Date of Service: 05/15/24 Reason For Visit: Schizoaffective disorder, PTSD Subjective Notes: Conditional Voluntary Interim History: Pt sleeping better. He reports his mood is definitely much improved in that he notes that he is less depressed, more hopeful. He reports anxious mood, which states can be debilitating. We discussed trying seroquel lower doses during he day as needed. He reports new action tremor- more on right hand- most likely due to lithium- discussed checking level today prior to bedtime dose- will try to keep 0.6 level, if not pt interested in adding propanolol for tremor as reports lithium really helping. Review of Systems Review of Systems overall unremarkable Mental Status Exam Mental Status Exam Narrative: pleasant. Engaged. Hospital clothing. Fair self-care. Organized. Enjoying the [employer] on television. Very knowledgeable regarding same. Overall endorses anxiety. No SI. No HI. No agitation. No psychosis. Insight and judgment good Diagnostics Vital Signs (24Hr): Vital Signs - 24 hr 05/14/24 20:00 05/15/24 08:00 Temperature 97.5 F Pulse Rate 97 Respiratory Rate 16 Blood Pressure 144/71 H Pulse Oximetry 96 Oxygen Delivery Method Room Air Room Air BMI result Body Mass Index 35.5 Labs 05/04/24 01:23 05/11/24 08:25 Medications Medications Current Medications Acetaminophen (Acetaminophen 325 Mg Tablet) 650 mg PO Q6H PRN PRN Reason: Headache/Pain Mild Scale (1-3) Last Admin: 05/13/24 15:51 Dose: 650 mg Al Hydroxide/Mg Hydroxide (Magnesium Hydrox/Alum Hydrox 30 Ml Oral.Susp) 30 ml PO Q6H PRN PRN Reason: Heartburn/Nausea Buprenorphine/Naloxone (Buprenorphine/Naloxone 8/2 Mg Tab.Subl) 1 tab SUBLINGUAL BID PRN PRN Reason: withdrawal symptoms Last Admin: 05/15/24 05:55 Dose: 1 tab Cariprazine (Cariprazine Hcl 3 Mg Capsule) 6 mg PO DAILY [facility] Last Admin: 05/15/24 08:24 Dose: 6 mg Fluoxetine HCl (Fluoxetine Hcl 20 Mg Capsule) 40 mg PO DAILY [facility] Last Admin: 05/15/24 08:24 Dose: 40 mg Hydroxyzine HCl (Hydroxyzine Hcl 25 Mg Tablet) 25 mg PO QID [facility] Last Admin: 05/15/24 08:24 Dose: 25 mg Hydroxyzine HCl (Hydroxyzine Hcl 25 Mg Tablet) 25 mg PO Q6H PRN PRN Reason: Anxiety Last Admin: 05/11/24 15:29 Dose: 25 mg Kountze Carbonate (Kountze Carbonate Er 300 Mg Tablet.Er) 600 mg PO BEDTIME [facility] Last Admin: 05/14/24 20:02 Dose: 600 mg Magnesium Hydroxide (Milk Of Magnesia 30 Ml Oral.Susp) 30 ml PO DAILY PRN PRN Reason: Constipation Nicotine (Nicotine 21 Mg Patch.Td24) 21 mg TRANSDERMA DAILY PRN PRN Reason: nicotine cravings Nicotine Polacrilex (Nicotine Polacrilex Lozenge 4 Mg Lozenge) 4 mg BUCCAL Q2H PRN PRN Reason: Nicotine Cravings Last Admin: 05/14/24 20:02 Dose: 4 mg Patient Own ( Sofosbuvir- Velpatasvir 1 Tab) 1 tab PO DAILY@1300 [facility] Last Admin: 05/14/24 12:41 Dose: 1 tab Omeprazole (Omeprazole 20 Mg Capsule.Dr) 20 mg PO DAILY [facility] Last Admin: 05/15/24 08:24 Dose: 20 mg Quetiapine Fumarate (Quetiapine Fumarate 100 Mg Tablet) 100 mg PO BEDTIME [facility] Last Admin: 05/14/24 20:02 Dose: 100 mg Trolamine Salicylate (Trolamine Salicylate 10 % Cream 141 Gm Tube) 1 appl TOPICAL TID PRN PRN Reason: left lower abdomen/induration Allergies Allergies Allergy/AdvReac Type Severity Reaction Status Date / Time No Known Allergies Allergy Verified 05/04/24 00:37 [No Known Allergies*] Assessment & Plan Assessment & Plan (1) Schizoaffective disorder, bipolar type: Status: Acute Code(s): F25.0 - Schizoaffective disorder, bipolar type (2) Opioid use disorder: Status: Acute Code(s): F11.90 - Opioid use, unspecified, uncomplicated (3) Cocaine use disorder, moderate, dependence: Status: Acute Code(s): F14.20 - Cocaine dependence, uncomplicated Plan Mr. Julio is a 29 year-old male with hx of Mood Disorder, opiod and cocaine use disorder who self presented to [facility] reporting increased depression, suicidal ideation with plan to OD on substances. He had been in a program for 4 months, relapsed, sent to [facility], relapsed again 2 days ago. He was last admitted here on M5 on 12/2023. We discussed risks, benefits and alternative treatment options. WIll increase prozac to 40mg po daily. dc trileptal was it induces metabolism of suboxone and methadone. Examined induration of injection site on LLQ abdomen, induration noted but no erythema, purulent discharge, no swelling, afebrile...continue to monitor. Hospital course: 05/06 Reviewed recent history since last discharge. Patient said that after leaving he was overall feeling pretty good and though still had some depression, much less and though still anxiety and sometimes panic significantly less. AH seemed to intermittently come up, but also much less frequently and able to be ignored. Patient liked the program where he went. At some point however patient's psychiatrist discontinued Seroquel q.h.s. since his mood had improved and it was causing weight gain. It is not exactly clear if this was the trigger but at some point not that long afterwards, patient's mood started to decline and depression crept back in. Patient had been sober for these 4-1/2 months but as depression worsened and AH started become intrusive again he also started having panic attacks and began to crave opioids. Patient was discontinued off methadone and put on Sublocade but during that transition he reports some withdrawal symptoms which exacerbated cravings and for the past 2-1/2 weeks patient relapsed. Patient reports AH ongoing however none today. -changing diagnosis to schizoaffective bipolar type: Further reviewed history and patient has history of manic episodes, last 1 about a year ago. They last for 4-5 days during which time he feels unstoppable, high energy, starting project after project but not finishing them, cleaning excessively adn being too much; reports talking a little faster, not needing as much sleep (though denies increased libido spending money); after such an episode he crashes and gets very depressed. Patient has intermittent AH independent of mood episodes -Discussed medication regimen in more detail. Agreed to get rid of Seroquel since a caused weight gain. Reviewed risks/side effects of lithium and patient agrees to start -not sure if he wants to get back on methadone; thinking about 05/07 remains very depressed with significant psychomotor retardation. Not sleeping well and high anxiety. Will consider restarting Seroquel, at least for help with sleep if insomnia not improved; will also consider restarting Trileptal as likely minimal impact on Suboxone/methadone. Kountze just getting started and not sure if it is therapeutic. Will hold off on medication changes at this time. ECT remains an option with which patient is amenable 05/08 Patient remains depressed however he does think lithium might be helping because he he says maybe his mood is getting a little better. He reports significant anxiety and near panic but agrees to hold off restarting Trileptal to see how lithium plays out. Patient still exhibits significant psychomotor retardation however his eye contact was improved today which is hopeful. Patient struggling to sleep and had nightmares on trazodone; Remeron, Vistaril with Benadryl, not helpful in the past. Patient says he was on doxepin in the past for insomnia and agrees to restart that. Patient got Sublocade 2 weeks ago; he says he was using on top of that and is continuing to have withdrawal symptoms. Patient discussed with addiction counselor history and concluded that his longest times of sobriety were with methadone and he is considering getting back on that. 05/09 starting to do better, mood improving, more engaged, going to groups; stuggles w/ insomnia 05/10 feels mood is getting better; anxiety still quite a problem but no panic yet. Skeptical about staying on Sublocade; says p.r.n. Suboxone did not help but agrees to continue trying with higher dose. Thorazine not helping for sleep so patient decided to go back on Seroquel even though caused weight gain. 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 Suboxone to 8 mg to see if can help with perceived withdrawal symptoms; placed addiction consult to review options with patient; wants program 05/12 DC Trileptal for now; will likely restart but want more to see how p.r.n. Suboxone helps with patient's withdrawal symptoms. This however was what was helpful for anxiety in the past and may need to be restarted 05/13/24: Reports anxiety is still high and felt nauseous on Trileptal. We did discuss potentially trialing Trileptal 150 mg daily rather than twice daily to see if he can tolerate this before discontinuing. 05/14/2024: Formally discontinue Trileptal. Awaiting bed at [facility]. 05/15 check lithium level, bilat action tremor which seems to be related to lithium. will decide tomorrow if adding propanolol or lowering dose of lithium depending trough level. PLAN CV, 15 minutes checks for safety For now... DC Trileptal 150 mg b.i.d.; used to be on 300 mg b.i.d.; some concern for inducing metabolism of Sublocade/methadone however this medication help with anxiety in the past. Continue Seroquel 100 mg q.h.s.; helps with insomnia and patient will take it despite history of it causing weight gain suboxone 8/2 mg b.i.d. prn for withdrawal Continue Vraylar 6 mg daily Continue lithium ER 600 mg q.h.s. for bipolar depression; level WNL; associated labs wnl Continue Prozac 40 mg daily DC Doxepin Discontinue Thorazine Addiction consult placed Past regimen: Cariprazine (Cariprazine Hcl 3 Mg Capsule) 6 mg PO DAILY [facility] Clonidine HCl (Clonidine Hcl 0.1 Mg Tablet) 0.1 mg PO Q4H PRN; Protocol Clonidine HCl (Clonidine Hcl 0.1 Mg Tablet) 0.1 mg PO DAILY@1300 [facility]; Protocol Fluoxetine HCl (Fluoxetine Hcl 20 Mg Capsule) 20 mg PO DAILY [facility] Lorazepam (Lorazepam 1 Mg Tablet) 1 mg PO DAILY PRN To PREVENT panic Olanzapine (Olanzapine 5 Mg Tablet) 5 mg PO TID PRN Omeprazole (Omeprazole 20 Mg Capsule.Dr) 20 mg PO DAILY@0630 [facility] Ondansetron HCl (Ondansetron Odt 4 Mg Tab.Rapdis) 4 mg TRANSLINGU Q6H PRN Oxcarbazepine (Oxcarbazepine 300 Mg Tablet) 300 mg PO BID [facility] Quetiapine Fumarate (Quetiapine Fumarate 50 Mg Tablet) 50 mg PO BID PRN Quetiapine Fumarate (Quetiapine Fumarate 50 Mg Tablet) 150 mg PO BEDTIME [facility] Reason for continued inpatient stay Substantial Risk for: inability to function Time Spent With Patient Time: Total time managing care of this patient today ____ minutes.
[2024-05-15] MEDS: Nicotine Polacrilex Lozenge 4 MG LOZENGE BUCCAL ×2 (11:32→16:32)
[2024-05-15] MEDS: Acetaminophen 325 MG TABLET 650 MG PO ×2 (13:26→20:08)
[2024-05-15] MEDS: QUEtiapine Fumarate 50 MG TABLET PO (18:40)
[2024-05-15 18:43] LABS: Lithium 0.24 mmol/L (0.60-1.20)
[2024-05-15 20:00] VITALS: BP 136/85; PULSE 98; RESP 18; TEMP 36.8; O2SAT 96
[2024-05-15] MEDS: Lithium Carbonate ER 300 MG TABLET.ER 600 MG PO (20:08)
[2024-05-15] MEDS: QUEtiapine Fumarate 100 MG TABLET PO (20:08)
[2024-05-16] MEDS: Buprenorphine/Naloxone 8/2 mg TAB.SUBL 1 TAB SUBLINGUAL ×2 (06:04→18:19)
[2024-05-16 08:00] VITALS: BP 134/81; PULSE 92; RESP 16; TEMP 37; O2SAT 95
[2024-05-16] MEDS: FLUoxetine HCl 20 MG CAPSULE 40 MG PO (09:07)
[2024-05-16] MEDS: hydrOXYzine HCL 25 MG TABLET PO ×4 (09:07→20:07)
[2024-05-16] MEDS: Cariprazine HCl 3 MG CAPSULE 6 MG PO (09:07)
[2024-05-16] MEDS: Omeprazole 20 MG CAPSULE.DR PO (09:08)
[2024-05-16] MEDS: Nicotine Polacrilex Lozenge 4 MG LOZENGE BUCCAL (09:57)
[2024-05-16] MEDS: QUEtiapine Fumarate 50 MG TABLET PO (09:57)
--- NOTE | 2024-05-16 12:24 | P.PNPSI_ITS ---
Subjective Subjective Date of Service: 05/16/24 Reason For Visit: Schizoaffective disorder, PTSD Subjective Notes: Conditional Voluntary Interim History: Pt sleeping better. He continues to report that mood has improved, less depressed and less anxious. No SI/HI. No signs of psychosis or delusions. Talent level reviewed- 0.24 will add propanolol for tremors- did discussed increase risk of CVA beta eva in combination with cocaine- can stop propanolol if he relapses. He has been visible on the unit. He is ready for discharge as soon as bed in [facility] is identified. Medication Compliance: Yes Review of Systems Review of Systems overall unremarkable Mental Status Exam Mental Status Exam Narrative: pleasant. Engaged. Hospital clothing. Fair self-care. Organized. Enjoying the [employer] on television. Very knowledgeable regarding same. Overall endorses anxiety. No SI. No HI. No agitation. No psychosis. Insight and judgment good Diagnostics Vital Signs (24Hr): Vital Signs - 24 hr 05/15/24 20:00 05/16/24 08:00 Temperature 98.2 F 98.6 F Pulse Rate 98 92 Respiratory Rate 18 16 Blood Pressure 136/85 134/81 Pulse Oximetry 96 95 Oxygen Delivery Method Room Air Room Air BMI result Body Mass Index 35.5 Labs 05/04/24 01:23 05/11/24 08:25 Labs: Laboratory Results - last 48 hr 05/15/24 18:27 Talent 0.24 L Medications Medications Current Medications Acetaminophen (Acetaminophen 325 Mg Tablet) 650 mg PO Q6H PRN PRN Reason: Headache/Pain Mild Scale (1-3) Last Admin: 05/15/24 20:08 Dose: 650 mg Al Hydroxide/Mg Hydroxide (Magnesium Hydrox/Alum Hydrox 30 Ml Oral.Susp) 30 ml PO Q6H PRN PRN Reason: Heartburn/Nausea Buprenorphine/Naloxone (Buprenorphine/Naloxone 8/2 Mg Tab.Subl) 1 tab SUBLINGUAL BID PRN PRN Reason: withdrawal symptoms Last Admin: 05/16/24 06:04 Dose: 1 tab Cariprazine (Cariprazine Hcl 3 Mg Capsule) 6 mg PO DAILY [facility] Last Admin: 05/16/24 09:07 Dose: 6 mg Fluoxetine HCl (Fluoxetine Hcl 20 Mg Capsule) 40 mg PO DAILY [facility] Last Admin: 05/16/24 09:07 Dose: 40 mg Hydroxyzine HCl (Hydroxyzine Hcl 25 Mg Tablet) 25 mg PO QID [facility] Last Admin: 05/16/24 09:07 Dose: 25 mg Hydroxyzine HCl (Hydroxyzine Hcl 25 Mg Tablet) 25 mg PO Q6H PRN PRN Reason: Anxiety Last Admin: 05/11/24 15:29 Dose: 25 mg Talent Carbonate (Talent Carbonate Er 300 Mg Tablet.Er) 600 mg PO BEDTIME [facility] Last Admin: 05/15/24 20:08 Dose: 600 mg Magnesium Hydroxide (Milk Of Magnesia 30 Ml Oral.Susp) 30 ml PO DAILY PRN PRN Reason: Constipation Nicotine (Nicotine 21 Mg Patch.Td24) 21 mg TRANSDERMA DAILY PRN PRN Reason: nicotine cravings Nicotine Polacrilex (Nicotine Polacrilex Lozenge 4 Mg Lozenge) 4 mg BUCCAL Q2H PRN PRN Reason: Nicotine Cravings Last Admin: 05/16/24 09:57 Dose: 4 mg Patient Own ( Sofosbuvir- Velpatasvir 1 Tab) 1 tab PO DAILY@1300 [facility] Last Admin: 05/15/24 13:32 Dose: 1 tab Omeprazole (Omeprazole 20 Mg Capsule.Dr) 20 mg PO DAILY [facility] Last Admin: 05/16/24 09:08 Dose: 20 mg Quetiapine Fumarate (Quetiapine Fumarate 100 Mg Tablet) 100 mg PO BEDTIME [facility] Last Admin: 05/15/24 20:08 Dose: 100 mg Quetiapine Fumarate (Quetiapine Fumarate 50 Mg Tablet) 50 mg PO Q6H PRN PRN Reason: moderate-severe anxiety Last Admin: 05/16/24 09:57 Dose: 50 mg Trolamine Salicylate (Trolamine Salicylate 10 % Cream 141 Gm Tube) 1 appl TOPICAL TID PRN PRN Reason: left lower abdomen/induration Allergies Allergies Allergy/AdvReac Type Severity Reaction Status Date / Time No Known Allergies Allergy Verified 05/04/24 00:37 [No Known Allergies*] Assessment & Plan Assessment & Plan (1) Schizoaffective disorder, bipolar type: Status: Acute Code(s): F25.0 - Schizoaffective disorder, bipolar type (2) Opioid use disorder: Status: Acute Code(s): F11.90 - Opioid use, unspecified, uncomplicated (3) Cocaine use disorder, moderate, dependence: Status: Acute Code(s): F14.20 - Cocaine dependence, uncomplicated Plan Mr. Julio is a 29 year-old male with hx of Mood Disorder, opiod and cocaine use disorder who self [place] [facility] [place] increased depression, suicidal ideation with plan to OD on substances. He had been in a program for 4 months, relapsed, sent to [facility], relapsed again 2 days ago. He was last admitted here on M5 on 12/2023. We discussed risks, benefits and alternative treatment options. WIll increase prozac to 40mg po daily. dc trileptal was it induces metabolism of suboxone and methadone. Examined induration of injection site on LLQ abdomen, induration noted but no erythema, purulent discharge, no swelling, afebrile...continue to monitor. Hospital course: 05/06 Reviewed recent history since last discharge. Patient said that after leaving he was overall feeling pretty good and though still had some depression, much less and though still anxiety and sometimes panic significantly less. AH seemed to intermittently come up, but also much less frequently and able to be ignored. Patient liked the program where he went. At some point however patient's psychiatrist discontinued Seroquel q.h.s. since his mood had improved and it was causing weight gain. It is not exactly clear if this was the trigger but at some point not that long afterwards, patient's mood started to decline and depression crept back in. Patient had been sober for these 4-1/2 months but as depression worsened and AH started become intrusive again he also started having panic attacks and began to crave opioids. Patient was discontinued off methadone and put on Sublocade but during that transition he reports some withdrawal symptoms which exacerbated cravings and for the past 2-1/2 weeks patient relapsed. Patient reports AH ongoing however none today. -changing diagnosis to schizoaffective bipolar type: Further reviewed history and patient has history of manic episodes, last 1 about a year ago. They last for 4-5 days during which time he feels unstoppable, high energy, starting project after project but not finishing them, cleaning excessively adn being too much; reports talking a little faster, not needing as much sleep (though denies increased libido spending money); after such an episode he crashes and gets very depressed. Patient has intermittent AH independent of mood episodes -Discussed medication regimen in more detail. Agreed to get rid of Seroquel since a caused weight gain. Reviewed risks/side effects of lithium and patient agrees to start -not sure if he wants to get back on methadone; thinking about 05/07 remains very depressed with significant psychomotor retardation. Not sleeping well and high anxiety. Will consider restarting Seroquel, at least for help with sleep if insomnia not improved; will also consider restarting Trileptal as likely minimal impact on Suboxone/methadone. Talent just getting started and not sure if it is therapeutic. Will hold off on medication changes at this time. ECT remains an option with which patient is amenable 05/08 Patient remains depressed however he does think lithium might be helping because he he says maybe his mood is getting a little better. He reports significant anxiety and near panic but agrees to hold off restarting Trileptal to see how lithium plays out. Patient still exhibits significant psychomotor retardation however his eye contact was improved today which is hopeful. Patient struggling to sleep and had nightmares on trazodone; Remeron, Vistaril with Benadryl, not helpful in the past. Patient says he was on doxepin in the past for insomnia and agrees to restart that. Patient got Sublocade 2 weeks ago; he says he was using on top of that and is continuing to have withdrawal symptoms. Patient discussed with addiction counselor history and concluded that his longest times of sobriety were with methadone and he is considering getting back on that. 05/09 starting to do better, mood improving, more engaged, going to groups; stuggles w/ insomnia 05/10 feels mood is getting better; anxiety still quite a problem but no panic yet. Skeptical about staying on Sublocade; says p.r.n. Suboxone did not help but agrees to continue trying with higher dose. Thorazine not helping for sleep so patient decided to go back on Seroquel even though caused weight gain. 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 Suboxone to 8 mg to see if can help with perceived withdrawal symptoms; placed addiction consult to review options with patient; wants program 05/12 DC Trileptal for now; will likely restart but want more to see how p.r.n. Suboxone helps with patient's withdrawal symptoms. This however was what was helpful for anxiety in the past and may need to be restarted 05/13/24: Reports anxiety is still high and felt nauseous on Trileptal. We did discuss potentially trialing Trileptal 150 mg daily rather than twice daily to see if he can tolerate this before discontinuing. 05/14/2024: Formally discontinue Trileptal. Awaiting bed at [facility]. 05/15 check lithium level, bilat action tremor which seems to be related to lithium. will decide tomorrow if adding propanolol or lowering dose of lithium depending trough level. 05/16 propanolol for tremors 10mg po BID. ready for dc once he has bed in [facility]. PLAN CV, 15 minutes checks for safety For now... DC Trileptal 150 mg b.i.d.; used to be on 300 mg b.i.d.; some concern for inducing metabolism of Sublocade/methadone however this medication help with anxiety in the past. Continue Seroquel 100 mg q.h.s.; helps with insomnia and patient will take it despite history of it causing weight gain suboxone 8/2 mg b.i.d. prn for withdrawal Continue Vraylar 6 mg daily Continue lithium ER 600 mg q.h.s. for bipolar depression; level WNL; associated labs wnl Continue Prozac 40 mg daily DC Doxepin Discontinue Thorazine Addiction consult placed Past regimen: Cariprazine (Cariprazine Hcl 3 Mg Capsule) 6 mg PO DAILY [facility] Clonidine HCl (Clonidine Hcl 0.1 Mg Tablet) 0.1 mg PO Q4H PRN; Protocol Clonidine HCl (Clonidine Hcl 0.1 Mg Tablet) 0.1 mg PO DAILY@1300 [facility]; Protocol Fluoxetine HCl (Fluoxetine Hcl 20 Mg Capsule) 20 mg PO DAILY [facility] Lorazepam (Lorazepam 1 Mg Tablet) 1 mg PO DAILY PRN To PREVENT panic Olanzapine (Olanzapine 5 Mg Tablet) 5 mg PO TID PRN Omeprazole (Omeprazole 20 Mg Capsule.Dr) 20 mg PO DAILY@0630 [facility] Ondansetron HCl (Ondansetron Odt 4 Mg Tab.Rapdis) 4 mg TRANSLINGU Q6H PRN Oxcarbazepine (Oxcarbazepine 300 Mg Tablet) 300 mg PO BID [facility] Quetiapine Fumarate (Quetiapine Fumarate 50 Mg Tablet) 50 mg PO BID PRN Quetiapine Fumarate (Quetiapine Fumarate 50 Mg Tablet) 150 mg PO BEDTIME [facility] Reason for continued inpatient stay Substantial Risk for: inability to function Time Spent With Patient Time: Total time managing care of this patient today ____ minutes.
[2024-05-16 12:32] VITALS: BP 112/79; PULSE 70
[2024-05-16] MEDS: Propranolol HCL 10 MG TABLET PO ×2 (12:32→20:07)
--- NOTE | 2024-05-16 16:52 | PC.NURSE ---
Aren signed a three day notice, up on Saturday 05/19.
[2024-05-16 20:00] VITALS: BP 137/78; PULSE 87; RESP 18; TEMP 37; O2SAT 99
[2024-05-16] MEDS: Lithium Carbonate ER 300 MG TABLET.ER 600 MG PO (20:07)
[2024-05-16] MEDS: QUEtiapine Fumarate 100 MG TABLET PO (20:07)
[2024-05-17] MEDS: Buprenorphine/Naloxone 8/2 mg TAB.SUBL 1 TAB SUBLINGUAL ×2 (06:12→17:41)
[2024-05-17] MEDS: hydrOXYzine HCL 25 MG TABLET PO ×4 (08:35→21:17)
[2024-05-17] MEDS: FLUoxetine HCl 20 MG CAPSULE 40 MG PO (08:35)
[2024-05-17] MEDS: Omeprazole 20 MG CAPSULE.DR PO (08:35)
[2024-05-17 08:36] VITALS: BP 119/81; PULSE 85; RESP 16; TEMP 36.8; O2SAT 94
[2024-05-17] MEDS: Propranolol HCL 10 MG TABLET PO ×2 (08:36→21:17)
[2024-05-17] MEDS: Cariprazine HCl 3 MG CAPSULE 6 MG PO (08:36)
[2024-05-17] MEDS: Nicotine Polacrilex Lozenge 4 MG LOZENGE BUCCAL ×2 (11:23→15:34)
--- NOTE | 2024-05-17 14:42 | HO.PSYCHPN ---
Subjective Subjective Date of Service: 05/17/24 Reason For Visit: Schizoaffective disorder, PTSD Subjective Notes: Conditional Voluntary and 3 Day Healthcare Proxy: No Guardianship: No Medical Problems Affecting Mental Status: No Interim History: Pt completed an interview with [facility] today. He has been told he may be considered for admission this week. Denies current concerns. Hopes to return to Methadone in OP States he is finding [place] helpful-tremor managed with propranolol Denies SI/HI/AH/VH. No sx of amy/psychosis Medication Compliance: Yes Side effects from medications: No Attending Groups: Intermittent Review of Systems Acute medical concerns: No Medical Review of Systems: unchanged Review of Systems Review of Systems Yes all other systems are reviewed and are negative (denies) Mental Status Exam Mental Status Exam Patient Appearance: Appropriate Patient Orientation: Person, Place, Time and Situation Level of Consciousness: Alert Patient Behavior: Talkative and Good Eye Contact Mood Description: Flat Affect Description: Flat Patient Cognition Impaired: No Ability to Follow Directions: Good Speech Pattern: Spontaneous Speech Memory Description: Intact Hallucinations: None Delusions: Not Present Thought Process: Distracted Thought Content: positive for Circumstantial Judgement: Good Diagnostics Vital Signs (24Hr): Vital Signs - 24 hr 05/16/24 20:00 05/17/24 08:36 05/17/24 08:36 Temperature 98.6 F 98.2 F Pulse Rate 87 85 Respiratory Rate 18 16 Blood Pressure 137/78 119/81 Pulse Oximetry 99 94 Oxygen Delivery Method Room Air Room Air BMI result Body Mass Index 35.5 Labs 05/04/24 01:23 05/11/24 08:25 Labs: Laboratory Results - last 48 hr 05/15/24 18:27 [place] 0.24 L Medications Medications Current Medications Acetaminophen (Acetaminophen 325 Mg Tablet) 650 mg PO Q6H PRN PRN Reason: Headache/Pain Mild Scale (1-3) Last Admin: 05/15/24 20:08 Dose: 650 mg Al Hydroxide/Mg Hydroxide (Magnesium Hydrox/Alum Hydrox 30 Ml Oral.Susp) 30 ml PO Q6H PRN PRN Reason: Heartburn/Nausea Buprenorphine/Naloxone (Buprenorphine/Naloxone 8/2 Mg Tab.Subl) 1 tab SUBLINGUAL BID PRN PRN Reason: withdrawal symptoms Last Admin: 05/17/24 06:12 Dose: 1 tab Cariprazine (Cariprazine Hcl 3 Mg Capsule) 6 mg PO DAILY [facility] Last Admin: 05/17/24 08:36 Dose: 6 mg Fluoxetine HCl (Fluoxetine Hcl 20 Mg Capsule) 40 mg PO DAILY [facility] Last Admin: 05/17/24 08:35 Dose: 40 mg Hydroxyzine HCl (Hydroxyzine Hcl 25 Mg Tablet) 25 mg PO QID [facility] Last Admin: 05/17/24 12:51 Dose: 25 mg Hydroxyzine HCl (Hydroxyzine Hcl 25 Mg Tablet) 25 mg PO Q6H PRN PRN Reason: Anxiety Last Admin: 05/11/24 15:29 Dose: 25 mg [place] Carbonate ([place] Carbonate Er 300 Mg Tablet.Er) 600 mg PO BEDTIME [facility] Last Admin: 05/16/24 20:07 Dose: 600 mg Magnesium Hydroxide (Milk Of Magnesia 30 Ml Oral.Susp) 30 ml PO DAILY PRN PRN Reason: Constipation Nicotine (Nicotine 21 Mg Patch.Td24) 21 mg TRANSDERMA DAILY PRN PRN Reason: nicotine cravings Nicotine Polacrilex (Nicotine Polacrilex Lozenge 4 Mg Lozenge) 4 mg BUCCAL Q2H PRN PRN Reason: Nicotine Cravings Last Admin: 05/17/24 11:23 Dose: 4 mg Patient Own ( Sofosbuvir- Velpatasvir 1 Tab) 1 tab PO DAILY@1300 [facility] Last Admin: 05/17/24 12:45 Dose: 1 tab Omeprazole (Omeprazole 20 Mg Capsule.Dr) 20 mg PO DAILY [facility] Last Admin: 05/17/24 08:35 Dose: 20 mg Propranolol HCl (Propranolol Hcl 10 Mg Tablet) 10 mg PO BID [facility]; Protocol Last Admin: 05/17/24 08:36 Dose: 10 mg Quetiapine Fumarate (Quetiapine Fumarate 100 Mg Tablet) 100 mg PO BEDTIME [facility] Last Admin: 05/16/24 20:07 Dose: 100 mg Quetiapine Fumarate (Quetiapine Fumarate 50 Mg Tablet) 50 mg PO Q6H PRN PRN Reason: moderate-severe anxiety Last Admin: 05/16/24 09:57 Dose: 50 mg Trolamine Salicylate (Trolamine Salicylate 10 % Cream 141 Gm Tube) 1 appl TOPICAL TID PRN PRN Reason: left lower abdomen/induration Allergies Allergies Allergy/AdvReac Type Severity Reaction Status Date / Time No Known Allergies Allergy Verified 05/04/24 00:37 [No Known Allergies*] Assessment & Plan Assessment & Plan (1) Schizoaffective disorder, bipolar type: Status: Acute Code(s): F25.0 - Schizoaffective disorder, bipolar type (2) Opioid use disorder: Status: Acute Code(s): F11.90 - Opioid use, unspecified, uncomplicated (3) Cocaine use disorder, moderate, dependence: Status: Acute Code(s): F14.20 - Cocaine dependence, uncomplicated Plan Mr. Julio is a 29 year-old male with hx of Mood Disorder, opiod and cocaine use disorder who self presented to [facility] ED reporting increased depression, suicidal ideation with plan to OD on substances. He had been in a program for 4 months, relapsed, sent to [facility], relapsed again 2 days ago. He was last admitted here on M5 on 12/2023. We discussed risks, benefits and alternative treatment options. WIll increase prozac to 40mg po daily. dc trileptal was it induces metabolism of suboxone and methadone. Examined induration of injection site on LLQ abdomen, induration noted but no erythema, purulent discharge, no swelling, afebrile...continue to monitor. Hospital course: 05/06 Reviewed recent history since last discharge. Patient said that after leaving he was overall feeling pretty good and though still had some depression, much less and though still anxiety and sometimes panic significantly less. AH seemed to intermittently come up, but also much less frequently and able to be ignored. Patient liked the program where he went. At some point however patient's psychiatrist discontinued Seroquel q.h.s. since his mood had improved and it was causing weight gain. It is not exactly clear if this was the trigger but at some point not that long afterwards, patient's mood started to decline and depression crept back in. Patient had been sober for these 4-1/2 months but as depression worsened and AH started become intrusive again he also started having panic attacks and began to crave opioids. Patient was discontinued off methadone and put on Sublocade but during that transition he reports some withdrawal symptoms which exacerbated cravings and for the past 2-1/2 weeks patient relapsed. Patient reports AH ongoing however none today. -changing diagnosis to schizoaffective bipolar type: Further reviewed history and patient has history of manic episodes, last 1 about a year ago. They last for 4-5 days during which time he feels unstoppable, high energy, starting project after project but not finishing them, cleaning excessively adn being too much; reports talking a little faster, not needing as much sleep (though denies increased libido spending money); after such an episode he crashes and gets very depressed. Patient has intermittent AH independent of mood episodes -Discussed medication regimen in more detail. Agreed to get rid of Seroquel since a caused weight gain. Reviewed risks/side effects of lithium and patient agrees to start -not sure if he wants to get back on methadone; thinking about 05/07 remains very depressed with significant psychomotor retardation. Not sleeping well and high anxiety. Will consider restarting Seroquel, at least for help with sleep if insomnia not improved; will also consider restarting Trileptal as likely minimal impact on Suboxone/methadone. [place] just getting started and not sure if it is therapeutic. Will hold off on medication changes at this time. ECT remains an option with which patient is amenable 05/08 Patient remains depressed however he does think lithium might be helping because he he says maybe his mood is getting a little better. He reports significant anxiety and near panic but agrees to hold off restarting Trileptal to see how lithium plays out. Patient still exhibits significant psychomotor retardation however his eye contact was improved today which is hopeful. Patient struggling to sleep and had nightmares on trazodone; Remeron, Vistaril with Benadryl, not helpful in the past. Patient says he was on doxepin in the past for insomnia and agrees to restart that. Patient got Sublocade 2 weeks ago; he says he was using on top of that and is continuing to have withdrawal symptoms. Patient discussed with addiction counselor history and concluded that his longest times of sobriety were with methadone and he is considering getting back on that. 05/09 starting to do better, mood improving, more engaged, going to groups; stuggles w/ insomnia 05/10 feels mood is getting better; anxiety still quite a problem but no panic yet. Skeptical about staying on Sublocade; says p.r.n. Suboxone did not help but agrees to continue trying with higher dose. Thorazine not helping for sleep so patient decided to go back on Seroquel even though caused weight gain. 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 Suboxone to 8 mg to see if can help with perceived withdrawal symptoms; placed addiction consult to review options with patient; wants program 05/12 DC Trileptal for now; will likely restart but want more to see how p.r.n. Suboxone helps with patient's withdrawal symptoms. This however was what was helpful for anxiety in the past and may need to be restarted 05/13/24: Reports anxiety is still high and felt nauseous on Trileptal. We did discuss potentially trialing Trileptal 150 mg daily rather than twice daily to see if he can tolerate this before discontinuing. 05/14/2024: Formally discontinue Trileptal. Awaiting bed at [facility]. 05/15 check lithium level, bilat action tremor which seems to be related to lithium. will decide tomorrow if adding propanolol or lowering dose of lithium depending trough level. 05/16 propanolol for tremors 10mg po BID. ready for dc once he has bed in [facility]. 05/17 discharge 05/18 to [facility] PLAN CV, 15 minutes checks for safety For now... DC Trileptal 150 mg b.i.d.; used to be on 300 mg b.i.d.; some concern for inducing metabolism of Sublocade/methadone however this medication help with anxiety in the past. Continue Seroquel 100 mg q.h.s.; helps with insomnia and patient will take it despite history of it causing weight gain suboxone 8/2 mg b.i.d. prn for withdrawal Continue Vraylar 6 mg daily Continue lithium ER 600 mg q.h.s. for bipolar depression; level WNL; associated labs wnl Continue Prozac 40 mg daily DC Doxepin Discontinue Thorazine Addiction consult placed Past regimen: Cariprazine (Cariprazine Hcl 3 Mg Capsule) 6 mg PO DAILY [facility] Clonidine HCl (Clonidine Hcl 0.1 Mg Tablet) 0.1 mg PO Q4H PRN; Protocol Clonidine HCl (Clonidine Hcl 0.1 Mg Tablet) 0.1 mg PO DAILY@1300 [facility]; Protocol Fluoxetine HCl (Fluoxetine Hcl 20 Mg Capsule) 20 mg PO DAILY [facility] Lorazepam (Lorazepam 1 Mg Tablet) 1 mg PO DAILY PRN To PREVENT panic Olanzapine (Olanzapine 5 Mg Tablet) 5 mg PO TID PRN Omeprazole (Omeprazole 20 Mg Capsule.Dr) 20 mg PO DAILY@0630 [facility] Ondansetron HCl (Ondansetron Odt 4 Mg Tab.Rapdis) 4 mg TRANSLINGU Q6H PRN Oxcarbazepine (Oxcarbazepine 300 Mg Tablet) 300 mg PO BID [facility] Quetiapine Fumarate (Quetiapine Fumarate 50 Mg Tablet) 50 mg PO BID PRN Quetiapine Fumarate (Quetiapine Fumarate 50 Mg Tablet) 150 mg PO BEDTIME [facility] Reason for continued inpatient stay Substantial Risk for: rapid decompensation Time Spent With Patient Time: Total time managing care of this patient today ____ minutes.
[2024-05-17] MEDS: QUEtiapine Fumarate 50 MG TABLET PO (15:34)
[2024-05-17 20:00] VITALS: BP 114/79; PULSE 82; RESP 16; TEMP 36.4; O2SAT 95
[2024-05-17] MEDS: QUEtiapine Fumarate 100 MG TABLET PO (21:17)
[2024-05-17] MEDS: Lithium Carbonate ER 300 MG TABLET.ER 600 MG PO (21:17)
[2024-05-18] MEDS: Buprenorphine/Naloxone 8/2 mg TAB.SUBL 1 TAB SUBLINGUAL (06:18)
[2024-05-18 07:00] VITALS: BMI 36.3
[2024-05-18 08:00] VITALS: BP 117/70; PULSE 97; RESP 16; TEMP 36.4; O2SAT 96
[2024-05-18] MEDS: Cariprazine HCl 3 MG CAPSULE 6 MG PO (08:40)
[2024-05-18] MEDS: Propranolol HCL 10 MG TABLET PO (08:40)
[2024-05-18] MEDS: hydrOXYzine HCL 25 MG TABLET PO ×2 (08:40→12:40)
[2024-05-18] MEDS: FLUoxetine HCl 20 MG CAPSULE 40 MG PO (08:40)
[2024-05-18] MEDS: Omeprazole 20 MG CAPSULE.DR PO (08:44)
--- NOTE | 2024-05-18 17:02 | PM.PSYDC ---
DS: Providers Provider Date of Service: 05/18/24 Date of admission: 05/04/24 12:18 Date of discharge: 05/18/24 Primary care physician: Unknown Physician Admitting clinician: Meeta Parson Attending physician on admission: Primo Pinzon Consults: 05/04/24 20:05 Addiction Medicine Routine Consulting Provider: Addiction Covering Reason for consultation: pt wants to discuss sublicade to Methadone Has provider been notified: Yes Attending physician on discharge: Primo Pinzon Discharging clinician: Kathryn uHrtado DS: Diagnosis Discharge Diagnosis (1) Schizoaffective disorder, bipolar type: Status: Acute (2) Opioid use disorder: Status: Acute (3) Cocaine use disorder, moderate, dependence: Status: Acute DS: Medications Discharge Medications Home Medications: Previous Rx's ?Medication ?Instructions ?Recorded buprenorphine 8 mg-naloxone 2 mg 1 tab sublingual BID PRN 05/17/24 sublingual tablet withdrawal symptoms #13 tabs cariprazine 6 mg capsule (Vraylar) 6 mg PO DAILY 30 days #30 caps 05/17/24 fluoxetine 20 mg capsule 40 mg (2 x 20 mg) PO DAILY #60 caps 05/17/24 hydroxyzine HCl 25 mg tablet 25 mg PO QID #120 tabs 05/17/24 lithium carbonate 300 mg 600 mg (2 x 300 mg) PO BEDTIME #60 05/17/24 tablet,extended release tabs nicotine (polacrilex) 4 mg buccal 4 mg buccal Q2H PRN Nicotine 05/17/24 lozenge Cravings #110 ea omeprazole 20 mg capsule,delayed 20 mg PO DAILY 30 days #30 caps 05/17/24 release propranolol 10 mg tablet 10 mg PO BID #60 tabs 05/17/24 quetiapine 100 mg tablet 100 mg PO BEDTIME #30 tabs 05/17/24 quetiapine 50 mg tablet 50 mg PO Q6H PRN moderate-severe 05/17/24 anxiety #60 tabs sofosbuvir 400 mg-velpatasvir 100 1 tab PO DAILY #30 tabs 05/17/24 mg tablet trolamine salicylate 10 % topical 1 appl topical TID PRN left lower 05/17/24 cream (Aspercreme) abdomen/induration #118.2 mL Mental Status Exam Mental Status Exam Patient Appearance: Appropriate Patient Orientation: Person, Place, Time and Situation Level of Consciousness: Alert Patient Behavior: Talkative and Good Eye Contact Mood Description: Flat Affect Description: Flat Patient Cognition Impaired: No Ability to Follow Directions: Good Speech Pattern: Spontaneous Speech Memory Description: Intact Hallucinations: None Delusions: Not Present Thought Process: Distracted Thought Content: positive for Circumstantial Judgement: Good Data Data Completed and Pending Completed studies during hospitalization [Text1]: 05/15/24 18:27 [place] 0.24 L DS: Summary Hospital Course Hospital Course: Admission to adult psychiatry for exacerbation of opiate use disorder, cocaine use disorder, schizoaffective disorder, bipolar type. Pt reported an increase in depression with a plan to overdose. Reports 4.[address] [facility], relapse, admission to [facility] and leaving [facility], using 30 bags of IV heroin prior to admission. Pt worked with Dr. Gomes during his stay. Medications were evaluated and carefully titrated. Pt was involved with addiction medicine and did participate in the milieu to strengthen coping skills. He is discharged to [facility] to continue rehab, will continue with his out patient providers as well. Status at Discharge Functional status at discharge: independent ambulation Overall status at discharge: patient is progressing back to baseline Time Spent with Patient Time attestation: Total time managing care of this patient today ____ minutes. Time spent: Less than 30 minutes Discharge Plan Discharge Anticipated Discharge Date/Time: 05/18/24 12:00 Patient Disposition: Xfer Inpatient Rehab Fac Discharge Diagnosis: Schizoaffective Disorder, Bipolar Type Cocaine Use Disorder Opiate Use Disorder, currently on Suboxone Referrals: [facility] OTP Suboxone Appt w Dr. Livingston [Other] - 05/24/24 1:30 pm [facility] [Provider Group] - 1 Week (office will call patient with f/u appointment) Discharge Medications: New lithium carbonate 300 mg Tablet Extended Release 600 mg PO BEDTIME Qty: 60 0RF quetiapine 100 mg Tablet 100 mg PO BEDTIME Qty: 30 0RF propranolol 10 mg Tablet 10 mg PO BID Qty: 60 0RF Protocol: Hold for SBP/HR < HOLD for SBP < : 90 HOLD for HR < : 60 fluoxetine 20 mg Capsule 40 mg PO DAILY Qty: 60 0RF trolamine salicylate [Aspercreme] 10 % Cream 1 appl topical TID PRN (Reason: left lower abdomen/induration) Qty: 118.2 0RF buprenorphine-naloxone 8-2 mg Tablet, Sublingual 1 tab sublingual BID PRN (Reason: withdrawal symptoms) Qty: 13 0RF nicotine (polacrilex) 4 mg Lozenge 4 mg buccal Q2H PRN (Reason: Nicotine Cravings) Qty: 110 0RF quetiapine 50 mg Tablet 50 mg PO Q6H PRN (Reason: moderate-severe anxiety) Qty: 60 0RF Continued omeprazole 20 mg Capsule,Delayed Release(Dr/Ec) 20 mg PO DAILY 30 Days Qty: 30 1RF hydroxyzine HCl 25 mg tablet 25 mg PO QID Qty: 120 0RF Vraylar 6 mg capsule 6 mg PO DAILY 30 Days Qty: 30 1RF sofosbuvir-velpatasvir 400-100 mg tablet 1 tab PO DAILY Qty: 30 0RF Discontinued clonidine HCl 0.1 mg Tablet 0.1 mg PO DAILY@1300 30 Days Qty: 30 1RF Protocol: Hold for SBP< HOLD for SBP < : 90 quetiapine 150 mg tablet 150 mg PO BEDTIME 30 Days Qty: 30 1RF fluoxetine 20 mg Capsule 20 mg PO DAILY 30 Days Qty: 30 1RF lorazepam 1 mg Tablet 1 mg PO DAILY PRN (Reason: To PREVENT panic) 30 Days Qty: 15 1RF oxcarbazepine 300 mg Tablet 300 mg PO BID 30 Days Qty: 60 1RF nicotine (polacrilex) 4 mg Lozenge 4 mg buccal Q2H PRN (Reason: Nicotine Cravings) Qty: 100 1RF loperamide 2 mg capsule 4 mg PO BID PRN (Reason: Diarrhea) ondansetron HCl 4 mg tablet 4 mg PO Q6-8H PRN (Reason: nausea/vomiting) cephalexin 500 mg capsule 500 mg PO QID quetiapine 50 mg tablet 50 mg PO BEDTIME Sublocade 300 mg/1.5 mL solution, extended rel syringe 300 mg subcut QMONTH Discharge Orders: Discharge Order (Routine); Ordered 05/18/24 Ordered By: Kathryn Hurtado Diet: Advance to usual diet Activity on Discharge: As tolerated Stand Alone Forms: Patient Portal Discharge page, Community Support Print Language: Cameroonian Care Plan Goals: Mood and Behavioral Stabilization Abstinence from substances Health Concerns: Mood and Behavioral Stabilization Abstinence from substances Plan of Treatment: Transfer today to [facility] Attend scheduled appointments Take medications as directed Call/Return as needed Assessment: No SI/HI/AH/VH, sx of amy or psychosis Pt to transfer to [facility] today. Discharge Date/Time: 05/18/24 14:00
== END 2024-05-18 14:00 | DRG 750 ==
LOC: HO.ED 11:42 → HO.PM5 12:29
PROVIDERS: Social Worker; Admitting Provider Clinical Nurse Specialist Psychiatric/Mental Health, Adult; Emergency Provider Emergency Medicine; Visit Provider Psychiatry & Neurology Psychiatry
DX: F25.0 Schizoaffective disorder, bipolar type (principal); R45.851 Suicidal ideations; F11.20 Opioid dependence, uncomplicated; F17.210 Nicotine dependence, cigarettes, uncomplicated; F43.10 Post-traumatic stress disorder, unspecified; F19.10 Other psychoactive substance abuse, uncomplicated; F14.20 Cocaine dependence, uncomplicated; Z71.6 Tobacco abuse counseling; Z59.02 Unsheltered homelessness; Z79.899 Other long term (current) drug therapy
CPT/HCPCS: 36415; 80048; 80053; 80061; 80143; 80178; 80179; 80307; 81003; 82607; 82746; 83036; 83735; 84439; 84443; 85025; 93005; 99285; S9485

== ENCOUNTER → 2024-05-04 00:38 | Outpatient (BNV) | payer MEDICAID, SELFPAY | PROVIDERS: Admitting Provider Clinical Nurse Specialist Psychiatric/Mental Health, Adult; Emergency Provider Emergency Medicine; Visit Provider Internal Medicine | DX: R00.0 Tachycardia, unspecified (principal); F14.20 Cocaine dependence, uncomplicated | CPT/HCPCS: 93010 ==

== ENCOUNTER → 2024-05-04 12:18 | Outpatient (BNV) | payer OTHER, SELFPAY | PROVIDERS: Admitting Provider Clinical Nurse Specialist Psychiatric/Mental Health, Adult; Emergency Provider Emergency Medicine; Visit Provider Psychiatry & Neurology Psychiatry | DX: F25.0 Schizoaffective disorder, bipolar type (principal); F11.90 Opioid use, unspecified, uncomplicated; F14.20 Cocaine dependence, uncomplicated | CPT/HCPCS: 99231; 99232 ==